=== PATIENT | female | born 1945 | race Caucasian/White ===

== ENCOUNTER 2017-10-28 16:38 | Inpatient (IN) | payer MEDICARE, OTHER, SELFPAY ==
[2017-10-28 15:44] VITALS: BP 127/63; PULSE 79; RESP 18; TEMP 36.9; O2SAT 93; BMI 50.3
[2017-10-28 15:49] VITALS: BMI 50.3
--- NOTE | 2017-10-28 16:20 | NURSING ---
Patient admitted to room 2 from [facility]. Oriented to room and call light system explained.
--- NOTE | 2017-10-28 20:27 | PCM.HP.STD ---
Problem List (1) Osteoarthritis of right knee Status: Chronic (2) Diabetes mellitus Status: Chronic (3) Hypertension Status: Chronic (4) Asthma Status: Chronic (5) Vitamin D deficiency Status: Chronic (6) Osteoarthritis Status: Chronic (7) Allergic rhinitis Status: Chronic (8) Morbid obesity Status: Chronic (9) COPD (chronic obstructive pulmonary disease) Status: Chronic (10) Obstructive sleep apnea Status: Chronic History of Present Illness Date of Admission: 10/28/17 Chief Complaint: Here for rehabilitation, strengthening, prior to discharge home alone. The patient is a 72 year old Female with below past medical history hospitalized for right knee replacement 10/25/[address] Heriberto Serra at [facility], admitted to TCU for rehabilitation, strengthening, prior to discharge home alone. Past Medical History Past Medical History (Chronic Problems): Chronic Problems Osteoarthritis of right knee (Chronic) Diabetes mellitus (Chronic) Hypertension (Chronic) Asthma (Chronic) Vitamin D deficiency (Chronic) Osteoarthritis (Chronic) Allergic rhinitis (Chronic) Morbid obesity (Chronic) COPD (chronic obstructive pulmonary disease) (Chronic) Obstructive sleep apnea (Chronic) Allergies codeine Allergy (Verified 10/28/17 17:18) Unknown erythromycin base Allergy (Verified 10/28/17 17:18) Unknown Penicillins Allergy (Verified 10/28/17 17:18) Unknown Home Medications: Ambulatory Orders Medication Instructions Recorded Albuterol Aerosols [Ventolin 2.5 mg INHALATION Q6H PRN PRN 10/28/17 Aerosols] Albuterol Sulfate [Proair 108 mcg IH Q4H PRN 10/28/17 Respiclick] Bisacodyl [Bisac-Evac] 10 mg RC BID PRN 10/28/17 Bisoprolol Fumarate/Hctz 2.5 - 6.25 mg PO DAILY 10/28/17 [Bisoprolol-Hctz 2.5-6.25 mg Tb] Cholecalciferol (Vitamin D3) 5,000 unit PO DAILY 10/28/17 [Vitamin D3] Fluticasone/Vilanterol [Breo 1 each IH DAILY 10/28/17 Ellipta Inhaler] Hydroxychloroquine [Plaquenil] 200 mg PO BIDCM 10/28/17 Loratadine [Claritin] 10 mg PO DAILY 10/28/17 Metformin HCl 500 mg PO DAILY 10/28/17 Montelukast Sodium 10 mg PO DAILY 10/28/17 MorphINE [MS Contin] 15 mg PO Q12H 10/28/17 Oxycodone HCl/Acetaminophen 1 - 2 tablet PO Q4H PRN PRN 10/28/17 [Percocet 5/325] Quinapril HCl 40 mg PO DAILY 10/28/17 Rivaroxaban [Xarelto] 10 mg PO DAILY 10/28/17 Surgical History: total knee arthroplasty - Right. 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 Lives: Alone Smoking Status: Former smoker Tobacco Use: Non-smoker Alcohol: None Drugs: None - *Family History Maternal History Items: No pertinent history Paternal History Items: No pertinent history Review of Systems Constitutional: Denies: Chills, Fever, Weight Change HEENT: Denies: Head Aches, Sinus Congestion, Sinus Drainage Cardiovascular: Denies: Chest Pain, Palpitations Respiratory: Denies: Cough, Shortness of breath at rest, Sputum production Gastrointestinal: Denies: Abdominal Pain, Nausea, Vomiting Genitourinary: Denies: Dysuria Musculoskeletal: Denies: Joint Pain, Joint Tenderness Skin: Denies: Rash, Wounds Neurological: Denies: Numbness, Tingling, Focal weakness Psychiatric: Denies: Anxiety, Depression, Homicidal Ideations, Suicidal Ideations Hematologic/ Lymphatic: Denies: Easy Bruising, Easy Bleeding VTE Information - Inpt Only VTE Present on Admission: No VTE Mechan Device Prophylaxis: Knee High ANIBAL Hose VTE Pharm Prophylaxis ordered?: Yes - Physical Exam General: Alert, Oriented x3, Cooperative HEENT: Atraumatic, PERRLA, EOMI, Normocephalic Neck: Supple, No JVD, Negative Carotid Bruits Lungs: Clear to auscultation, Normal air movement Cardiovascular: Regular rate, No murmurs Abdomen: Bowel Sounds Present, Soft, Non Tender Extremities: No edema, Capillary Refill Less than 3 Seconds Skin: No rashes, No breakdown, Incision - Right knee clean, dry, intact. Musculoskeletal: No Tenderness to Palpation of Joints or Extremities Neurological: Cranial nerves II-XII grossly intact Psych/Mental Status: Normal Affect, Appropriate Vital Signs Temp Pulse Resp BP Pulse Ox 98.4 F 79 18 127/63 H 93 10/28/17 15:44 10/28/17 15:44 10/28/17 15:44 10/28/17 15:44 10/28/17 15:44 Oxygen Delivery Method Room Air Weight: 120.854 kg Body Mass Index (BMI) 50.3 Intake and Output for Last 24 Hours 10/26/17 10/27/17 10/28/17 23:59 23:59 23:59 Intake Total 120 / 120 Balance 120 / 120 Assessment/Plan 72 year old female with below past medical history status post right knee arthroplasty with Dr. Heriberto Serra 10/25/2017, admitted to TCU for rehabilitation, strengthening, prior to discharge home alone. Debility - PT/OT. Pain - MS Contin 15MG Q12H, Oxycodone 10MG Q4H PRN severe pain, Tylenol 1000MG Q8H. Bowel - Miralax 17GM daily, Senna/colace 2 tablets BID, Dulcolax 10MG PO daily PRN, Magnesium citrate 300ML PO x 1 dose for clean out. Pneumonia vaccination - Administer Prevnar 13 and/or Pneumovax 23 as necessary. DVT prophylaxis - Xarelto 10MG thru 11/06/2017. COPD - Breo 1 inhalation, Albuterol 2.5MG Q6H PRN, Proair Respiclick 108MG Q4H PRN. Vitamin D deficiency - D3 5000IU daily. Hypertension - Bisoprolol HCT 2.5/6.25MG daily, Lisinopril 40MG daily. Osteoarthritis - Plaquenil 200MG BID. Allergic Rhinitis - Loratadine 10MG daily. Diabetes Mellitus II - Metformin 500MG daily. Asthma - Singulair 10MG daily.
[2017-10-28] MEDS: Magnesium Citrate 300 ML PO (20:33)
[2017-10-28] MEDS: Hydroxychloroquine 200 MG Tablet PO (20:37)
--- NOTE | 2017-10-28 20:40 | HP.PCM_ITS ---
Problem List (1) Osteoarthritis of right knee Status: Chronic (2) Diabetes mellitus Status: Chronic (3) Hypertension Status: Chronic (4) Asthma Status: Chronic (5) Vitamin D deficiency Status: Chronic (6) Osteoarthritis Status: Chronic (7) Allergic rhinitis Status: Chronic (8) Morbid obesity Status: Chronic (9) COPD (chronic obstructive pulmonary disease) Status: Chronic (10) Obstructive sleep apnea Status: Chronic History of Present Illness Date of Admission: 10/28/17 Chief Complaint: Here for rehabilitation, strengthening, prior to discharge home alone. The patient is a 72 year old Female with below past medical history hospitalized for right knee replacement 10/25/[address] Heriberto Serra at [facility], admitted to TCU for rehabilitation, strengthening, prior to discharge home alone. Past Medical History Past Medical History (Chronic Problems): Chronic Problems Osteoarthritis of right knee (Chronic) Diabetes mellitus (Chronic) Hypertension (Chronic) Asthma (Chronic) Vitamin D deficiency (Chronic) Osteoarthritis (Chronic) Allergic rhinitis (Chronic) Morbid obesity (Chronic) COPD (chronic obstructive pulmonary disease) (Chronic) Obstructive sleep apnea (Chronic) Allergies codeine Allergy (Verified 10/28/17 17:18) Unknown erythromycin base Allergy (Verified 10/28/17 17:18) Unknown Penicillins Allergy (Verified 10/28/17 17:18) Unknown Home Medications: Ambulatory Orders Medication Instructions Recorded Albuterol Aerosols [Ventolin 2.5 mg INHALATION Q6H PRN PRN 10/28/17 Aerosols] Albuterol Sulfate [Proair 108 mcg IH Q4H PRN 10/28/17 Respiclick] Bisacodyl [Bisac-Evac] 10 mg RC BID PRN 10/28/17 Bisoprolol Fumarate/Hctz 2.5 - 6.25 mg PO DAILY 10/28/17 [Bisoprolol-Hctz 2.5-6.25 mg Tb] Cholecalciferol (Vitamin D3) 5,000 unit PO DAILY 10/28/17 [Vitamin D3] Fluticasone/Vilanterol [Breo 1 each IH DAILY 10/28/17 Ellipta Inhaler] Hydroxychloroquine [Plaquenil] 200 mg PO BIDCM 10/28/17 Loratadine [Claritin] 10 mg PO DAILY 10/28/17 Metformin HCl 500 mg PO DAILY 10/28/17 Montelukast Sodium 10 mg PO DAILY 10/28/17 MorphINE [MS Contin] 15 mg PO Q12H 10/28/17 Oxycodone HCl/Acetaminophen 1 - 2 tablet PO Q4H PRN PRN 10/28/17 [Percocet 5/325] Quinapril HCl 40 mg PO DAILY 10/28/17 Rivaroxaban [Xarelto] 10 mg PO DAILY 10/28/17 Surgical History: total knee arthroplasty - Right. 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 Lives: Alone Smoking Status: Former smoker Tobacco Use: Non-smoker Alcohol: None Drugs: None - *Family History Maternal History Items: No pertinent history Paternal History Items: No pertinent history Review of Systems Constitutional: Denies: Chills, Fever, Weight Change HEENT: Denies: Head Aches, Sinus Congestion, Sinus Drainage Cardiovascular: Denies: Chest Pain, Palpitations Respiratory: Denies: Cough, Shortness of breath at rest, Sputum production Gastrointestinal: Denies: Abdominal Pain, Nausea, Vomiting Genitourinary: Denies: Dysuria Musculoskeletal: Denies: Joint Pain, Joint Tenderness Skin: Denies: Rash, Wounds Neurological: Denies: Numbness, Tingling, Focal weakness Psychiatric: Denies: Anxiety, Depression, Homicidal Ideations, Suicidal Ideations Hematologic/ Lymphatic: Denies: Easy Bruising, Easy Bleeding VTE Information - Inpt Only VTE Present on Admission: No VTE Mechan Device Prophylaxis: Knee High ANIBAL Hose VTE Pharm Prophylaxis ordered?: Yes - Physical Exam General: Alert, Oriented x3, Cooperative HEENT: Atraumatic, PERRLA, EOMI, Normocephalic Neck: Supple, No JVD, Negative Carotid Bruits Lungs: Clear to auscultation, Normal air movement Cardiovascular: Regular rate, No murmurs Abdomen: Bowel Sounds Present, Soft, Non Tender Extremities: No edema, Capillary Refill Less than 3 Seconds Skin: No rashes, No breakdown, Incision - Right knee clean, dry, intact. Musculoskeletal: No Tenderness to Palpation of Joints or Extremities Neurological: Cranial nerves II-XII grossly intact Psych/Mental Status: Normal Affect, Appropriate Vital Signs Temp Pulse Resp BP Pulse Ox 98.4 F 79 18 127/63 H 93 10/28/17 15:44 10/28/17 15:44 10/28/17 15:44 10/28/17 15:44 10/28/17 15:44 Oxygen Delivery Method Room Air Weight: 120.854 kg Body Mass Index (BMI) 50.3 Intake and Output for Last 24 Hours 10/26/17 10/27/17 10/28/17 23:59 23:59 23:59 Intake Total 120 / 120 Balance 120 / 120 Assessment/Plan 72 year old female with below past medical history status post right knee arthroplasty with Dr. Heriberto Serra 10/25/2017, admitted to TCU for rehabilitation , strengthening, prior to discharge home alone. * Debility - PT/OT. * Pain - MS Contin 15MG Q12H, Oxycodone 10MG Q4H PRN severe pain, Tylenol 1000MG Q8H. * Bowel - Miralax 17GM daily, Senna/colace 2 tablets BID, Dulcolax 10MG PO daily PRN, Magnesium citrate 300ML PO x 1 dose for clean out. * Pneumonia vaccination - Administer Prevnar 13 and/or Pneumovax 23 as necessary. * DVT prophylaxis - Xarelto 10MG thru 11/06/2017. * COPD - Breo 1 inhalation, Albuterol 2.5MG Q6H PRN, Proair Respiclick 108MG Q4H PRN. * Vitamin D deficiency - D3 5000IU daily. * Hypertension - Bisoprolol HCT 2.5/6.25MG daily, Lisinopril 40MG daily. * Osteoarthritis - Plaquenil 200MG BID. * Allergic Rhinitis - Loratadine 10MG daily. * Diabetes Mellitus II - Metformin 500MG daily. * Asthma - Singulair 10MG daily.
[2017-10-28] MEDS: Acetaminophen 500 MG Tablet 1000 MG PO (21:17)
[2017-10-28] MEDS: oxyCODONE 5 MG Tablet 10 MG PO (21:18)
[2017-10-29 05:45] LABS: Absolute Neutrophil Count 5.7 X10^3/uL (2.0-7.7); Basophil# 0.03 X10^3/uL; Basophil% 0.4 % (0-1); Eosinophil# 0.42 X10^3/uL; Hematocrit 33.4 % (37-47); Hemoglobin 10.3 g/dl (12.0-15.0); Lymphocyte % 16.6 % (19-41); Mean Corp Hgb Conc 30.8 g/gl (32-36); Mean Corpuscular Hgb 26.1 pg (27.0-32.0); Mean Corpuscular Volume 84.6 fL (81-99); Mean Platelet Vol. 11.1 fl (6.2-12.0); Monocyte# 0.89 X10^3/uL; Monocyte% 10.6 % (0-10); Neutrophil # 5.66 X10^3/uL (2.7-7.7); Platelet Count 187 K/mm3 (150-450); RBC Distribution Width CV 15.5 % (11.6-14.6); RBC Distribution Width SD 46.8 fl (35.1-43.9); Red Blood Count 3.95 M/mm3 (4.2-5.4); White Blood Count 8.4 K/mm3 (4.4-11.0)
[2017-10-29 05:51] LABS: POSITIVE COUNT NO; POSITIVE DIFFERENTIAL NO; POSITIVE MORPHOLOGY NO
[2017-10-29 05:59] LABS: Anion Gap 8 (5-15); BUN 17 mg/dL (7-18); Calcium,Total 8.4 mg/dL (8.5-10.1); Chloride 100 mmol/L (98-107); Creatinine, Serum 0.81 mg/dL (0.55-1.02); EST Glomerular Filtration Rate 74 mL/min (>60); Est Glom Filt Rate - Afr Amer 89 mL/min (>60); Estimated Creatinine Clearance 47.37 ml/min; Glucose 85 mg/dL (74-106); Sodium Level 139 mmol/L (136-145)
[2017-10-29] MEDS: Polyethylene Glycol 3350 17 GM PACKET PO (06:15)
[2017-10-29] MEDS: Acetaminophen 500 MG Tablet 1000 MG PO ×3 (06:15→20:11)
[2017-10-29] MEDS: Senna/Docusate Sodium 1 Tablet 2 TABLET PO ×2 (06:15→17:49)
[2017-10-29] MEDS: Loratadine 10 MG Tablet PO (06:16)
[2017-10-29] MEDS: Montelukast 10 MG Tablet PO (06:16)
[2017-10-29] MEDS: Lisinopril 40 MG Tablet PO (06:16)
[2017-10-29] MEDS: Rivaroxaban 10 MG Tablet PO (06:29)
[2017-10-29 06:51] LABS: Bedside Glucose 105 mg/dL (70-110)
[2017-10-29] MEDS: Hydroxychloroquine 200 MG Tablet PO ×2 (08:14→17:50)
[2017-10-29 10:00] VITALS: PULSE 88; RESP 18; O2SAT 93
[2017-10-29] MEDS: oxyCODONE 5 MG Tablet 10 MG PO ×2 (10:50→22:28)
[2017-10-29] MEDS: Tuberculin,Purif.prot.deriv. 50 TU/ML Vial 5 ML ID (11:14)
[2017-10-29 13:14] VITALS: BP 118/59; PULSE 88; RESP 18; O2SAT 93
[2017-10-29] MEDS: Bisoprolol Fumarate 5 MG Tablet 2.5 MG PO (14:09)
[2017-10-29] MEDS: HYDROCHLOROTHIAZIDE 12.5 MG TABLET 6.25 MG PO (14:10)
--- NOTE | 2017-10-29 14:28 | CHAPLAIN ---
Type of Pastoral Visit _x__ Initial Visit ___ Follow-up Visit ___ On-call Visit ___ General Patient Visit ___ Spiritual Assessment ___ Family Conference ___ Bereavement ___ Rapid Response ___ Code Blue ___ Other (describe below) Pastoral Care Referral From _x__ Patient ___ Family ___ Nurse ___ Physician ___ Automotive Electrician ___ Information Developer ___ Other (describe below) Sacrament/Intervention _x__ Active listening ___ Anointing ___ Nondenominational ___ Bereavement ___ Communion ___ Anny exploration ___ ___ Life review _x__ Prayer ___ Reconciliation ___ Sacrament of Sick ___ Supportive presence ___ Wedding ___ Other (describe below) Pastoral Comments
[2017-10-29 16:00] VITALS: BP 115/65; PULSE 76; RESP 18; TEMP 36.8; O2SAT 90
[2017-10-30] MEDS: Loratadine 10 MG Tablet PO (05:03)
[2017-10-30] MEDS: Rivaroxaban 10 MG Tablet PO (05:03)
[2017-10-30] MEDS: Montelukast 10 MG Tablet PO (05:03)
[2017-10-30] MEDS: Senna/Docusate Sodium 1 Tablet 2 TABLET PO ×2 (05:03→17:05)
[2017-10-30] MEDS: Lisinopril 40 MG Tablet PO (05:04)
[2017-10-30] MEDS: HYDROCHLOROTHIAZIDE 12.5 MG TABLET 6.25 MG PO (05:05)
[2017-10-30] MEDS: Bisoprolol Fumarate 5 MG Tablet 2.5 MG PO (05:06)
[2017-10-30] MEDS: Acetaminophen 500 MG Tablet 1000 MG PO ×3 (05:06→21:23)
[2017-10-30 06:41] LABS: Bedside Glucose 132 mg/dL (70-110)
[2017-10-30] MEDS: Hydroxychloroquine 200 MG Tablet PO ×2 (07:49→17:05)
[2017-10-30] MEDS: Iron Polysaccharide Complex 150 MG CAPSULE PO (07:49)
[2017-10-30] MEDS: oxyCODONE 5 MG Tablet 10 MG PO ×2 (10:48→21:23)
--- NOTE | 2017-10-30 12:59 | PCM.PN.RX ---
<Waqar Montoya - Last Filed: 10/30/17 12:59> Progress Note - Pharmacy Subjective: [] TCU Admission Objective: Allergies codeine Allergy (Verified 10/28/17 17:18) Unknown erythromycin base Allergy (Verified 10/28/17 17:18) Unknown Penicillins Allergy (Verified 10/28/17 17:18) Unknown Home Medications Medication Instructions Recorded Albuterol Aerosols [Ventolin 2.5 mg INHALATION Q6H PRN PRN 10/28/17 Aerosols] Albuterol Sulfate [Proair 108 mcg IH Q4H PRN 10/28/17 Respiclick] Bisacodyl [Bisac-Evac] 10 mg RC BID PRN 10/28/17 Bisoprolol Fumarate/Hctz 2.5 - 6.25 mg PO DAILY 10/28/17 [Bisoprolol-Hctz 2.5-6.25 mg Tb] Cholecalciferol (Vitamin D3) 5,000 unit PO DAILY 10/28/17 [Vitamin D3] Fluticasone/Vilanterol [Breo 1 each IH DAILY 10/28/17 Ellipta Inhaler] Hydroxychloroquine [Plaquenil] 200 mg PO BIDCM 10/28/17 Loratadine [Claritin] 10 mg PO DAILY 10/28/17 Metformin HCl 500 mg PO DAILY 10/28/17 Montelukast Sodium 10 mg PO DAILY 10/28/17 MorphINE [MS Contin] 15 mg PO Q12H 10/28/17 Oxycodone HCl/Acetaminophen 1 - 2 tablet PO Q4H PRN PRN 10/28/17 [Percocet 5/325] Quinapril HCl 40 mg PO DAILY 10/28/17 Rivaroxaban [Xarelto] 10 mg PO DAILY 10/28/17 Current Medications Generic Name Dose Route Start Last Admin Trade Name Freq PRN Reason Stop Dose Admin Acetaminophen 1,000 mg 10/28/17 22:00 10/30/17 05:06 Tylenol PO 1,000 mg Q8 VAUGHN Administration Albuterol Sulfate 2.5 mg 10/28/17 16:36 Ventolin Aerosols INHALATION Q6H PRN PRN SOB &/OR WHEEZING Albuterol Sulfate 1 puff 10/29/17 10:04 Proair Hfa (Sp) Surgery/Vent Pts INHALATION Q4H PRN PRN SHORTNESS OF BREATH/WHEEZE Bisacodyl 10 mg 10/28/17 20:42 Dulcolax PO DAILY PRN Constipation Bisoprolol Fumarate 2.5 mg 10/29/17 12:00 10/30/17 05:06 Zebeta PO 2.5 mg DAILY [facility] Administration Cholecalciferol 5,000 unit 10/29/17 06:00 10/30/17 05:03 Vitamin D PO 5,000 unit DAILY [facility] Administration Hydrochlorothiazide 6.25 mg 10/29/17 12:00 10/30/17 05:05 Hydrochlorothiazide PO 6.25 mg DAILY [facility] Administration Hydroxychloroquine Sulfate 200 mg 10/28/17 17:00 10/30/17 07:49 [facility] Lisinopril 40 mg 10/29/17 06:00 10/30/17 05:04 Zestril PO 40 mg DAILY [facility] Administration Loratadine 10 mg 10/29/17 06:00 10/30/17 05:03 Claritin PO 10 mg DAILY [facility] Administration Metformin HCl 500 mg 10/29/17 08:00 10/30/17 07:49 [facility] Montelukast Sodium 10 mg 10/29/17 06:00 10/30/17 05:03 Singulair PO 10 mg DAILY [facility] Administration Morphine Sulfate 15 mg 10/28/17 16:45 10/30/17 05:01 Ms Contin PO 15 mg Q12H [facility] Administration Oxycodone HCl 10 mg 10/28/17 20:42 10/30/17 10:48 Oxyir PO 10 mg Q4H PRN PRN Administration SEVERE PAIN (6-10/10) Polyethylene Glycol 17 gm 10/29/17 06:00 10/30/17 05:04 Miralax PO Not Given DAILY [facility] Polysaccharide Iron Complex 150 mg 10/30/17 08:00 10/30/17 07:49 Ferrex 150 [facility] Administration Rivaroxaban 10 mg 10/29/17 06:00 10/30/17 05:03 Xarelto PO 11/06/17 23:59 10 mg DAILY [facility] Administration Fluticasone/Salmeterol 1 puff 10/29/17 18:00 10/30/17 05:02 Advair 250/50 Mcg Diskus INHALATION 1 puff BID [facility] Administration Senna/Docusate Sodium 2 tablet 10/29/17 06:00 10/30/17 05:03 Senokot-S, Janette-Colace PO 2 tablet BID [facility] Administration Tuberculin PPD 5 tu 11/05/17 10:00 Tubersol, Aplisol, Ppd ID 11/05/17 10:01 X1 ONE Problem List Osteoarthritis of right knee (Chronic) Diabetes mellitus (Chronic) Hypertension (Chronic) Asthma (Chronic) Vitamin D deficiency (Chronic) Osteoarthritis (Chronic) Allergic rhinitis (Chronic) Morbid obesity (Chronic) COPD (chronic obstructive pulmonary disease) (Chronic) Obstructive sleep apnea (Chronic) Vital Signs Temp Pulse Resp BP Pulse Ox 98.3 F 76 18 115/65 90 10/29/17 16:00 10/29/17 16:00 10/29/17 16:00 10/29/17 16:00 10/29/17 16:00 Oxygen Delivery Method Room Air Weight: 120.854 kg Body Mass Index (BMI) 50.3 Sodium 139 mmol/L (136-145) 10/29/17 05:00 Potassium 4.0 mmol/L (3.5-5.1) 10/29/17 05:00 Chloride 100 mmol/L (98-107) 10/29/17 05:00 Carbon Dioxide 31.0 mmol/L (21.0-32.0) 10/29/17 05:00 Anion Gap 8 (5-15) 10/29/17 05:00 BUN 17 mg/dL (7-18) 10/29/17 05:00 Creatinine 0.81 mg/dL (0.55-1.02) 10/29/17 05:00 Est GFR (MDRD) Af Amer 89 mL/min (>60) 10/29/17 05:00 Est GFR (MDRD) Non-Af 74 mL/min (>60) 10/29/17 05:00 BUN/Creatinine Ratio 21.0 RATIO (10-20) H 10/29/17 05:00 Glucose 85 mg/dL (74-106) 10/29/17 05:00 Assessment/Plan: 1) Pain: Acetaminophen 1000mg po q8, Morphine Sulfate 15mg po q12, Oxycodone 10mg po q4h prn for severe pain. Please continue to monitor prn usage and for signs/symptoms of increased/decreased pain. 2) DVT Prophylaxis: Xarelto 10mg po daily thru 11/06/17. Please continue to monitor for signs/symptoms of bleeding and/or clot. 3) Allergic Rhinitis: Loratadine 10mg po qd. Please continue to monitor for signs/symptoms of allergies 4) Diabetes Mellitus II: Metformin 500mg po daily. Pt's SrCr is 0.81, CrCl is 47.37, and GFR is 74. Please continue to monitor renal function. Pt's blood sugars have been 105, and 132. Please continue to monitor. *5) Vitamin D Deficiency: Vitamin D3 5,000 units po daily. The last vitamin D level in the pt's chart was from 2014. Please consider a yearly Vitamin D level. Thanks 6) Hypertension: Bisoprolol 2.5mg po daily, HCTZ 6.25mg po daily, Lisinopril 40mg po daily. Pt's Na is 139, K+ is 4.0, Bun is 17, Sr Cr is 0.81, and CrCl is 47.37. Please continue to monitor. Pt's blood pressure and pulse are within normal limits. Please continue to monitor. 7) Asthma: Montelukast 10mg po daily. Please continue to monitor pt's asthma. 8) COPD: Albuterol 2.5mg nebulizer q6h prn for sob/wheezing, Albuterol MDI 1 puff po q4h prn for shortness of breath/wheezing, Fluticasone/Salmeterol 250/50 1 puff po bid. Please continue to monitor pt's breathing. Pt should rinse, gargle, and spit after each dose of Advair to help prevent thrush. 9) Osteoarthritis: Plaquenil 200mg po bid with food. Pt should have a yearly vision check while on Plaquenil. Psychotropic Medications: none Unnecessary Medications: none Bowel Regimen: Miralax 17gm po daily, Bisacodyl 10mg po daily prn constipation, Senna/Docusate 2 tablets po bid. Please continue to monitor prn usage and for signs/symptoms of diarrhea/constipation. T Date of Note:: 10/30/17 - Provider Comments Provider responsibility: Provider responsible to enter orders to implement recommendations <Oscar Rosado Chi - Last Filed: 10/30/17 13:49> Progress Note - Pharmacy Subjective: [] Objective: Allergies codeine Allergy (Verified 10/28/17 17:18) Unknown erythromycin base Allergy (Verified 10/28/17 17:18) Unknown Penicillins Allergy (Verified 10/28/17 17:18) Unknown Home Medications Medication Instructions Recorded Albuterol Aerosols [Ventolin 2.5 mg INHALATION Q6H PRN PRN 10/28/17 Aerosols] Albuterol Sulfate [Proair 108 mcg IH Q4H PRN 10/28/17 Respiclick] Bisacodyl [Bisac-Evac] 10 mg RC BID PRN 10/28/17 Bisoprolol Fumarate/Hctz 2.5 - 6.25 mg PO DAILY 10/28/17 [Bisoprolol-Hctz 2.5-6.25 mg Tb] Cholecalciferol (Vitamin D3) 5,000 unit PO DAILY 10/28/17 [Vitamin D3] Fluticasone/Vilanterol [Breo 1 each IH DAILY 10/28/17 Ellipta Inhaler] Hydroxychloroquine [Plaquenil] 200 mg PO BIDCM 10/28/17 Loratadine [Claritin] 10 mg PO DAILY 10/28/17 Metformin HCl 500 mg PO DAILY 10/28/17 Montelukast Sodium 10 mg PO DAILY 10/28/17 MorphINE [MS Contin] 15 mg PO Q12H 10/28/17 Oxycodone HCl/Acetaminophen 1 - 2 tablet PO Q4H PRN PRN 10/28/17 [Percocet 5/325] Quinapril HCl 40 mg PO DAILY 10/28/17 Rivaroxaban [Xarelto] 10 mg PO DAILY 10/28/17 Current Medications Generic Name Dose Route Start Last Admin Trade Name Freq PRN Reason Stop Dose Admin Acetaminophen 1,000 mg 10/28/17 22:00 10/30/17 13:06 Tylenol PO 1,000 mg Q8 VAUGHN Administration Albuterol Sulfate 2.5 mg 10/28/17 16:36 Ventolin Aerosols INHALATION Q6H PRN PRN SOB &/OR WHEEZING Albuterol Sulfate 1 puff 10/29/17 10:04 Proair Hfa (Sp) Surgery/Vent Pts INHALATION Q4H PRN PRN SHORTNESS OF BREATH/WHEEZE Bisacodyl 10 mg 10/28/17 20:42 Dulcolax PO DAILY PRN Constipation Bisoprolol Fumarate 2.5 mg 10/29/17 12:00 10/30/17 05:06 Zebeta PO 2.5 mg DAILY [facility] Administration Cholecalciferol 5,000 unit 10/29/17 06:00 10/30/17 05:03 Vitamin D PO 5,000 unit DAILY [facility] Administration Hydrochlorothiazide 6.25 mg 10/29/17 12:00 10/30/17 05:05 Hydrochlorothiazide PO 6.25 mg DAILY [facility] Administration Hydroxychloroquine Sulfate 200 mg 10/28/17 17:00 10/30/17 07:49 Plaquenil PO 200 mg BIDCM [facility] Administration Lisinopril 40 mg 10/29/17 06:00 10/30/17 05:04 Zestril PO 40 mg DAILY [facility] Administration Loratadine 10 mg 10/29/17 06:00 10/30/17 05:03 Claritin PO 10 mg DAILY [facility] Administration Metformin HCl 500 mg 10/29/17 08:00 10/30/17 07:49 [facility] Montelukast Sodium 10 mg 10/29/17 06:00 10/30/17 05:03 Singulair PO 10 mg DAILY [facility] Administration Morphine Sulfate 15 mg 10/28/17 16:45 10/30/17 05:01 Ms Contin PO 15 mg Q12H [facility] Administration Oxycodone HCl 10 mg 10/28/17 20:42 10/30/17 10:48 Oxyir PO 10 mg Q4H PRN PRN Administration SEVERE PAIN (6-10/10) Polyethylene Glycol 17 gm 10/29/17 06:00 10/30/17 05:04 Miralax PO Not Given DAILY [facility] Polysaccharide Iron Complex 150 mg 10/30/17 08:00 10/30/17 07:49 Ferrex 150 [facility] Administration Rivaroxaban 10 mg 10/29/17 06:00 10/30/17 05:03 Xarelto PO 11/06/17 23:59 10 mg DAILY [facility] Administration Fluticasone/Salmeterol 1 puff 10/29/17 18:00 10/30/17 05:02 Advair 250/50 Mcg Diskus INHALATION 1 puff BID [facility] Administration Senna/Docusate Sodium 2 tablet 10/29/17 06:00 10/30/17 05:03 Senokot-S, Janette-Colace PO 2 tablet BID [facility] Administration Tuberculin PPD 5 tu 11/05/17 10:00 Tubersol, Aplisol, Ppd ID 11/05/17 10:01 X1 ONE Problem List Osteoarthritis of right knee (Chronic) Diabetes mellitus (Chronic) Hypertension (Chronic) Asthma (Chronic) Vitamin D deficiency (Chronic) Osteoarthritis (Chronic) Allergic rhinitis (Chronic) Morbid obesity (Chronic) COPD (chronic obstructive pulmonary disease) (Chronic) Obstructive sleep apnea (Chronic) Vital Signs Temp Pulse Resp BP Pulse Ox 98.3 F 76 18 115/65 90 10/29/17 16:00 10/29/17 16:00 10/29/17 16:00 10/29/17 16:00 10/29/17 16:00 Oxygen Delivery Method Room Air Weight: 120.854 kg Body Mass Index (BMI) 50.3 Sodium 139 mmol/L (136-145) 10/29/17 05:00 Potassium 4.0 mmol/L (3.5-5.1) 10/29/17 05:00 Chloride 100 mmol/L (98-107) 10/29/17 05:00 Carbon Dioxide 31.0 mmol/L (21.0-32.0) 10/29/17 05:00 Anion Gap 8 (5-15) 10/29/17 05:00 BUN 17 mg/dL (7-18) 10/29/17 05:00 Creatinine 0.81 mg/dL (0.55-1.02) 10/29/17 05:00 Est GFR (MDRD) Af Amer 89 mL/min (>60) 10/29/17 05:00 Est GFR (MDRD) Non-Af 74 mL/min (>60) 10/29/17 05:00 BUN/Creatinine Ratio 21.0 RATIO (10-20) H 10/29/17 05:00 Glucose 85 mg/dL (74-106) 10/29/17 05:00 Assessment/Plan: Psychotropic Medications: Unnecessary Medications: Bowel Regimen: - Provider Comments Provider responsibility: Provider responsible to enter orders to implement recommendations Provider Comments to Recommendations by Pharmacy: Agree
--- NOTE | 2017-10-30 13:35 | PHA.CONS_ITS ---
<Waqar Montoya - Last Filed: 10/30/17 12:59> Progress Note - Pharmacy Subjective: [] TCU Admission Objective: Allergies codeine Allergy (Verified 10/28/17 17:18) Unknown erythromycin base Allergy (Verified 10/28/17 17:18) Unknown Penicillins Allergy (Verified 10/28/17 17:18) Unknown Home Medications Medication Instructions Recorded Albuterol Aerosols [Ventolin 2.5 mg INHALATION Q6H PRN PRN 10/28/17 Aerosols] Albuterol Sulfate [Proair 108 mcg IH Q4H PRN 10/28/17 Respiclick] Bisacodyl [Bisac-Evac] 10 mg RC BID PRN 10/28/17 Bisoprolol Fumarate/Hctz 2.5 - 6.25 mg PO DAILY 10/28/17 [Bisoprolol-Hctz 2.5-6.25 mg Tb] Cholecalciferol (Vitamin D3) 5,000 unit PO DAILY 10/28/17 [Vitamin D3] Fluticasone/Vilanterol [Breo 1 each IH DAILY 10/28/17 Ellipta Inhaler] Hydroxychloroquine [Plaquenil] 200 mg PO BIDCM 10/28/17 Loratadine [Claritin] 10 mg PO DAILY 10/28/17 Metformin HCl 500 mg PO DAILY 10/28/17 Montelukast Sodium 10 mg PO DAILY 10/28/17 MorphINE [MS Contin] 15 mg PO Q12H 10/28/17 Oxycodone HCl/Acetaminophen 1 - 2 tablet PO Q4H PRN PRN 10/28/17 [Percocet 5/325] Quinapril HCl 40 mg PO DAILY 10/28/17 Rivaroxaban [Xarelto] 10 mg PO DAILY 10/28/17 Current Medications Generic Name Dose Route Start Last Admin Trade Name Freq PRN Reason Stop Dose Admin Acetaminophen 1,000 mg 10/28/17 22:00 10/30/17 05:06 Tylenol PO 1,000 mg Q8 VAUGHN Administration Albuterol Sulfate 2.5 mg 10/28/17 16:36 Ventolin Aerosols INHALATION Q6H PRN PRN SOB &/OR WHEEZING Albuterol Sulfate 1 puff 10/29/17 10:04 Proair Hfa (Sp) Surgery/Vent Pts INHALATION Q4H PRN PRN SHORTNESS OF BREATH/WHEEZE Bisacodyl 10 mg 10/28/17 20:42 Dulcolax PO DAILY PRN Constipation Bisoprolol Fumarate 2.5 mg 10/29/17 12:00 10/30/17 05:06 Zebeta PO 2.5 mg DAILY [facility] Administration Cholecalciferol 5,000 unit 10/29/17 06:00 10/30/17 05:03 Vitamin D PO 5,000 unit DAILY [facility] Administration Hydrochlorothiazide 6.25 mg 10/29/17 12:00 10/30/17 05:05 Hydrochlorothiazide PO 6.25 mg DAILY [facility] Administration Hydroxychloroquine Sulfate 200 mg 10/28/17 17:00 10/30/17 07:49 [facility] Lisinopril 40 mg 10/29/17 06:00 10/30/17 05:04 Zestril PO 40 mg DAILY [facility] Administration Loratadine 10 mg 10/29/17 06:00 10/30/17 05:03 Claritin PO 10 mg DAILY [facility] Administration Metformin HCl 500 mg 10/29/17 08:00 10/30/17 07:49 [facility] Montelukast Sodium 10 mg 10/29/17 06:00 10/30/17 05:03 Singulair PO 10 mg DAILY [facility] Administration Morphine Sulfate 15 mg 10/28/17 16:45 10/30/17 05:01 Ms Contin PO 15 mg Q12H [facility] Administration Oxycodone HCl 10 mg 10/28/17 20:42 10/30/17 10:48 Oxyir PO 10 mg Q4H PRN PRN Administration SEVERE PAIN (6-10/10) Polyethylene Glycol 17 gm 10/29/17 06:00 10/30/17 05:04 Miralax PO Not Given DAILY [facility] Polysaccharide Iron Complex 150 mg 10/30/17 08:00 10/30/17 07:49 Ferrex 150 [facility] Rivaroxaban 10 mg 10/29/17 06:00 10/30/17 05:03 Xarelto PO 11/06/17 23:59 10 mg DAILY [facility] Administration Fluticasone/Salmeterol 1 puff 10/29/17 18:00 10/30/17 05:02 Advair 250/50 Mcg Diskus INHALATION 1 puff BID [facility] Administration Senna/Docusate Sodium 2 tablet 10/29/17 06:00 10/30/17 05:03 Senokot-S, Janette-Colace PO 2 tablet BID [facility] Administration Tuberculin PPD 5 tu 11/05/17 10:00 Tubersol, Aplisol, Ppd ID 11/05/17 10:01 X1 ONE Problem List Osteoarthritis of right knee (Chronic) Diabetes mellitus (Chronic) Hypertension (Chronic) Asthma (Chronic) Vitamin D deficiency (Chronic) Osteoarthritis (Chronic) Allergic rhinitis (Chronic) Morbid obesity (Chronic) COPD (chronic obstructive pulmonary disease) (Chronic) Obstructive sleep apnea (Chronic) Vital Signs Temp Pulse Resp BP Pulse Ox 98.3 F 76 18 115/65 90 10/29/17 16:00 10/29/17 16:00 10/29/17 16:00 10/29/17 16:00 10/29/17 16:00 Oxygen Delivery Method Room Air Weight: 120.854 kg Body Mass Index (BMI) 50.3 Sodium 139 mmol/L (136-145) 10/29/17 05:00 Potassium 4.0 mmol/L (3.5-5.1) 10/29/17 05:00 Chloride 100 mmol/L (98-107) 10/29/17 05:00 Carbon Dioxide 31.0 mmol/L (21.0-32.0) 10/29/17 05:00 Anion Gap 8 (5-15) 10/29/17 05:00 BUN 17 mg/dL (7-18) 10/29/17 05:00 Creatinine 0.81 mg/dL (0.55-1.02) 10/29/17 05:00 Est GFR (MDRD) Af Amer 89 mL/min (>60) 10/29/17 05:00 Est GFR (MDRD) Non-Af 74 mL/min (>60) 10/29/17 05:00 BUN/Creatinine Ratio 21.0 RATIO (10-20) H 10/29/17 05:00 Glucose 85 mg/dL (74-106) 10/29/17 05:00 Assessment/Plan: 1) Pain: Acetaminophen 1000mg po q8, Morphine Sulfate 15mg po q12, Oxycodone 10mg po q4h prn for severe pain. Please continue to monitor prn usage and for signs/symptoms of increased/decreased pain. 2) DVT Prophylaxis: Xarelto 10mg po daily thru 11/06/17. Please continue to monitor for signs/symptoms of bleeding and/or clot. 3) Allergic Rhinitis: Loratadine 10mg po qd. Please continue to monitor for signs/symptoms of allergies 4) Diabetes Mellitus II: Metformin 500mg po daily. Pt's SrCr is 0.81, CrCl is 47.37, and GFR is 74. Please continue to monitor renal function. Pt's blood sugars have been 105, and 132. Please continue to monitor. *5) Vitamin D Deficiency: Vitamin D3 5,000 units po daily. The last vitamin D level in the pt's chart was from 2014. Please consider a yearly Vitamin D level. Thanks 6) Hypertension: Bisoprolol 2.5mg po daily, HCTZ 6.25mg po daily, Lisinopril 40mg po daily. Pt's Na is 139, K+ is 4.0, Bun is 17, Sr Cr is 0.81, and CrCl is 47.37. Please continue to monitor. Pt's blood pressure and pulse are within normal limits. Please continue to monitor. 7) Asthma: Montelukast 10mg po daily. Please continue to monitor pt's asthma. 8) COPD: Albuterol 2.5mg nebulizer q6h prn for sob/wheezing, Albuterol MDI 1 puff po q4h prn for shortness of breath/wheezing, Fluticasone/Salmeterol 250/50 1 puff po bid. Please continue to monitor pt's breathing. Pt should rinse, gargle, and spit after each dose of Advair to help prevent thrush. 9) Osteoarthritis: Plaquenil 200mg po bid with food. Pt should have a yearly vision check while on Plaquenil. Psychotropic Medications: none Unnecessary Medications: none Bowel Regimen: Miralax 17gm po daily, Bisacodyl 10mg po daily prn constipation , Senna/Docusate 2 tablets po bid. Please continue to monitor prn usage and for signs/symptoms of diarrhea/constipation. T Date of Note:: 10/30/17 - Provider Comments Provider responsibility: Provider responsible to enter orders to implement recommendations <Oscar Rosado Chi - Last Filed: 10/30/17 13:49> Progress Note - Pharmacy Subjective: [] Objective: Allergies codeine Allergy (Verified 10/28/17 17:18) Unknown erythromycin base Allergy (Verified 10/28/17 17:18) Unknown Penicillins Allergy (Verified 10/28/17 17:18) Unknown Home Medications Medication Instructions Recorded Albuterol Aerosols [Ventolin 2.5 mg INHALATION Q6H PRN PRN 10/28/17 Aerosols] Albuterol Sulfate [Proair 108 mcg IH Q4H PRN 10/28/17 Respiclick] Bisacodyl [Bisac-Evac] 10 mg RC BID PRN 10/28/17 Bisoprolol Fumarate/Hctz 2.5 - 6.25 mg PO DAILY 10/28/17 [Bisoprolol-Hctz 2.5-6.25 mg Tb] Cholecalciferol (Vitamin D3) 5,000 unit PO DAILY 10/28/17 [Vitamin D3] Fluticasone/Vilanterol [Breo 1 each IH DAILY 10/28/17 Ellipta Inhaler] Hydroxychloroquine [Plaquenil] 200 mg PO BIDCM 10/28/17 Loratadine [Claritin] 10 mg PO DAILY 10/28/17 Metformin HCl 500 mg PO DAILY 10/28/17 Montelukast Sodium 10 mg PO DAILY 10/28/17 MorphINE [MS Contin] 15 mg PO Q12H 10/28/17 Oxycodone HCl/Acetaminophen 1 - 2 tablet PO Q4H PRN PRN 10/28/17 [Percocet 5/325] Quinapril HCl 40 mg PO DAILY 10/28/17 Rivaroxaban [Xarelto] 10 mg PO DAILY 10/28/17 Current Medications Generic Name Dose Route Start Last Admin Trade Name Freq PRN Reason Stop Dose Admin Acetaminophen 1,000 mg 10/28/17 22:00 10/30/17 13:06 Tylenol PO 1,000 mg Q8 VAUGHN Administration Albuterol Sulfate 2.5 mg 10/28/17 16:36 Ventolin Aerosols INHALATION Q6H PRN PRN SOB &/OR WHEEZING Albuterol Sulfate 1 puff 10/29/17 10:04 Proair Hfa (Sp) Surgery/Vent Pts INHALATION Q4H PRN PRN SHORTNESS OF BREATH/WHEEZE Bisacodyl 10 mg 10/28/17 20:42 Dulcolax PO DAILY PRN Constipation Bisoprolol Fumarate 2.5 mg 10/29/17 12:00 10/30/17 05:06 Zebeta PO 2.5 mg DAILY [facility] Administration Cholecalciferol 5,000 unit 10/29/17 06:00 10/30/17 05:03 Vitamin D PO 5,000 unit DAILY [facility] Administration Hydrochlorothiazide 6.25 mg 10/29/17 12:00 10/30/17 05:05 Hydrochlorothiazide PO 6.25 mg DAILY [facility] Administration Hydroxychloroquine Sulfate 200 mg 10/28/17 17:00 10/30/17 07:49 Plaquenil PO 200 mg BIDCM [facility] Administration Lisinopril 40 mg 10/29/17 06:00 10/30/17 05:04 Zestril PO 40 mg DAILY [facility] Administration Loratadine 10 mg 10/29/17 06:00 10/30/17 05:03 Claritin PO 10 mg DAILY [facility] Administration Metformin HCl 500 mg 10/29/17 08:00 10/30/17 07:49 [facility] Montelukast Sodium 10 mg 10/29/17 06:00 10/30/17 05:03 Singulair PO 10 mg DAILY [facility] Administration Morphine Sulfate 15 mg 10/28/17 16:45 10/30/17 05:01 Ms Contin PO 15 mg Q12H [facility] Administration Oxycodone HCl 10 mg 10/28/17 20:42 10/30/17 10:48 Oxyir PO 10 mg Q4H PRN PRN Administration SEVERE PAIN (6-10/10) Polyethylene Glycol 17 gm 10/29/17 06:00 10/30/17 05:04 Miralax PO Not Given DAILY [facility] Polysaccharide Iron Complex 150 mg 10/30/17 08:00 10/30/17 07:49 Ferrex 150 [facility] Administration Rivaroxaban 10 mg 10/29/17 06:00 10/30/17 05:03 Xarelto PO 11/06/17 23:59 10 mg DAILY [facility] Administration Fluticasone/Salmeterol 1 puff 10/29/17 18:00 10/30/17 05:02 Advair 250/50 Mcg Diskus INHALATION 1 puff BID [facility] Administration Senna/Docusate Sodium 2 tablet 10/29/17 06:00 10/30/17 05:03 Senokot-S, Janette-Colace PO 2 tablet BID [facility] Administration Tuberculin PPD 5 tu 11/05/17 10:00 Tubersol, Aplisol, Ppd ID 11/05/17 10:01 X1 ONE Problem List Osteoarthritis of right knee (Chronic) Diabetes mellitus (Chronic) Hypertension (Chronic) Asthma (Chronic) Vitamin D deficiency (Chronic) Osteoarthritis (Chronic) Allergic rhinitis (Chronic) Morbid obesity (Chronic) COPD (chronic obstructive pulmonary disease) (Chronic) Obstructive sleep apnea (Chronic) Vital Signs Temp Pulse Resp BP Pulse Ox 98.3 F 76 18 115/65 90 10/29/17 16:00 10/29/17 16:00 10/29/17 16:00 10/29/17 16:00 10/29/17 16:00 Oxygen Delivery Method Room Air Weight: 120.854 kg Body Mass Index (BMI) 50.3 Sodium 139 mmol/L (136-145) 10/29/17 05:00 Potassium 4.0 mmol/L (3.5-5.1) 10/29/17 05:00 Chloride 100 mmol/L (98-107) 10/29/17 05:00 Carbon Dioxide 31.0 mmol/L (21.0-32.0) 10/29/17 05:00 Anion Gap 8 (5-15) 10/29/17 05:00 BUN 17 mg/dL (7-18) 10/29/17 05:00 Creatinine 0.81 mg/dL (0.55-1.02) 10/29/17 05:00 Est GFR (MDRD) Af Amer 89 mL/min (>60) 10/29/17 05:00 Est GFR (MDRD) Non-Af 74 mL/min (>60) 10/29/17 05:00 BUN/Creatinine Ratio 21.0 RATIO (10-20) H 10/29/17 05:00 Glucose 85 mg/dL (74-106) 10/29/17 05:00 Assessment/Plan: Psychotropic Medications: Unnecessary Medications: Bowel Regimen: - Provider Comments Provider responsibility: Provider responsible to enter orders to implement recommendations Provider Comments to Recommendations by Pharmacy: Agree
[2017-10-30 15:34] VITALS: BP 114/64; PULSE 72; RESP 22; TEMP 37.1; O2SAT 94
[2017-10-31] MEDS: oxyCODONE 5 MG Tablet 10 MG PO ×3 (04:25→23:50)
[2017-10-31] MEDS: Loratadine 10 MG Tablet PO (04:49)
[2017-10-31] MEDS: Senna/Docusate Sodium 1 Tablet 2 TABLET PO (04:51)
[2017-10-31] MEDS: Montelukast 10 MG Tablet PO (04:51)
[2017-10-31] MEDS: HYDROCHLOROTHIAZIDE 12.5 MG TABLET 6.25 MG PO (04:51)
[2017-10-31] MEDS: Acetaminophen 500 MG Tablet 1000 MG PO ×3 (04:52→22:07)
[2017-10-31] MEDS: Rivaroxaban 10 MG Tablet PO (04:53)
[2017-10-31] MEDS: Bisoprolol Fumarate 5 MG Tablet 2.5 MG PO (04:54)
[2017-10-31] MEDS: Lisinopril 40 MG Tablet PO (04:55)
[2017-10-31 06:36] LABS: Bedside Glucose 153 mg/dL (70-110)
[2017-10-31] MEDS: Hydroxychloroquine 200 MG Tablet PO ×2 (08:04→18:30)
[2017-10-31] MEDS: Iron Polysaccharide Complex 150 MG CAPSULE PO (08:04)
[2017-10-31 15:26] VITALS: BP 119/67; PULSE 74; RESP 20; TEMP 36.8; O2SAT 93
[2017-10-31 20:36] VITALS: PULSE 88; RESP 18; O2SAT 93
[2017-11-01] MEDS: Loratadine 10 MG Tablet PO (04:59)
[2017-11-01] MEDS: Lisinopril 40 MG Tablet PO (05:00)
[2017-11-01] MEDS: Bisoprolol Fumarate 5 MG Tablet 2.5 MG PO (05:00)
[2017-11-01] MEDS: Rivaroxaban 10 MG Tablet PO (05:01)
[2017-11-01] MEDS: Montelukast 10 MG Tablet PO (05:01)
[2017-11-01] MEDS: Acetaminophen 500 MG Tablet 1000 MG PO ×3 (05:01→21:48)
[2017-11-01] MEDS: Senna/Docusate Sodium 1 Tablet 2 TABLET PO ×2 (05:03→17:53)
[2017-11-01] MEDS: HYDROCHLOROTHIAZIDE 12.5 MG TABLET 6.25 MG PO (05:03)
[2017-11-01] MEDS: oxyCODONE 5 MG Tablet 10 MG PO ×3 (05:04→19:45)
[2017-11-01 06:36] LABS: Bedside Glucose 132 mg/dL (70-110)
[2017-11-01] MEDS: Hydroxychloroquine 200 MG Tablet PO ×2 (08:35→17:53)
[2017-11-01] MEDS: Iron Polysaccharide Complex 150 MG CAPSULE PO (08:35)
[2017-11-01 10:00] VITALS: PULSE 76; RESP 24; O2SAT 98
[2017-11-01 15:43] VITALS: BP 112/69; PULSE 74; RESP 16; TEMP 36.4; O2SAT 95
--- NOTE | 2017-11-01 17:15 | NURSING ---
Addendum entered by Shira Freedman 11/01/17 17:48: Dr. Rosado here, N.O. for CXR Original Note: This nurse spoke with Pramod in pharmacy about pt's Breo inhaler. States he will see if our retail pharmacy has one we can use. Pt feels Advair inhaler isn't working, daughter also called in about inhalers being different then home.
--- NOTE | 2017-11-01 18:00 | RAD_ITS ---
STUDY: X-RAY CHEST REASON FOR EXAM: Female, 72 years old. Shortness of breath TECHNIQUE: Frontal and lateral views COMPARISON: None. FINDINGS: The lungs are expanded. There is mild interstitial prominence. Normal size heart. Normal mediastinum and oksana. Normal visualized pulmonary arteries. Calcified aortic arch and descending thoracic aorta. Mild degenerative changes at the thoracic spine. Normal visualized ribs, clavicles, and shoulders. There is no demonstrated abnormality of the visualized soft tissue structures of the upper abdomen. RAD/Chest PA and Lateral IMPRESSION: Mild pulmonary interstitial prominence. Electronically Signed: Rudy Jones DO at 18:25 EST Tel [phone], Service support ,
[2017-11-02] MEDS: oxyCODONE 5 MG Tablet 10 MG PO ×4 (00:37→13:47)
[2017-11-02] MEDS: FLUTICASONE/VILANTEROL 1 EACH BLST.W.DEV IH (04:42)
[2017-11-02] MEDS: Loratadine 10 MG Tablet PO (04:45)
[2017-11-02] MEDS: HYDROCHLOROTHIAZIDE 12.5 MG TABLET 6.25 MG PO (04:46)
[2017-11-02] MEDS: Senna/Docusate Sodium 1 Tablet 2 TABLET PO ×2 (04:47→16:59)
[2017-11-02] MEDS: Montelukast 10 MG Tablet PO (04:47)
[2017-11-02] MEDS: Acetaminophen 500 MG Tablet 1000 MG PO ×3 (04:48→21:50)
[2017-11-02] MEDS: Lisinopril 40 MG Tablet PO (04:49)
[2017-11-02] MEDS: Rivaroxaban 10 MG Tablet PO (04:49)
[2017-11-02] MEDS: Bisoprolol Fumarate 5 MG Tablet 2.5 MG PO (04:49)
[2017-11-02 06:46] LABS: Bedside Glucose 130 mg/dL (70-110)
[2017-11-02] MEDS: Hydroxychloroquine 200 MG Tablet PO ×2 (07:45→16:58)
[2017-11-02] MEDS: Iron Polysaccharide Complex 150 MG CAPSULE PO (07:45)
--- NOTE | 2017-11-02 09:40 | NURSING ---
Dr Rosado notified of CXR results, no new orders.
[2017-11-02 15:05] VITALS: PULSE 80; RESP 18; O2SAT 96
[2017-11-02 16:00] VITALS: BP 99/53; PULSE 72; RESP 18; TEMP 36.2; O2SAT 92
[2017-11-03] MEDS: FLUTICASONE/VILANTEROL 1 EACH BLST.W.DEV IH (04:24)
[2017-11-03] MEDS: Bisoprolol Fumarate 5 MG Tablet 2.5 MG PO (04:25)
[2017-11-03] MEDS: Rivaroxaban 10 MG Tablet PO (04:25)
[2017-11-03] MEDS: Lisinopril 40 MG Tablet PO (04:25)
[2017-11-03] MEDS: Senna/Docusate Sodium 1 Tablet 2 TABLET PO ×2 (04:26→16:59)
[2017-11-03] MEDS: Montelukast 10 MG Tablet PO (04:26)
[2017-11-03] MEDS: Loratadine 10 MG Tablet PO (04:26)
[2017-11-03] MEDS: HYDROCHLOROTHIAZIDE 12.5 MG TABLET 6.25 MG PO (04:30)
[2017-11-03] MEDS: Acetaminophen 500 MG Tablet 1000 MG PO ×3 (04:33→20:09)
[2017-11-03 06:00] VITALS: PULSE 70; RESP 16; O2SAT 94
[2017-11-03 06:56] LABS: Bedside Glucose 115 mg/dL (70-110)
[2017-11-03] MEDS: Hydroxychloroquine 200 MG Tablet PO ×2 (07:37→16:59)
[2017-11-03] MEDS: Iron Polysaccharide Complex 150 MG CAPSULE PO (07:38)
--- NOTE | 2017-11-03 09:33 | CASEMGMT ---
Plan of care meeting held. Resident present as well as resident daughter, Laura. Resident plans to discharge home alone at time of discharge. Resident has no discharge date set at this time. Resident to continue with further care and treatment on the Transitional Care Unit. Support given. Will continue to follow. Viviane UL, MACHINE ASSEMBLER FOR PULLER OVER
--- NOTE | 2017-11-03 09:34 | NURSING ---
golf club repairer recommending 1800 zuleima cardiac diet d/t BMI, order changed
[2017-11-03] MEDS: oxyCODONE 5 MG Tablet 10 MG PO (13:40)
[2017-11-03 15:50] VITALS: BP 124/51; PULSE 70; RESP 20; TEMP 36.9; O2SAT 95
[2017-11-04] MEDS: FLUTICASONE/VILANTEROL 1 EACH BLST.W.DEV IH (05:11)
[2017-11-04] MEDS: Bisoprolol Fumarate 5 MG Tablet 2.5 MG PO (05:12)
[2017-11-04] MEDS: Senna/Docusate Sodium 1 Tablet 2 TABLET PO ×2 (05:12→16:58)
[2017-11-04] MEDS: Lisinopril 40 MG Tablet PO (05:12)
[2017-11-04] MEDS: Montelukast 10 MG Tablet PO (05:13)
[2017-11-04] MEDS: HYDROCHLOROTHIAZIDE 12.5 MG TABLET 6.25 MG PO (05:13)
[2017-11-04] MEDS: Loratadine 10 MG Tablet PO (05:14)
[2017-11-04] MEDS: Acetaminophen 500 MG Tablet 1000 MG PO ×3 (05:14→21:28)
[2017-11-04] MEDS: Rivaroxaban 10 MG Tablet PO (05:14)
[2017-11-04 07:01] LABS: Bedside Glucose 123 mg/dL (70-110)
[2017-11-04] MEDS: Hydroxychloroquine 200 MG Tablet PO ×2 (07:37→16:58)
[2017-11-04] MEDS: Iron Polysaccharide Complex 150 MG CAPSULE PO (07:38)
[2017-11-04 10:00] VITALS: PULSE 70; RESP 18; O2SAT 96
[2017-11-04] MEDS: oxyCODONE 5 MG Tablet 10 MG PO (11:19)
--- NOTE | 2017-11-04 13:22 | CASEMGMT ---
Brief interview for mental status (BIMS) and resident mood interview (PHQ-9) completed on this day. BIMS score 15. PHQ-9 score 11/16
[2017-11-04 15:24] VITALS: BP 127/58; PULSE 79; RESP 20; TEMP 36.2; O2SAT 93
[2017-11-05] MEDS: Bisoprolol Fumarate 5 MG Tablet 2.5 MG PO (04:40)
[2017-11-05] MEDS: Senna/Docusate Sodium 1 Tablet 2 TABLET PO ×2 (04:41→17:08)
[2017-11-05] MEDS: Lisinopril 40 MG Tablet PO (04:41)
[2017-11-05] MEDS: Montelukast 10 MG Tablet PO (04:42)
[2017-11-05] MEDS: Loratadine 10 MG Tablet PO (04:42)
[2017-11-05] MEDS: Rivaroxaban 10 MG Tablet PO (04:43)
[2017-11-05] MEDS: Acetaminophen 500 MG Tablet 1000 MG PO ×3 (04:44→21:14)
[2017-11-05] MEDS: FLUTICASONE/VILANTEROL 1 EACH BLST.W.DEV IH (04:48)
[2017-11-05] MEDS: hydroCHLOROthiazide 25 MG Tablet 6.25 MG PO (05:24)
[2017-11-05 06:01] LABS: Red Blood Count 4.14 M/mm3 (4.2-5.4); White Blood Count 7.7 K/mm3 (4.4-11.0)
[2017-11-05 06:02] LABS: Absolute Lymphocyte Count 1.19 X10^3/ul (0.83-4.51); Absolute Neutrophil Count 5.6 X10^3/uL (2.0-7.7); Basophil# 0.02 X10^3/uL; Basophil% 0.3 % (0-1); Eosinophil# 0.24 X10^3/uL; Eosinophils% 3.1 % (0-5); Hematocrit 35.1 % (37-47); Hemoglobin 10.6 g/dl (12.0-15.0); Lymphocyte # 1.19 X10^3/ul (4.0); Lymphocyte % 15.4 % (19-41); Mean Corp Hgb Conc 30.2 g/gl (32-36); Mean Corpuscular Hgb 25.6 pg (27.0-32.0); Mean Corpuscular Volume 84.8 fL (81-99); Mean Platelet Vol. 10.6 fl (6.2-12.0); Monocyte# 0.65 X10^3/uL; Monocyte% 8.4 % (0-10); Neutrophil # 5.58 X10^3/uL (2.7-7.7); Neutrophil % 72.4 % (47-70); Platelet Count 284 K/mm3 (150-450); RBC Distribution Width CV 15.9 % (11.6-14.6); RBC Distribution Width SD 47.8 fl (35.1-43.9)
[2017-11-05 06:08] LABS: POSITIVE COUNT NO; POSITIVE DIFFERENTIAL NO; POSITIVE MORPHOLOGY NO
[2017-11-05 06:40] LABS: Anion Gap 8 (5-15); BUN 19 mg/dL (7-18); Calcium,Total 8.9 mg/dL (8.5-10.1); Chloride 101 mmol/L (98-107); Creatinine, Serum 0.76 mg/dL (0.55-1.02); EST Glomerular Filtration Rate 80 mL/min (>60); Est Glom Filt Rate - Afr Amer 96 mL/min (>60); Estimated Creatinine Clearance 38.37 ml/min; Glucose 98 mg/dL (74-106); Potassium 4.3 mmol/L (3.5-5.1); Sodium Level 138 mmol/L (136-145)
[2017-11-05 06:56] LABS: Bedside Glucose 130 mg/dL (70-110)
[2017-11-05] MEDS: Hydroxychloroquine 200 MG Tablet PO ×2 (07:53→17:08)
[2017-11-05] MEDS: Iron Polysaccharide Complex 150 MG CAPSULE PO (07:53)
[2017-11-05] MEDS: Tuberculin,Purif.prot.deriv. 50 TU/ML Vial 5 ML ID (10:27)
[2017-11-05 16:00] VITALS: BP 109/59; PULSE 76; RESP 20; TEMP 36.7; O2SAT 95
[2017-11-05] MEDS: oxyCODONE 5 MG Tablet 10 MG PO (21:21)
[2017-11-05 22:00] VITALS: PULSE 68; RESP 18; O2SAT 95
[2017-11-06] MEDS: hydroCHLOROthiazide 25 MG Tablet 6.25 MG PO (05:58)
[2017-11-06] MEDS: Bisoprolol Fumarate 5 MG Tablet 2.5 MG PO (05:59)
[2017-11-06] MEDS: Lisinopril 40 MG Tablet PO (05:59)
[2017-11-06] MEDS: Rivaroxaban 10 MG Tablet PO (05:59)
[2017-11-06] MEDS: Senna/Docusate Sodium 1 Tablet 2 TABLET PO ×2 (06:00→17:08)
[2017-11-06] MEDS: Loratadine 10 MG Tablet PO (06:00)
[2017-11-06] MEDS: Montelukast 10 MG Tablet PO (06:01)
[2017-11-06] MEDS: FLUTICASONE/VILANTEROL 1 EACH BLST.W.DEV IH (06:01)
[2017-11-06] MEDS: Acetaminophen 500 MG Tablet 1000 MG PO ×3 (06:01→21:15)
[2017-11-06 06:56] LABS: Bedside Glucose 107 mg/dL (70-110)
--- NOTE | 2017-11-06 07:45 | NURSING ---
SMALL CIRCULAR BRUISE APPROX QUARTER SIZE TO RIGHT INNER FOOT/ANKLE AREA. PT UNAWARE OF ANY INJURY, NOT SURE HOW IT HAPPENED.
[2017-11-06] MEDS: Hydroxychloroquine 200 MG Tablet PO ×2 (08:03→17:08)
[2017-11-06] MEDS: Iron Polysaccharide Complex 150 MG CAPSULE PO (08:03)
[2017-11-06] MEDS: oxyCODONE 5 MG Tablet 10 MG PO (12:36)
[2017-11-06 16:00] VITALS: BP 112/68; PULSE 77; RESP 20; TEMP 36.7; O2SAT 90
[2017-11-06 21:15] VITALS: BP 121/54; PULSE 71; RESP 18; TEMP 36.8; O2SAT 94
[2017-11-07] MEDS: Acetaminophen 500 MG Tablet 1000 MG PO ×3 (05:37→20:02)
[2017-11-07] MEDS: FLUTICASONE/VILANTEROL 1 EACH BLST.W.DEV IH (05:37)
[2017-11-07] MEDS: Senna/Docusate Sodium 1 Tablet 2 TABLET PO ×2 (05:38→17:06)
[2017-11-07] MEDS: hydroCHLOROthiazide 25 MG Tablet 6.25 MG PO (05:39)
[2017-11-07] MEDS: Lisinopril 40 MG Tablet PO (05:39)
[2017-11-07] MEDS: Loratadine 10 MG Tablet PO (05:39)
[2017-11-07] MEDS: Bisoprolol Fumarate 5 MG Tablet 2.5 MG PO (05:39)
[2017-11-07] MEDS: Montelukast 10 MG Tablet PO (05:41)
[2017-11-07 07:01] LABS: Bedside Glucose 122 mg/dL (70-110)
[2017-11-07] MEDS: Hydroxychloroquine 200 MG Tablet PO ×2 (08:08→17:06)
[2017-11-07] MEDS: Iron Polysaccharide Complex 150 MG CAPSULE PO (08:08)
[2017-11-07 15:28] VITALS: BP 117/43; PULSE 67; RESP 16; TEMP 37.1; O2SAT 99
[2017-11-07 20:00] VITALS: PULSE 70; RESP 18; O2SAT 93
[2017-11-07] MEDS: oxyCODONE 5 MG Tablet 10 MG PO (22:13)
[2017-11-08] MEDS: FLUTICASONE/VILANTEROL 1 EACH BLST.W.DEV IH (05:36)
[2017-11-08] MEDS: Montelukast 10 MG Tablet PO (05:37)
[2017-11-08] MEDS: hydroCHLOROthiazide 25 MG Tablet 6.25 MG PO (05:37)
[2017-11-08] MEDS: Bisoprolol Fumarate 5 MG Tablet 2.5 MG PO (05:37)
[2017-11-08] MEDS: Lisinopril 40 MG Tablet PO (05:37)
[2017-11-08] MEDS: Senna/Docusate Sodium 1 Tablet 2 TABLET PO ×2 (05:37→16:48)
[2017-11-08] MEDS: Loratadine 10 MG Tablet PO (05:37)
[2017-11-08] MEDS: Acetaminophen 500 MG Tablet 1000 MG PO ×3 (05:38→20:45)
[2017-11-08 06:51] LABS: Bedside Glucose 111 mg/dL (70-110)
[2017-11-08] MEDS: Iron Polysaccharide Complex 150 MG CAPSULE PO (07:51)
[2017-11-08] MEDS: Hydroxychloroquine 200 MG Tablet PO ×2 (07:51→16:48)
[2017-11-08 10:00] VITALS: PULSE 68; RESP 18; O2SAT 97
[2017-11-08] MEDS: oxyCODONE 5 MG Tablet 10 MG PO (12:14)
[2017-11-08 15:03] VITALS: BP 105/52; PULSE 65; RESP 20; TEMP 36.5; O2SAT 94
[2017-11-09] MEDS: Lisinopril 40 MG Tablet PO (05:52)
[2017-11-09] MEDS: Senna/Docusate Sodium 1 Tablet 2 TABLET PO ×2 (05:52→16:23)
[2017-11-09] MEDS: Montelukast 10 MG Tablet PO (05:52)
[2017-11-09] MEDS: hydroCHLOROthiazide 25 MG Tablet 6.25 MG PO (05:52)
[2017-11-09] MEDS: Loratadine 10 MG Tablet PO (05:53)
[2017-11-09] MEDS: Bisoprolol Fumarate 5 MG Tablet 2.5 MG PO (05:53)
[2017-11-09] MEDS: Acetaminophen 500 MG Tablet 1000 MG PO ×3 (05:53→21:27)
[2017-11-09] MEDS: FLUTICASONE/VILANTEROL 1 EACH BLST.W.DEV IH (05:58)
[2017-11-09 06:31] LABS: Bedside Glucose 78 mg/dL (70-110)
[2017-11-09] MEDS: Hydroxychloroquine 200 MG Tablet PO ×2 (07:36→16:24)
[2017-11-09] MEDS: Iron Polysaccharide Complex 150 MG CAPSULE PO (07:37)
--- NOTE | 2017-11-09 10:22 | CASEMGMT ---
Social Work Spoke with resident in room. Resident requesting for discharge date to be set for 11/12/17. Spoke with staff/therapy, 11/12/17 is an agreeable discharge date at this time. Resident plans to discharge home alone with daughter to assist as possible and outpatient Physical therapy through [facility]. Support given. Proposed discharge date: 11/12/17 PLAN: Discharge home alone with outpatient physical therapy. Viviane LU, RN OCCUPATIONAL HEALTH
--- NOTE | 2017-11-09 10:40 | CASEMGMT ---
Brief interview for mental status (BIMS) and resident mood interview (PHQ-9) completed on this day. BIMS score 15. PHQ-9 score 10/16
[2017-11-09 15:17] VITALS: BP 111/61; PULSE 78; RESP 18; TEMP 37.1; O2SAT 96
--- NOTE | 2017-11-09 15:48 | CASEMGMT ---
Social Work Telephone call to [facility] - [phone]. Outpatient physical therapy appointment set up for 11/15/17 n@ [phone]. Order to be faxed when obtained. Spoke with resident in room. Resident agreeable to appointment time and date. A reminder given to resident. Resident planning to notify resident daughter of appointment time and date. Support given. Proposed discharge date: 11/12/17. PLAN: Discharge home alone with outpatient physical therapy. Viviane LU, APARTMENT RENTAL CLERK
[2017-11-09] MEDS: oxyCODONE 5 MG Tablet 10 MG PO (19:35)
--- NOTE | 2017-11-09 20:24 | PCM.DC ---
- Discharge Diagnoses Current Active Problems: Current Active and Chronic Problems Osteoarthritis of right knee (Chronic) Diabetes mellitus (Chronic) Hypertension (Chronic) Asthma (Chronic) Vitamin D deficiency (Chronic) Osteoarthritis (Chronic) Allergic rhinitis (Chronic) Morbid obesity (Chronic) COPD (chronic obstructive pulmonary disease) (Chronic) Obstructive sleep apnea (Chronic) You will use the following diet at home:: No restrictions, Regular Your food should be the consistency of: Regular Your liquids should be the consistency of: Regular/Thin Discharge Activity: Return to Normal Activity, May Shower, Use Walker Weight Bearing Status: Weight bearing as tolerated Call your doctor if you observe: Fever of 101 or Higher, Inability to urinate, Inability to have a bowel movement, Shortness of breath, Chest pain, Uncontrolled pain Allergies/Adverse Reactions: Allergies codeine Allergy (Verified 10/28/17 17:18) Unknown erythromycin base Allergy (Verified 10/28/17 17:18) Unknown Penicillins Allergy (Verified 10/28/17 17:18) Unknown Medications to take at Discharge Albuterol Sulfate [Proair Respiclick] 108 mcg IH Q4H PRN 10/28/17 Bisoprolol Fumarate/Hctz [Bisoprolol-Hctz 2.5-6.25 mg Tb] 2.5 - 6.25 mg PO DAILY 10/28/17 Cholecalciferol (Vitamin D3) [Vitamin D3] 5,000 unit PO DAILY 10/28/17 Fluticasone/Vilanterol [Breo Ellipta 100-25 Mcg INH] 1 each IH DAILY 10/28/17 Hydroxychloroquine [Plaquenil] 200 mg PO BIDCM 10/28/17 Loratadine [Claritin] 10 mg PO DAILY 10/28/17 Metformin HCl 500 mg PO DAILY 10/28/17 Montelukast Sodium 10 mg PO DAILY 10/28/17 Quinapril HCl 40 mg PO DAILY 10/28/17 Acetaminophen [Tylenol] 1,000 mg PO Q8 tablet 11/09/17 Fluticasone/Vilanterol [Breo Ellipta 100-25 Mcg INH] 1 each IH DAILY blst.w.dev 11/09/17 Iron Polysaccharide Complex [Ferrex 150] 150 mg PO DAILYCM #30 cap 11/09/17 MorphINE [Ms Contin] 15 mg PO Q12H #14 tablet 11/09/17 Oxycodone HCl/Acetaminophen [Percocet 5-325] 1 - 2 tablet PO Q4H PRN PRN #30 tablet 11/09/17 Polyethylene Glycol 3350 [Miralax] 17 gm PO DAILY #30 packet 11/09/17 Senna/Docusate Sodium [Senokot-S] 2 tab PO BID #120 tab 11/09/17 The following prescriptions were given: Oxycodone HCl/Acetaminophen [Percocet 5-325] 1 - 2 tablet PO Q4H PRN PRN #30 tablet PRN Reason: Pain Iron Polysaccharide Complex [Ferrex 150] 150 mg PO DAILYCM #30 cap MorphINE [Ms Contin] 15 mg PO Q12H #14 tablet Polyethylene Glycol 3350 [Miralax] 17 gm PO DAILY #30 packet Senna/Docusate Sodium [Senokot-S] 2 tab PO BID #120 tab Primary Care Physician: Clarence Reyes MD [Primary Care Provider] - Please follow up with your Primary Care Physician in: 1 week. Please Follow Up With: Dr Heriberto Serra When: 2 weeks. Please Follow Up With: Outpatient Physical thearpy - [facility] Proposed Discharge Date: 11/12/17
--- NOTE | 2017-11-09 20:27 | PCM.DC.SUM ---
Discharge Date and Diagnosis Date of Admission: 10/28/17 Date of Discharge: 11/12/17 - Secondary Discharge Diagnosis Chronic Problems Osteoarthritis of right knee (Chronic) Diabetes mellitus (Chronic) Hypertension (Chronic) Asthma (Chronic) Vitamin D deficiency (Chronic) Osteoarthritis (Chronic) Allergic rhinitis (Chronic) Morbid obesity (Chronic) COPD (chronic obstructive pulmonary disease) (Chronic) Obstructive sleep apnea (Chronic) Hospital Course and Treatment Imaging Results: 11/03/17 09:34 Diet: Cardiac: Calorie-Controlled Food consistency:: Regular Liquid Consistency:: Regular/Thin Is pt able to select menu?: Yes How many daily calories?: 1800 calorie Clinical Impression(s) from Imaging Studies Chest X-Ray 11/01/17 18:00 IMPRESSION: Mild pulmonary interstitial prominence. Electronically Signed: Rudy Jones DO at 18:25 EST Tel [phone], Service support , Labs (Last 48 Hours) 11/08/17 11/09/17 06:44 06:25 POC Glucose 111 H 78 Operations: None Procedures: None Summary of Care Provided: The patient is a 72 year old Female with below past medical history status post right knee arthroplasty with Dr. Heriberto Serra 10/25/2017, admitted to TCU for rehabilitation, strengthening, prior to discharge home alone. [] Will discharge home alone with outpatient physical therapy. Discharge Diet: No Restrictions Discharge Activity: Return to Normal Activity, May Shower, Use Walker Weight Bearing Status: Weight bearing as tolerated Call your doctor if you observe: Fever of 101 or Higher, Inability to urinate, Inability to have a bowel movement, Shortness of breath, Chest pain, Uncontrolled pain Home Medications: Medications to take at Discharge Albuterol Sulfate [Proair Respiclick] 108 mcg IH Q4H PRN 10/28/17 Bisoprolol Fumarate/Hctz [Bisoprolol-Hctz 2.5-6.25 mg Tb] 2.5 - 6.25 mg PO DAILY 10/28/17 Cholecalciferol (Vitamin D3) [Vitamin D3] 5,000 unit PO DAILY 10/28/17 Fluticasone/Vilanterol [Breo Ellipta 100-25 Mcg INH] 1 each IH DAILY 10/28/17 Hydroxychloroquine [Plaquenil] 200 mg PO BIDCM 10/28/17 Loratadine [Claritin] 10 mg PO DAILY 10/28/17 Metformin HCl 500 mg PO DAILY 10/28/17 Montelukast Sodium 10 mg PO DAILY 10/28/17 Quinapril HCl 40 mg PO DAILY 10/28/17 Acetaminophen [Tylenol] 1,000 mg PO Q8 tablet 11/09/17 Fluticasone/Vilanterol [Breo Ellipta 100-25 Mcg INH] 1 each IH DAILY blst.w.dev 11/09/17 Iron Polysaccharide Complex [Ferrex 150] 150 mg PO DAILYCM #30 cap 11/09/17 MorphINE [Ms Contin] 15 mg PO Q12H #14 tablet 11/09/17 Oxycodone HCl/Acetaminophen [Percocet 5-325] 1 - 2 tablet PO Q4H PRN PRN #30 tablet 11/09/17 Polyethylene Glycol 3350 [Miralax] 17 gm PO DAILY #30 packet 11/09/17 Senna/Docusate Sodium [Senokot-S] 2 tab PO BID #120 tab 11/09/17 Following Prescrptions Were Given to Patient: Oxycodone HCl/Acetaminophen [Percocet 5-325] 1 - 2 tablet PO Q4H PRN PRN #30 tablet PRN Reason: Pain Iron Polysaccharide Complex [Ferrex 150] 150 mg PO DAILYCM #30 cap MorphINE [Ms Contin] 15 mg PO Q12H #14 tablet Polyethylene Glycol 3350 [Miralax] 17 gm PO DAILY #30 packet Senna/Docusate Sodium [Senokot-S] 2 tab PO BID #120 tab Primary Care Physician: Clarence Reyes MD [Primary Care Provider] - Please follow up with your Primary Care Physician in: 1 week. Please Follow Up With: Dr Heriberto Serra When: 2 weeks. Please Follow Up With: Outpatient Physical thearpy - [facility] Disposition: Home Minutes spent on discharge:: 30 Patient Condition:: Good Meaningful Use Info Meaningful Use Diagnoses (Choose all that apply): None applicable
[2017-11-09 21:46] VITALS: PULSE 87; RESP 18; O2SAT 93
[2017-11-10] MEDS: oxyCODONE 5 MG Tablet 10 MG PO ×2 (01:00→12:58)
[2017-11-10] MEDS: FLUTICASONE/VILANTEROL 1 EACH BLST.W.DEV IH (04:49)
[2017-11-10] MEDS: Loratadine 10 MG Tablet PO (04:49)
[2017-11-10] MEDS: hydroCHLOROthiazide 25 MG Tablet 6.25 MG PO (04:49)
[2017-11-10] MEDS: Senna/Docusate Sodium 1 Tablet 2 TABLET PO ×2 (04:51→16:56)
[2017-11-10] MEDS: Montelukast 10 MG Tablet PO (04:51)
[2017-11-10] MEDS: Bisoprolol Fumarate 5 MG Tablet 2.5 MG PO (04:52)
[2017-11-10] MEDS: Lisinopril 40 MG Tablet PO (04:53)
[2017-11-10] MEDS: Acetaminophen 500 MG Tablet 1000 MG PO ×3 (04:53→21:14)
[2017-11-10 06:46] LABS: Bedside Glucose 130 mg/dL (70-110)
[2017-11-10] MEDS: Iron Polysaccharide Complex 150 MG CAPSULE PO (07:40)
[2017-11-10] MEDS: Hydroxychloroquine 200 MG Tablet PO ×2 (07:40→16:56)
--- NOTE | 2017-11-10 08:18 | CASEMGMT ---
Social Work Outpatient physical therapy order faxed to [facility]. Proposed discharge date: 11/12/17 PLAN: Discharge home alone with outpatient therapy services. Viviane LU, BARREL TESTER
[2017-11-10 10:00] VITALS: PULSE 86; RESP 17; O2SAT 99
--- NOTE | 2017-11-10 14:30 | MDS.RN ---
Information for the mds was obtained from review of the clinical record, interview of resident, staff, and direct observation of resident's care.
[2017-11-10 15:24] VITALS: BP 94/49; PULSE 73; RESP 18; TEMP 36.8; O2SAT 94
[2017-11-10 16:50] VITALS: BP 109/52
[2017-11-11] MEDS: Bisoprolol Fumarate 5 MG Tablet 2.5 MG PO (05:50)
[2017-11-11] MEDS: Lisinopril 40 MG Tablet PO (05:50)
[2017-11-11] MEDS: Montelukast 10 MG Tablet PO (05:52)
[2017-11-11] MEDS: Acetaminophen 500 MG Tablet 1000 MG PO ×3 (05:52→19:55)
[2017-11-11] MEDS: Senna/Docusate Sodium 1 Tablet 2 TABLET PO ×2 (05:53→16:47)
[2017-11-11] MEDS: hydroCHLOROthiazide 25 MG Tablet 6.25 MG PO (05:53)
[2017-11-11] MEDS: FLUTICASONE/VILANTEROL 1 EACH BLST.W.DEV IH (05:54)
[2017-11-11] MEDS: Loratadine 10 MG Tablet PO (05:54)
[2017-11-11 06:41] LABS: Bedside Glucose 105 mg/dL (70-110)
[2017-11-11] MEDS: Iron Polysaccharide Complex 150 MG CAPSULE PO (07:31)
[2017-11-11] MEDS: Hydroxychloroquine 200 MG Tablet PO ×2 (07:31→16:48)
[2017-11-11 09:01] VITALS: PULSE 72; RESP 18; O2SAT 93
[2017-11-11 15:35] VITALS: BP 104/54; PULSE 68; RESP 17; TEMP 37.4; O2SAT 96
[2017-11-12] MEDS: FLUTICASONE/VILANTEROL 1 EACH BLST.W.DEV IH (04:03)
[2017-11-12] MEDS: Loratadine 10 MG Tablet PO (04:04)
[2017-11-12] MEDS: hydroCHLOROthiazide 25 MG Tablet 6.25 MG PO (04:05)
[2017-11-12] MEDS: Montelukast 10 MG Tablet PO (04:05)
[2017-11-12] MEDS: Bisoprolol Fumarate 5 MG Tablet 2.5 MG PO (04:05)
[2017-11-12] MEDS: Senna/Docusate Sodium 1 Tablet 2 TABLET PO (04:06)
[2017-11-12] MEDS: Lisinopril 40 MG Tablet PO (04:06)
[2017-11-12] MEDS: Acetaminophen 500 MG Tablet 1000 MG PO (05:50)
[2017-11-12 05:58] LABS: Absolute Lymphocyte Count 0.91 X10^3/ul (0.83-4.51); Absolute Neutrophil Count 3.9 X10^3/uL (2.0-7.7); Basophil# 0.02 X10^3/uL; Basophil% 0.4 % (0-1); Eosinophil# 0.29 X10^3/uL; Eosinophils% 5.1 % (0-5); Hematocrit 32.6 % (37-47); Hemoglobin 10.1 g/dl (12.0-15.0); Lymphocyte # 0.91 X10^3/ul (4.0); Mean Corpuscular Hgb 26.1 pg (27.0-32.0); Mean Corpuscular Volume 84.2 fL (81-99); Mean Platelet Vol. 10.7 fl (6.2-12.0); Monocyte# 0.53 X10^3/uL; Monocyte% 9.3 % (0-10); Neutrophil # 3.91 X10^3/uL (2.7-7.7); Platelet Count 266 K/mm3 (150-450); RBC Distribution Width CV 15.5 % (11.6-14.6); RBC Distribution Width SD 47.1 fl (35.1-43.9); Red Blood Count 3.87 M/mm3 (4.2-5.4); White Blood Count 5.7 K/mm3 (4.4-11.0)
[2017-11-12 06:04] LABS: POSITIVE COUNT NO; POSITIVE DIFFERENTIAL NO; POSITIVE MORPHOLOGY NO
[2017-11-12 06:07] LABS: Anion Gap 7 (5-15); BUN 24 mg/dL (7-18); BUN/Creat Ratio 28.4 RATIO (10-20); Chloride 101 mmol/L (98-107); Creatinine, Serum 0.85 mg/dL (0.55-1.02); EST Glomerular Filtration Rate 70 mL/min (>60); Est Glom Filt Rate - Afr Amer 85 mL/min (>60); Estimated Creatinine Clearance 45.14 ml/min; Glucose 96 mg/dL (74-106); Potassium 4.5 mmol/L (3.5-5.1); Sodium Level 138 mmol/L (136-145)
[2017-11-12 07:06] LABS: Bedside Glucose 94 mg/dL (70-110)
[2017-11-12 07:12] VITALS: PULSE 66; RESP 16; O2SAT 96
[2017-11-12 07:18] VITALS: BP 128/64; PULSE 66; RESP 16; TEMP 37; O2SAT 96
[2017-11-12] MEDS: Iron Polysaccharide Complex 150 MG CAPSULE PO (07:35)
[2017-11-12] MEDS: Hydroxychloroquine 200 MG Tablet PO (07:35)
[2017-11-12 09:33] VITALS: BP 107/70; PULSE 65; RESP 18; TEMP 36.9; O2SAT 91
--- NOTE | 2017-11-25 15:26 | MDS.RN ---
Information for the mds was obtained from review of the clinical record, interview of resident, staff, and direct observation of resident's care.
== END 2017-11-12 10:20 | disposition home or self-care (01) | DRG 560 ==
PROVIDERS: Admitting Provider Family Medicine Geriatric Medicine; Family Provider Family Medicine; PCP Family Medicine; Visit Provider Family Medicine Geriatric Medicine
DX: Z47.1 Aftercare following joint replacement surgery (principal); Z68.43 Body mass index [BMI] 50.0-59.9, adult; J44.9 Chronic obstructive pulmonary disease, unspecified; E11.9 Type 2 diabetes mellitus without complications; E66.01 Morbid (severe) obesity due to excess calories; Z96.651 Presence of right artificial knee joint; G47.33 Obstructive sleep apnea (adult) (pediatric); M17.11 Unilateral primary osteoarthritis, right knee; I10 Essential (primary) hypertension; E55.9 Vitamin D deficiency, unspecified; Z79.899 Other long term (current) drug therapy; Z71.3 Dietary counseling and surveillance; Z87.891 Personal history of nicotine dependence
CPT/HCPCS: 36415; 71046; 80048; 82962; 85025; 97110; 97116; 97162; 97165; 97530; 97535; 97802

== ENCOUNTER → 2018-01-28 09:09 | Outpatient (CLI) | payer MEDICARE, OTHER, SELFPAY ==
[2018-01-28 10:24] LABS: Absolute Lymphocyte Count 1.15 X10^3/ul (0.83-4.51); Absolute Neutrophil Count 4.5 X10^3/uL (2.0-7.7); Basophil# 0.02 X10^3/uL; Basophil% 0.3 % (0-1); Eosinophil# 0.28 X10^3/uL; Eosinophils% 4.2 % (0-5); Hematocrit 39.6 % (37-47); Hemoglobin 12.4 g/dl (12.0-15.0); Lymphocyte # 1.15 X10^3/ul (4.0); Lymphocyte % 17.3 % (19-41); Mean Corp Hgb Conc 31.3 g/gl (32-36); Mean Corpuscular Hgb 26.1 pg (27.0-32.0); Mean Corpuscular Volume 83.4 fL (81-99); Mean Platelet Vol. 10.8 fl (6.2-12.0); Monocyte# 0.65 X10^3/uL; Monocyte% 9.8 % (0-10); Neutrophil # 4.54 X10^3/uL (2.7-7.7); Neutrophil % 68.1 % (47-70); POSITIVE COUNT NO; POSITIVE DIFFERENTIAL NO; POSITIVE MORPHOLOGY NO; Platelet Count 218 K/mm3 (150-450); RBC Distribution Width CV 15.8 % (11.6-14.6); RBC Distribution Width SD 47.5 fl (35.1-43.9); Red Blood Count 4.75 M/mm3 (4.2-5.4); White Blood Count 6.7 K/mm3 (4.4-11.0)
[2018-01-28 10:47] LABS: Ferritin 104 ng/mL (8-252); Iron 41 ug/dL (50-170)
== END ==
PROVIDERS: Family Provider Family Medicine; PCP Family Medicine; Visit Provider Family Medicine
DX: D64.9 Anemia, unspecified (principal)
CPT/HCPCS: 36415; 82728; 83540; 85025

== ENCOUNTER → 2018-05-25 15:36 | Outpatient (CLI) | payer MEDICARE, OTHER, SELFPAY ==
[2018-05-25 17:10] LABS: Absolute Lymphocyte Count 1.45 X10^3/ul (0.83-4.51); Absolute Neutrophil Count 6.6 X10^3/uL (2.0-7.7); Basophil# 0.02 X10^3/uL; Basophil% 0.2 % (0-1); Eosinophil# 0.27 X10^3/uL; Hemoglobin 12.7 g/dl (12.0-15.0); Lymphocyte # 1.45 X10^3/ul (4.0); Mean Corpuscular Hgb 26.3 pg (27.0-32.0); Mean Corpuscular Volume 85.1 fL (81-99); Mean Platelet Vol. 10.8 fl (6.2-12.0); Monocyte# 0.72 X10^3/uL; Monocyte% 7.9 % (0-10); Neutrophil # 6.59 X10^3/uL (2.7-7.7); Neutrophil % 72.7 % (47-70); Platelet Count 235 K/mm3 (150-450); RBC Distribution Width CV 15.5 % (11.6-14.6); RBC Distribution Width SD 47.7 fl (35.1-43.9); Red Blood Count 4.82 M/mm3 (4.2-5.4); White Blood Count 9.1 K/mm3 (4.4-11.0)
[2018-05-25 17:18] LABS: Protein, Urine (Random) 18.6 mg/dL (<11.9); Protein:Creat Ratio 111 mg/g CRE (0-200)
[2018-05-25 17:23] LABS: Color, Urine Yellow (Yellow); Glucose, Dipstick Normal (Normal); Ketone-Dipstick Negative (Negative); Leukocyte Esterase-Dipstick 25 /ul (Negative); Nitrite-Dipstick Negative (Negative); Occult Blood-Urine 25 /ul (Negative); Protein-Dipstick Negative (Negative); Urine Bilirubin Dipstick Negative (Negative); Urine Clarity Clear (Clear); Urine Urobilinogen Normal (Normal)
[2018-05-25 17:45] LABS: AST(SGOT) 13 U/L (15-37); Alanine Aminotransfer ALT/SGPT 22 U/L (13-56); Albumin, Serum 3.5 g/dL (3.2-5.0); Alkaline Phosphatase 74 U/L (45-117); Anion Gap 8 (5-15); BUN 14 mg/dL (7-18); BUN/Creat Ratio 16.2 RATIO (10-20); Calcium,Total 9.2 mg/dL (8.5-10.1); Chloride 103 mmol/L (98-107); Creatinine, Serum 0.87 mg/dL (0.55-1.02); EST Glomerular Filtration Rate 68 mL/min (>60); Est Glom Filt Rate - Afr Amer 83 mL/min (>60); Globulin 3.6 g/dL (2.2-4.2); Glucose 107 mg/dL (74-106); Potassium 4.4 mmol/L (3.5-5.1); Protein, Total 7.1 g/dL (6.4-8.2); Sodium Level 142 mmol/L (136-145)
[2018-05-25 17:47] LABS: POSITIVE COUNT NO; POSITIVE DIFFERENTIAL NO; POSITIVE MORPHOLOGY NO
== END ==
PROVIDERS: Family Provider Family Medicine; PCP Family Medicine; Visit Provider Family Medicine
DX: M06.4 Inflammatory polyarthropathy (principal); M35.8 Other specified systemic involvement of connective tissue; I10 Essential (primary) hypertension; M17.0 Bilateral primary osteoarthritis of knee; E11.9 Type 2 diabetes mellitus without complications; E78.5 Hyperlipidemia, unspecified; J45.909 Unspecified asthma, uncomplicated; Z12.31 Encounter for screening mammogram for malignant neoplasm of breast
CPT/HCPCS: 36415; 77063; 77067; 80053; 81002; 82570; 84156; 85025

== ENCOUNTER → 2018-08-10 08:48 | Outpatient (CLI) | payer MEDICARE, OTHER, SELFPAY ==
--- NOTE | 2018-08-10 08:55 | BD_ITS ---
STUDY: DUAL ENERGY X-RAY ABSORPTIOMETRY / DXA REASON FOR EXAM: Female, 72 years old. The patient is postmenopausal. Loss of height. TECHNIQUE: Bone Mineral Density (BMD) measurements of lumbar spine and bilateral hips were obtained. COMPARISON: Comparison is made with prior study dated June 07, 2007. FINDINGS: Lumbar Spine (L1-L4): g/cm2 (1.197) / T-score (0.1) / Z-score (1.9) Findings are suggestive of normal bone density with a low fracture risk. Left Femur Total: g/cm2 (0.912) / T-score (-0.8) / Z-score (0.9) Left Femoral Neck: g/cm2 (0.850) / T-score (-1.4) / Z-score (0.5) Right Femur Total: g/cm2 (0.74) / T-score (-1.8) / Z-score (-0.2) Right Femoral Neck: g/cm2 (0.789) / T-score (-1.8) / Z-score (0.0) The T-Scores on the most recent prior examination were: Lumbar Spine (L1-L4): There has been improvement of bone density since the previous examination. Left Femur Total: which represents a worsening of 21.4%. BD/Dexa Bone Density Study IMPRESSION: The patient is considered osteopenic as outlined below according to World [place] Organization (WHO) criteria with a moderate fracture risk. There has been worsening of bone density since the previous examination. Reference Information: The T-score is the number of standard deviations above or below the standard which is normal for young adults at their peak bone mineral density. The World Health Organization (WHO) interprets the T-scores as follows: Above -1 Normal bone density Between -1 and -2.5 Osteopenia Equal to / or below -2.5 Osteoporosis As a practical clinical guideline, osteopenia may be graded as follows: Mild -1 through -1.5 Moderate -1.6 through -2.0 Severe -2.1 through -2.4 The Z-score is the number of standard deviations above or below age-matched controls. A Z-score of less than -1.5 would be considered abnormal. References: 1. NIH Osteoporosis and Related Bone Diseases http://www.osteo.org 2. International Society for Clinical Densitometry http://www.iscd.org 3. National Osteoporosis Foundation http://www.nof.org Electronically Signed: Vinnie Benitez MD at 8:40 EST Tel [phone], Service support ,
== END ==
PROVIDERS: Family Provider Family Medicine; PCP Family Medicine; Referring Provider Family Medicine; Visit Provider Family Medicine
DX: Z00.00 Encounter for general adult medical examination without abnormal findings (principal); Z78.0 Asymptomatic menopausal state
CPT/HCPCS: 77080

== ENCOUNTER → 2018-11-16 13:43 | Outpatient (CLI) | payer MEDICARE, OTHER, SELFPAY ==
[2018-11-16 16:04] LABS: Absolute Lymphocyte Count 1.32 X10^3/ul (0.83-4.51); Absolute Neutrophil Count 6.5 X10^3/uL (2.0-7.7); Basophil# 0.03 X10^3/uL; Basophil% 0.3 % (0-1); Eosinophil# 0.24 X10^3/uL; Eosinophils% 2.7 % (0-5); Hematocrit 44.2 % (37-47); Hemoglobin 13.8 g/dl (12.0-15.0); Lymphocyte # 1.32 X10^3/ul (4.0); Lymphocyte % 15.1 % (19-41); Mean Corp Hgb Conc 31.2 g/gl (32-36); Mean Corpuscular Hgb 26.6 pg (27.0-32.0); Mean Corpuscular Volume 85.2 fL (81-99); Mean Platelet Vol. 11.4 fl (6.2-12.0); Monocyte# 0.69 X10^3/uL; Monocyte% 7.9 % (0-10); Neutrophil # 6.45 X10^3/uL (2.7-7.7); Neutrophil % 73.8 % (47-70); Platelet Count 218 K/mm3 (150-450); RBC Distribution Width CV 15.8 % (11.6-14.6); RBC Distribution Width SD 49.4 fl (35.1-43.9); Red Blood Count 5.19 M/mm3 (4.2-5.4); White Blood Count 8.8 K/mm3 (4.4-11.0)
[2018-11-16 16:05] LABS: POSITIVE COUNT NO; POSITIVE DIFFERENTIAL NO; POSITIVE MORPHOLOGY NO
[2018-11-16 16:12] LABS: ALB/GLOB Ratio 0.9 RATIO (0.9-2.4); AST(SGOT) 14 U/L (15-37); Alanine Aminotransfer ALT/SGPT 20 U/L (13-56); Albumin, Serum 3.5 g/dL (3.2-5.0); Alkaline Phosphatase 78 U/L (45-117); Anion Gap 10 (5-15); BUN 15 mg/dL (7-18); Calcium,Total 8.7 mg/dL (8.5-10.1); Chloride 104 mmol/L (98-107); Creatinine, Serum 0.83 mg/dL (0.55-1.02); EST Glomerular Filtration Rate 71 mL/min (>60); Est Glom Filt Rate - Afr Amer 86 mL/min (>60); Globulin 3.8 g/dL (2.2-4.2); Glucose 123 mg/dL (74-106); Potassium 4.1 mmol/L (3.5-5.1); Protein, Total 7.3 g/dL (6.4-8.2); Sodium Level 141 mmol/L (136-145)
== END ==
PROVIDERS: Family Provider Family Medicine; PCP Family Medicine; Referring Provider Family Medicine; Visit Provider Internal Medicine Rheumatology
DX: M06.4 Inflammatory polyarthropathy (principal); I10 Essential (primary) hypertension; M17.0 Bilateral primary osteoarthritis of knee; E11.9 Type 2 diabetes mellitus without complications; E78.5 Hyperlipidemia, unspecified; J45.909 Unspecified asthma, uncomplicated
CPT/HCPCS: 36415; 80053; 85025

== ENCOUNTER → 2019-01-24 | Outpatient (CLI) | payer MEDICARE, OTHER, SELFPAY ==
[2019-01-24 10:46] LABS: Hemoglobin A1c 6.3 % (4.2-6.3)
[2019-01-24 11:17] LABS: ALB/GLOB Ratio 1.1 RATIO (0.9-2.4); AST(SGOT) 13 U/L (15-37); Alanine Aminotransfer ALT/SGPT 18 U/L (13-56); Albumin, Serum 3.5 g/dL (3.2-5.0); Alkaline Phosphatase 82 U/L (45-117); Anion Gap 12 (5-15); BUN 14 mg/dL (7-18); BUN/Creat Ratio 16.7 RATIO (10-20); Calcium,Total 8.7 mg/dL (8.5-10.1); Chloride 103 mmol/L (98-107); Cholesterol 171 mg/dL (200); Creatinine, Serum 0.84 mg/dL (0.55-1.02); EST Glomerular Filtration Rate 71 mL/min (>60); Est Glom Filt Rate - Afr Amer 86 mL/min (>60); Globulin 3.3 g/dL (2.2-4.2); Glucose 92 mg/dL (74-106); High Density Lipoprotein 50 mg/dL; Potassium 4.1 mmol/L (3.5-5.1); Protein, Total 6.8 g/dL (6.4-8.2); Sodium Level 141 mmol/L (136-145); Thyroid Stim Hormone (TSH) 1.67 uIU/mL (0.358-3.74); Triglycerides 139 mg/dL; Very Low Density Lipoprotein 28 mg/dL (5-40)
== END | disposition home or self-care (01) ==
LOC: MFPLAB 08:09
PROVIDERS: Family Provider Family Medicine; PCP Family Medicine; Referring Provider Family Medicine; Visit Provider Family Medicine
DX: Z00.00 Encounter for general adult medical examination without abnormal findings (principal); J44.9 Chronic obstructive pulmonary disease, unspecified
CPT/HCPCS: 36415; 80053; 80061; 83036; 84443

== ENCOUNTER → 2019-04-26 | Outpatient (CLI) | payer MEDICARE, OTHER, SELFPAY ==
[2019-04-26 17:31] LABS: Absolute Neutrophil Count 8.1 X10^3/uL (2.0-7.7); Basophil# 0.04 X10^3/uL; Basophil% 0.4 % (0-1); Eosinophils% 2.8 % (0-5); Hemoglobin 13.5 g/dL (12.0-15.0); Lymphocyte % 11.4 % (19-41); Mean Corp Hgb Conc 30.7 g/dL (32-36); Mean Corpuscular Hgb 26.4 pg (27.0-32.0); Mean Corpuscular Volume 85.9 fL (81-99); Mean Platelet Vol. 11.5 fl (6.2-12.0); Monocyte# 0.87 X10^3/uL; Monocyte% 8.3 % (0-10); NRBC Flagged by Analyzer 0 % (0-5); Neutrophil # 8.09 X10^3/uL (2.7-7.7); Neutrophil % 76.7 % (47-70); Platelet Count 217 K/mm3 (150-450); RBC Distribution Width CV 15.5 % (11.6-14.6); RBC Distribution Width SD 48.4 fl (35.1-43.9); Red Blood Count 5.12 M/mm3 (4.2-5.4); White Blood Count 10.5 K/mm3 (4.4-11.0)
[2019-04-26 17:45] LABS: Uric Acid 5.8 mg/dL (2.6-6.0)
== END | disposition home or self-care (01) ==
PROVIDERS: Family Provider Family Medicine; PCP Family Medicine; Referring Provider Family Medicine; Visit Provider Nurse Practitioner Family
DX: M10.9 Gout, unspecified (principal)
CPT/HCPCS: 36415; 84550; 85025

== ENCOUNTER → 2019-05-11 | Outpatient (CLI) | payer MEDICARE, OTHER, SELFPAY ==
[2019-05-11 12:22] LABS: Absolute Lymphocyte Count 1.31 X10^3/uL (0.83-4.51); Absolute Neutrophil Count 6.5 X10^3/uL (2.0-7.7); Basophil# 0.03 X10^3/uL; Basophil% 0.3 % (0-1); Eosinophil# 0.26 X10^3/uL; Hematocrit 44.8 % (37-47); Hemoglobin 13.9 g/dL (12.0-15.0); Lymphocyte # 1.31 X10^3/ul (4.0); Lymphocyte % 14.9 % (19-41); Mean Corpuscular Hgb 26.5 pg (27.0-32.0); Mean Corpuscular Volume 85.5 fL (81-99); Mean Platelet Vol. 10.8 fl (6.2-12.0); Monocyte# 0.66 X10^3/uL; Monocyte% 7.5 % (0-10); NRBC Flagged by Analyzer 0 % (0-5); Neutrophil # 6.48 X10^3/uL (2.7-7.7); Neutrophil % 73.8 % (47-70); Platelet Count 222 K/mm3 (150-450); RBC Distribution Width CV 15.6 % (11.6-14.6); RBC Distribution Width SD 48.7 fl (35.1-43.9); Red Blood Count 5.24 M/mm3 (4.2-5.4); White Blood Count 8.8 K/mm3 (4.4-11.0)
[2019-05-11 12:38] LABS: ALB/GLOB Ratio 0.9 RATIO (0.9-2.4); AST(SGOT) 14 U/L (15-37); Alanine Aminotransfer ALT/SGPT 24 U/L (13-56); Albumin, Serum 3.5 g/dL (3.2-5.0); Alkaline Phosphatase 79 U/L (45-117); Anion Gap 3 (5-15); BUN 13 mg/dL (7-18); BUN/Creat Ratio 15.2 RATIO (10-20); Chloride 105 mmol/L (98-107); Creatinine, Serum 0.86 mg/dL (0.55-1.02); EST Glomerular Filtration Rate 69 mL/min (>60); Est Glom Filt Rate - Afr Amer 84 mL/min (>60); Globulin 3.8 g/dL (2.2-4.2); Glucose 100 mg/dL (74-106); Potassium 4.3 mmol/L (3.5-5.1); Protein, Total 7.3 g/dL (6.4-8.2); Sodium Level 138 mmol/L (136-145)
== END | disposition home or self-care (01) ==
PROVIDERS: Family Provider Family Medicine; PCP Family Medicine; Referring Provider Family Medicine; Visit Provider Internal Medicine Rheumatology
DX: M06.4 Inflammatory polyarthropathy (principal); M35.8 Other specified systemic involvement of connective tissue; I10 Essential (primary) hypertension; M17.0 Bilateral primary osteoarthritis of knee; E11.9 Type 2 diabetes mellitus without complications; E78.5 Hyperlipidemia, unspecified; J45.909 Unspecified asthma, uncomplicated
CPT/HCPCS: 36415; 80053; 85025

== ENCOUNTER → 2019-10-25 11:16 | Outpatient (CLI) | payer MEDICARE, OTHER, SELFPAY ==
[2019-10-25 14:30] LABS: Absolute Neutrophil Count 6.3 X10^3/uL (2.0-7.7); Basophil# 0.03 X10^3/uL; Basophil% 0.4 % (0-1); Eosinophil# 0.19 X10^3/uL; Eosinophils% 2.2 % (0-5); Hematocrit 46.6 % (37-47); Hemoglobin 14.2 g/dL (12.0-15.0); Lymphocyte % 12.9 % (19-41); Mean Corp Hgb Conc 30.5 g/dL (32-36); Mean Corpuscular Hgb 25.8 pg (27.0-32.0); Mean Corpuscular Volume 84.6 fL (81-99); Mean Platelet Vol. 10.9 fl (6.2-12.0); Monocyte# 0.88 X10^3/uL; Monocyte% 10.4 % (0-10); NRBC Flagged by Analyzer 0 % (0-5); Neutrophil # 6.27 X10^3/uL (2.7-7.7); Neutrophil % 73.7 % (47-70); Platelet Count 220 K/mm3 (150-450); RBC Distribution Width CV 15.8 % (11.6-14.6); RBC Distribution Width SD 48.5 fl (35.1-43.9); Red Blood Count 5.51 M/mm3 (4.2-5.4); White Blood Count 8.5 K/mm3 (4.4-11.0)
[2019-10-25 14:52] LABS: ALB/GLOB Ratio 1.1 RATIO (0.9-2.4); AST(SGOT) 15 U/L (15-37); Alanine Aminotransfer ALT/SGPT 24 U/L (12-78); Albumin, Serum 3.7 g/dL (3.4-5.0); Alkaline Phosphatase 93 U/L (50-136); Anion Gap 5 (5-15); BUN 13 mg/dL (7-18); BUN/Creat Ratio 16.8 RATIO (10-20); Chloride 104 mmol/L (98-107); Creatinine, Serum 0.78 mg/dL (0.55-1.20); EST Glomerular Filtration Rate 77 mL/min (>60); Est Glom Filt Rate - Afr Amer 93 mL/min (>60); Globulin 3.3 g/dL (2.3-3.5); Glucose 93 mg/dL (70-110); Potassium 4.4 mmol/L (3.5-5.1); Sodium Level 138 mmol/L (136-145)
== END ==
PROVIDERS: PCP Family Medicine; Referring Provider Family Medicine; Visit Provider Family Medicine
DX: E11.69 Type 2 diabetes mellitus with other specified complication (principal); I10 Essential (primary) hypertension; J44.9 Chronic obstructive pulmonary disease, unspecified
CPT/HCPCS: 36415; 80053; 84443; 85025

== ENCOUNTER → 2019-11-10 13:02 | Outpatient (CLI) | payer MEDICARE, OTHER, SELFPAY ==
[2019-11-10 14:15] LABS: Absolute Lymphocyte Count 1.53 X10^3/uL (0.83-4.51); Absolute Neutrophil Count 6.4 X10^3/uL (2.0-7.7); Basophil# 0.03 X10^3/uL; Basophil% 0.3 % (0-1); Eosinophil# 0.27 X10^3/uL; Hematocrit 45.2 % (37-47); Hemoglobin 13.9 g/dL (12.0-15.0); Lymphocyte # 1.53 X10^3/ul (4.0); Lymphocyte % 17.1 % (19-41); Mean Corp Hgb Conc 30.8 g/dL (32-36); Mean Corpuscular Hgb 26.6 pg (27.0-32.0); Mean Corpuscular Volume 86.4 fL (81-99); Mean Platelet Vol. 10.8 fl (6.2-12.0); Monocyte# 0.68 X10^3/uL; Monocyte% 7.6 % (0-10); NRBC Flagged by Analyzer 0 % (0-5); Neutrophil # 6.42 X10^3/uL (2.7-7.7); Neutrophil % 71.7 % (47-70); Platelet Count 225 K/mm3 (150-450); RBC Distribution Width CV 15.6 % (11.6-14.6); RBC Distribution Width SD 49.2 fl (35.1-43.9); Red Blood Count 5.23 M/mm3 (4.2-5.4)
[2019-11-10 14:30] LABS: ALB/GLOB Ratio 1.1 RATIO (0.9-2.4); AST(SGOT) 9 U/L (15-37); Alanine Aminotransfer ALT/SGPT 24 U/L (13-56); Albumin, Serum 3.5 g/dL (3.2-5.0); Alkaline Phosphatase 95 U/L (45-117); Anion Gap 4 (5-15); BUN 11 mg/dL (7-18); BUN/Creat Ratio 13.5 RATIO (10-20); Calcium,Total 8.6 mg/dL (8.5-10.1); Chloride 102 mmol/L (98-107); Creatinine, Serum 0.82 mg/dL (0.55-1.02); EST Glomerular Filtration Rate 73 mL/min (>60); Est Glom Filt Rate - Afr Amer 88 mL/min (>60); Globulin 3.3 g/dL (2.2-4.2); Glucose 129 mg/dL (74-106); Potassium 4.2 mmol/L (3.5-5.1); Protein, Total 6.8 g/dL (6.4-8.2); Sodium Level 139 mmol/L (136-145); Uric Acid 5.6 mg/dL (2.6-6.0)
== END ==
PROVIDERS: PCP Family Medicine; Referring Provider Internal Medicine Rheumatology; Visit Provider Internal Medicine Rheumatology
DX: M06.4 Inflammatory polyarthropathy (principal); M35.8 Other specified systemic involvement of connective tissue; I10 Essential (primary) hypertension; M17.0 Bilateral primary osteoarthritis of knee; E11.9 Type 2 diabetes mellitus without complications; E78.5 Hyperlipidemia, unspecified; J45.909 Unspecified asthma, uncomplicated
CPT/HCPCS: 36415; 80053; 84550; 85025

== ENCOUNTER → 2020-02-09 08:26 | Outpatient (CLI) | payer MEDICARE, OTHER, SELFPAY ==
--- NOTE | 2020-02-09 08:28 | BI_ITS ---
MAMMOGRAPHY - BILATERAL SCREENING REASON FOR EXAM: Female, 74 years old. Routine annual screening examination. PERTINENT HISTORY: Non-contributory. TECHNIQUE: Digital bilateral breast alee (3D mammographic acquisition) in the CC and MLO projections. 2-D mediolateral oblique (MLO) and craniocaudad (CC) views of both breasts were obtained. CAD: Full Field Digital Mammography with Computer Added Detection was performed. COMPARISON: Comparison is made with prior examination dated May 25, 2018 and March 10, 2017. FINDINGS: Breast Composition: There are scattered areas of fibroglandular density. There are no dominant masses or suspicious calcifications. Stable 1 some well-defined nodule in the upper lateral portion of the left breast. No other significant abnormalities are identified. There has been no significant change since the prior study. BI/SCREEN MAMM (CAD) W/ALEE BILAT IMPRESSION: Stable bilateral screening mammogram. Yearly follow-up mammogram recommended. (A) ASSESSMENT CATEGORY: BIRADS Category 2: Benign. A letter regarding these results will be sent to the patient by the facility within 30 days. Approximately 10% of breast cancers are not detected by mammography. A normal mammogram should not delay biopsy of a clinically suspicious abnormality. [id number] Electronically Signed: Vinnie Benitez, at 11:16 EDT , Service support ,
== END ==
PROVIDERS: PCP Family Medicine; Referring Provider Nurse Practitioner Adult Health; Visit Provider Nurse Practitioner Adult Health
DX: Z12.31 Encounter for screening mammogram for malignant neoplasm of breast (principal)
CPT/HCPCS: 77063; 77067

== ENCOUNTER → 2020-04-24 10:39 | Outpatient (CLI) | payer MEDICARE, OTHER, SELFPAY ==
[2020-04-24 11:58] LABS: Absolute Lymphocyte Count 1.23 X10^3/uL (0.83-4.51); Absolute Neutrophil Count 6.4 X10^3/uL (2.0-7.7); Basophil# 0.03 X10^3/uL; Basophil% 0.3 % (0-1); Eosinophils% 3.4 % (0-5); Hematocrit 44.7 % (37-47); Hemoglobin 13.7 g/dL (12.0-15.0); Lymphocyte # 1.23 X10^3/ul (4.0); Mean Corp Hgb Conc 30.6 g/dL (32-36); Mean Corpuscular Hgb 27.1 pg (27.0-32.0); Mean Corpuscular Volume 88.5 fL (81-99); Mean Platelet Vol. 10.9 fl (6.2-12.0); Monocyte# 0.76 X10^3/uL; Monocyte% 8.7 % (0-10); NRBC Flagged by Analyzer 0 % (0-5); Neutrophil # 6.41 X10^3/uL (2.7-7.7); Neutrophil % 73.1 % (47-70); Platelet Count 207 K/mm3 (150-450); RBC Distribution Width CV 15.9 % (11.6-14.6); Red Blood Count 5.05 M/mm3 (4.2-5.4); White Blood Count 8.8 K/mm3 (4.4-11.0)
[2020-04-24 12:18] LABS: Hemoglobin A1c 6.2 % (3.8-5.6)
[2020-04-24 12:37] LABS: ALB/GLOB Ratio 0.9 RATIO (0.9-2.4); AST(SGOT) 12 U/L (15-37); Alanine Aminotransfer ALT/SGPT 20 U/L (13-56); Albumin, Serum 3.3 g/dL (3.2-5.0); Alkaline Phosphatase 93 U/L (45-117); Anion Gap 4 (5-15); BUN 11 mg/dL (7-18); BUN/Creat Ratio 15.4 RATIO (10-20); Calcium,Total 8.7 mg/dL (8.5-10.1); Chloride 103 mmol/L (98-107); Creatinine, Serum 0.72 mg/dL (0.55-1.02); EST Glomerular Filtration Rate 85 mL/min (>60); Est Glom Filt Rate - Afr Amer 103 mL/min (>60); Globulin 3.8 g/dL (2.2-4.2); Glucose 98 mg/dL (74-106); Potassium 4.2 mmol/L (3.5-5.1); Protein, Total 7.1 g/dL (6.4-8.2); Sodium Level 138 mmol/L (136-145); Thyroid Stim Hormone (TSH) 1.64 uIU/mL (0.358-3.74)
== END ==
PROVIDERS: PCP Family Medicine; Referring Provider Family Medicine; Visit Provider Family Medicine
DX: M06.4 Inflammatory polyarthropathy (principal); M35.8 Other specified systemic involvement of connective tissue; I10 Essential (primary) hypertension; M17.0 Bilateral primary osteoarthritis of knee; E78.5 Hyperlipidemia, unspecified; E11.69 Type 2 diabetes mellitus with other specified complication; J44.9 Chronic obstructive pulmonary disease, unspecified
CPT/HCPCS: 36415; 80053; 83036; 84443; 84550; 85025

== ENCOUNTER → 2020-10-23 09:46 | Outpatient (CLI) | payer MEDICARE, OTHER, SELFPAY ==
[2020-10-23 12:37] LABS: Absolute Lymphocyte Count 1.55 X10^3/uL (0.83-4.51); Basophil# 0.04 X10^3/uL; Basophil% 0.4 % (0-1); Eosinophil# 0.31 X10^3/uL; Eosinophils% 3.2 % (0-5); Hematocrit 46.4 % (37-47); Lymphocyte # 1.55 X10^3/ul (4.0); Mean Corp Hgb Conc 30.2 g/dL (32-36); Mean Corpuscular Hgb 26.4 pg (27.0-32.0); Mean Corpuscular Volume 87.5 fL (81-99); Mean Platelet Vol. 11.4 fl (6.2-12.0); Monocyte# 0.71 X10^3/uL; Monocyte% 7.3 % (0-10); NRBC Flagged by Analyzer 0 % (0-5); Neutrophil # 7.01 X10^3/uL (2.7-7.7); Neutrophil % 72.4 % (47-70); Platelet Count 220 K/mm3 (150-450); RBC Distribution Width CV 15.7 % (11.6-14.6); RBC Distribution Width SD 50.4 fl (35.1-43.9); White Blood Count 9.7 K/mm3 (4.4-11.0)
[2020-10-23 12:55] LABS: ALB/GLOB Ratio 0.9 RATIO (0.9-2.4); AST(SGOT) 12 U/L (15-37); Alanine Aminotransfer ALT/SGPT 23 U/L (13-56); Albumin, Serum 3.4 g/dL (3.2-5.0); Alkaline Phosphatase 99 U/L (45-117); Anion Gap 6 (5-15); BUN 11 mg/dL (7-18); BUN/Creat Ratio 13.3 RATIO (10-20); Calcium,Total 8.8 mg/dL (8.5-10.1); Chloride 107 mmol/L (98-107); Creatinine, Serum 0.83 mg/dL (0.55-1.02); EST Glomerular Filtration Rate 72 mL/min (>60); Est Glom Filt Rate - Afr Amer 87 mL/min (>60); Globulin 3.8 g/dL (2.2-4.2); Glucose 183 mg/dL (74-106); Potassium 4.1 mmol/L (3.5-5.1); Protein, Total 7.2 g/dL (6.4-8.2); Sodium Level 139 mmol/L (136-145)
== END ==
PROVIDERS: PCP Family Medicine; Referring Provider Family Medicine; Visit Provider Internal Medicine Rheumatology
DX: M06.4 Inflammatory polyarthropathy (principal); I10 Essential (primary) hypertension; M35.89 Other specified systemic involvement of connective tissue; M17.0 Bilateral primary osteoarthritis of knee; E11.9 Type 2 diabetes mellitus without complications; E78.5 Hyperlipidemia, unspecified; J45.909 Unspecified asthma, uncomplicated
CPT/HCPCS: 36415; 80053; 85025

== ENCOUNTER → 2020-11-25 08:57 | Outpatient (CLI) | payer MEDICARE, OTHER, SELFPAY ==
[2020-11-25 11:59] LABS: Absolute Lymphocyte Count 1.12 X10^3/uL (0.83-4.51); Absolute Neutrophil Count 4.9 X10^3/uL (2.0-7.7); Basophil# 0.02 X10^3/uL; Basophil% 0.3 % (0-1); Eosinophils% 2.9 % (0-5); Hematocrit 43.7 % (37-47); Hemoglobin 13.3 g/dL (12.0-15.0); Lymphocyte # 1.12 X10^3/ul (4.0); Lymphocyte % 16.4 % (19-41); Mean Corp Hgb Conc 30.4 g/dL (32-36); Mean Corpuscular Hgb 26.7 pg (27.0-32.0); Mean Corpuscular Volume 87.8 fL (81-99); Mean Platelet Vol. 11.2 fl (6.2-12.0); Monocyte# 0.54 X10^3/uL; Monocyte% 7.9 % (0-10); NRBC Flagged by Analyzer 0 % (0-5); Neutrophil # 4.92 X10^3/uL (2.7-7.7); Neutrophil % 72.1 % (47-70); Platelet Count 198 K/mm3 (150-450); RBC Distribution Width CV 15.7 % (11.6-14.6); RBC Distribution Width SD 50.2 fl (35.1-43.9); Red Blood Count 4.98 M/mm3 (4.2-5.4); White Blood Count 6.8 K/mm3 (4.4-11.0)
[2020-11-25 12:15] LABS: Cholesterol 180 mg/dL (200); High Density Lipoprotein 48 mg/dL; Triglycerides 118 mg/dL; Very Low Density Lipoprotein 24 mg/dL (5-40)
[2020-11-25 12:43] LABS: Hemoglobin A1c 6.3 % (3.8-5.6)
== END ==
PROVIDERS: PCP Family Medicine; Referring Provider Family Medicine; Visit Provider Family Medicine
DX: E11.69 Type 2 diabetes mellitus with other specified complication (principal)
CPT/HCPCS: 36415; 80061; 83036; 85025

== ENCOUNTER → 2021-04-10 10:34 | Outpatient (CLI) | payer MEDICARE, OTHER, SELFPAY ==
[2021-04-10 12:35] LABS: Absolute Lymphocyte Count 1.37 X10^3/uL (0.83-4.51); Absolute Neutrophil Count 6.8 X10^3/uL (2.0-7.7); Basophil# 0.02 X10^3/uL; Basophil% 0.2 % (0-1); Eosinophil# 0.19 X10^3/uL; Eosinophils% 2.1 % (0-5); Hematocrit 43.2 % (37-47); Hemoglobin 13.2 g/dL (12.0-15.0); Lymphocyte # 1.37 X10^3/ul (0.83-4.51); Lymphocyte % 14.9 % (19-41); Mean Corp Hgb Conc 30.6 g/dL (32-36); Mean Corpuscular Hgb 26.9 pg (27.0-32.0); Mean Corpuscular Volume 88.2 fL (81-99); Mean Platelet Vol. 11.4 fl (6.2-12.0); Monocyte# 0.72 X10^3/uL; Monocyte% 7.8 % (0-10); NRBC Flagged by Analyzer 0 % (0-5); Neutrophil # 6.83 X10^3/uL (2.7-7.7); Neutrophil % 74.5 % (47-70); Platelet Count 204 K/mm3 (150-450); RBC Distribution Width CV 14.9 % (11.6-14.6); RBC Distribution Width SD 48.6 fl (35.1-43.9); White Blood Count 9.2 K/mm3 (4.4-11.0)
[2021-04-10 12:43] LABS: AST(SGOT) 11 U/L (15-37); Alanine Aminotransfer ALT/SGPT 21 U/L (13-56); Albumin, Serum 3.3 g/dL (3.2-5.0); Alkaline Phosphatase 82 U/L (45-117); Anion Gap 7 (5-15); BUN 13 mg/dL (7-18); BUN/Creat Ratio 14.7 RATIO (10-20); Calcium,Total 8.5 mg/dL (8.5-10.1); Chloride 104 mmol/L (98-107); Creatinine, Serum 0.88 mg/dL (0.55-1.02); EST Glomerular Filtration Rate 66 mL/min (>60); Est Glom Filt Rate - Afr Amer 80 mL/min (>60); Globulin 3.4 g/dL (2.2-4.2); Glucose 194 mg/dL (74-106); Potassium 3.7 mmol/L (3.5-5.1); Protein, Total 6.7 g/dL (6.4-8.2); Sodium Level 140 mmol/L (136-145)
== END ==
PROVIDERS: PCP Family Medicine; Referring Provider Family Medicine; Visit Provider Internal Medicine Rheumatology
DX: M06.4 Inflammatory polyarthropathy (principal); M35.89 Other specified systemic involvement of connective tissue; M18.12 Unilateral primary osteoarthritis of first carpometacarpal joint, left hand; M17.0 Bilateral primary osteoarthritis of knee; E11.9 Type 2 diabetes mellitus without complications; E78.5 Hyperlipidemia, unspecified; J45.909 Unspecified asthma, uncomplicated; I10 Essential (primary) hypertension
CPT/HCPCS: 36415; 80053; 85025

== ENCOUNTER → 2021-07-11 08:56 | Outpatient (CLI) | payer MEDICARE, OTHER, SELFPAY ==
[2021-07-11 10:21] LABS: Hemoglobin A1c 6.3 % (3.8-5.6)
[2021-07-11 10:32] LABS: ALB/GLOB Ratio 0.9 RATIO (0.9-2.4); AST(SGOT) 11 U/L (15-37); Alanine Aminotransfer ALT/SGPT 19 U/L (13-56); Albumin, Serum 3.5 g/dL (3.2-5.0); Alkaline Phosphatase 83 U/L (45-117); Anion Gap 7 (5-15); BUN 10 mg/dL (7-18); BUN/Creat Ratio 12.7 RATIO (10-20); Calcium,Total 8.9 mg/dL (8.5-10.1); Chloride 103 mmol/L (98-107); Cholesterol 182 mg/dL (200); Creatinine, Serum 0.79 mg/dL (0.55-1.02); EST Glomerular Filtration Rate 76 mL/min (>60); Est Glom Filt Rate - Afr Amer 91 mL/min (>60); Globulin 3.8 g/dL (2.2-4.2); Glucose 119 mg/dL (74-106); High Density Lipoprotein 48 mg/dL; Potassium 3.9 mmol/L (3.5-5.1); Protein, Total 7.3 g/dL (6.4-8.2); Sodium Level 140 mmol/L (136-145)
[2021-07-11 12:59] LABS: Microalbumin,Random Urine < 5.0 mg/L (NO RANGE EST.)
== END ==
PROVIDERS: PCP Family Medicine; Referring Provider Family Medicine; Visit Provider Family Medicine
DX: E11.69 Type 2 diabetes mellitus with other specified complication (principal)
CPT/HCPCS: 36415; 80053; 82043; 82465; 82570; 83036; 83718

== ENCOUNTER → 2021-07-23 13:37 | Outpatient (CLI) | payer MEDICARE, OTHER, SELFPAY ==
--- NOTE | 2021-07-23 13:42 | BI_ITS ---
MAMMOGRAPHY - BILATERAL SCREENING REASON FOR EXAM: Female, 75 years old. Routine annual screening examination. PERTINENT HISTORY: Non-contributory. TECHNIQUE: Digital bilateral breast savanah (3D mammographic acquisition) in the CC and MLO projections. 2-D mediolateral oblique (MLO) and craniocaudad (CC) views of both breasts were obtained. CAD: Full Field Digital Mammography with Computer Added Detection was performed. COMPARISON: Comparison is made with prior study dated 02/09/2020 and 05/25/2018. FINDINGS: Breast Composition: There are scattered areas of fibroglandular density. There are no dominant masses or suspicious calcifications. No other significant abnormalities are identified. There has been no significant change since the prior study. BI/SCREENING MAMM (CAD), BILAT IMPRESSION: Stable bilateral screening mammogram. Yearly follow-up mammogram recommended. (A) ASSESSMENT CATEGORY: BIRADS Category 1: Negative. A letter regarding these results will be sent to the patient by the facility within 30 days. Approximately 10% of breast cancers are not detected by mammography. A normal mammogram should not delay biopsy of a clinically suspicious abnormality. [id number] Electronically Signed: Vinnie Benitez MD at 14:28 EDT , Service support ,
== END ==
PROVIDERS: PCP Family Medicine; Visit Provider Family Medicine
DX: Z12.31 Encounter for screening mammogram for malignant neoplasm of breast (principal)
CPT/HCPCS: 77067

== ENCOUNTER 2021-10-14 13:41 | Outpatient (CLI) | payer MEDICARE, OTHER, SELFPAY ==
[2021-10-14 15:27] LABS: Absolute Neutrophil Count 8.1 X10^3/uL (2.0-7.7); Basophil# 0.04 X10^3/uL; Basophil% 0.4 % (0-1); Eosinophil# 0.27 X10^3/uL; Eosinophils% 2.4 % (0-5); Hematocrit 47.1 % (37-47); Hemoglobin 14.4 g/dL (12.0-15.0); Lymphocyte % 15.9 % (19-41); Mean Corp Hgb Conc 30.6 g/dL (32-36); Mean Corpuscular Hgb 26.3 pg (27.0-32.0); Mean Corpuscular Volume 86.1 fL (81-99); Mean Platelet Vol. 11.6 fl (6.2-12.0); Monocyte# 1.04 X10^3/uL; Monocyte% 9.2 % (0-10); NRBC Flagged by Analyzer 0 % (0-5); Neutrophil # 8.11 X10^3/uL (2.7-7.7); Neutrophil % 71.7 % (47-70); Platelet Count 261 K/mm3 (150-450); RBC Distribution Width CV 15.3 % (11.6-14.6); RBC Distribution Width SD 48.2 fl (35.1-43.9); Red Blood Count 5.47 M/mm3 (4.2-5.4); White Blood Count 11.3 K/mm3 (4.4-11.0)
[2021-10-14 15:54] LABS: ALB/GLOB Ratio 1.1 RATIO (0.9-2.4); AST(SGOT) 13 U/L (15-37); Alanine Aminotransfer ALT/SGPT 22 U/L (13-56); Albumin, Serum 3.6 g/dL (3.2-5.0); Alkaline Phosphatase 84 U/L (45-117); Anion Gap 8 (5-15); BUN 12 mg/dL (7-18); BUN/Creat Ratio 14.7 RATIO (10-20); Calcium,Total 9.4 mg/dL (8.5-10.1); Chloride 103 mmol/L (98-107); Creatinine, Serum 0.81 mg/dL (0.55-1.02); EST Glomerular Filtration Rate 73 mL/min (>60); Est Glom Filt Rate - Afr Amer 88 mL/min (>60); Globulin 3.3 g/dL (2.2-4.2); Glucose 93 mg/dL (74-106); Potassium 4.5 mmol/L (3.5-5.1); Protein, Total 6.9 g/dL (6.4-8.2); Sodium Level 139 mmol/L (136-145)
== END 2021-10-14 23:59 | disposition short-term general hospital (02) ==
LOC: MFPLAB 13:47
PROVIDERS: PCP Family Medicine; Referring Provider Family Medicine; Visit Provider Internal Medicine Rheumatology
DX: M06.4 Inflammatory polyarthropathy (principal); M35.89 Other specified systemic involvement of connective tissue; E11.9 Type 2 diabetes mellitus without complications; M18.12 Unilateral primary osteoarthritis of first carpometacarpal joint, left hand; M17.0 Bilateral primary osteoarthritis of knee; E78.5 Hyperlipidemia, unspecified; J45.909 Unspecified asthma, uncomplicated; I10 Essential (primary) hypertension
CPT/HCPCS: 36415; 80053; 85025

== ENCOUNTER 2021-12-11 10:35 | Outpatient (CLI) | payer MEDICARE, OTHER, SELFPAY ==
[2021-12-11 12:08] LABS: Absolute Lymphocyte Count 1.17 X10^3/uL (0.83-4.51); Absolute Neutrophil Count 7.2 X10^3/uL (2.0-7.7); Basophil# 0.04 X10^3/uL; Basophil% 0.4 % (0-1); Eosinophil# 0.27 X10^3/uL; Eosinophils% 2.8 % (0-5); Hematocrit 45.5 % (37-47); Hemoglobin 14.3 g/dL (12.0-15.0); Lymphocyte # 1.17 X10^3/ul (0.83-4.51); Lymphocyte % 12.2 % (19-41); Mean Corp Hgb Conc 31.4 g/dL (32-36); Mean Corpuscular Hgb 27.2 pg (27.0-32.0); Mean Corpuscular Volume 86.7 fL (81-99); Mean Platelet Vol. 10.9 fl (6.2-12.0); Monocyte# 0.89 X10^3/uL; Monocyte% 9.3 % (0-10); NRBC Flagged by Analyzer 0 % (0-5); Neutrophil # 7.16 X10^3/uL (2.7-7.7); Neutrophil % 74.7 % (47-70); Platelet Count 249 K/mm3 (150-450); RBC Distribution Width CV 15.1 % (11.6-14.6); RBC Distribution Width SD 48.3 fl (35.1-43.9); Red Blood Count 5.25 M/mm3 (4.2-5.4); White Blood Count 9.6 K/mm3 (4.4-11.0)
[2021-12-11 13:10] LABS: ALB/GLOB Ratio 0.9 RATIO (0.9-2.4); AST(SGOT) 10 U/L (15-37); Alanine Aminotransfer ALT/SGPT 20 U/L (13-56); Albumin, Serum 3.4 g/dL (3.2-5.0); Alkaline Phosphatase 87 U/L (45-117); Anion Gap 6 (5-15); BUN 13 mg/dL (7-18); BUN/Creat Ratio 16.2 RATIO (10-20); Chloride 103 mmol/L (98-107); EST Glomerular Filtration Rate 74 mL/min (>60); Est Glom Filt Rate - Afr Amer 90 mL/min (>60); Globulin 3.7 g/dL (2.2-4.2); Glucose 97 mg/dL (74-106); Magnesium 2.5 mg/dL (1.6-2.6); Potassium 4.3 mmol/L (3.5-5.1); Protein, Total 7.1 g/dL (6.4-8.2); Sodium Level 137 mmol/L (136-145); Thyroid Stim Hormone (TSH) 1.98 uIU/mL (0.358-3.74)
== END 2021-12-11 23:59 | disposition home or self-care (01) ==
LOC: MFPLAB 10:36
PROVIDERS: PCP Family Medicine; Referring Provider Family Medicine; Visit Provider Family Medicine
DX: I48.91 Unspecified atrial fibrillation (principal)
CPT/HCPCS: 36415; 80053; 83735; 84443; 85025

== ENCOUNTER → 2022-01-16 | Outpatient (CLI) | payer MEDICARE, OTHER, SELFPAY ==
[2022-01-16 10:19] LABS: Absolute Lymphocyte Count 1.28 X10^3/uL (0.83-4.51); Absolute Neutrophil Count 6.8 X10^3/uL (2.0-7.7); Basophil# 0.03 X10^3/uL; Basophil% 0.3 % (0-1); Eosinophil# 0.21 X10^3/uL; Eosinophils% 2.3 % (0-5); Hematocrit 40.6 % (37-47); Hemoglobin 12.8 g/dL (12.0-15.0); Lymphocyte # 1.28 X10^3/ul (0.83-4.51); Mean Corp Hgb Conc 31.5 g/dL (32-36); Mean Corpuscular Hgb 26.7 pg (27.0-32.0); Mean Corpuscular Volume 84.8 fL (81-99); Mean Platelet Vol. 10.6 fl (6.2-12.0); Monocyte# 0.81 X10^3/uL; Monocyte% 8.9 % (0-10); NRBC Flagged by Analyzer 0 % (0-5); Neutrophil # 6.76 X10^3/uL (2.7-7.7); Neutrophil % 74.1 % (47-70); Platelet Count 218 K/mm3 (150-450); RBC Distribution Width CV 15.9 % (11.6-14.6); RBC Distribution Width SD 48.7 fl (35.1-43.9); Red Blood Count 4.79 M/mm3 (4.2-5.4); White Blood Count 9.1 K/mm3 (4.4-11.0)
[2022-01-16 10:37] LABS: Hemoglobin A1c 6.4 % (3.8-5.6)
[2022-01-16 10:52] LABS: AST(SGOT) 9 U/L (15-37); Alanine Aminotransfer ALT/SGPT 19 U/L (13-56); Albumin, Serum 3.5 g/dL (3.2-5.0); Alkaline Phosphatase 78 U/L (45-117); Anion Gap 6 (5-15); BUN 14 mg/dL (7-18); BUN/Creat Ratio 16.3 RATIO (10-20); Chloride 106 mmol/L (98-107); Creatinine, Serum 0.86 mg/dL (0.55-1.02); EST Glomerular Filtration Rate 68 mL/min (>60); Est Glom Filt Rate - Afr Amer 83 mL/min (>60); Globulin 3.6 g/dL (2.2-4.2); Glucose 122 mg/dL (74-106); Potassium 4.2 mmol/L (3.5-5.1); Protein, Total 7.1 g/dL (6.4-8.2); Sodium Level 139 mmol/L (136-145)
[2022-01-16 12:29] LABS: Microalbumin,Random Urine < 5.0 mg/L (NO RANGE EST.)
== END | disposition home or self-care (01) ==
LOC: MFPLAB 09:51
PROVIDERS: PCP Family Medicine; Referring Provider Family Medicine; Visit Provider Family Medicine
DX: E11.69 Type 2 diabetes mellitus with other specified complication (principal); J44.9 Chronic obstructive pulmonary disease, unspecified; E66.9 Obesity, unspecified
CPT/HCPCS: 36415; 80053; 82043; 82570; 83036; 85025

== ENCOUNTER → 2022-02-27 | Outpatient (CLI) | payer MEDICARE, OTHER, SELFPAY ==
--- NOTE | 2022-02-27 06:36 | ECHOCS_ITS ---
Reason For Study: ATRIAL FIB-FLUTTER Procedure This was a 2D Doppler, Color Flow transthoracic echocardiogram. The study was technically difficult. Exam performed in department. Left Ventricle Normal LV size. Left ventricular systolic function is normal. The estimated ejection fraction is 55 %. No regional wall motion abnormalities noted. Right Ventricle Normal RV size. Normal systolic function. Atria Normal left atrium. Normal right atrium. Patent foramen ovale. Mitral Valve Normal mitral valve. Tricuspid Valve Normal tricuspid valve. Mild (1+) tricuspid valve insufficiency. Pulmonary artery systolic pressure is 42 mmHg. Aortic Valve Normal aortic valve. Pulmonic Valve Normal pulmonic valve. Great Vessels Normal aortic root. The pulmonary artery is normal size. Normal inferior vena cava. Pericardium/Pleural No pericardial effusion. Medication Diluted definity 4ml given slow IV push to enhance endocardial definition. Performed a rapid injection of agitated mix of 9 cc saline and 1cc air to assess for atrial septal defect. MMode/2D Measurements & Calculations LVIDd: 4.6 cm IVSd: 1.1 cm Ao root diam: 3.0 cm LVIDs: 3.4 cm LVPWd: 1.1 cm RVDd: 3.5 cm FS: 26.6 % LAV(MOD-bp): 50.1 ml LVAd ap4: 23.7 cm2 SV(MOD-sp4): 36.7 ml LAV(MOD-bp) Indexed: 23.2 ml/m2 LVLd ap4: 7.3 cm LAV(MOD-sp2): 47.8 ml EDV(MOD-sp4): 64.4 ml LAV(MOD-sp4): 48.9 ml EDV(sp4-el): 65.6 ml LVAs ap4: 14.1 cm2 LVLs ap4: 6.3 cm ESV(MOD-sp4): 27.7 ml ESV(sp4-el): 27.1 ml EF(MOD-sp4): 57.0 % EF(sp4-el): 58.7 % SV(sp4-el): 38.5 ml LA A4 area: 18.2 cm2 LA dimension(2D): 4.3 cm RA A4 area: 19.1 cm2 Doppler Measurements & Calculations MV E max rhoda: 120.0 cm/sec Ao V2 max: 124.0 cm/sec LV V1 max: 74.7 cm/sec Ao max P.2 mmHg LV V1 max P.2 mmHg PA V2 max: 69.7 cm/sec TR max rhoda: 307.4 cm/sec TR max P.8 mmHg ECHO/Echo Complete W/ Contrast Interpretation Summary Normal LV size. Left ventricular systolic function is normal. The estimated ejection fraction is 55 %. Pulmonary artery systolic pressure is 42 mmHg. Contrast injection was performed. Ordering Physician: Rob Mitchell Referring Physician: CECILIA BONILLA Performed By: Berkley Martin RDCS
--- NOTE | 2022-02-27 09:48 | STRESSREP ---
Stress Test Report Pharmacologic myocardial perfusion stress test. 76-year-old lady with a history of chest pain. Stress protocol: Resting KG demonstrates atrial fibrillation with a rate of 116 bpm normal intervals are noted resting blood pressure is 122/88 mmHg. 0.4 mg of regadenoson was infused per usual protocol followed by Intravenous saline flush injection continuous EKG monitoring was performed. The maximum heart rate attained was 127 bpm which was 88% of maximum predicted heart rate the maximum workload was 1 metabolic equivalent. At rest there were no ST or T wave changes noted to suggest ischemia and at peak infusion nonspecific ST changes were noted with did not meet the criteria for ischemia. No clinical angina was noted. The final blood pressure was 114/86 mmHg. Myocardial perfusion protocol. 14.8 mCi of technetium 99m sestamibi was injected at rest. 0.4 mg of regadenoson was infused per usual protocol. Peak infusion 44.9 mCi of technetium 99m sestamibi was injected stress images were obtained stress and rest images were reconstructed and compared in the short axis vertical long and horizontal long axis. Gated images were also obtained. Perfusion SPECT analysis: Review of the stress images demonstrate normal uptake of tracer noted in all areas of the myocardium. The rest images similarly demonstrate normal uptake of tracer noted in all areas of myocardium. No areas of reversibility are noted suggest ischemia no previous infarct is noted. Gated SPECT analysis: The gated ejection fraction is 53%. Conclusion: Normal pharmacologic myocardial perfusion stress test. Preserved ejection fraction. Atrial fibrillation noted.
== END | disposition home or self-care (01) ==
LOC: CVS 06:33
PROVIDERS: PCP Family Medicine; Referring Provider Internal Medicine Cardiovascular Disease; Visit Provider Internal Medicine Cardiovascular Disease
DX: R07.9 Chest pain, unspecified (principal); I48.19 Other persistent atrial fibrillation; G47.33 Obstructive sleep apnea (adult) (pediatric)
CPT/HCPCS: 78452; 93017; 93306; A9500; Q9957; A4216; C8929; J2785

== ENCOUNTER → 2022-04-01 | Outpatient (CLI) | payer MEDICARE, OTHER, SELFPAY ==
[2022-04-01 16:23] LABS: Anion Gap 5 (5-15); BUN 14 mg/dL (7-18); BUN/Creat Ratio 16.9 RATIO (10-20); Calcium,Total 8.9 mg/dL (8.5-10.1); Chloride 104 mmol/L (98-107); Creatinine, Serum 0.83 mg/dL (0.55-1.02); EST Glomerular Filtration Rate 71 mL/min (>60); Est Glom Filt Rate - Afr Amer 86 mL/min (>60); Glucose 126 mg/dL (74-106); Potassium 4.3 mmol/L (3.5-5.1); Sodium Level 140 mmol/L (136-145)
== END | disposition home or self-care (01) ==
LOC: MFPLAB 14:22
PROVIDERS: PCP Family Medicine; Referring Provider Family Medicine; Visit Provider Physician Assistant Medical
DX: I48.19 Other persistent atrial fibrillation (principal); I10 Essential (primary) hypertension
CPT/HCPCS: 36415; 80048

== ENCOUNTER 2022-04-07 10:50 | Day surgery (SDC) | payer MEDICARE, OTHER, SELFPAY ==
[2022-04-06 10:03] VITALS: BMI 49.5
--- NOTE | 2022-04-07 12:22 | PCM.OP.BLANK ---
Problems Associated Problem List Diagnoses (1) Persistent atrial fibrillation: Operative Report Date of Procedure: 04/07/22 The patient was brought to the lab in the postabsorptive nonsedated state. Patient was seen by Dr. Ram of the critical care division. Informed consent was obtained. Anterior-posterior pads were applied. The patient was then administered 40 mg of intravenous propofol. 300 J of synchronized DC cardioversion energy were applied with prompt reversal to sinus rhythm. Patient tolerated the procedure well. Conclusion: Successful DC cardioversion from atrial fibrillation to sinus rhythm. Follow-up as per office protocol.
--- NOTE | 2022-04-07 13:30 | PRO.PCM_ITS ---
Procedure Report Date of Procedure: 04/07/22 CONSCIOUS SEDATION REPORT BRIEF HISTORY OF PRESENT ILLNESS: The patient is a 76-year-old female who presented to [facility] for an elective outpatient cardioversion due to underlying atrial fibrillation. The patient reports no PO intake since midnight, but is currently therapeutic on anticoagulation. The patient does have a history of obstructive sleep apnea and is compliant with therapy. The patient reports a history of smoking and COPD, but took Trelegy on the day of the procedure. The patient denies any recent constitutional symptoms such as fevers, chills, nausea or vomiting. The patient denies previous applicable anesthetic complications. Patient's last known ejection fraction was 55%. Patient did take Eliquis on the day of the procedure. PHYSICAL EXAMINATION: VITAL SIGNS: Reviewed and were acceptable. GENERAL: The patient is a female, in no apparent distress, speaking in full sentences. HEENT: Normocephalic, atraumatic. Mucous membranes are moist and pink. Good mouth opening noted. Trachea is midline. Good neck mobility. MP IV CHEST: S1, S2 irregularly irregular. No murmurs, rubs or gallops were noted. LUNGS: Clear to auscultation bilaterally without appreciable wheezes, rales or rhonchi. ABDOMEN: Soft, nontender, nondistended. Positive bowel sounds. EXTREMITIES: There is no clubbing, cyanosis or edema. ASA Class: II DESCRIPTION OF PROCEDURE: After confirmation of informed consent, the patient's anesthesia plan was rev iewed in detail. Propofol was chosen. Risks and benefits were reviewed and the patient agreed to proceed. At 12:11 PM, the patient was given 40 mg of propofol. The patient achieved an appropriate level of sedation and received 1 attempt synchronized cardioversion, at [address] Mitchell at the bedside. This was successful in achieving normal sinus rhythm. The patient was monitored until 12:25 PM, at which time the patient reached their baseline mental status and function. The patient tolerated the procedure well. COMPLICATIONS: None ESTIMATED BLOOD LOSS: None RECOMMENDATIONS: Okay to recover in usual fashion. Procedures Pulmonary 9xxxx: [id number] Con Sedation
== END 2022-04-07 13:30 | disposition home or self-care (01) ==
PROVIDERS: PCP Family Medicine; Referring Provider Internal Medicine Cardiovascular Disease; Visit Provider Internal Medicine Cardiovascular Disease
DX: I48.19 Other persistent atrial fibrillation (principal); J44.9 Chronic obstructive pulmonary disease, unspecified; E66.01 Morbid (severe) obesity due to excess calories; Z68.42 Body mass index [BMI] 45.0-49.9, adult; E11.9 Type 2 diabetes mellitus without complications; I10 Essential (primary) hypertension; G47.33 Obstructive sleep apnea (adult) (pediatric); E55.9 Vitamin D deficiency, unspecified; Z79.01 Long term (current) use of anticoagulants; Z79.899 Other long term (current) drug therapy; Z79.84 Long term (current) use of oral hypoglycemic drugs; Z87.891 Personal history of nicotine dependence
CPT/HCPCS: 92960; 93005; J7030

== ENCOUNTER 2022-04-21 14:03 | Inpatient (IN) | payer MEDICARE, OTHER, SELFPAY ==
[2022-04-21] VITALS (24 sets, daily range): BP systolic 74–171; BP diastolic 58–125; PULSE 73–144; RESP 17–27; TEMP 35.7–36.6; O2SAT 93–100; BMI 49.1; BMI 45.9
[2022-04-21] MEDS: Ondansetron 4 MG/2 ML Vial IV (14:44)
[2022-04-21] MEDS: Morphine 4 MG/ML Syringe IV (14:44)
[2022-04-21] MEDS: Ipratropium/Albuterol Sulfate 3 ML AMPUL.NEB INHALATION (14:45)
[2022-04-21 14:57] LABS: Absolute Lymphocyte Count 1.09 X10^3/uL (0.83-4.51); Absolute Neutrophil Count 10.8 X10^3/uL (2.0-7.7); Basophil# 0.02 X10^3/uL; Basophil% 0.2 % (0-1); Eosinophil# 0.01 X10^3/uL; Eosinophils% 0.1 % (0-5); Hematocrit 44.8 % (37-47); Lymphocyte # 1.09 X10^3/ul (0.83-4.51); Lymphocyte % 8.4 % (19-41); Mean Corp Hgb Conc 31.3 g/dL (32-36); Mean Corpuscular Hgb 25.5 pg (27.0-32.0); Mean Corpuscular Volume 81.8 fL (81-99); Mean Platelet Vol. 9.9 fl (6.2-12.0); Monocyte# 1.06 X10^3/uL; Monocyte% 8.2 % (0-10); NRBC Flagged by Analyzer 0 % (0-5); Neutrophil # 10.77 X10^3/uL (2.7-7.7); Neutrophil % 82.7 % (47-70); Platelet Count 282 K/mm3 (150-450); RBC Distribution Width CV 15.9 % (11.6-14.6); RBC Distribution Width SD 47.6 fl (35.1-43.9); Red Blood Count 5.48 M/mm3 (4.2-5.4)
[2022-04-21 15:08] LABS: Anion Gap 4 (5-15); BUN 13 mg/dL (7-18); BUN/Creat Ratio 16.8 RATIO (10-20); Calcium,Total 9.2 mg/dL (8.5-10.1); Chloride 108 mmol/L (98-107); Creatinine, Serum 0.77 mg/dL (0.55-1.02); EST Glomerular Filtration Rate 77 mL/min (>60); Est Glom Filt Rate - Afr Amer 93 mL/min (>60); Estimated Creatinine Clearance 36.12 ml/min; Glucose 125 mg/dL (74-106); Potassium 4.1 mmol/L (3.5-5.1); Sodium Level 140 mmol/L (136-145)
--- NOTE | 2022-04-21 15:18 | EKG12_ITS ---
Test Reason : preop Blood Pressure : / mmHG Vent. Rate : 134 BPM Atrial Rate : 000 BPM P-R Int : 000 ms QRS Dur : 074 ms QT Int : 316 ms P-R-T Axes : 000 016 -07 degrees QTc Int : 471 ms Atrial fibrillation with rapid ventricular response Low voltage QRS Nonspecific T wave abnormality Abnormal ECG Confirmed by SHASTA REDDY, ERIC ([id number]), photo editor CASSI PINO ([id number]) on 04/23/2022 1:57:32 PM Referred By: Bernie Confirmed By:ERIC VEGAS MD
--- NOTE | 2022-04-21 16:23 | EDS_ITS ---
HPI History of Present Illness Chief Complaint: Abscess Detail of Chief Complaint: sore throat Informant: patient and PCP Onset/Context/Timing Onset: Days (3) Context: Gradual Onset Timing: Continuous Quality: odynophagia Location: R throat Current Severity: Moderate Maximum Severity: Moderate Worsened by: swallowing, bipap Relieved by: resting Associated Symptoms Associated Symptoms: R throat swelling, URI sx Associated Symptoms ED: cough Narrative Narrative: Patient has had several days of a sore throat with odynophagia more on the right side, she was seen in the office today exam and, PCP saw asymmetry and had an outpatient CT done which shows a 3 cm peritonsillar abscess involving her airway. Clinically, she has been short of breath but more because of her wheezing/COPD and states in addition that she has been coughing more than usual, feeling malaised for the past week or so, some myalgias and headaches although that is not as bad now. When asked if she did a COVID test, she laughs and states that she does not believe in it. She recently had a cardioversion for A. fib, and is on apixaban. She has had no palpitations recently and is due for repeat EKG to see if she is still in sinus rhythm. [facility] Medical History Allergic rhinitis Asthma COPD (chronic obstructive pulmonary disease) Diabetes mellitus Essential hypertension Morbid obesity Obstructive sleep apnea Osteoarthritis Osteoarthritis of right knee Persistent atrial fibrillation Vitamin D deficiency Home Medications Cholecalciferol (Vitamin D3) [Vitamin D3] 5,000 unit PO DAILY supplement 10/28/17 [History Last Taken Unknown] albuterol sulfate 90 mcg/actuation breath activated powder inhaler (ProAir RespiClick) 108 mcg IH Q4H PRN Sob &/Or Wheezing 10/28/17 [History Last Taken 04/07/22] hydroxychloroquine 200 mg tablet 200 mg PO BIDCM arthritis 10/28/17 [History Last Taken Unknown] metformin 500 mg tablet 500 mg PO DAILY diabetes 10/28/17 [History Last Taken Unknown] montelukast 10 mg tablet 10 mg PO DAILY asthma 10/28/17 [History Last Taken 04/07/22] quinapril 40 mg tablet 40 mg PO DAILY blood pressure 10/28/17 [History Last Taken 04/07/22] apixaban 5 mg tablet (Eliquis) 5 mg PO BID 01/30/22 [History Last Taken 04/07/22] fluticasone fur. 100 mcg-umeclid 62.5 mcg-vilant 25 mcg inhalat.powder (Trelegy Ellipta) 1 inh inhalation DAILY 01/30/22 [History Last Taken 04/07/22] metoprolol tartrate 50 mg tablet 50 mg PO BID 03/18/22 [History Last Taken 04/07/22] furosemide 40 mg tablet See Rx Instructions .Route .COMPLEX #30 tabs 04/09/22 [R x Last Taken Unknown] Allergy/AdvReac Type Severity Reaction Status Date / Time codeine Allergy Unknown Verified 04/21/22 14:08 erythromycin base Allergy Unknown Verified 04/21/22 14:08 Penicillins Allergy Unknown Verified 04/21/22 14:08 Family History Other Adopted Surgical History Cataract (lens) fragments in eye following cataract surgery, bilateral History of carpal tunnel release of both wrists History of hysterectomy History of knee replacement Social History Smoking Status: Former smoker ROS ROS ED Constitutional Constitutional ED: Reports body ache(s), fatigue, headache(s) and malaise; Denies chills or fever(s) Eyes Eyes: Denies change in vision or diplopia ENT ENT ED: Reports sore throat; Denies rhinorrhea Cardiovascular Cardiovascular: Denies chest pain or palpitations Respiratory/Chest Respiratory/Chest: Reports cough, dyspnea, dyspnea on exertion and wheezing Gastrointestinal Gastrointestinal: Reports diarrhea; Denies abdominal pain, nausea or vomiting Genitourinary Genitourinary ED: Denies dysuria or hematuria Musculoskeletal Musculoskeletal: Denies back pain or neck pain Integumentary Denies abscess or rash Neurologic Neurologic: Reports headache(s); Denies paresthesias or weakness Psychiatric Psychiatric: Denies anxiety or suicidal thoughts EXAM Physical Exam Const Vital Signs: 04/21/22 14:05 04/21/22 14:29 04/21/22 14:53 Temperature 96.2 F L Temperature Source Temporal Pulse Rate 126 H 135 H 123 H Respiratory Rate 17 20 H 19 H Respiratory Pattern Blood Pressure 171/100 H 139/93 H Blood Pressure Mean 123 108 Pulse Ox 97 96 Oxygen Delivery Method Room Air Room Air 04/21/22 14:37 04/21/22 15:05 04/21/22 15:30 Temperature Temperature Source Pulse Rate 117 H 108 H Respiratory Rate 20 H 20 H Respiratory Pattern Normal Blood Pressure 145/100 H 137/85 H Blood Pressure Mean 115 102 Pulse Ox 96 96 Oxygen Delivery Method Room Air Room Air Positive well nourished, well developed and obese Constitutional Narrative: Well-appearing, no distress General Appearance ED: well developed and NAD Nutritional Appearance: obese HEENT Reports moist mucous membranes HEENT Narrative: Right tonsillar fullness/abscess/asymmetry, unremarkable on the left. No exudates. Diffusely erythematous. No trismus. normocephalic and atraumatic Eyes PERRL and EOMs intact bilaterally Neck full ROM and supple Neck Narrative: Right submandibular tender lymphadenopathy. Resp Resp Narrative: Tachypneic, no respiratory distress unable to speak in full sentences. Wheezing throughout all barr expiratory. No other adventitious breath sounds. Cardio regular rate, regular rhythm and no murmurs Rate: Negative for tachycardic GI non-tender and non-distended Auscultation: normoactive bowel sounds Palpation: soft Back/Spine no CVA tenderness General Back: other FROM Extremity normal to inspection and no calf tenderness General Extremety ED: Yes edema; Negative for pulses abnormal or tenderness General Extremity: edema bilateral lower extremity Details: mild; Negative for pulses abnormal Neuro oriented x3, CN's II-XII intact bilaterally and no sensory deficits noted Sensorium / Orientation: awake and alert Motor Exam: strength 5/5 throughout Skin no rashes or lesions noted and no wounds MDM MDM MDM Narrative Medical decision making narrative: Patient is clinically and hemodynamically stable, she is not an immediate airway danger but does clearly have a peritonsillar abscess that is noted on CT which I reviewed as well. She was given a duo nebulizer treatment for COPD, and helped her wheezing some and lessened her work of breathing. I took her off of nasal cannula oxygen after that which she is not on at home, and just by getting to the side of the bed, her heart rate went from 140 to 165, with her oxygen saturations down to 88% on room air she was placed back on 2 L nasal cannula, th is was after a duo nebulizer and an albuterol aerosol in addition. I did discuss with one of the food and beverage server in the office who recommended against necessarily taking this patient to the OR but rather they would recommend needle aspiration as opposed to making an incision, if the patient is on a apixaban. I discussed risk and benefits with the patient see the procedure note, I performed the procedure without complication and she did very well. She was started on clindamycin. Given that she is hypoxic and barely able to get out of bed without being severely dyspneic, will start her on steroids and admit her to the hospital and we will be able to follow and treat her hyperglycemia that she is at risk for developing due to steroids. Lab Data Attestation: I reviewed the patient's lab results. Labs: Laboratory Results - last 24 hr 04/21/22 04/21/22 14:25 14:25 WBC 13.0 H RBC 5.48 H Hgb 14.0 Hct 44.8 MCV 81.8 MCH 25.5 L MCHC 31.3 L RDW Std Deviation 47.6 H RDW Coeff of Uri 15.9 H Plt Count 282 MPV 9.9 Immature Gran % (Auto) 0.400 Neut % (Auto) 82.7 H Lymph % (Auto) 8.4 L Brantley % (Auto) 8.2 Eos % (Auto) 0.1 Baso % (Auto) 0.2 Absolute Neuts (auto) 10.8 H Absolute Lymphs (auto) 1.09 Nucleated RBC % 0 Sodium 140 Potassium 4.1 Chloride 108 H Carbon Dioxide 28.0 Anion Gap 4 L BUN 13 Creatinine 0.77 Estim Creat Clear Calc 36.12 Est GFR (MDRD) Af Amer 93 Est GFR (MDRD) Non-Af 77 BUN/Creatinine Ratio 16.8 Glucose 125 H Calcium 9.2 Radiography Chest X-Ray - ED: 1 View, Read by ED Physician and Right Infiltrate Diagnostic Testing: Clinical Impression(s) from Imaging Studies Chest X-Ray 04/21/22 16:25 IMPRESSION: Right sided pneumonia. Electronically Signed: Andrea Whalen MD at 16:43 EDT , Rhythm Strip Rhythm Strip: A-fib Rate: 120 Ectopy: None EKG Initial EKG: Attestation: I personally reviewed and interpreted this EKG as follows: Interpretation: No Acute Injury Pattern and Atrial Fibrillation (130s) Prior EKG tracings: available for review Prior: Unchanged Procedures Other Procedures Procedure(s): Right tonsillar abscess aspiration: After topical prep with Cetacaine spray, and informed signed consent after discussing risks including and not exclusive of bleeding and internal carotid artery puncture, the patient was prepped with assistance helping to hold her still, she has a Mallampati of 4 and with tongue blade and nursing assistance, I aspirated the right tonsil using a guard on the 18-gauge needle to prevent adverse advancement of the needle beyond 2 cm, 5 cc of dark bloody pus was aspirated. There was minimal bleeding afterwards, the patient tolerated extremely well and was able to drink ice water afterwards, airway intact, no complications. The pus was sent for a culture. Discharge Plan Triage Chief Complaint: Abscess Other Complaint: Sore Throat ED Provider: Shree Gibbs Dx/Rx/DC Orders Clinical Impression: Atrial fibrillation with RVR, Anticoagulated, COPD with acute exacerbation, Acute respiratory failure with hypoxemia, Pneumonia due to COVID-19 virus, Abscess, peritonsillar Prescriptions: No Action Trelegy Ellipta 100-62.5-25 mcg blister with device 1 inh inhalation DAILY Eliquis 5 mg tablet 5 mg PO BID metoprolol tartrate 50 mg tablet 50 mg PO BID Rx Instructions: take 2 tabs in pm 1 tab qam metformin 500 MG tablet 500 mg PO DAILY quinapril 40 MG tablet 40 mg PO DAILY montelukast 10 MG tablet 10 mg PO DAILY hydroxychloroquine 200 MG tablet 200 mg PO BIDCM ProAir RespiClick 90 MCG aerosol powdr breath activated 108 mcg IH Q4H PRN (Reason: Sob &/Or Wheezing) Cholecalciferol (Vitamin D3) [Vitamin D3] 5,000 UNIT capsule 5,000 unit PO DAILY furosemide 40 mg tablet See Rx Instructions .ROUTE .COMPLEX Qty: 30 11RF Dose Instruction: TAKE 1 TABLET BY MOUTH EVERY DAY Rx Instructions: TAKE 1 TABLET BY MOUTH EVERY DAY Primary Care Provider: Clarence Reyes Referrals: Clarence Reyes MD [Primary Care Provider] - Disposition Disposition: Acute Care [facility]
--- NOTE | 2022-04-21 16:25 | RAD_ITS ---
STUDY: XR Chest 1 View 04/21/2022 4:25 PM REASON FOR EXAM: Female, 76 years old. CHEST PAIN covid, copd, sob COMPARISON: 11/01/2017 TECHNIQUE: XR Chest 1 View FINDINGS: There is no demonstrated pleural abnormality. Right lower lobe infiltrate. Normal heart size. Normal mediastinum. Normal oksana. Prominent appearing increased interstitial lung markings. Normal visualized pulmonary arteries. There is atherosclerotic calcification of the aortic arch with tortuosity. There are diffuse degenerative changes of the visualized thoracic spine. There is degenerative osteoarthritis of the bilateral shoulders. There is no demonstrated abnormality of the visualized soft tissue structures of the upper abdomen. RAD/Chest 1 View (Portable) IMPRESSION: Right sided pneumonia. Electronically Signed: Andrea Whalen MD at 16:43 EDT ,
[2022-04-21] MEDS: Albuterol 2.5 MG/3 ML VIAL.NEB. INHALATION (17:09)
[2022-04-21] MEDS: Morphine 2 MG/ML Syringe IV ×2 (17:28→18:29)
[2022-04-21] MEDS: Tetracaine/Benzocaine/Butamben 1 APPLIC TOPICAL (17:29)
[2022-04-21] MEDS: dexAMETHasone 10 MG/ML Vial 6 MG IV (18:29)
--- NOTE | 2022-04-21 18:38 | PCM.HP.STD ---
HPI - General General Date of Admission: 04/21/22 Date of Service: 04/21/22 Chief Complaint: shortness HPI Narrative GURWINDER BROWN, is a 76 F who presents presents with a myriad of complaints. Patient had a cold beginning on April 09 and then got better only started getting worse again. Patient started having odynophagia and had an outpatient CT that showed a 3 cm peritonsillar abscess. Patient presented to the emergency room and was positive for COVID-19. Patient had aspirated 5 cc from the peritonsillar abscess for discussing with ENT. Patient had recently undergone a cardioversion that was successful on the . Patient denies any chest pain or any palpitations but her heart rates been anywhere to the 130s to 140s. The hospital service was contacted for admission. Patient did receive clindamycin as well as dexamethasone in the emergency room. Patient received no treatment for her atrial fibrillation. Patient does note increased lower extremity edema and does note that she stopped taking Lasix a few days ago. [facility] Medical History Allergic rhinitis Asthma COPD (chronic obstructive pulmonary disease) Diabetes mellitus Essential hypertension Morbid obesity Obstructive sleep apnea Osteoarthritis Osteoarthritis of right knee Persistent atrial fibrillation Vitamin D deficiency Home Medications Cholecalciferol (Vitamin D3) [Vitamin D3] 5,000 unit PO DAILY supplement 10/28/17 [History Last Taken Unknown] albuterol sulfate 90 mcg/actuation breath activated powder inhaler (ProAir RespiClick) 108 mcg IH Q4H PRN Sob &/Or Wheezing 10/28/17 [History Last Taken 04/07/22] hydroxychloroquine 200 mg tablet 200 mg PO BIDCM arthritis 10/28/17 [History Last Taken Unknown] metformin 500 mg tablet 500 mg PO DAILY diabetes 10/28/17 [History Last Taken Unknown] montelukast 10 mg tablet 10 mg PO DAILY asthma 10/28/17 [History Last Taken 04/07/22] quinapril 40 mg tablet 40 mg PO DAILY blood pressure 10/28/17 [History Last Taken 04/07/22] apixaban 5 mg tablet (Eliquis) 5 mg PO BID 01/30/22 [History Last Taken 04/07/22] fluticasone fur. 100 mcg-umeclid 62.5 mcg-vilant 25 mcg inhalat.powder (Trelegy Ellipta) 1 inh inhalation DAILY 01/30/22 [History Last Taken 04/07/22] metoprolol tartrate 50 mg tablet 50 mg PO BID 03/18/22 [History Last Taken 04/07/22] furosemide 40 mg tablet See Rx Instructions .Route .COMPLEX #30 tabs 04/09/22 [Rx Last Taken Unknown] Allergy/AdvReac Type Severity Reaction Status Date / Time codeine Allergy Unknown Verified 04/21/22 14:08 erythromycin base Allergy Unknown Verified 04/21/22 14:08 Penicillins Allergy Unknown Verified 04/21/22 14:08 Family History Other Adopted Surgical History Cataract (lens) fragments in eye following cataract surgery, bilateral History of carpal tunnel release of both wrists History of hysterectomy History of knee replacement Social History Smoking Status: Former smoker ROS ROS Narrative Coughing that is productive. Sore throat. All review of systems were negative except as mentioned above in the history of present illness and the other review of systems. Vital Signs Vital Signs Vital Signs: 04/21/22 14:05 04/21/22 14:29 04/21/22 14:53 Temperature 35.7 C L Temperature Source Temporal Pulse Rate 126 H 135 H 123 H Respiratory Rate 17 20 H 19 H Respiratory Pattern Blood Pressure 171/100 H 139/93 H Blood Pressure Mean 123 108 Pulse Ox 97 96 Oxygen Delivery Method Room Air Room Air Oxygen Flow Rate (L/min) 04/21/22 14:37 04/21/22 15:05 04/21/22 15:30 Temperature Temperature Source Pulse Rate 117 H 108 H Respiratory Rate 20 H 20 H Respiratory Pattern Normal Blood Pressure 145/100 H 137/85 H Blood Pressure Mean 115 102 Pulse Ox 96 96 Oxygen Delivery Method Room Air Room Air Oxygen Flow Rate (L/min) 04/21/22 17:10 04/21/22 17:14 04/21/22 18:37 Temperature 36.6 C Temperature Source Temporal Pulse Rate 117 H 115 H 135 H Respiratory Rate 20 H 20 H 20 H Respiratory Pattern Blood Pressure 154/116 H 147/88 H Blood Pressure Mean 128 107 Pulse Ox 95 94 Oxygen Delivery Method Room Air Nasal Cannula Oxygen Flow Rate (L/min) 3 Weight Weight: 117.934 kg Body Mass Index (BMI) 49.1 Physical Exam Const alert and no apparent distress HEENT normocephalic, head/scalp atraumatic, hearing grossly normal bilaterally and moist oral mucous membranes HEENT Narrative: Mallampati 4. Resp Resp Narrative: Coarse breath sounds bilaterally Cardio Cardio Narrative: Irregularly irregular GI normal to inspection, nondistended, normoactive bowel sounds, non-tender and non-distended GI Narrative: Obese Extremity Extremity Narrative: Bilateral lower extremity edema Neuro oriented x3 Sensorium / Orientation: awake and alert Psych affect normal Results Lab / Micro Data Attestation: I reviewed the patient's lab results. Result Diagrams: 04/21/22 14:25 04/21/22 14:25 Labs: Laboratory Results - last 24 hr 04/21/22 14:25: WBC 13.0 H, RBC 5.48 H, Hgb 14.0, Hct 44.8, MCV 81.8, MCH 25.5 L, MCHC 31.3 L, RDW Std Deviation 47.6 H, RDW Coeff of Uri 15.9 H, Plt Count 282, MPV 9.9, Immature Gran % (Auto) 0.400, Neut % (Auto) 82.7 H, Lymph % (Auto) 8.4 L, [place] % (Auto) 8.2, Eos % (Auto) 0.1, Baso % (Auto) 0.2, Absolute Neuts (auto) 10.8 H, Absolute Lymphs (auto) 1.09, Nucleated RBC % 0 04/21/22 14:25: Sodium 140, Potassium 4.1, Chloride 108 H, Carbon Dioxide 28.0, Anion Gap 4 L, BUN 13, Creatinine 0.77, Estim Creat Clear Calc 36.12, Est GFR (MDRD) Af Amer 93, Est GFR (MDRD) Non-Af 77, BUN/Creatinine Ratio 16.8, Glucose 125 H, Calcium 9.2 Micro: Microbiology 04/21/22 14:45 Nasal Secretion SARS-CoV-2 Antigen (Rapid) - Final SARS-CoV-2 (COVID 19) Rhythm Strip Rhythm Strip: A-fib Rate: 120 Ectopy: None Radiology Impression Chest X-Ray 04/21/22 16:25 IMPRESSION: Right sided pneumonia. Electronically Signed: Andrea Whalen MD at 16:43 EDT , Assessment & Plan Assessment/Plan (1) Pneumonia due to COVID-19 virus: PLAN: Patient is unvaccinated. Patient has no desire to become vaccinated. Not sure that the COVID-19 is main issue in regards to her hypoxia but more concerned that this could be more from a heart failure standpoint or combination of that and her COPD. I will start her on remdesivir. Patient states that she developed cold around which are not sure if that was the onset of COVID because she is seen to be bimodal that she started getting worse later. Continue with the dexamethasone Patient's daughter made a point to tell me that she is taking hydroxychloroquine for rheumatoid arthritis. I told her that has no effect on COVID-19. (2) Atrial fibrillation with RVR: PLAN: Patient states that she has been compliant with her medications. We will continue with metoprolol tartrate. Diltiazem drip. If that does not seem to have any effect then we will need to consult cardiology to see if the patient would need to have another cardioversion. Continue with apixaban (3) Acute respiratory failure with hypoxemia: PLAN: Secondary to CHF plus COVID plus COPD Wean oxygen as tolerated (4) Abscess, peritonsillar: PLAN: Aspirated in the emergency room Patient is not having any trismus Patient will be on steroids anyways due to the COVID-19. Continue with clindamycin given her allergy to penicillins (5) (HFpEF) heart failure with preserved ejection fraction: PLAN: Patient notes that she did stop taking the Lasix for few days. Patient does have lower extremity edema. EF is 55% from 2D echocardiogram from February 27 of this year. IV furosemide PLAN: Plan VTE prophylaxis: Not indicated as patient is already anticoagulated on apixaban CODE STATUS: Addressed with the patient. Patient wishes to be full code. Charges/Coding Visit Charges Inpatient E&M: 37332 Init Hosp L3
[2022-04-21] MEDS: Furosemide 40 MG/4 ML Vial IV (20:43)
[2022-04-21] MEDS: Clindamycin HCl 150 MG Capsule 300 MG PO (20:43)
[2022-04-21] MEDS: APIXABAN 5 MG TABLET PO (20:44)
[2022-04-21] MEDS: 0.9% Saline Lock 10 ML Syringe IV ×2 (20:44→21:39)
[2022-04-21] MEDS: Metoprolol Tartrate 50 MG Tablet 100 MG PO (20:44)
[2022-04-21 21:08] LABS: Alkaline Phosphatase 64 U/L (45-117); Troponin-I HS 6 pg/mL (3.0-54.0)
[2022-04-21] MEDS: dilTIAZem 25 MG/5 ML Vial 20 MG IV BOLUS (21:34)
[2022-04-21 22:15] LABS: Bedside Glucose 181 mg/dL (74-106)
[2022-04-21 23:42] LABS: Troponin-I HS 6 pg/mL (3.0-54.0)
[2022-04-22] VITALS (19 sets, daily range): BP systolic 103–142; BP diastolic 65–89; PULSE 63–100; RESP 15–25; TEMP 36.3–36.6; O2SAT 93–100
[2022-04-22 02:38] LABS: Absolute Lymphocyte Count 0.53 X10^3/uL (0.83-4.51); Absolute Neutrophil Count 8.9 X10^3/uL (2.0-7.7); Basophil# 0.01 X10^3/uL; Basophil% 0.1 % (0-1); Hematocrit 42.8 % (37-47); Hemoglobin 13.1 g/dL (12.0-15.0); Lymphocyte # 0.53 X10^3/ul (0.83-4.51); Lymphocyte % 5.4 % (19-41); Mean Corp Hgb Conc 30.6 g/dL (32-36); Mean Corpuscular Hgb 25.3 pg (27.0-32.0); Mean Corpuscular Volume 82.6 fL (81-99); Monocyte# 0.34 X10^3/uL; Monocyte% 3.5 % (0-10); NRBC Flagged by Analyzer 0 % (0-5); Neutrophil # 8.92 X10^3/uL (2.7-7.7); Neutrophil % 90.6 % (47-70); POSITIVE DIFFERENTIAL YES; Platelet Count 255 K/mm3 (150-450); RBC Distribution Width CV 15.8 % (11.6-14.6); RBC Distribution Width SD 47.3 fl (35.1-43.9); Red Blood Count 5.18 M/mm3 (4.2-5.4); White Blood Count 9.8 K/mm3 (4.4-11.0)
[2022-04-22 02:39] LABS: Differential Indicated SCAN CRITERIA MET
[2022-04-22 02:55] LABS: Troponin-I HS 6 pg/mL (3.0-54.0)
[2022-04-22 03:07] LABS: ALB/GLOB Ratio 0.8 RATIO (0.9-2.4); AST(SGOT) 11 U/L (15-37); Alanine Aminotransfer ALT/SGPT 14 U/L (13-56); Albumin, Serum 3.2 g/dL (3.2-5.0); Alkaline Phosphatase 62 U/L (45-117); Anion Gap 4 (5-15); BUN 13 mg/dL (7-18); BUN/Creat Ratio 16.8 RATIO (10-20); Chloride 106 mmol/L (98-107); Creatinine, Serum 0.77 mg/dL (0.55-1.02); EST Glomerular Filtration Rate 77 mL/min (>60); Est Glom Filt Rate - Afr Amer 93 mL/min (>60); Estimated Creatinine Clearance 37.85 ml/min; Globulin 3.8 g/dL (2.2-4.2); Glucose 209 mg/dL (74-106); Potassium 4.5 mmol/L (3.5-5.1); Sodium Level 139 mmol/L (136-145); Thyroid Stim Hormone (TSH) 0.49 uIU/mL (0.358-3.74)
[2022-04-22 03:12] LABS: Differential Comment SCANNED
[2022-04-22] MEDS: Insulin Lispro 100 UNIT/ML INSULN.PEN SC ×2 (06:45→11:40)
[2022-04-22 07:20] LABS: Bedside Glucose 186 mg/dL (74-106)
[2022-04-22] MEDS: Ipratropium/Albuterol Sulfate 3 ML AMPUL.NEB INHALATION ×2 (07:30→13:32)
--- NOTE | 2022-04-22 07:55 | PCM.PN.HOSP ---
Subjective Subjective Breathing better. taken off oxygen. Objective Data Objective Data Vital Signs: Vital Signs Temp Pulse Resp BP Pulse Ox O2 Del Method O2 Flow Rate 36.3 C L 84 18 142/75 H 96 Nasal Cannula 1 04/22/22 00:00 04/22/22 07:04 04/22/22 07:00 04/22/22 07:00 04/22/22 07:03 04/22/22 07:03 04/22/22 07:03 Oxygen Flow Rate (L/min) 1 Oxygen Delivery Method Nasal Cannula Weight: 114 kg Body Mass Index (BMI) 45.9 Intake & Output: Intake and Output for Last 24 Hours 04/20/22 04/21/22 04/22/22 23:59 23:59 23:59 Intake Total 64.67 / 66.17 336.5 / 336.5 Output Total 400 / 400 Balance 64.67 / 66.17 -63.5 / -63.5 Lab / Micro Data Result Diagrams: 04/22/22 02:30 04/22/22 02:30 Labs: Laboratory Results - last 24 hr 04/21/22 14:25: WBC 13.0 H, RBC 5.48 H, Hgb 14.0, Hct 44.8, MCV 81.8, MCH 25.5 L, MCHC 31.3 L, RDW Std Deviation 47.6 H, RDW Coeff of Uri 15.9 H, Plt Count 282, MPV 9.9, Immature Gran % (Auto) 0.400, Neut % (Auto) 82.7 H, Lymph % (Auto) 8.4 L, [place] % (Auto) 8.2, Eos % (Auto) 0.1, Baso % (Auto) 0.2, Absolute Neuts (auto) 10.8 H, Absolute Lymphs (auto) 1.09, Nucleated RBC % 0 04/21/22 14:25: Sodium 140, Potassium 4.1, Chloride 108 H, Carbon Dioxide 28.0, Anion Gap 4 L, BUN 13, Creatinine 0.77, Estim Creat Clear Calc 36.12, Est GFR (MDRD) Af Amer 93, Est GFR (MDRD) Non-Af 77, BUN/Creatinine Ratio 16.8, Glucose 125 H, Calcium 9.2 04/21/22 20:27: Alkaline Phosphatase 64, Troponin I High Sens 6 04/21/22 21:43: POC Glucose 181 H 04/21/22 22:56: Troponin I High Sens 6 04/22/22 02:30: WBC 9.8, RBC 5.18, Hgb 13.1, Hct 42.8, MCV 82.6, MCH 25.3 L, MCHC 30.6 L, RDW Std Deviation 47.3 H, RDW Coeff of Uri 15.8 H, Plt Count 255, MPV 10.0, Immature Gran % (Auto) 0.400, Neut % (Auto) 90.6 H, Lymph % (Auto) 5.4 L, [place] % (Auto) 3.5, Eos % (Auto) 0.0, Baso % (Auto) 0.1, Absolute Neuts (auto) 8.9 H, Absolute Lymphs (auto) 0.53 L, Nucleated RBC % 0, Differential Comment SCANNED 04/22/22 02:30: Sodium 139, Potassium 4.5, Chloride 106, Carbon Dioxide 29.0, Anion Gap 4 L, BUN 13, Creatinine 0.77, Estim Creat Clear Calc 37.85, Est GFR (MDRD) Af Amer 93, Est GFR (MDRD) Non-Af 77, BUN/Creatinine Ratio 16.8, Glucose 209 H, Calcium 9.0, Total Bilirubin 0.60, AST 11 L, ALT 14, Alkaline Phosphatase 62, Total Protein 7.0, Albumin 3.2, Globulin 3.8, Albumin/Globulin Ratio 0.8 L, TSH 0.49 04/22/22 02:30: Troponin I High Sens 6 04/22/22 06:41: POC Glucose 186 H Micro: Microbiology 04/21/22 14:45 Nasal Secretion SARS-CoV-2 Antigen (Rapid) - Final SARS-CoV-2 (COVID 19) Radiography Diagnostic Testing: Radiology Impression Chest X-Ray 04/21/22 16:25 IMPRESSION: Right sided pneumonia. Electronically Signed: Andrea Whalen MD at 16:43 EDT , Rhythm Strip Rhythm Strip: A-fib Rate: 120 Ectopy: None Physical Exam Const alert and no apparent distress Resp normal respiratory effort and no retractions Auscultation: wheezes Cardio regular rate, regular rhythm, S1 normal heart sound and S2 normal heart sound GI normal to inspection, nondistended, normoactive bowel sounds, soft to palpation, non-tender and non-distended Assessment & Plan Assessment/Plan (1) Acute respiratory failure with hypoxemia: PLAN: Secondary to CHF, COPD, less likely COVID 19 No further oxygen needed. Prednisone taper. (2) Atrial fibrillation with RVR: PLAN: Resolved. Likely exacerbated by resp failure Patient states that she has been compliant with her medications. We will continue with metoprolol tartrate. Diltiazem drip. If that does not seem to have any effect then we will need to consult cardiology to see if the patient would need to have another cardioversion. Continue with apixaban (3) Abscess, peritonsillar: PLAN: Aspirated in the emergency room Patient is not having any trismus Patient will be on steroids anyways due to the COVID-19. Continue with clindamycin given her allergy to penicillins (4) Pneumonia due to COVID-19 virus: PLAN: Patient is unvaccinated. Patient has no desire to become vaccinated. Not sure that the COVID-19 is main issue in regards to her hypoxia but more concerned that this could be more from a heart failure standpoint or combination of that and her COPD. Did not start remdesivir given potential interaction w hydrochloroquine. (5) (HFpEF) heart failure with preserved ejection fraction: PLAN: Patient notes that she did stop taking the Lasix for few days. Patient does have lower extremity edema. EF is 55% from 2D echocardiogram from February 27 of this year. IV furosemide Continue PO furosemide PLAN: Plan VTE prophylaxis: Not indicated as patient is already anticoagulated on apixaban CODE STATUS: Addressed with the patient. Patient wishes to be full code.
[2022-04-22] MEDS: Clindamycin HCl 150 MG Capsule 300 MG PO ×2 (08:15→14:28)
[2022-04-22] MEDS: dexAMETHasone 4 MG Tablet 6 MG PO (08:16)
[2022-04-22] MEDS: Metoprolol Tartrate 50 MG Tablet PO (08:17)
[2022-04-22] MEDS: Montelukast 10 MG Tablet PO (08:17)
[2022-04-22] MEDS: Hydroxychloroquine 200 MG Tablet PO (08:17)
[2022-04-22] MEDS: APIXABAN 5 MG TABLET PO (08:18)
[2022-04-22] MEDS: metFORMIN HCl 500 MG Tablet PO (08:18)
[2022-04-22] MEDS: Cholecalciferol (Vit D3) 125 MCG CAPSULE (5,000 UNITS) PO (08:18)
[2022-04-22] MEDS: 0.9% Saline Lock 10 ML Syringe IV ×2 (08:20→09:49)
[2022-04-22] MEDS: Acetaminophen 325 MG Tablet 650 MG PO (08:21)
[2022-04-22] MEDS: Furosemide 40 MG/4 ML Vial IV (08:21)
[2022-04-22] MEDS: Lisinopril 40 MG Tablet PO (08:28)
--- NOTE | 2022-04-22 11:35 | CASEMGMT ---
RN CM called patient for initial transition planning/care coordination assessment. RN KAVON introduced self and role at [facility]. Patient is alert and oriented. Patient willing to participate in assessment and is able to answer all questions appropriately. Care providers, pharmacy, and demographics verified. Patient wishes to discharge home, denies need for home health at this time. Patient states she has no further needs or concerns at this time. CM to follow for discharge planning needs that may arise. PCP: Clarence Reyes Specialists: Magda biodiesel production technician; RA Valdemar; Stephen elementary vocal music teacher Preferred Pharmacy: [facility] Insurance: [employer] Prescription Benefit: yes Living Will/HPOA: yes, daughter Laura Izaguirre, HPOA LNOK: daughter Living Arrangements: Patient lives in a single story home with 4 steps and railing to enter. Patient's grandson and his fiance live in the basement. Patient states she is independent at home. Grandson and daughter are available to deliver groceries and supplies. Transportation: self, daughter, grandson DME/HHC: Patient states she has cane, walker, raised toilet, grab bars, cpap, nebulizer, and pulse ox at home. Patient states her cpap is through [facility] and that is her preferred provider. Patient denies pervious HHC. Patient states she has been to TCU in the past. Disposition Plan: Patient to discharge home with family support and follow-up plans in place. Will monitor for home oxygen at discharge. Nereyda MAGANA, RN, CM
[2022-04-22 12:11] LABS: Bedside Glucose 163 mg/dL (74-106)
--- NOTE | 2022-04-22 13:11 | DCINST_ITS ---
Discharge Instructions Diet Discharge Diet: 2000 Calorie Control Diet and 8 Cup Fluid Restriction Dressing / Incision Call your doctor if your incision/area has: Continuous Slow Oozing Call your doctor if you observe: - (difficulty swallowing) Follow Up Care Test Results: Test results from this visit will be discussed in further detail at your follow- up appointment, if applicable. Discharge Plan Admission Admit Date/Time: 04/21/22 18:29 Primary Reason for Your Visit: CHF. COPD exacerbation. Attending Provider: Clarence Floyd Primary Care Provider: Clarenec Reyes Instructions Additional Instructions / Restrictions: Self isolate for at for 4 more days AND at least one day (24 hours) have passed since resolution of fever without the use of fever-reducing agents AND improvement of symptoms (e.g., cough, shortness of breath) When around people in the same room, wear a face mask. Individuals also in the room should wear a mask. If possible, use a different bathroom and bedroom. Perform adequate hand hygiene. Avoid sharing dishes, glasses, etc. Discharge Orders/Prescriptions Prescriptions: New clindamycin HCl 150 mg Capsule 300 mg PO 4X/DAY Qty: 24 0RF prednisone 10 mg tablet 10 mg PO DAILY Qty: 30 0RF Rx Instructions: 4 tabs daily for 3 days, then 3 tabs daily for 3 days, then 2 tabs daily for 3 days, then 1 tab daily for 3 days Continued Trelegy Ellipta 100-62.5-25 mcg blister with device 1 inh inhalation DAILY Eliquis 5 mg tablet 5 mg PO BID metoprolol tartrate 50 mg tablet 50 mg PO BID Rx Instructions: take 2 tabs in pm 1 tab qam metformin 500 MG tablet 500 mg PO DAILY quinapril 40 MG tablet 40 mg PO DAILY montelukast 10 MG tablet 10 mg PO DAILY hydroxychloroquine 200 MG tablet 200 mg PO BIDCM ProAir RespiClick 90 MCG aerosol powdr breath activated 108 mcg IH Q4H PRN (Reason: Sob &/Or Wheezing) Cholecalciferol (Vitamin D3) [Vitamin D3] 5,000 UNIT capsule 5,000 unit PO DAILY furosemide 40 mg tablet See Rx Instructions .ROUTE .COMPLEX Rx Instructions: TAKE 1 TABLET BY MOUTH EVERY DAY Referrals / Follow Up: Clarence Reyes MD [Primary Care Provider] - Within 1 Week Disposition Disposition (needs filled in before D/C Order can be placed): Home, Self Care
--- NOTE | 2022-04-22 13:14 | DS.PCM_ITS ---
Providers Date of Admission: 04/21/22 Primary Care Physician: Dr. Clarence Reyes MD Reason For Visit: AFIB, COVID-19 Diagnosis Discharge Diagnosis (1) Acute respiratory failure with hypoxemia: Status: Acute Code(s): J96.01 - Acute respiratory failure with hypoxia Plan: Secondary to CHF, COPD, less likely COVID 19 No further oxygen needed. Prednisone taper. (2) Atrial fibrillation with RVR: Status: Acute Code(s): I48.91 - Unspecified atrial fibrillation Plan: Resolved. Likely exacerbated by resp failure Patient states that she has been compliant with her medications. We will continue with metoprolol tartrate. Diltiazem drip. If that does not seem to have any effect then we will need to consult cardiology to see if the patient would need to have another cardioversion. Continue with apixaban (3) Abscess, peritonsillar: Status: Acute Code(s): J36 - Peritonsillar abscess Plan: Aspirated in the emergency room Patient is not having any trismus Continue with clindamycin given her allergy to penicillins (4) Pneumonia due to COVID-19 virus: Status: Acute Code(s): U07.1 - COVID-19; J12.82 - Pneumonia due to coronavirus disease 2018 Plan: Patient is unvaccinated. Patient has no desire to become vaccinated. Not sure that the COVID-19 is main issue in regards to her hypoxia but more concerned that this could be more from a heart failure standpoint or combination of that and her COPD. Did not start remdesivir given potential interaction w hydrochloroquine. (5) (HFpEF) heart failure with preserved ejection fraction: Status: Acute Code(s): I50.30 - Unspecified diastolic (congestive) heart failure Plan: Patient notes that she did stop taking the Lasix for few days. Patient does have lower extremity edema. EF is 55% from 2D echocardiogram from February 27 of this year. IV furosemide Continue PO furosemide Plan VTE prophylaxis: Not indicated as patient is already anticoagulated on apixaban CODE STATUS: Addressed with the patient. Patient wishes to be full code. Medications at Discharge Home Medications Cholecalciferol (Vitamin D3) [Vitamin D3] 5,000 unit PO DAILY supplement 10/28/17 albuterol sulfate 90 mcg/actuation breath activated powder inhaler (ProAir RespiClick) 108 mcg IH Q4H PRN Sob &/Or Wheezing 10/28/17 hydroxychloroquine 200 mg tablet 200 mg PO BIDCM arthritis 10/28/17 metformin 500 mg tablet 500 mg PO DAILY diabetes 10/28/17 montelukast 10 mg tablet 10 mg PO DAILY asthma 10/28/17 quinapril 40 mg tablet 40 mg PO DAILY blood pressure 10/28/17 apixaban 5 mg tablet (Eliquis) 5 mg PO BID blood thinner 01/30/22 fluticasone fur. 100 mcg-umeclid 62.5 mcg-vilant 25 mcg inhalat.powder (Trelegy Ellipta) 1 inh inhalation DAILY SOB 01/30/22 metoprolol tartrate 50 mg tablet 50 mg PO BID bp 03/18/22 furosemide 40 mg tablet See Rx Instructions .Route .COMPLEX water 04/21/22 clindamycin HCl 150 mg capsule 300 mg PO 4X/DAY #24 caps 04/22/22 prednisone 10 mg tablet 10 mg PO DAILY #30 tabs 04/22/22 Hospital Course Operations None Procedures None Summary of Care Provided Minutes Spent on Discharge: 32 Weight / BMI Weight Weight: 114 kg Body Mass Index (BMI) 45.9 ABG / Lab / Microbiology Data Result Diagrams: 04/22/22 02:30 04/22/22 02:30 Laboratory: Laboratory Results - last 24 hr 04/21/22 14:25: WBC 13.0 H, RBC 5.48 H, Hgb 14.0, Hct 44.8, MCV 81.8, MCH 25.5 L , MCHC 31.3 L, RDW Std Deviation 47.6 H, RDW Coeff of Uri 15.9 H, Plt Count 282, MPV 9.9, Immature Gran % (Auto) 0.400, Neut % (Auto) 82.7 H, Lymph % (Auto) 8.4 L, [place] % (Auto) 8.2, Eos % (Auto) 0.1, Baso % (Auto) 0.2, Absolute Neuts (auto) 10.8 H, Absolute Lymphs (auto) 1.09, Nucleated RBC % 0 04/21/22 14:25: Sodium 140, Potassium 4.1, Chloride 108 H, Carbon Dioxide 28.0, Anion Gap 4 L, BUN 13, Creatinine 0.77, Estim Creat Clear Calc 36.12, Est GFR (MDRD) Af Amer 93, Est GFR (MDRD) Non-Af 77, BUN/Creatinine Ratio 16.8, Glucose 125 H, Calcium 9.2 04/21/22 20:27: Alkaline Phosphatase 64, Troponin I High Sens 6 04/21/22 21:43: POC Glucose 181 H 04/21/22 22:56: Troponin I High Sens 6 04/22/22 02:30: WBC 9.8, RBC 5.18, Hgb 13.1, Hct 42.8, MCV 82.6, MCH 25.3 L, MCHC 30.6 L, RDW Std Deviation 47.3 H, RDW Coeff of Uri 15.8 H, Plt Count 255, MPV 10.0, Immature Gran % (Auto) 0.400, Neut % (Auto) 90.6 H, Lymph % (Auto) 5.4 L, [place] % (Auto) 3.5, Eos % (Auto) 0.0, Baso % (Auto) 0.1, Absolute Neuts (auto) 8.9 H, Absolute Lymphs (auto) 0.53 L, Nucleated RBC % 0, Differential Comment SCANNED 04/22/22 02:30: Sodium 139, Potassium 4.5, Chloride 106, Carbon Dioxide 29.0, Anion Gap 4 L, BUN 13, Creatinine 0.77, Estim Creat Clear Calc 37.85, Est GFR (MDRD) Af Amer 93, Est GFR (MDRD) Non-Af 77, BUN/Creatinine Ratio 16.8, Glucose 209 H, Calcium 9.0, Total Bilirubin 0.60, AST 11 L, ALT 14, Alkaline Phosphatase 62, Total Protein 7.0, Albumin 3.2, Globulin 3.8, Albumin/Globulin Ratio 0.8 L, TSH 0.49 04/22/22 02:30: Troponin I High Sens 6 04/22/22 06:41: POC Glucose 186 H 04/22/22 11:37: POC Glucose 163 H Microbiology: Microbiology 04/21/22 18:00 Aspirate - Throat Gram Stain - Final 04/21/22 18:00 Aspirate - Throat Wound Culture - Preliminary Mixed Gram Positive Organisms 04/21/22 14:45 Nasal Secretion SARS-CoV-2 Antigen (Rapid) - Final SARS-CoV-2 (COVID 19) Radiography Diagnostic Testing: Radiology Impression Chest X-Ray 04/21/22 16:25 IMPRESSION: Right sided pneumonia. Electronically Signed: Andrea Whalen MD at 16:43 EDT Reading Location ID and State: [facility] / [place] , Service support , D/C Instructions Discharge Diet: 2000 Calorie Control Diet and 8 Cup Fluid Restriction Call your doctor if your incision/area has: Continuous Slow Oozing Call your doctor if you observe: - (difficulty swallowing) Meaningful Use Info Meaningful Use Diagnoses (Choose all that apply): None applicable and CHF CHF DANIEL/ARB ordered at discharge?: Yes Documented LVEF (%): 55 Discharge Plan Admission Admit Date/Time: 04/21/22 18:29 Primary Reason for Your Visit: CHF. COPD exacerbation. Attending Provider: Clarence Floyd Primary Care Provider: Clarence Reyes Instructions Additional Instructions / Restrictions: Self isolate for at for 4 more days AND at least one day (24 hours) have passed since resolution of fever without the use of fever-reducing agents AND improvement of symptoms (e.g., cough, shortness of breath) When around people in the same room, wear a face mask. Individuals also in the room should wear a mask. If possible, use a different bathroom and bedroom. Perform adequate hand hygiene. Avoid sharing dishes, glasses, etc. Discharge Orders/Prescriptions Prescriptions: New clindamycin HCl 150 mg Capsule 300 mg PO 4X/DAY Qty: 24 0RF prednisone 10 mg tablet 10 mg PO DAILY Qty: 30 0RF Rx Instructions: 4 tabs daily for 3 days, then 3 tabs daily for 3 days, then 2 tabs daily for 3 days, then 1 tab daily for 3 days Continued Trelegy Ellipta 100-62.5-25 mcg blister with device 1 inh inhalation DAILY Eliquis 5 mg tablet 5 mg PO BID metoprolol tartrate 50 mg tablet 50 mg PO BID Rx Instructions: take 2 tabs in pm 1 tab qam metformin 500 MG tablet 500 mg PO DAILY quinapril 40 MG tablet 40 mg PO DAILY montelukast 10 MG tablet 10 mg PO DAILY hydroxychloroquine 200 MG tablet 200 mg PO BIDCM ProAir RespiClick 90 MCG aerosol powdr breath activated 108 mcg IH Q4H PRN (Reason: Sob &/Or Wheezing) Cholecalciferol (Vitamin D3) [Vitamin D3] 5,000 UNIT capsule 5,000 unit PO DAILY furosemide 40 mg tablet See Rx Instructions .ROUTE .COMPLEX Rx Instructions: TAKE 1 TABLET BY MOUTH EVERY DAY Referrals / Follow Up: Clarence Reyes MD [Primary Care Provider] - Within 1 Week Disposition Disposition (needs filled in before D/C Order can be placed): Home, Self Care Charges/Coding Visit Charges Inpatient E&M: 18821 Disch Hosp
--- NOTE | 2022-04-22 13:18 | CASEMGMT ---
Pt on room air and to be sent home with [facility] pulse ox w/ instruction. Pt states no further concerns/needs with going home at discharge. SStsandy GONZALEZ CM
--- NOTE | 2022-04-22 14:54 | PHA.DC.MC ---
Pharmacy Service has performed discharge medication reconciliation and counseling for this patient. Counseled via telephone due to COVID precautions. 1. Clindamycin 300mg PO 4x/day 2. Prednisone 40mg PO daily x 3 days, then 30mg x 3 days, then 20mg x 3 days, then 10mg x 3 days The patient's discharge medication list was reviewed for discrepancies and discrepancies were resolved. Home Medications Cholecalciferol (Vitamin D3) [Vitamin D3] 5,000 unit PO DAILY supplement 10/28/17 albuterol sulfate 90 mcg/actuation breath activated powder inhaler (ProAir RespiClick) 108 mcg IH Q4H PRN Sob &/Or Wheezing 10/28/17 hydroxychloroquine 200 mg tablet 200 mg PO BIDCM arthritis 10/28/17 metformin 500 mg tablet 500 mg PO DAILY diabetes 10/28/17 montelukast 10 mg tablet 10 mg PO DAILY asthma 10/28/17 quinapril 40 mg tablet 40 mg PO DAILY blood pressure 10/28/17 apixaban 5 mg tablet (Eliquis) 5 mg PO BID blood thinner 01/30/22 fluticasone fur. 100 mcg-umeclid 62.5 mcg-vilant 25 mcg inhalat.powder (Trelegy Ellipta) 1 inh inhalation DAILY SOB 01/30/22 metoprolol tartrate 50 mg tablet 50 mg PO BID bp 03/18/22 furosemide 40 mg tablet See Rx Instructions .Route .COMPLEX water 04/21/22 clindamycin HCl 150 mg capsule 300 mg PO 4X/DAY #24 caps 04/22/22 prednisone 10 mg tablet 10 mg PO DAILY #30 tabs 04/22/22 The patient was counseled on the following discharge medications and changes in medications for homegoing were reviewed. The Reason for Use, instructions for use, and potential side effects were reviewed for all new medications. The patient's questions regarding all of their medications were answered. The patient was able to verbally demonstrate an understanding of their discharge medications.
== END 2022-04-22 15:33 | disposition home or self-care (01) | DRG 291 ==
LOC: ED 18:13 → PCU 18:51
PROVIDERS: Emergency Provider Emergency Medicine; PCP Family Medicine
DX: I11.0 Hypertensive heart disease with heart failure (principal); J12.82 Pneumonia due to coronavirus disease 2019; U07.1 COVID-19; I50.31 Acute diastolic (congestive) heart failure; J44.0 Chronic obstructive pulmonary disease with (acute) lower respiratory infection; I48.19 Other persistent atrial fibrillation; J44.1 Chronic obstructive pulmonary disease with (acute) exacerbation; J36 Peritonsillar abscess; Z68.42 Body mass index [BMI] 45.0-49.9, adult; E11.65 Type 2 diabetes mellitus with hyperglycemia; Z79.01 Long term (current) use of anticoagulants; E66.01 Morbid (severe) obesity due to excess calories; M06.9 Rheumatoid arthritis, unspecified; E55.9 Vitamin D deficiency, unspecified; G47.33 Obstructive sleep apnea (adult) (pediatric); Z79.899 Other long term (current) drug therapy; Z79.84 Long term (current) use of oral hypoglycemic drugs; Z87.891 Personal history of nicotine dependence; Z28.310 Unvaccinated for COVID-19
CPT/HCPCS: 36415; 70491; 71045; 80048; 80053; 82962; 84075; 84443; 84484; 85025; 87070; 87186; 87205; 87811; 93005; 94640; 94667; 99251; 99284; Q9967; A4216; G0463; J1940; J2405

== ENCOUNTER → 2022-04-21 | Outpatient (CLI) | payer MEDICARE, OTHER, SELFPAY ==
--- NOTE | 2022-04-21 12:58 | CT_ITS ---
INDICATION: evaluate right tonsil area EXAMINATION: CT NECK WITH CONTRAST - CT Soft Tissue Neck W/ Contrast Injection TECHNIQUE: Helically acquired images were obtained of the neck following IV contrast. A radiation dose optimization technique was used for this scan. IV Contrast dosage and agent: 75 mL of [id number]. COMPARISON: None. FINDINGS: Collection visualized superimposed over the right palatine tonsils measuring 2.6 x 2.9 x 2.9 cm, mass effect on the adjacent hypopharynx and nasopharynx is visualized, deviation of the airway to the left is visualized. Mild stranding of the adjacent fat planes is visualized. The extensive adjacent cervical lymphadenopathy is seen in the right neck and to a lesser extent lymphadenopathy is visualized in the left neck. NASOPHARYNX: Unremarkable. SUPRAHYOID NECK: Unremarkable oral cavity, parapharyngeal space, and retropharyngeal space. INFRAHYOID NECK: Unremarkable larynx, hypopharynx, and supraglottis. THYROID: 1.6 cm low-attenuation nodule visualized in the left lobe of the thyroid gland. SALIVARY GLANDS: Unremarkable. LYMPH NODES: Cervical lymphadenopathy visualized most prominent in the right neck. VASCULAR STRUCTURES: Unremarkable. VISUALIZED PORTIONS OF THE ORBITS, PARANASAL SINUSES, MASTOID AIR CELLS AND SKULL BASE: Unremarkable. BONES: Unremarkable. THORACIC INLET: A 0.6 cm pleural/subpleural nodule is visualized in the anterior aspect of the right upper lung field, otherwise the visualized upper lung barr are unremarkable. Extensive mediastinal lymphadenopathy is visualized. CT/Soft Tissue Neck WITH Contrast IMPRESSION: Circumscribed 2.9 cm Abscess visualized superimposed over the right palatine tonsils with extensive cervical lymphadenopathy. Extensive mediastinal lymphadenopathy is visualized. Cervical lymphadenopathy is visualized. A 0.6 cm pleural/subpleural nodule is visualized in the anterior aspect of the right upper lung field, otherwise the visualized upper lung barr are unremarkable. Electronically Signed: Humberto Christie MD at 13:40 EDT Reading Location ID and State: [facility] / [place] Tel , Service support ,
== END | disposition home or self-care (01) ==
LOC: CT 12:49
PROVIDERS: PCP Family Medicine; Referring Provider Family Medicine; Visit Provider Family Medicine
DX: J36 Peritonsillar abscess (principal)
CPT/HCPCS: 70491; Q9967; A4216

== ENCOUNTER → 2022-06-10 | Outpatient (CLI) | payer MEDICARE, OTHER, SELFPAY ==
[2022-06-10 12:59] LABS: Anion Gap 7 (5-15); BUN 16 mg/dL (7-18); BUN/Creat Ratio 18.3 RATIO (10-20); Calcium,Total 9.1 mg/dL (8.5-10.1); Chloride 102 mmol/L (98-107); Creatinine, Serum 0.87 mg/dL (0.55-1.02); EST Glomerular Filtration Rate 67 mL/min (>60); Est Glom Filt Rate - Afr Amer 81 mL/min (>60); Glucose 146 mg/dL (74-106); Potassium 4.4 mmol/L (3.5-5.1); Sodium Level 139 mmol/L (136-145)
== END | disposition home or self-care (01) ==
LOC: LAB 12:07
PROVIDERS: PCP Family Medicine; Referring Provider Nurse Practitioner Gerontology; Visit Provider Nurse Practitioner Gerontology
DX: I48.19 Other persistent atrial fibrillation (principal)
CPT/HCPCS: 36415; 80048

== ENCOUNTER → 2022-07-07 | Outpatient (CLI) | payer MEDICARE, OTHER, SELFPAY ==
[2022-07-07 15:15] LABS: Absolute Lymphocyte Count 1.21 X10^3/uL (0.83-4.51); Absolute Neutrophil Count 6.4 X10^3/uL (2.0-7.7); Basophil# 0.03 X10^3/uL; Basophil% 0.3 % (0-1); Eosinophil# 0.19 X10^3/uL; Eosinophils% 2.2 % (0-5); Hemoglobin 12.7 g/dL (12.0-15.0); Lymphocyte # 1.21 X10^3/ul (0.83-4.51); Lymphocyte % 13.9 % (19-41); Mean Corpuscular Hgb 27.4 pg (27.0-32.0); Mean Corpuscular Volume 88.4 fL (81-99); Mean Platelet Vol. 10.8 fl (6.2-12.0); Monocyte# 0.81 X10^3/uL; Monocyte% 9.3 % (0-10); NRBC Flagged by Analyzer 0 % (0-5); Neutrophil % 73.8 % (47-70); Platelet Count 195 K/mm3 (150-450); RBC Distribution Width CV 17.6 % (11.6-14.6); RBC Distribution Width SD 56.5 fl (35.1-43.9); Red Blood Count 4.64 M/mm3 (4.2-5.4); White Blood Count 8.7 K/mm3 (4.4-11.0)
[2022-07-07 16:14] LABS: ALB/GLOB Ratio 0.9 RATIO (0.9-2.4); AST(SGOT) 11 U/L (15-37); Alanine Aminotransfer ALT/SGPT 21 U/L (13-56); Albumin, Serum 3.4 g/dL (3.2-5.0); Alkaline Phosphatase 70 U/L (45-117); Anion Gap 4 (5-15); BUN 14 mg/dL (7-18); BUN/Creat Ratio 17.4 RATIO (10-20); Calcium,Total 8.9 mg/dL (8.5-10.1); Chloride 109 mmol/L (98-107); EST Glomerular Filtration Rate 73 mL/min (>60); Est Glom Filt Rate - Afr Amer 89 mL/min (>60); Globulin 3.7 g/dL (2.2-4.2); Glucose 91 mg/dL (74-106); Potassium 4.5 mmol/L (3.5-5.1); Protein, Total 7.1 g/dL (6.4-8.2); Sodium Level 140 mmol/L (136-145)
== END | disposition home or self-care (01) ==
LOC: MFPLAB 13:42
PROVIDERS: PCP Family Medicine; Referring Provider Family Medicine; Visit Provider Internal Medicine Rheumatology
DX: M06.4 Inflammatory polyarthropathy (principal); M35.89 Other specified systemic involvement of connective tissue; I48.91 Unspecified atrial fibrillation; E11.9 Type 2 diabetes mellitus without complications; M18.12 Unilateral primary osteoarthritis of first carpometacarpal joint, left hand; M17.0 Bilateral primary osteoarthritis of knee; E78.5 Hyperlipidemia, unspecified; J45.909 Unspecified asthma, uncomplicated; I10 Essential (primary) hypertension; Z79.899 Other long term (current) drug therapy
CPT/HCPCS: 36415; 80053; 85025

== ENCOUNTER 2022-07-22 21:44 | Inpatient (IN) | payer MEDICARE, OTHER, SELFPAY ==
[2022-07-22 21:45] VITALS: BP 123/65; PULSE 131; RESP 20; TEMP 37.2; O2SAT 93; BMI 47.5
[2022-07-22 22:02] VITALS: O2SAT 84
--- NOTE | 2022-07-22 22:37 | ED.VIS.DYS ---
HPI History of Present Illness Chief Complaint: Shortness of Breath Informant: patient and family Onset/Context/Timing Onset: Days (5) Context: gradual and onset Timing: Continuous Quality: Positive for Dyspnea on exertion and Wheezing Current Severity: Moderate Maximum Severity: Moderate Worsened by: Exertion and Coughing; Not Worsened By Lying flat Relieved by: Rest, Oxygen and Albuterol Associated Symptoms cough and yellow sputum Chest Pain: Positive for Tightness Narrative Narrative: Patient has history of COPD and feels like it has been flaring up with this illness, total duration about 5 days, fevers today low-grade 99's. Unvaccinated against COVID, she last had COVID couple months ago. Has not tested herself for COVID in this illness. Lives by herself. No home oxygen. [facility] Medical History Allergic rhinitis Anticoagulated Asthma COPD (chronic obstructive pulmonary disease) COVID COVID-19 vaccine dose declined Diabetes mellitus Essential hypertension Morbid obesity Obstructive sleep apnea Osteoarthritis Osteoarthritis of right knee Persistent atrial fibrillation Rheumatoid arthritis Vitamin D deficiency Home Medications Cholecalciferol (Vitamin D3) [Vitamin D3] 5,000 unit PO DAILY supplement 10/28/17 [History Last Taken 04/20/22] albuterol sulfate 90 mcg/actuation breath activated powder inhaler (ProAir RespiClick) 108 mcg IH Q4H PRN Sob &/Or Wheezing 10/28/17 [History Last Taken 04/20/22] hydroxychloroquine 200 mg tablet 200 mg PO BIDCM arthritis 10/28/17 [History Last Taken 04/20/22] metformin 500 mg tablet 500 mg PO DAILY diabetes 10/28/17 [History Last Taken 04/20/22] montelukast 10 mg tablet 10 mg PO DAILY asthma 10/28/17 [History Last Taken 04/21/22] quinapril 40 mg tablet 40 mg PO DAILY blood pressure 10/28/17 [History Last Taken 04/21/22] fluticasone fur. 100 mcg-umeclid 62.5 mcg-vilant 25 mcg inhalat.powder (Trelegy Ellipta) 1 inh inhalation DAILY SOB 01/30/22 [History Last Taken 04/21/22] furosemide 40 mg tablet 40 mg PO DAILY water 06/10/22 [History Last Taken Unknown] metoprolol tartrate 100 mg tablet 100 mg PO BID bp #60 tabs 06/10/22 [Rx Last Taken Unknown] apixaban 5 mg tablet (Eliquis) 5 mg PO BID blood thinner #180 tabs 06/11/22 [Rx Last Taken Unknown] fluticasone fur. 200 mcg-umeclid 62.5 mcg-vilant 25 mcg inhalat.powder (Trelegy Ellipta) 1 ea inhalation DAILY 07/22/22 [History Last Taken Unknown] Allergy/AdvReac Type Severity Reaction Status Date / Time codeine Allergy Unknown Verified 07/22/22 21:48 erythromycin base Allergy Unknown Verified 07/22/22 21:48 Penicillins Allergy Unknown Verified 07/22/22 21:48 Family History Other Adopted Surgical History Cataract (lens) fragments in eye following cataract surgery, bilateral History of carpal tunnel release of both wrists History of hysterectomy History of knee replacement Social History (Updated 07/23/22 @ 03:[address] Lizabeth Winkler DO) Smoking Status: Former smoker alcohol intake: never substance use type: does not use ROS ROS ED Constitutional Constitutional ED: Reports chills, fever(s) and malaise Eyes Eyes: Denies change in vision or diplopia ENT ENT ED: Denies rhinorrhea or sore throat Cardiovascular Cardiovascular: Reports leg edema and racing heartbeat; Denies chest pain or diaphoresis Respiratory/Chest Respiratory/Chest: Reports chest tightness, cough, dyspnea and wheezing Gastrointestinal Gastrointestinal: Denies abdominal pain, diarrhea, nausea or vomiting Genitourinary Genitourinary ED: Denies dysuria or hematuria Musculoskeletal Musculoskeletal: Denies back pain or neck pain Integumentary Denies abscess or rash Neurologic Neurologic: Denies headache(s), paresthesias or weakness Psychiatric Psychiatric: Denies anxiety or suicidal thoughts EXAM Physical Exam Const Vital Signs: 07/22/22 21:45 07/22/22 21:57 07/22/22 22:02 Temperature 98.9 F Temperature Source Temporal Pulse Rate 131 H Respiratory Rate 20 H Respiratory Effort Short of Breath Labored Respiratory Depth Respiratory Pattern Blood Pressure 123/65 H Blood Pressure Mean 84 Pulse Ox 93 84 Oxygen Delivery Method Room Air Room Air Oxygen Flow Rate (L/min) 07/22/22 22:44 07/22/22 22:44 07/23/22 00:24 Temperature Temperature Source Pulse Rate 121 H 125 H Respiratory Rate 24 H 26 H 20 H Respiratory Effort Short of Breath Labored Respiratory Depth Shallow Respiratory Pattern Tachypnea Tachypnea Blood Pressure 141/98 H Blood Pressure Mean 112 Pulse Ox 95 96 Oxygen Delivery Method Nasal Cannula Nasal Cannula Oxygen Flow Rate (L/min) 2 2 Positive well nourished and well developed General Appearance ED: well developed and NAD HEENT Reports moist mucous membranes normocephalic and atraumatic Eyes PERRL and EOMs intact bilaterally Neck full ROM, no lymphadenopathy, supple, no meningeal signs and no JVD Resp Resp Narrative: Tachypnea but in no respiratory distress. Diffuse expiratory wheezes. No rales or rhonchi heard. Cardio Rate: tachycardic Rhythm: abnormal rhythm irregularly irregular GI non-tender and non-distended Auscultation: normoactive bowel sounds Palpation: soft Back/Spine no CVA tenderness General Back: other FROM Extremity normal to inspection General Extremety ED: Yes edema; Negative for pulses abnormal or tenderness General Extremity: edema bilateral lower extremity Details: moderate (Symmetric no calf tenderness, signs of mild chronic stasis dermatitis no signs of acute cellulitis or tenderness); Negative for pulses abnormal Neuro oriented x3, CN's II-XII intact bilaterally and no sensory deficits noted Sensorium / Orientation: awake and alert Motor Exam: strength 5/5 throughout Psych mental status grossly normal Skin no rashes or lesions noted and no wounds MDM MDM MDM Narrative Medical decision making narrative: Patient 84% on room air, wheezy, tachypneic without distress, in A. fib with RVR, albuterol was helping some at home. Placed on oxygen, given nebulizer treatments, Solu-Medrol. She was improved but still wheezy and dyspneic. She failed ambulation, the satting down to 84% on room air. She does not wear oxygen at home. Chest x-ray 2 views on my interpretation negative for any acute infiltrates radiology in agreement. Her A. fib rate improved with treatment but with ambulation she becomes very tachycardic. She is asymptomatic with this, I think it is a side effect of her hypoxemia, dyspnea, and nebulizer treatments. Plan is for admission and further treatment. Lab Data Attestation: I reviewed the patient's lab results. Labs: Laboratory Results - last 24 hr 07/22/22 07/22/22 07/22/22 21:58 21:58 21:58 WBC 10.6 RBC 5.02 Hgb 14.3 Hct 43.4 MCV 86.5 MCH 28.5 MCHC 32.9 RDW Std Deviation 52.1 H RDW Coeff of Uri 16.5 H Plt Count 245 MPV 11.1 Immature Gran % (Auto) 0.500 Neut % (Auto) 80.3 H Lymph % (Auto) 6.6 L [place] % (Auto) 10.5 H Eos % (Auto) 1.8 Baso % (Auto) 0.3 Absolute Neuts (auto) 8.5 H Absolute Lymphs (auto) 0.70 L Nucleated RBC % 0 Sodium 140 Potassium 4.4 Chloride 106 Carbon Dioxide 27.0 Anion Gap 7 BUN 12 Creatinine 0.93 Estim Creat Clear Calc 40.70 Est GFR (MDRD) Af Amer 75 Est GFR (MDRD) Non-Af 62 BUN/Creatinine Ratio 12.9 Glucose 195 H Calcium 9.4 Troponin I High Sens 6 B-Natriuretic Peptide 155.8 H Radiography Diagnostic Testing: Clinical Impression(s) from Imaging Studies Chest X-Ray 07/22/22 23:09 IMPRESSION: No acute findings in the chest. Electronically Signed: Andrea Kimball MD at 23:37 EDT Reading Location ID and State: [facility] / [place] Tel , Service support , Rhythm Strip Rhythm Strip: A-fib Rate: 120 Ectopy: None EKG Initial EKG: Attestation: I personally reviewed and interpreted this EKG as follows: Interpretation: No Acute Injury Pattern and Atrial Fibrillation Discharge Plan Dx/Rx/DC Orders Clinical Impression: Acute exacerbation of chronic obstructive pulmonary disease, Hypoxemia, Atrial fibrillation with RVR Disposition Disposition: Acute Care [facility]
[2022-07-22 22:44] VITALS: PULSE 121; RESP 24; RESP 26; O2SAT 95
[2022-07-22] MEDS: Ipratropium/Albuterol Sulfate 3 ML AMPUL.NEB INHALATION (22:44)
[2022-07-22 22:53] LABS: Absolute Neutrophil Count 8.5 X10^3/uL (2.0-7.7); Basophil# 0.03 X10^3/uL; Basophil% 0.3 % (0-1); Eosinophil# 0.19 X10^3/uL; Eosinophils% 1.8 % (0-5); Hematocrit 43.4 % (37-47); Hemoglobin 14.3 g/dL (12.0-15.0); Lymphocyte % 6.6 % (19-41); Mean Corp Hgb Conc 32.9 g/dL (32-36); Mean Corpuscular Hgb 28.5 pg (27.0-32.0); Mean Corpuscular Volume 86.5 fL (81-99); Mean Platelet Vol. 11.1 fl (6.2-12.0); Monocyte# 1.11 X10^3/uL; Monocyte% 10.5 % (0-10); NRBC Flagged by Analyzer 0 % (0-5); Neutrophil # 8.53 X10^3/uL (2.7-7.7); Neutrophil % 80.3 % (47-70); Platelet Count 245 K/mm3 (150-450); RBC Distribution Width CV 16.5 % (11.6-14.6); RBC Distribution Width SD 52.1 fl (35.1-43.9); Red Blood Count 5.02 M/mm3 (4.2-5.4); White Blood Count 10.6 K/mm3 (4.4-11.0)
[2022-07-22] MEDS: MethylPREDNISolone 125 MG/2 ML Vial IV (23:05)
--- NOTE | 2022-07-22 23:09 | RAD_ITS ---
EXAM: XR CHEST, 2 VIEWS CLINICAL INDICATION: cough sob TECHNIQUE: Frontal and lateral views of the chest. This report was created using [employer] report generation technology. COMPARISON: 04/21/2022 FINDINGS: LUNGS AND PLEURAL SPACES: Unremarkable. No consolidation or edema. No pneumothorax. No effusion. HEART: Mild enlargement of the cardiac silhouette. MEDIASTINUM: Central airways and mediastinal contour are unremarkable. BONES/JOINTS: Unremarkable. SOFT TISSUES: Unremarkable. RAD/Chest PA and Lateral IMPRESSION: No acute findings in the chest. Electronically Signed: Andrea Kimball MD at 23:37 EDT ,
[2022-07-22 23:11] LABS: Anion Gap 7 (5-15); BUN 12 mg/dL (7-18); BUN/Creat Ratio 12.9 RATIO (10-20); Calcium,Total 9.4 mg/dL (8.5-10.1); Chloride 106 mmol/L (98-107); Creatinine, Serum 0.93 mg/dL (0.55-1.02); EST Glomerular Filtration Rate 62 mL/min (>60); Est Glom Filt Rate - Afr Amer 75 mL/min (>60); Glucose 195 mg/dL (74-106); Potassium 4.4 mmol/L (3.5-5.1); Sodium Level 140 mmol/L (136-145); Troponin-I HS 6 pg/mL (3.0-54.0)
[2022-07-22 23:13] LABS: BNP,B-Type NATRIURETIC PEPTIDE 155.8 pg/mL (0-100)
[2022-07-23] VITALS (28 sets, daily range): BP systolic 105–141; BP diastolic 62–98; PULSE 98–145; RESP 18–27; TEMP 35.9–37.1; O2SAT 95–100; BMI 47.7
--- NOTE | 2022-07-23 01:07 | HP.PCM.HOS_ITS ---
HPI - General General Date of Admission: 07/23/22 Date of Service: 07/23/22 Chief Complaint: Shortness of breath HPI Narrative GURWINDER BROWN, is a 76 F who presented to the emergency department [facility] [place] on 07/23/2022 with a chief complaint of shortness of breath. Patient indicates she has COPD at baseline but is not oxygen dependent. She reported that approximately 1 week ago she started having increased shortness of breath. She reports she had COVID a couple months ago. She indicates she has chronic cough but does indicate she is coughing a bit more than baseline and has some sputum production which is not much worse than her baseline. She reports some fatigue and malaise but denies any nausea, vomiting, diarrhea. Denies any tingling numbness or focal weakness. She does report that she has been having some wheezing and that she follows with Dr. Man at [facility] pulmonary medicine. Upon presentation to the emergency department her temperature was 98.9, heart rate was 131, blood pressure is 123/65, respiratory rate was 20 and oxygen saturation was 84% on room air. She was placed on supplemental oxygen at 2 L with improvement in oxygen saturations to 95 to 96%. Her CBC is overall unremarkable with a normal white count. Her BMP is overall unremarkable other than an elevated glucose at 195. Her troponin was 6 and she had a mildly elevated brain natruretic peptide at 155.8. Her EKG shows atrial fibrillation with RVR and no concerning ST-T wave changes. Her chest x-ray shows no acute findings. In the emergency department she was treated with steroids and duo nebs. No intervention was made for her RVR in the emergency department. Patient did indicate to me upon admission that she was supposed to have an outpatient cardioversion done on this upcoming Wednesday. [facility] Medical History Allergic rhinitis Anticoagulated Asthma COPD (chronic obstructive pulmonary disease) COVID COVID-19 vaccine dose declined Diabetes mellitus Essential hypertension Morbid obesity Obstructive sleep apnea Osteoarthritis Osteoarthritis of right knee Persistent atrial fibrillation Rheumatoid arthritis Vitamin D deficiency Home Medications Cholecalciferol (Vitamin D3) [Vitamin D3] 5,000 unit PO DAILY supplement 10/28/17 [History Last Taken 04/20/22] albuterol sulfate 90 mcg/actuation breath activated powder inhaler (ProAir RespiClick) 108 mcg IH Q4H PRN Sob &/Or Wheezing 10/28/17 [History Last Taken 04/20/22] hydroxychloroquine 200 mg tablet 200 mg PO BIDCM arthritis 10/28/17 [History Last Taken 04/20/22] metformin 500 mg tablet 500 mg PO DAILY diabetes 10/28/17 [History Last Taken 04/20/22] montelukast 10 mg tablet 10 mg PO DAILY asthma 10/28/17 [History Last Taken 04/21/22] quinapril 40 mg tablet 40 mg PO DAILY blood pressure 10/28/17 [History Last Taken 04/21/22] fluticasone fur. 100 mcg-umeclid 62.5 mcg-vilant 25 mcg inhalat.powder (Trelegy Ellipta) 1 inh inhalation DAILY SOB 01/30/22 [History Last Taken 04/21/22] furosemide 40 mg tablet 40 mg PO DAILY water 06/10/22 [History Last Taken Unknown] metoprolol tartrate 100 mg tablet 100 mg PO BID bp #60 tabs 06/10/22 [Rx Last Taken Unknown] apixaban 5 mg tablet (Eliquis) 5 mg PO BID blood thinner #180 tabs 06/11/22 [Rx Last Taken Unknown] fluticasone fur. 200 mcg-umeclid 62.5 mcg-vilant 25 mcg inhalat.powder (Trelegy Ellipta) 1 ea inhalation DAILY 07/22/22 [History Last Taken Unknown] Allergy/AdvReac Type Severity Reaction Status Date / Time codeine Allergy Unknown Verified 07/22/22 21:48 erythromycin base Allergy Unknown Verified 07/22/22 21:48 Penicillins Allergy Unknown Verified 07/22/22 21:48 Family History Other Adopted Surgical History Cataract (lens) fragments in eye following cataract surgery, bilateral History of carpal tunnel release of both wrists History of hysterectomy History of knee replacement Social History (Updated 07/23/22 @ 03:[address] Lizabeth Winkler DO) Smoking Status: Former smoker alcohol intake: never substance use type: does not use ROS Constitutional Constitutional: Reports fatigue and malaise; Denies anorexia, change in weight, chills, fever(s), night sweats, weakness or other Eyes Eyes: Denies blurry vision, change in eye color, change in vision, discharge from eye(s), double vision, erythema, eye pain, loss of vision or other ENT HEENT: Reports nasal congestion and nasal discharge; Denies abnormal hearing, dysphagia, ear pain, epistaxis, headache(s), hearing loss, post nasal drip, sinus pressure, sore throat or other Cardiovascular Cardiovascular: Reports dyspnea on exertion; Denies chest pain, claudication, edema, lightheadedness, orthopnea, palpitations, paroxysmal nocturnal dyspnea, rapid heart rate, syncope or other Respiratory/Chest Respiratory/Chest: Reports cough, dyspnea, productive cough, shortness of breath at rest, shortness of breath with exertion and wheezing Gastrointestinal Gastrointestinal: Denies abdominal pain, coffee ground emesis, constipation, diarrhea, dyspepsia, hematemesis, hematochezia, loose stools, melena, nausea, vomiting or other Genitourinary Genitourinary: Denies burning urination, difficulty urinating, dysuria, katty turia, nocturia, urinary frequency, urinary hesitancy, urinary incontinence, urinary urgency or other Musculoskeletal Musculoskeletal: Reports joint pain and joint stiffness; Denies arthralgias, back pain, joint swelling, myalgias, neck pain or other Neurologic Neurologic: Denies abnormal gait, abnormal speech, confusion, disequilibrium, dizziness, focal weakness, headache(s), numbness, paresthesias, seizure-like activity, seizures, syncope, tingling, tremor(s) or other Psychiatric Psychiatric: Denies anxiety, depression, homicidal ideation, suicidal ideation or other Endocrine Endocrinology: Denies change in body appearance, cold intolerance, excessive sweating, heat intolerance, polydipsia, polyuria or other Hematologic/Lymphatic Hematologic/Lymphatic: Denies anemia, easy bleeding, easy bruising, lymphadenopathy or other Allergic/Immunologic Allergic/Immunologic: Denies rhinitis, hives, eczemia, asthma or other Vital Signs Vital Signs Vital Signs: 07/22/22 21:45 07/22/22 21:57 07/22/22 22:02 Temperature 98.9 F Temperature Source Temporal Pulse Rate 131 H Respiratory Rate 20 H Respiratory Effort Short of Breath Labored Respiratory Depth Respiratory Pattern Blood Pressure 123/65 H Blood Pressure Mean 84 Pulse Ox 93 84 Oxygen Delivery Method Room Air Room Air Oxygen Flow Rate (L/min) 07/22/22 22:44 07/22/22 22:44 07/23/22 00:24 Temperature Temperature Source Pulse Rate 121 H 125 H Respiratory Rate 24 H 26 H 20 H Respiratory Effort Short of Breath Labored Respiratory Depth Shallow Respiratory Pattern Tachypnea Tachypnea Blood Pressure 141/98 H Blood Pressure Mean 112 Pulse Ox 95 96 Oxygen Delivery Method Nasal Cannula Nasal Cannula Oxygen Flow Rate (L/min) 2 2 Weight Weight: 117.934 kg Body Mass Index (BMI) 47.5 Physical Exam Const alert, oriented x3 and well nourished Constitutional Narrative: Morbidly obese white female sitting up in bed, currently on supplemental oxygen, no signs of respiratory extremis at this time and appears comfortable, nontoxic General Appearance: cooperative HEENT normocephalic, head/scalp atraumatic and moist oral mucous membranes HEENT Narrative: Mild hearing loss, Mallampati 3-4, no thrush, dentition is fair for age Eyes PERRL, EOMs intact bilaterally and conjunctivae normal Eyes Narrative: No scleral icterus Neck no lymphadenopathy, supple and no carotid bruits Neck Narrative: Neck is short and thick, trachea midline, no thyroid enlargement Resp normal respiratory effort, no retractions, no use of accessory muscles and No clear to auscultation bilaterally Resp Narrative: Diffuse end expiratory wheeze, no tachypnea Auscultation: wheezes; Negative for crackles or rhonchi Cardio S1 normal heart sound, S2 normal heart sound, no murmurs, no rub, no gallops and no clicks; Negative for regular rate or regular rhythm Cardio Narrative: Tachycardia with irregular irregular rhythm GI normal to inspection, nondistended, normoactive bowel sounds, soft to palpation and non-tender Extremity Extremity Narrative: Trace bilateral lower extremity edema, 2+ pedal pulses, no cyanosis or clubbing Skin no rashes or lesions noted, no wounds, skin turgor normal, no jaundice, no petechiae and no mottling Neuro oriented x3, CN's II-XII intact bilaterally, moves all extremities and no focal motor deficits Neuro Narrative: Mild generalized weakness, 2+ reflexes at patella and brachioradialis Speech: speech normal Psych affect normal Psych Narrative: Very pleasant and appropriately interactive Results Lab / Micro Data Attestation: I reviewed the patient's lab results. Result Diagrams: 11/02/22 21:58 07/22/22 21:58 Labs: Laboratory Results - last 24 hr 07/22/22 21:58: WBC 10.6, RBC 5.02, Hgb 14.3, Hct 43.4, MCV 86.5, MCH 28.5, MCHC 32.9, RDW Std Deviation 52.1 H, RDW Coeff of Uri 16.5 H, Plt Count 245, MPV 11.1, Immature Gran % (Auto) 0.500, Neut % (Auto) 80.3 H, Lymph % (Auto) 6.6 L, [place] % (Auto) 10.5 H, Eos % (Auto) 1.8, Baso % (Auto) 0.3, Absolute Neuts (auto) 8.5 H, Absolute Lymphs (auto) 0.70 L, Nucleated RBC % 0 07/22/22 21:58: Sodium 140, Potassium 4.4, Chloride 106, Carbon Dioxide 27.0, Anion Gap 7, BUN 12, Creatinine 0.93, Estim Creat Clear Calc 40.70, Est GFR (MDRD) Af Amer 75, Est GFR (MDRD) Non-Af 62, BUN/Creatinine Ratio 12.9, Glucose 195 H, Calcium 9.4, Troponin I High Sens 6 07/22/22 21:58: B-Natriuretic Peptide 155.8 H Micro: Microbiology 07/22/22 23:00 Nasal Secretion SARS-CoV-2 & FLU Antigen (Rapid) - Final Radiology Impression Chest X-Ray 07/22/22 23:09 IMPRESSION: No acute findings in the chest. Electronically Signed: Andrea Kimball MD at 23:37 EDT , Assessment & Plan Assessment/Plan (1) Hypoxia: (2) Acute exacerbation of COPD with asthma: (3) Chronic atrial fibrillation with RVR: PLAN: Plan Acute hypoxia secondary to acute exacerbation of COPD -Became hypoxia with oxygen saturations to 84% with exertion in the emergency department -Chest x-ray is unremarkable for any infiltrate -Check strep pneumo and Legionella antigens -Check viral respiratory panel -COVID and flu panel is negative -Solu-Medrol 40 mg every 8 hours -Aggressive pulmonary toilet with scheduled and as needed nebulizers -Incentive spirometry -Acapella -Mucinex 1200 mg p.o. twice daily -Patient is on room air at baseline but currently requiring 2 L nasal cannula to maintain saturations -CPAP at at bedtime A. fib with RVR -Patient has required cardioversions previously -Give diltiazem 10 mg IV push x1 dose -Continue metoprolol 100 mg p.o. twice daily -Continue apixaban 5 mg p.o. twice daily -We will try to rate control if not may need cardiology consult -Patient does report that she has outpatient cardioversion scheduled for this coming 07/27/2022 -Check TSH -Most recent echocardiogram done on 02/28/2020 show showed an EF of 55% with no significant valvular pathology and pulmonary systolic pressure of 42 mmHg DM-2 -Hold home metformin -Accu-Cheks before meals and at bedtime -3 times daily sliding scale COPD -Hold home inhalers for now and restart at discharge -See above -Patient follows with Dr. Man at baseline Rheumatoid arthritis -Continue home hydroxychloroquine Hypertension -Continue home metoprolol 100 mg p.o. twice daily -Continue home quinapril 40 mg p.o. daily -Continue home Lasix 40 mg daily Vitamin D deficiency -Restart vitamin D supplementation at discharge COMFORT -Continue home CPAP as ordered Morbid obesity -BMI 47.6 -Complicates treatment, prognosis, outcomes -Recommend weight loss DVT prophylaxis -Lovenox 40 mg SQ twice daily -SCDs CODE STATUS -Full code as per discussion the emergency department prior to admission Charges/Coding Visit Charges Inpatient E&M: 63202 Init Hosp L3
[2022-07-23] MEDS: dilTIAZem 25 MG/5 ML Vial 10 MG IV BOLUS (02:47)
--- NOTE | 2022-07-23 03:49 | ED.RN ---
SEE DOWN TIME CHARTING FROM [id number]
[2022-07-23] MEDS: Metoprolol Tartrate 100 MG Tablet PO ×4 (05:40→21:26)
[2022-07-23 06:45] LABS: Absolute Lymphocyte Count 0.32 X10^3/uL (0.83-4.51); Absolute Neutrophil Count 8.1 X10^3/uL (2.0-7.7); Basophil# 0.01 X10^3/uL; Basophil% 0.1 % (0-1); Hematocrit 43.3 % (37-47); Hemoglobin 13.8 g/dL (12.0-15.0); Lymphocyte # 0.32 X10^3/ul (0.83-4.51); Lymphocyte % 3.7 % (19-41); Mean Corp Hgb Conc 31.9 g/dL (32-36); Mean Corpuscular Hgb 27.7 pg (27.0-32.0); Mean Corpuscular Volume 86.9 fL (81-99); Mean Platelet Vol. 10.6 fl (6.2-12.0); Monocyte# 0.09 X10^3/uL; Monocyte% 1.1 % (0-10); NRBC Flagged by Analyzer 0 % (0-5); Neutrophil # 8.09 X10^3/uL (2.7-7.7); Neutrophil % 94.6 % (47-70); POSITIVE DIFFERENTIAL YES; Platelet Count 179 K/mm3 (150-450); RBC Distribution Width CV 16.3 % (11.6-14.6); RBC Distribution Width SD 51.8 fl (35.1-43.9); Red Blood Count 4.98 M/mm3 (4.2-5.4); White Blood Count 8.6 K/mm3 (4.4-11.0)
[2022-07-23 06:47] LABS: Differential Indicated SCAN CRITERIA MET
[2022-07-23] MEDS: Insulin Lispro 100 UNIT/ML INSULN.PEN SC ×3 (06:48→16:38)
[2022-07-23] MEDS: Ipratropium/Albuterol Sulfate 3 ML AMPUL.NEB INHALATION ×5 (06:52→23:09)
[2022-07-23 06:55] LABS: Bedside Glucose 192 mg/dL (74-106)
[2022-07-23 07:11] LABS: Anisocytosis 1+
[2022-07-23 07:32] LABS: ALB/GLOB Ratio 0.9 RATIO (0.9-2.4); AST(SGOT) 12 U/L (15-37); Alanine Aminotransfer ALT/SGPT 19 U/L (13-56); Albumin, Serum 3.3 g/dL (3.2-5.0); Alkaline Phosphatase 74 U/L (45-117); Anion Gap 6 (5-15); BUN 11 mg/dL (7-18); BUN/Creat Ratio 12.9 RATIO (10-20); Chloride 106 mmol/L (98-107); Creatinine, Serum 0.85 mg/dL (0.55-1.02); EST Glomerular Filtration Rate 69 mL/min (>60); Est Glom Filt Rate - Afr Amer 83 mL/min (>60); Estimated Creatinine Clearance 44.53 ml/min; Globulin 3.8 g/dL (2.2-4.2); Glucose 192 mg/dL (74-106); Magnesium 2.1 mg/dL (1.6-2.6); Phosphorus 3.7 mg/dL (2.5-4.9); Potassium 4.6 mmol/L (3.5-5.1); Protein, Total 7.1 g/dL (6.4-8.2); Sodium Level 139 mmol/L (136-145); Thyroid Stim Hormone (TSH) 0.56 uIU/mL (0.358-3.74)
[2022-07-23] MEDS: Lisinopril 40 MG Tablet PO (10:03)
[2022-07-23] MEDS: Montelukast 10 MG Tablet PO (10:03)
[2022-07-23] MEDS: guaiFENesin 1,200 MG Tablet 1200 MG PO ×2 (10:03→21:26)
[2022-07-23] MEDS: Furosemide 40 MG Tablet PO (10:04)
[2022-07-23] MEDS: APIXABAN 5 MG TABLET PO ×2 (10:04→21:26)
[2022-07-23] MEDS: Hydroxychloroquine 200 MG Tablet PO ×2 (10:04→16:41)
[2022-07-23 11:46] LABS: Bedside Glucose 208 mg/dL (74-106)
--- NOTE | 2022-07-23 12:15 | CASEMGMT ---
RN CM BASIN OPERATOR CM to room to meet with patient for initial transition planning/care coordination assessment. CARLOS JACOBSON introduced self and role at [facility]. Pt voices understanding and consents to assessment at this time. Pt sitting up in recliner chair in no distress at this time. Pt is A/O at this time and answers all questions appropriately. Care providers, pharmacy, and demographics verified/updated at this time. PCP: Clarence Reyes Specialists: Magda, personnel monitor; RA Valdemar; Stephen, donor support technician Preferred Pharmacy: [facility] [employer] Insurance: [employer], [employer] Prescription Benefit: yes Living Will/HPOA: Has both LW and HCPOA, who is her daughter Laura Izaguirre LNOK: daughter/POALaura. Son, Josesito Living Arrangements: Patient lives in a single story home with 4 steps and railing to enter. Patient's grandson and his fiance live in the basement. Patient states she is independent w/ADL's and most IADL's, although states cleaning is becoming more difficult d/t getting short-winded. Pt offered and accepted list of local private-duty home health care agencies, which was provided at this time. Pt drives [employer]. Transportation: self, daughter, grandson DME: Patient states she has cane, walker, raised toilet, grab bars, cpap thru [employer], nebulizer, 2 pulse ox's, and functioning glucometer w/supplies at home. Pt provided w/list of local DME companies if she would need oxygen @ discharge. Pt made aware [facility] is affiliated w/[facility]. Pt's first choice is [facility]. SNF/HHC: Patient denies previous HHC. Patient states she has been to TCU in the past. Pt wishes to return home and states has no concerns with going home at time of discharge. CM to follow for home oxygen needs and any further discharge planning/needs. Pt voices no further concerns/needs at this time. Advised pt to ask for CM if any further questions/concerns/needs arise. Voices understanding. PLAN: Patient to discharge home with family support and follow-up plans in place. Will monitor for home oxygen at discharge. Kassandra MAGANA RN, CM
[2022-07-23] MEDS: FLUTICASONE/UMECLIDIN/VILANTER 1 EACH BLST.W.DEV INHALATION (13:13)
--- NOTE | 2022-07-23 16:13 | PCM.HOSP.N ---
Hospitalist Note Patient was briefly seen and examined. She has history of COPD and history of smoking with relapse. She quit for 5 years and then resumed and then again quit on [address] Man She is still short of breath. mild wheezing. On 2 L of oxygen. COPD exacerbation due to RSV-A viral bronchitis Microbiology Past 72 Hours 07/23/22 02:30 Mucosa - Nasopharyngeal Respiratory Panel (PCR) - Final RSV A 07/22/22 23:00 Nasal Secretion SARS-CoV-2 & FLU Antigen (Rapid) - Final Laboratory Results 07/22/22 21:58: WBC 10.6, RBC 5.02, Hgb 14.3, Hct 43.4, MCV 86.5, MCH 28.5, MCHC 32.9, RDW Std Deviation 52.1 H, RDW Coeff of Uri 16.5 H, Plt Count 245, MPV 11.1, Immature Gran % (Auto) 0.500, Neut % (Auto) 80.3 H, Lymph % (Auto) 6.6 L, Republic % (Auto) 10.5 H, Eos % (Auto) 1.8, Baso % (Auto) 0.3, Absolute Neuts (auto) 8.5 H, Absolute Lymphs (auto) 0.70 L, Nucleated RBC % 0 07/22/22 21:58: Sodium 140, Potassium 4.4, Chloride 106, Carbon Dioxide 27.0, Anion Gap 7, BUN 12, Creatinine 0.93, Estim Creat Clear Calc 40.70, Est GFR (MDRD) Af Amer 75, Est GFR (MDRD) Non-Af 62, BUN/Creatinine Ratio 12.9, Glucose 195 H, Calcium 9.4, Troponin I High Sens 6 07/22/22 21:58: B-Natriuretic Peptide 155.8 H 07/23/22 06:33: WBC 8.6, RBC 4.98, Hgb 13.8, Hct 43.3, MCV 86.9, MCH 27.7, MCHC 31.9 L, RDW Std Deviation 51.8 H, RDW Coeff of Uri 16.3 H, Plt Count 179, MPV 10.6, Immature Gran % (Auto) 0.500, Neut % (Auto) 94.6 H, Lymph % (Auto) 3.7 L, Republic % (Auto) 1.1, Eos % (Auto) 0.0, Baso % (Auto) 0.1, Absolute Neuts (auto) 8.1 H, Absolute Lymphs (auto) 0.32 L, Nucleated RBC % 0, Anisocytosis 1+ 07/23/22 06:33: Sodium 139, Potassium 4.6, Chloride 106, Carbon Dioxide 27.0, Anion Gap 6, BUN 11, Creatinine 0.85, Estim Creat Clear Calc 44.53, Est GFR (MDRD) Af Amer 83, Est GFR (MDRD) Non-Af 69, BUN/Creatinine Ratio 12.9, Glucose 192 H, Calcium 9.0, Phosphorus 3.7, Magnesium 2.1, Total Bilirubin 0.60, AST 12 L, ALT 19, Alkaline Phosphatase 74, Total Protein 7.1, Albumin 3.3, Globulin 3.8, Albumin/Globulin Ratio 0.9, TSH 0.56 07/23/22 06:33: POC Glucose 192 H 07/23/22 11:12: POC Glucose 208 H Clinical Impression(s) from Imaging Studies Chest X-Ray 07/22/22 23:09 IMPRESSION: No acute findings in the chest. Electronically Signed: Andrea Kimball MD at 23:37 EDT ,
[2022-07-23 17:00] LABS: Bedside Glucose 189 mg/dL (74-106)
[2022-07-23] MEDS: 0.9% Saline Lock 10 ML Syringe IV (21:25)
[2022-07-23 22:00] LABS: Bedside Glucose 218 mg/dL (74-106)
--- NOTE | 2022-07-23 23:10 | CPS ---
Pt has own cpap unit from home. It is set up and ready for pt use.
[2022-07-24] VITALS (19 sets, daily range): BP systolic 102–150; BP diastolic 70–91; PULSE 94–139; RESP 16–26; TEMP 36–37.3; O2SAT 95–100
[2022-07-24] MEDS: Ipratropium/Albuterol Sulfate 3 ML AMPUL.NEB INHALATION ×5 (03:33→23:15)
[2022-07-24] MEDS: Insulin Lispro 100 UNIT/ML INSULN.PEN SC ×3 (06:33→16:47)
[2022-07-24] MEDS: 0.9% Saline Lock 10 ML Syringe IV ×3 (06:35→13:02)
[2022-07-24 07:00] LABS: Bedside Glucose 215 mg/dL (74-106)
[2022-07-24 07:25] LABS: Absolute Neutrophil Count 11.1 X10^3/uL (2.0-7.7); Basophil# 0.01 X10^3/uL; Basophil% 0.1 % (0-1); Hematocrit 44.6 % (37-47); Hemoglobin 14.3 g/dL (12.0-15.0); Mean Corp Hgb Conc 32.1 g/dL (32-36); Mean Corpuscular Hgb 27.7 pg (27.0-32.0); Mean Corpuscular Volume 86.4 fL (81-99); Mean Platelet Vol. 11.3 fl (6.2-12.0); Monocyte# 0.71 X10^3/uL; Monocyte% 5.7 % (0-10); NRBC Flagged by Analyzer 0 % (0-5); Neutrophil % 89.8 % (47-70); POSITIVE DIFFERENTIAL YES; Platelet Count 208 K/mm3 (150-450); RBC Distribution Width CV 16.2 % (11.6-14.6); Red Blood Count 5.16 M/mm3 (4.2-5.4); White Blood Count 12.4 K/mm3 (4.4-11.0)
[2022-07-24 07:31] LABS: Differential Indicated SCAN CRITERIA MET
[2022-07-24 08:02] LABS: Anion Gap 7 (5-15); BUN 20 mg/dL (7-18); BUN/Creat Ratio 21.1 RATIO (10-20); Calcium,Total 9.4 mg/dL (8.5-10.1); Chloride 100 mmol/L (98-107); Creatinine, Serum 0.95 mg/dL (0.55-1.02); EST Glomerular Filtration Rate 61 mL/min (>60); Est Glom Filt Rate - Afr Amer 74 mL/min (>60); Estimated Creatinine Clearance 39.85 ml/min; Glucose 196 mg/dL (74-106); Potassium 4.4 mmol/L (3.5-5.1); Sodium Level 136 mmol/L (136-145)
[2022-07-24 08:38] LABS: Platelet Estimate ADEQUATE (ADEQ); Red Cell Morphology NORM C+C NORMAL (NORM C&C)
[2022-07-24] MEDS: guaiFENesin 1,200 MG Tablet 1200 MG PO ×2 (08:42→21:22)
[2022-07-24] MEDS: Metoprolol Tartrate 100 MG Tablet PO ×2 (08:43→21:22)
[2022-07-24] MEDS: Furosemide 40 MG Tablet PO (08:43)
[2022-07-24] MEDS: APIXABAN 5 MG TABLET PO ×2 (08:43→21:22)
[2022-07-24] MEDS: Hydroxychloroquine 200 MG Tablet PO ×2 (08:43→18:04)
[2022-07-24] MEDS: Lisinopril 40 MG Tablet PO (08:43)
[2022-07-24] MEDS: Montelukast 10 MG Tablet PO (08:43)
--- NOTE | 2022-07-24 10:49 | CASEMGMT ---
Green sheet left on chart for home oxygen, if qualifies. Pt states no concerns with weakness/strength with getting around, but states she just gets SOB with exertion. Pt does not feel need for therapy at discharge at this time but CM to follow PT/OT notes and pt aware to notify CM for any change in needs. Pt also aware if she does go home and then decides she wants therapy, to notify PCP, voices understanding. SStsandy GONZALEZ CM
[2022-07-24] MEDS: FLUTICASONE/UMECLIDIN/VILANTER 1 EACH BLST.W.DEV INHALATION (11:11)
[2022-07-24 13:01] LABS: Bedside Glucose 216 mg/dL (74-106)
--- NOTE | 2022-07-24 14:54 | PCM.PN.HOSP ---
Subjective Subjective Follow-up for COPD exacerbation due to RSV acute bronchitis. Patient still very short of breath states she is 30% better. Dyspnea at rest, bilateral wheezing. Objective Data Objective Data Vital Signs: Vital Signs Temp Pulse Resp BP Pulse Ox O2 Del Method O2 Flow Rate 96.8 F L 120 H 16 102/82 H 99 Nasal Cannula 2 07/24/22 13:41 07/24/22 13:41 07/24/22 13:41 07/24/22 13:41 07/24/22 13:41 07/24/22 13:41 07/24/22 13:41 FiO2 30 07/24/22 13:41 Oxygen Flow Rate (L/min) 2 Oxygen Delivery Method Nasal Cannula Weight: 254 lb 6.615 oz Body Mass Index (BMI) 47.7 Intake & Output: Intake and Output for Last 24 Hours 07/22/22 07/23/22 07/24/22 23:59 23:59 23:59 Intake Total 900 / 900 480 / 480 Output Total 3200 / 3600 1070 / 1070 Balance -2300 / -2700 -590 / -590 Lab / Micro Data Result Diagrams: 07/24/22 06:46 07/24/22 06:46 Labs: Laboratory Results - last 24 hr 07/23/22 16:37: POC Glucose 189 H 07/23/22 21:25: POC Glucose 218 H 07/24/22 06:26: POC Glucose 215 H 07/24/22 06:46: WBC 12.4 H, RBC 5.16, Hgb 14.3, Hct 44.6, MCV 86.4, MCH 27.7, MCHC 32.1, RDW Std Deviation 52.0 H, RDW Coeff of Uri 16.2 H, Plt Count 208, MPV 11.3, Immature Gran % (Auto) 0.400, Neut % (Auto) 89.8 H, Lymph % (Auto) 4.0 L, Garza % (Auto) 5.7, Eos % (Auto) 0.0, Baso % (Auto) 0.1, Absolute Neuts (auto) 11.1 H, Absolute Lymphs (auto) 0.50 L, Nucleated RBC % 0, Platelet Estimate ADEQUATE, RBC Morphology NORM C+C 07/24/22 06:46: Sodium 136, Potassium 4.4, Chloride 100, Carbon Dioxide 29.0, Anion Gap 7, BUN 20 H, Creatinine 0.95, Estim Creat Clear Calc 39.85, Est GFR (MDRD) Af Amer 74, Est GFR (MDRD) Non-Af 61, BUN/Creatinine Ratio 21.1 H, Glucose 196 H, Calcium 9.4 07/24/22 11:08: POC Glucose 216 H Micro: Microbiology 07/23/22 02:30 Mucosa - Nasopharyngeal Respiratory Panel (PCR) - Final RSV A 07/22/22 23:00 Nasal Secretion SARS-CoV-2 & FLU Antigen (Rapid) - Final Rhythm Strip Rhythm Strip: A-fib Rate: 120 Ectopy: None Physical Exam Narrative Physical exam General: Alert, Oriented x3, Cooperative, morbid obesity BMI 46.5 kg/m? HEENT: Atraumatic, PERRLA, EOMI, Normocephalic Oral: Deep oropharyngeal structures could not be visualized. No Gingival or Mucosal Lesions/ Ulcerations Neck: Supple, No JVD, Negative Carotid Bruits Lungs: Air entry severely diminished both sides. Bilateral coarse crepitations and rhonchi. Cardiovascular: Sinus tachycardia, Normal S1, Normal S2, No murmurs Abdomen: Bowel Sounds Present, Soft, Non Tender, Non-Distended : No renal angle tenderness. No suprapubic tenderness. Extremities: Mild chronic nonpitting swelling possible fatty , Capillary Refill Less than 3 Seconds Skin: No rashes, No breakdown Musculoskeletal: No Tenderness to Palpation of Joints or Extremities Neurological: Cranial nerves II-XII grossly intact, DTR 2+/4 and Symmetrical, Neuro grossly intact Psych/Mental Status: Normal Affect, Appropriate. Assessment & Plan Assessment/Plan (1) Hypoxia: (2) Acute exacerbation of COPD with asthma: (3) Chronic atrial fibrillation with RVR: PLAN: Plan 1. Acute hypoxia secondary to acute exacerbation of COPD: Patient is admitted in PCU. Not on home oxygen. Chest x-ray individually reviewed does not show acute infiltrate reported no acute abnormality. Urinary antigens are negative. Respiratory panel positive for RSV?A. COVID and flu panel negative. On his scheduled DuoNeb, Solu-Medrol, Mucinex, incentive spirometry and PEP. Patient also requested to use Trelegy, home inhaler and she is using it. Patient also on Singulair. Patient follows Dr. Man as an outpatient. 2. Chronic A. fib with new RVR probably due to COPD exacerbation: Patient has diltiazem 10 mg IV in ED. Patient has appointment with Dr. Mitchell for cardioversion on coming Wednesday. Needs to be postponed as she is still short of breath. Started on Cardizem 60 mg every 8 hourly. Will evaluate tomorrow and if needed may need to to change to Cardizem CD. Continue metoprolol 100 mg p.o. twice daily, Eliquis. TSH normal. -Patient has required cardioversions previously -Most recent echocardiogram done on 02/28/2020 show showed an EF of 55% with no significant valvular pathology and pulmonary systolic pressure of 42 mmHg DM-2 -Hold home metformin -Accu-Cheks before meals and at bedtime -3 times daily sliding scale Glucose 200. Started on Lantus 10 units daily Rheumatoid arthritis -Continue home hydroxychloroquine Hypertension -Continue home metoprolol 100 mg p.o. twice daily -Continue home quinapril 40 mg p.o. daily -Continue home Lasix 40 mg daily Vitamin D deficiency -Restart vitamin D supplementation at discharge COMFORT -Continue home CPAP as ordered Morbid obesity -BMI 47.6 -Complicates treatment, prognosis, outcomes -Recommend weight loss DVT prophylaxis On Eliquis 5 mg twice daily -SCDs CODE STATUS -Full code as per discussion the emergency department prior to admission Total time of the visit including total time spent in counseling or coordination of care, (more than 50% of the total time, spent in obtaining medical information from nurses and other ancillary care providers,explaining to the patient about labs, imaging, diagnosis and management of active complex medical conditions), complex management, review of labs and imaging is 40 minutes. Charges/Coding Visit Charges Inpatient E&M: 44237 Subs Hosp L3
[2022-07-24 16:15] LABS: Bedside Glucose 205 mg/dL (74-106)
[2022-07-24] MEDS: dilTIAZem 60 MG Tablet PO ×2 (16:46→21:22)
[2022-07-24] MEDS: Insulin Glargine-YFGN 100 UNIT/ML Pen 10 UNIT SC (17:59)
[2022-07-24 22:20] LABS: Bedside Glucose 225 mg/dL (74-106)
[2022-07-25] VITALS (18 sets, daily range): BP systolic 108–134; BP diastolic 70–96; PULSE 72–107; RESP 14–21; TEMP 36.1–37.3; O2SAT 3–99
[2022-07-25] MEDS: Ipratropium/Albuterol Sulfate 3 ML AMPUL.NEB INHALATION ×6 (03:36→23:34)
[2022-07-25] MEDS: dilTIAZem 60 MG Tablet PO (06:42)
[2022-07-25] MEDS: Insulin Lispro 100 UNIT/ML INSULN.PEN SC ×3 (06:43→16:38)
[2022-07-25] MEDS: 0.9% Saline Lock 10 ML Syringe IV ×2 (06:44→20:49)
[2022-07-25 07:40] LABS: Bedside Glucose 204 mg/dL (74-106)
[2022-07-25] MEDS: Insulin Glargine-YFGN 100 UNIT/ML Pen 10 UNIT SC ×2 (08:55→20:47)
[2022-07-25] MEDS: Hydroxychloroquine 200 MG Tablet PO ×2 (08:55→16:38)
[2022-07-25] MEDS: FLUTICASONE/UMECLIDIN/VILANTER 1 EACH BLST.W.DEV INHALATION (08:56)
[2022-07-25] MEDS: guaiFENesin 1,200 MG Tablet 1200 MG PO ×2 (09:03→20:47)
[2022-07-25] MEDS: APIXABAN 5 MG TABLET PO ×2 (09:03→20:45)
[2022-07-25] MEDS: Furosemide 40 MG Tablet PO (09:03)
[2022-07-25] MEDS: Lisinopril 40 MG Tablet PO (09:03)
[2022-07-25] MEDS: Montelukast 10 MG Tablet PO (09:03)
[2022-07-25] MEDS: Metoprolol Tartrate 100 MG Tablet PO ×2 (09:03→20:45)
--- NOTE | 2022-07-25 10:56 | DCINST_ITS ---
Discharge Instructions Follow Up Care Test Results: Test results from this visit will be discussed in further detail at your follow- up appointment, if applicable. Discharge Plan Admission Admit Date/Time: 07/23/22 01:02 Attending Provider: Sahil Barroso Primary Care Provider: Clarence Reyes Consulting Providers: Lizabeth Winkler Discharge Orders/Prescriptions Prescriptions: No Action Trelegy Ellipta 100-62.5-25 mcg blister with device 1 inh inhalation DAILY metoprolol tartrate 100 mg tablet 100 mg PO BID Qty: 60 11RF metformin 500 MG tablet 500 mg PO DAILY quinapril 40 MG tablet 40 mg PO DAILY montelukast 10 MG tablet 10 mg PO DAILY hydroxychloroquine 200 MG tablet 200 mg PO BIDCM ProAir RespiClick 90 MCG aerosol powdr breath activated 108 mcg IH Q4H PRN (Reason: Sob &/Or Wheezing) Cholecalciferol (Vitamin D3) [Vitamin D3] 5,000 UNIT capsule 5,000 unit PO DAILY furosemide 40 mg tablet 40 mg PO DAILY Trelegy Ellipta 200-62.5-25 mcg blister with device 1 ea INHALATION DAILY Label Comments: INHALE 1 PUFF DAILY FOLLOWED BY [facility] Eliquis 5 mg tablet 5 mg PO BID Qty: 180 4RF Referrals / Follow Up: Clarence Reyes MD [Primary Care Provider] -
--- NOTE | 2022-07-25 11:57 | PN.HOSP_ITS ---
Subjective Subjective Follow-up for COPD exacerbation. Patient is on 94% on room air but requires oxygenation at night. Drops 86% ambulating on room air, 95% on 4 L of oxygen on ambulation Objective Data Objective Data Vital Signs: Vital Signs Temp Pulse Resp BP Pulse Ox O2 Del Method O2 Flow Rate 98.0 F 89 16 118/72 97 Room Air 87 07/25/22 09:05 07/25/22 11:08 07/25/22 11:08 07/25/22 09:05 07/25/22 11:50 07/25/22 10:07 07/25/22 11:50 FiO2 30 07/24/22 13:41 Oxygen Flow Rate (L/min) [ 95 AMBULATING with Oxygen #2] Oxygen Flow Rate (L/min) [ 87 AMBULATING with Oxygen #1] Oxygen Flow Rate (L/min) 2 Oxygen Delivery Method Room Air Weight: 253 lb 8.505 oz Body Mass Index (BMI) 47.7 Intake & Output: Intake and Output for Last 24 Hours 07/23/22 07/24/22 07/25/22 23:59 23:59 23:59 Intake Total 900 / 900 955 / 955 Output Total 3200 / 3600 1470 / 1720 450 / 450 Balance -2300 / -2700 -515 / -765 -450 / -450 Lab / Micro Data Result Diagrams: 07/24/22 06:46 07/24/22 06:46 Labs: Laboratory Results - last 24 hr 07/24/22 11:08: POC Glucose 216 H 07/24/22 15:49: POC Glucose 205 H 07/24/22 21:11: POC Glucose 225 H 07/25/22 06:39: POC Glucose 204 H Micro: Microbiology 07/23/22 02:30 Mucosa - Nasopharyngeal Respiratory Panel (PCR) - Final RSV A 07/22/22 23:00 Nasal Secretion SARS-CoV-2 & FLU Antigen (Rapid) - Final Rhythm Strip Rhythm Strip: A-fib Rate: 120 Ectopy: None Physical Exam Narrative Physical exam General: Alert, Oriented x3, Cooperative, morbid obesity BMI 46.5 kg/m? HEENT: Atraumatic, PERRLA, EOMI, Normocephalic Oral: Deep oropharyngeal structures could not be visualized. No Gingival or Mucosal Lesions/ Ulcerations Neck: Supple, No JVD, Negative Carotid Bruits Lungs: Air entry severely diminished both sides. Bilateral coarse crepitations and rhonchi. Cardiovascular: Sinus tachycardia, Normal S1, Normal S2, No murmurs Abdomen: Bowel Sounds Present, Soft, Non Tender, Non-Distended : No renal angle tenderness. No suprapubic tenderness. Extremities: Mild chronic nonpitting swelling possible fatty , Capillary Refill Less than 3 Seconds Skin: No rashes, No breakdown Musculoskeletal: No Tenderness to Palpation of Joints or Extremities Neurological: Cranial nerves II-XII grossly intact, DTR 2+/4 and Symmetrical, Neuro grossly intact Psych/Mental Status: Normal Affect, Appropriate. Assessment & Plan Assessment/Plan (1) Hypoxia: (2) Acute exacerbation of COPD with asthma: (3) Chronic atrial fibrillation with RVR: PLAN: Plan 1. Acute hypoxia secondary to acute exacerbation of COPD: Patient is admitted in PCU. Not on home oxygen. Chest x-ray individually reviewed does not show acute infiltrate reported no acute abnormality. Urinary antigens are negative. Respiratory panel positive for RSV?A. COVID and flu panel negative. On his scheduled DuoNeb, Solu-Medrol, Mucinex, incentive spirometry and PEP. Patient also requested to use Trelegy, home inhaler and she is using it. Patient also on Singulair. Patient follows Dr. Man as an outpatient. 07/24:Patient is on 94% on room air but requires oxygenation at night. Drops 86% ambulating on room air, 95% on 4 L of oxygen on ambulation. Patient does not want to go home on oxygen at night or on ambulation. Continue present treatment. Advised aggressive incentive spirometry and Pep to wean off oxygen. 2. Chronic A. fib with new RVR probably due to COPD exacerbation: Patient has d iltiazem 10 mg IV in ED. Patient has appointment with Dr. Mitchell for cardioversion on coming Wednesday. Needs to be postponed as she is still short of breath. Started on Cardizem 60 mg every 8 hourly. Will evaluate tomorrow and if needed may need to to change to Cardizem CD. Continue metoprolol 100 mg p.o. twice daily, Eliquis. TSH normal. -Patient has required cardioversions previously -Most recent echocardiogram done on 02/28/2020 show showed an EF of 55% with no significant valvular pathology and pulmonary systolic pressure of 42 mmHg DM-2 -Hold home metformin -Accu-Cheks before meals and at bedtime -3 times daily sliding scale Glucose 200. Started on Lantus 10 units daily 07/25: Glucose is high: Lantus increased to 10 units subcutaneous twice daily Rheumatoid arthritis -Continue home hydroxychloroquine Hypertension -Continue home metoprolol 100 mg p.o. twice daily -Continue home quinapril 40 mg p.o. daily -Continue home Lasix 40 mg daily Vitamin D deficiency -Restart vitamin D supplementation at discharge COMFORT -Continue home CPAP as ordered Morbid obesity -BMI 47.6 -Complicates treatment, prognosis, outcomes -Recommend weight loss DVT prophylaxis On Eliquis 5 mg twice daily -SCDs CODE STATUS -Full code as per discussion the emergency department prior to admission Charges/Coding Visit Charges Inpatient E&M: 43798 Subs Hosp L2
[2022-07-25 12:05] LABS: Bedside Glucose 246 mg/dL (74-106)
[2022-07-25] MEDS: dilTIAZem CD 120 MG Capsule PO (13:33)
[2022-07-25 17:30] LABS: Bedside Glucose 252 mg/dL (74-106)
[2022-07-25 23:55] LABS: Bedside Glucose 219 mg/dL (74-106)
[2022-07-26] VITALS (12 sets, daily range): BP systolic 125–138; BP diastolic 78–98; PULSE 77–104; RESP 16–80; TEMP 36.1–37.3; O2SAT 2–97
[2022-07-26] MEDS: 0.9% Saline Lock 10 ML Syringe IV ×3 (06:50→14:07)
[2022-07-26] MEDS: Insulin Lispro 100 UNIT/ML INSULN.PEN SC ×2 (06:52→12:03)
[2022-07-26 06:59] LABS: Absolute Lymphocyte Count 0.75 X10^3/uL (0.83-4.51); Absolute Neutrophil Count 11.3 X10^3/uL (2.0-7.7); Basophil# 0.01 X10^3/uL; Basophil% 0.1 % (0-1); Hematocrit 43.8 % (37-47); Hemoglobin 13.4 g/dL (12.0-15.0); Lymphocyte # 0.75 X10^3/ul (0.83-4.51); Mean Corp Hgb Conc 30.6 g/dL (32-36); Mean Corpuscular Hgb 26.5 pg (27.0-32.0); Mean Corpuscular Volume 86.7 fL (81-99); Mean Platelet Vol. 10.8 fl (6.2-12.0); Monocyte# 0.47 X10^3/uL; Monocyte% 3.7 % (0-10); NRBC Flagged by Analyzer 0 % (0-5); Neutrophil % 89.6 % (47-70); Platelet Count 217 K/mm3 (150-450); RBC Distribution Width CV 15.9 % (11.6-14.6); RBC Distribution Width SD 50.9 fl (35.1-43.9); Red Blood Count 5.05 M/mm3 (4.2-5.4); White Blood Count 12.6 K/mm3 (4.4-11.0)
[2022-07-26 07:23] LABS: Anion Gap 6 (5-15); BUN 32 mg/dL (7-18); BUN/Creat Ratio 37.3 RATIO (10-20); Calcium,Total 9.3 mg/dL (8.5-10.1); Chloride 99 mmol/L (98-107); Creatinine, Serum 0.86 mg/dL (0.55-1.02); EST Glomerular Filtration Rate 68 mL/min (>60); Est Glom Filt Rate - Afr Amer 83 mL/min (>60); Estimated Creatinine Clearance 44.02 ml/min; Glucose 209 mg/dL (74-106); Potassium 4.8 mmol/L (3.5-5.1); Sodium Level 138 mmol/L (136-145)
[2022-07-26] MEDS: Ipratropium/Albuterol Sulfate 3 ML AMPUL.NEB INHALATION ×3 (07:48→15:23)
[2022-07-26] MEDS: guaiFENesin 1,200 MG Tablet 1200 MG PO (09:48)
[2022-07-26] MEDS: Furosemide 40 MG Tablet PO (09:48)
[2022-07-26] MEDS: dilTIAZem CD 120 MG Capsule PO (09:48)
[2022-07-26] MEDS: Furosemide 20 MG/2 ML VIAL IV (09:48)
[2022-07-26] MEDS: Montelukast 10 MG Tablet PO (09:49)
[2022-07-26] MEDS: Hydroxychloroquine 200 MG Tablet PO (09:49)
[2022-07-26] MEDS: APIXABAN 5 MG TABLET PO (09:49)
[2022-07-26] MEDS: Metoprolol Tartrate 100 MG Tablet PO (09:49)
[2022-07-26] MEDS: Lisinopril 40 MG Tablet PO (09:49)
[2022-07-26] MEDS: FLUTICASONE/UMECLIDIN/VILANTER 1 EACH BLST.W.DEV INHALATION (09:50)
--- NOTE | 2022-07-26 10:24 | DCINST_ITS ---
Discharge Instructions Diet Discharge Diet: Low fat / Low cholesterol and 2000 mg Sodium Diet Follow Up Care Test Results: Test results from this visit will be discussed in further detail at your follow- up appointment, if applicable. Discharge Plan Admission Admit Date/Time: 07/23/22 01:02 Primary Reason for Your Visit: COPD exacerbation from RSV bronchitis Attending Provider: Sahil Barroso Primary Care Provider: Clarence Reyes Consulting Providers: Lizabeth Winkler Discharge Orders/Prescriptions Prescriptions: New sennosides-docusate sodium [Stool Softener-Stimulant Laxat] 8.6-50 mg Tablet 2 tab PO BID PRN PRN (Reason: Constipation) Qty: 0 0RF diltiazem HCl 120 mg Capsule,Extended Release 24hr 120 mg PO DAILY Qty: 30 0RF Rx Instructions: For A. fib Mucus Relief ER 1,200 mg Tablet Extended Release 12hr 1,200 mg PO BID Qty: 14 0RF prednisone 10 mg tablets,dose pack See Taper PO DAILY Qty: 30 0RF Taper: Prednisone Taper 40 mg WITH BREAKFAST for 3 Days and 0 Hour 30 mg WITH BREAKFAST for 3 Days and 0 Hour 20 mg WITH BREAKFAST for 3 Days and 0 Hour 10 mg WITH BREAKFAST for 3 Days and 0 Hour Continued Trelegy Ellipta 100-62.5-25 mcg blister with device 1 inh inhalation DAILY metoprolol tartrate 100 mg tablet 100 mg PO BID Qty: 60 11RF metformin 500 MG tablet 500 mg PO DAILY quinapril 40 MG tablet 40 mg PO DAILY montelukast 10 MG tablet 10 mg PO DAILY hydroxychloroquine 200 MG tablet 200 mg PO BIDCM ProAir RespiClick 90 MCG aerosol powdr breath activated 108 mcg IH Q4H PRN (Reason: Sob &/Or Wheezing) Cholecalciferol (Vitamin D3) [Vitamin D3] 5,000 UNIT capsule 5,000 unit PO DAILY furosemide 40 mg tablet 40 mg PO DAILY Trelegy Ellipta 200-62.5-25 mcg blister with device 1 ea INHALATION DAILY Label Comments: INHALE 1 PUFF DAILY FOLLOWED BY [facility] Eliquis 5 mg tablet 5 mg PO BID Qty: 180 4RF Referrals / Follow Up: Clarence Reyes MD [Primary Care Provider] - Disposition Disposition (needs filled in before D/C Order can be placed): Home, Self Care
[2022-07-26 10:30] LABS: Bedside Glucose 286 mg/dL (74-106)
--- NOTE | 2022-07-26 11:21 | DS.PCM_ITS ---
Providers Date of Admission: 07/23/22 Date of Discharge: 07/26/22 Primary Care Physician: Dr. Clarence Reyes MD Reason For Visit: ACUTE EXACERBATION OF COPD Diagnosis Discharge Diagnosis (1) Hypoxia: Status: Acute Code(s): R09.02 - Hypoxemia (2) Acute exacerbation of COPD with asthma: Status: Chronic Code(s): J44.1 - Chronic obstructive pulmonary disease with (acute) exacerbation; J45.901 - Unspecified asthma with (acute) exacerbation (3) Chronic atrial fibrillation with RVR: Status: Chronic Code(s): I48.20 - Chronic atrial fibrillation, unspecified Medications at Discharge Home Medications Cholecalciferol (Vitamin D3) [Vitamin D3] 5,000 unit PO DAILY supplement 10/28/17 albuterol sulfate 90 mcg/actuation breath activated powder inhaler (ProAir RespiClick) 108 mcg IH Q4H PRN Sob &/Or Wheezing 10/28/17 hydroxychloroquine 200 mg tablet 200 mg PO BIDCM arthritis 10/28/17 metformin 500 mg tablet 500 mg PO DAILY diabetes 10/28/17 montelukast 10 mg tablet 10 mg PO DAILY asthma 10/28/17 quinapril 40 mg tablet 40 mg PO DAILY blood pressure 10/28/17 fluticasone fur. 100 mcg-umeclid 62.5 mcg-vilant 25 mcg inhalat.powder (Trelegy Ellipta) 1 inh inhalation DAILY SOB 01/30/22 furosemide 40 mg tablet 40 mg PO DAILY water 06/10/22 metoprolol tartrate 100 mg tablet 100 mg PO BID bp #60 tabs 06/10/22 apixaban 5 mg tablet (Eliquis) 5 mg PO BID blood thinner #180 tabs 06/11/22 fluticasone fur. 200 mcg-umeclid 62.5 mcg-vilant 25 mcg inhalat.powder (Trelegy Ellipta) 1 ea inhalation DAILY 07/22/22 diltiazem HCl 120 mg capsule,extended release 24 hr 120 mg PO DAILY #30 caps 07/26/22 guaifenesin 1,200 mg tablet, extended release 12 hr (Mucus Relief ER) 1,200 mg PO BID #14 tabs 07/26/22 prednisone 10 mg tablets in a dose pack See Taper PO DAILY #30 tabs 07/26/22 sennosides 8.6 mg-docusate sodium 50 mg tablet (Stool Softener-Stimulant Laxative) 2 tab PO BID PRN PRN Constipation #0 tabs 07/26/22 Hospital Course Summary of Care Provided Hospital Course: This 76-year-old female with history of COPD, COMFORT on CPAP at baseline came to ED with worsening shortness of breath for 1 week. She had COVID couple months ago. She has chronic cough but this has worsened with a sputum production for last 1 week. 1. Acute hypoxia secondary to acute exacerbation of COPD: Patient is admitted in PCU. Not on home oxygen. Chest x-ray individually reviewed does not show acute infiltrate reported no acute abnormality. Urinary antigens are negative. Respiratory panel positive for RSV?A. COVID and flu panel negative. On his scheduled DuoNeb, Solu-Medrol, Mucinex, incentive spirometry and PEP. Patient also requested to use Trelegy, home inhaler and she is using it. Patient also on Singulair. Patient follows Dr. Man as an outpatient. 07/25:Patient is on 94% on room air but requires oxygenation at night. Drops 86% ambulating on room air, 95% on 4 L of oxygen on ambulation. Patient does not want to go home on oxygen at night or on ambulation. Continue present treatment. Advised aggressive incentive spirometry and Pep to wean off oxygen. 07/26:.. Hypoxia has resolved.Patient pulse ox was 96% at rest on room air, 88% on ambulating on room air 92% on 2 L of oxygen. Patient agreed for going home on O2 during ambulation. Patient is ambulatory in home and in the community and requires home oxygen with portability. 2. Chronic A. fib with new RVR probably due to COPD exacerbation: Patient has diltiazem 10 mg IV in ED. Patient has appointment with Dr. Mitchell for cardioversion on coming Wednesday. Needs to be postponed as she is still short of breath. Started on Cardizem 60 mg every 8 hourly. Will evaluate tomorrow and if needed may need to to change to Cardizem CD. Continue metoprolol 100 mg p.o. twice daily, Eliquis. TSH normal. -Patient has required cardioversions previously -Most recent echocardiogram done on 02/28/2020 show showed an EF of 55% with no significant valvular pathology and pulmonary systolic pressure of 42 mmHg 07/26 as patient had mild RVR with heart rate in 110s probably may be due to COPD exacerbation but Cardizem CD 120 mg daily added. Prescription given for 30 days. Follow with PCP DM-2 -Hold home metformin -Accu-Cheks before meals and at bedtime -3 times daily sliding scale Glucose 200. Started on Lantus 10 units daily 07/25: Glucose is high: Lantus increased to 10 units subcutaneous twice daily 05/26: Follow with PCP for optimal control of glucose. Metformin resume Rheumatoid arthritis -Continue home hydroxychloroquine Hypertension -Continue home metoprolol 100 mg p.o. twice daily -Continue home quinapril 40 mg p.o. daily -Continue home Lasix 40 mg daily Vitamin D deficiency -Restart vitamin D supplementation at discharge COMFORT -Continue home CPAP as ordered Morbid obesity -BMI 47.6, weight loss counseling done -Complicates treatment, prognosis, outcomes DVT prophylaxis On Eliquis 5 mg twice daily -SCDs CODE STATUS -Full code as per discussion the emergency department prior to admission Discharge medication reconciliation done. Discharge follow-up instructions completed. Discharge process discussed with the patient and all questions were answered to patient's satisfaction. Following Dr. Man. Total time spent, exact 35 minutes on discharge meds reconciliation, examination, coordination of care with nurses and ancillary staff, review of imaging and blood test and discussion with the patient on follow-up instructions. Physical Exam Narrative Physical exam General: Alert, Oriented x3, Cooperative, morbid obesity BMI 46.5 kg/m? HEENT: Atraumatic, PERRLA, EOMI, Normocephalic Oral: Deep oropharyngeal structures could not be visualized. No Gingival or Mucosal Lesions/ Ulcerations Neck: Supple, No JVD, Negative Carotid Bruits Lungs: Air entry severely diminished both sides. Bilateral coarse crepitations and rhonchi. Cardiovascular: Sinus tachycardia, Normal S1, Normal S2, No murmurs Abdomen: Bowel Sounds Present, Soft, Non Tender, Non-Distended : No renal angle tenderness. No suprapubic tenderness. Extremities: Mild chronic nonpitting swelling possible fatty , Capillary Refill Less than 3 Seconds Skin: No rashes, No breakdown Musculoskeletal: No Tenderness to Palpation of Joints or Extremities Neurological: Cranial nerves II-XII grossly intact, DTR 2+/4 and Symmetrical, Neuro grossly intact Psych/Mental Status: Normal Affect, Appropriate. Weight / BMI Weight Weight: 255 lb 8.252 oz Body Mass Index (BMI) 47.7 ABG / Lab / Microbiology Data Result Diagrams: 07/26/22 06:45 07/26/22 06:45 Laboratory: Laboratory Results - last 24 hr 07/25/22 16:37: POC Glucose 252 H 07/25/22 20:42: POC Glucose 219 H 07/26/22 06:45: WBC 12.6 H, RBC 5.05, Hgb 13.4, Hct 43.8, MCV 86.7, MCH 26.5 L, MCHC 30.6 L, RDW Std Deviation 50.9 H, RDW Coeff of Uri 15.9 H, Plt Count 217, MPV 10.8, Immature Gran % (Auto) 0.600, Neut % (Auto) 89.6 H, Lymph % (Auto) 6.0 L, [place] % (Auto) 3.7, Eos % (Auto) 0.0, Baso % (Auto) 0.1, Absolute Neuts (auto) 11.3 H, Absolute Lymphs (auto) 0.75 L, Nucleated RBC % 0 07/26/22 06:45: Sodium 138, Potassium 4.8, Chloride 99, Carbon Dioxide 33.0 H, Anion Gap 6, BUN 32 H, Creatinine 0.86, Estim Creat Clear Calc 44.02, Est GFR (MDRD) Af Amer 83, Est GFR (MDRD) Non-Af 68, BUN/Creatinine Ratio 37.3 H, Gluc ose 209 H, Calcium 9.3 07/26/22 10:00: POC Glucose 286 H Microbiology: Microbiology 07/23/22 02:30 Mucosa - Nasopharyngeal Respiratory Panel (PCR) - Final RSV A 07/22/22 23:00 Nasal Secretion SARS-CoV-2 & FLU Antigen (Rapid) - Final D/C Instructions Discharge Diet: Low fat / Low cholesterol and 2000 mg Sodium Diet Meaningful Use Info Meaningful Use Diagnoses (Choose all that apply): None applicable Discharge Plan Admission Admit Date/Time: 07/23/22 01:02 Primary Reason for Your Visit: COPD exacerbation from RSV bronchitis Attending Provider: Sahil Barroso Primary Care Provider: Clarence Reyes Consulting Providers: Lizabeth Winkler Discharge Orders/Prescriptions Prescriptions: New sennosides-docusate sodium [Stool Softener-Stimulant Laxat] 8.6-50 mg Tablet 2 tab PO BID PRN PRN (Reason: Constipation) Qty: 0 0RF diltiazem HCl 120 mg Capsule,Extended Release 24hr 120 mg PO DAILY Qty: 30 0RF Rx Instructions: For A. fib Mucus Relief ER 1,200 mg Tablet Extended Release 12hr 1,200 mg PO BID Qty: 14 0RF prednisone 10 mg tablets,dose pack See Taper PO DAILY Qty: 30 0RF Taper: Prednisone Taper 40 mg WITH BREAKFAST for 3 Days and 0 Hour 30 mg WITH BREAKFAST for 3 Days and 0 Hour 20 mg WITH BREAKFAST for 3 Days and 0 Hour 10 mg WITH BREAKFAST for 3 Days and 0 Hour Continued Trelegy Ellipta 100-62.5-25 mcg blister with device 1 inh inhalation DAILY metoprolol tartrate 100 mg tablet 100 mg PO BID Qty: 60 11RF metformin 500 MG tablet 500 mg PO DAILY quinapril 40 MG tablet 40 mg PO DAILY montelukast 10 MG tablet 10 mg PO DAILY hydroxychloroquine 200 MG tablet 200 mg PO BIDCM ProAir RespiClick 90 MCG aerosol powdr breath activated 108 mcg IH Q4H PRN (Reason: Sob &/Or Wheezing) Cholecalciferol (Vitamin D3) [Vitamin D3] 5,000 UNIT capsule 5,000 unit PO DAILY furosemide 40 mg tablet 40 mg PO DAILY Trelegy Ellipta 200-62.5-25 mcg blister with device 1 ea INHALATION DAILY Label Comments: INHALE 1 PUFF DAILY FOLLOWED BY [facility] Eliquis 5 mg tablet 5 mg PO BID Qty: 180 4RF Referrals / Follow Up: Clarence Reyes MD [Primary Care Provider] - Within 1 Week Robby Man MD [Med Staff - Active Staff] - Within 2 Weeks (For COPD exacerbation) Disposition Disposition (needs filled in before D/C Order can be placed): Home, Self Care Charges/Coding Visit Charges Inpatient E&M: 06887 Disch Hosp
[2022-07-26 11:40] LABS: Bedside Glucose 201 mg/dL (74-106)
[2022-07-26] MEDS: Insulin Glargine-YFGN 100 UNIT/ML Pen 10 UNIT SC (12:05)
[2022-07-26 12:31] LABS: Bedside Glucose 257 mg/dL (74-106)
== END 2022-07-26 15:52 | disposition home or self-care (01) | DRG 191 ==
LOC: ED 22:25 → PCU 07-23 06:14
PROVIDERS: Admitting Provider Internal Medicine; Emergency Provider Emergency Medicine; PCP Family Medicine; Visit Provider Internal Medicine
DX: J44.1 Chronic obstructive pulmonary disease with (acute) exacerbation (principal); I48.20 Chronic atrial fibrillation, unspecified; Z68.42 Body mass index [BMI] 45.0-49.9, adult; J44.0 Chronic obstructive pulmonary disease with (acute) lower respiratory infection; E11.65 Type 2 diabetes mellitus with hyperglycemia; E66.01 Morbid (severe) obesity due to excess calories; M06.9 Rheumatoid arthritis, unspecified; J20.5 Acute bronchitis due to respiratory syncytial virus; G47.33 Obstructive sleep apnea (adult) (pediatric); I10 Essential (primary) hypertension; E55.9 Vitamin D deficiency, unspecified; R09.02 Hypoxemia; Z20.822 Contact with and (suspected) exposure to COVID-19; Z28.310 Unvaccinated for COVID-19; Z79.01 Long term (current) use of anticoagulants; Z79.84 Long term (current) use of oral hypoglycemic drugs; Z79.899 Other long term (current) drug therapy; Z86.16 Personal history of COVID-19; Z87.891 Personal history of nicotine dependence
CPT/HCPCS: 36415; 71046; 80048; 80053; 82962; 83735; 83880; 84100; 84443; 84484; 85025; 87428; 87633; 93005; 94640; 94660; 94667; 94668; 97162; 97530; 99251; 99285; 99406; A4216; G0463; J1940

== ENCOUNTER 2022-08-11 10:34 | Day surgery (SDC) | payer MEDICARE, OTHER, SELFPAY ==
[2022-06-30 08:07] VITALS: BMI 47.3
--- NOTE | 2022-08-05 11:25 | HP.PCM_ITS ---
History and Physical Date of Admission: 08/11/22 Patricia Wilcox is a 76-year-old female with a history of atrial fibrillation and hypertension. She did undergo a cardioversion in March of this year, unfortunately this did not hold. Her Metorpolol was increased with plans of a second cardioversion. This has been postponed twice, once for a URI and then earlier this month for a URI that required a hospitalization. During her hospitalization she was noted to have Afib with RVR. Her medications were adjusted during that hospital stay. DCCV was not done in hospital as pt was too SOB. It is now scheduled as an OP. ON LICENSE OF [facility] Medical History?(Updated 06/10/22 @ 10:59 by Orquidea Sanders [employer] ARCHITECT, [employer] PORT[employer] ARCHIT[employer]-C) Allergic rhinitis Anticoagulated Asthma COPD (chronic obstructive pulmonary disease) COVID COVID-19 vaccine dose declined Diabetes mellitus Essential hypertension Morbid obesity Obstructive sleep apnea Osteoarthritis Osteoarthritis of right knee Persistent atrial fibrillation Rheumatoid arthritis Vitamin D deficiency Surgical History? Cataract (lens) fragments in eye following cataract surgery, bilateral History of carpal tunnel release of both wrists History of hysterectomy History of knee replacement Family History? Other Adopted Social History? Smoking Status:? Former smoker ROS Const Const: Positive for fatigue (slight decrease); Negative for weakness, fever(s), headache(s), chills, frequent falls, weight gain or weight loss Eyes Eyes: Negative for blind spots, loss of peripheral vision, transient loss of vision, blurry vision, change in vision, double vision, floaters or tunnel vision ENT ENT: Negative for headache(s), dizziness, Nosebleed/epistaxis, balance problems or neck pain Cardio Chest Pain: No Palpitations: Yes (occasional) Edema: None Muscle aches with walking: None Resp Respiratory: Positive for SOB with activity Negative for SOB at rest or SOB orthopnea\SOB lying down GI GI: Negative nausea, vomiting, heartburn, bloating, vomiting blood/hematemesis, bright, red blood in stools or black,tarry stools Musc Musc: Negative for muscle aches/ myalgia, muscle weakness, joint pain or balance problems Neuro Neuro: Negative for dizziness, lightheadedness, near syncope, syncope, orthostatic symptoms, frequent falls, headache(s), weakness, blurry vision or double vision [place]a Hematologic/Lymphatic: Negative for easy bleeding or easy bruising Endo Endo: Positive for fatigue (slight decrease) Cardiology Exam Const Appearance: cooperative, healthy appearing, comfortable, no acute distress and well developed Nutritional Appearance: obese Orientation: alert, awake and oriented x3 Head Head: normal to inspection Ears: hearing grossly normal bilaterally Nose: external nose normal Face and Sinus: face symmetric Mouth: oral mucosae normal, lip normal and moist mucous membranes Eyes General: appearance normal, both eyes and all related structures Eyelids: eyelids normal Conjunctivae: conjunctivae normal Pupils: PERRL EOM: EOM intact bilaterally Neck Neck: normal visual inspection and trachea midline; Negative no JVD Carotids: Negative bruit Chest Chest inspection: normal inspection of the chest Auscultation: Bilateral: Clear to Auscultation Cardio Palpation: normal PMI Rate: tachycardic Rhythm: irregularly irregular Heart sounds: S1 normal and S2 normal; Negative rub, gallop or murmur GI GI: soft, no hepatosplenomegaly, bowel sounds present and obese Neuro General: patient alert, patient awake, patient oriented x3 and CN's II-XI intact bilaterally Extremities Pulses: Normal: Right Posterior Tibial Pulse, Left Posterior Tibial Pulse, Right Radial Pulse and Left Radial Pulse Lower Extremity Edema: Trace: Bilateral Psych Psychological: normal affect Supplemental Info Supplemental Information Echocardiogram 02/27/2022: Normal LV size. Left ventricular systolic function is normal. The estimated ejection fraction is 55 %. Pulmonary artery systolic pressure is 42 mmHg. Contrast injection was performed. Pharmacologic myocardial perfusion stress test 2021: 76-year-old lady with a history of chest pain. Stress protocol: Resting KG demonstrates atrial fibrillation with a rate of 116 bpm normal intervals are noted resting blood pressure is 122/88 mmHg.? 0.4 mg of regadenoson was infused per usual protocol followed by Intravenous saline flush injection continuous EKG monitoring was performed.? The maximum heart rate attained was 127 bpm which was 88% of maximum predicted heart rate the maximum workload was 1 metabolic equivalent.? At rest there were no ST or T wave changes noted to suggest ischemia and at peak infusion nonspecific ST changes were noted with did not meet the criteria for ischemia.? No clinical angina was noted.? The final blood pressure was 114/86 mmHg. Myocardial perfusion protocol. 14.8 mCi of technetium 99m sestamibi was injected at rest.? 0.4 mg of regadenoson was infused per usual protocol.? Peak infusion 44.9 mCi of technetium 99m sestamibi was injected stress images were obtained stress and rest images were reconstructed and compared in the short axis vertical long and horizontal long axis.? Gated images were also obtained. Perfusion SPECT analysis: Review of the stress images demonstrate normal uptake of tracer noted in all areas of the myocardium.? The rest images similarly demonstrate normal uptake of tracer noted in all areas of myocardium.? No areas of reversibility are noted suggest ischemia no previous infarct is noted. Gated SPECT analysis: The gated ejection fraction is 53%. Conclusion: Normal pharmacologic myocardial perfusion stress test. Preserved ejection fraction. Atrial fibrillation noted. Assessment & Plan Assessment/Plan (1) Persistent atrial fibrillation: (2) Essential hypertension: PLAN: Plan Pt will undergo DCCV. She will follow up in the office accordingly after.
--- NOTE | 2022-08-11 13:30 | PCM.OP.BLANK ---
Problems Associated Problem List Diagnoses (1) Persistent atrial fibrillation: Operative Report Date of Procedure: 08/11/22 DC cardioversion. Indication: Persistent atrial fibrillation. 76-year-old lady with a history of persistent atrial fibrillation. Patient was seen by Dr. Ram of the critical care division. Informed consent was obtained. Anterior-posterior pads were applied. The patient was administered 60 mg of intravenous propofol. 300 J of DC biphasic cardioversion energy were applied with prompt reversal to sinus rhythm. Patient tolerated the procedure well. Conclusion: Continue current medications. Follow-up as per office protocol.
--- NOTE | 2022-08-11 15:31 | PCM.OP.PRO ---
Procedure Report Date of Procedure: 08/11/22 CONSCIOUS SEDATION REPORT BRIEF HISTORY OF PRESENT ILLNESS: The patient is a 76-year-old female who presented to [facility] for an elective outpatient cardioversion due to underlying atrial fibrillation. The patient reports no PO intake since midnight, but is currently therapeutic on anticoagulation. The patient does have a history of COMFORT and COPD, but no signs of recent exacerbation. The patient denies any recent constitutional symptoms such as fevers, chills, nausea or vomiting. The patient denies previous applicable anesthetic complications. Patient's last known ejection fraction was 55%. PHYSICAL EXAMINATION: VITAL SIGNS: Reviewed and were acceptable. GENERAL: The patient is a female, in no apparent distress, speaking in full sentences. HEENT: Normocephalic, atraumatic. Mucous membranes are moist and pink. Good mouth opening noted. Trachea is midline. Good neck mobility. MP IV CHEST: S1, S2 irregularly irregular. No murmurs, rubs or gallops were noted. LUNGS: Clear to auscultation bilaterally without appreciable wheezes, rales or rhonchi. ABDOMEN: Soft, nontender, nondistended. Positive bowel sounds. EXTREMITIES: There is no clubbing, cyanosis or edema. ASA Class: II DESCRIPTION OF PROCEDURE: After confirmation of informed consent, the patient's anesthesia plan was reviewed in detail. Propofol was chosen. Risks and benefits were reviewed and the patient agreed to proceed. At 1:10 PM, the patient was given 40 mg of propofol. The patient required a total of 60 mg of propofol throughout the procedure to achieve appropriate sedation. The patient achieved an appropriate level of sedation and received 1 attempt synchronized cardioversion, at [address] Mitchell at the bedside. This was successful in achieving normal sinus rhythm. The patient was monitored until 1:25 PM, at which time the patient reached their baseline mental status and function. The patient tolerated the procedure well. COMPLICATIONS: None ESTIMATED BLOOD LOSS: None RECOMMENDATIONS: Okay to recover in usual fashion. Procedures Pulmonary 9xxxx: [id number] Con Sedation
== END 2022-08-11 14:15 | disposition home or self-care (01) ==
LOC: CLSP 10:35
PROVIDERS: PCP Family Medicine; Referring Provider Internal Medicine Cardiovascular Disease; Visit Provider Internal Medicine Cardiovascular Disease
DX: I48.19 Other persistent atrial fibrillation (principal); J44.9 Chronic obstructive pulmonary disease, unspecified; E11.9 Type 2 diabetes mellitus without complications; I10 Essential (primary) hypertension; G47.33 Obstructive sleep apnea (adult) (pediatric); E66.9 Obesity, unspecified; Z79.84 Long term (current) use of oral hypoglycemic drugs; Z79.899 Other long term (current) drug therapy; Z79.01 Long term (current) use of anticoagulants; Z86.16 Personal history of COVID-19; Z87.891 Personal history of nicotine dependence
CPT/HCPCS: 92960; 93005; J7040

== ENCOUNTER → 2022-12-30 | Outpatient (CLI) | payer MEDICARE, OTHER, SELFPAY ==
[2022-12-30 15:24] LABS: Absolute Lymphocyte Count 1.17 X10^3/uL (0.83-4.51); Basophil# 0.04 X10^3/uL; Basophil% 0.4 % (0-1); Eosinophil# 0.23 X10^3/uL; Eosinophils% 2.2 % (0-5); Hematocrit 44.5 % (37-47); Lymphocyte # 1.17 X10^3/ul (0.83-4.51); Lymphocyte % 11.2 % (19-41); Mean Corp Hgb Conc 29.2 g/dL (32-36); Mean Corpuscular Hgb 26.1 pg (27.0-32.0); Mean Corpuscular Volume 89.4 fL (81-99); Monocyte# 0.93 X10^3/uL; Monocyte% 8.9 % (0-10); NRBC Flagged by Analyzer 0 % (0-5); Neutrophil # 7.99 X10^3/uL (2.7-7.7); Neutrophil % 76.7 % (47-70); Platelet Count 231 K/mm3 (150-450); RBC Distribution Width CV 14.9 % (11.6-14.6); RBC Distribution Width SD 48.9 fl (35.1-43.9); Red Blood Count 4.98 M/mm3 (4.2-5.4); White Blood Count 10.4 K/mm3 (4.4-11.0)
[2022-12-30 16:10] LABS: ALB/GLOB Ratio 1.1 RATIO (0.9-2.4); AST(SGOT) 15 U/L (15-37); Alanine Aminotransfer ALT/SGPT 22 U/L (13-56); Albumin, Serum 3.5 g/dL (3.2-5.0); Alkaline Phosphatase 77 U/L (45-117); Anion Gap 5 (5-15); BUN 13 mg/dL (7-18); BUN/Creat Ratio 16.5 RATIO (10-20); Calcium,Total 8.9 mg/dL (8.5-10.1); Chloride 107 mmol/L (98-107); Creatinine, Serum 0.79 mg/dL (0.55-1.02); EST Glomerular Filtration Rate 75 mL/min (>60); Est Glom Filt Rate - Afr Amer 91 mL/min (>60); Globulin 3.2 g/dL (2.2-4.2); Glucose 101 mg/dL (74-106); Potassium 4.5 mmol/L (3.5-5.1); Protein, Total 6.7 g/dL (6.4-8.2); Sodium Level 138 mmol/L (136-145); Thyroid Stim Hormone (TSH) 1.35 uIU/mL (0.358-3.74)
[2022-12-30 16:50] LABS: Microalbumin:Creatinine Ratio 799.7 mg/g CRE (<30 mg/g CRE)
== END | disposition home or self-care (01) ==
LOC: MFPLAB 12:02
PROVIDERS: PCP Family Medicine; Referring Provider Family Medicine; Visit Provider Family Medicine
DX: M06.4 Inflammatory polyarthropathy (principal); E11.69 Type 2 diabetes mellitus with other specified complication; E66.01 Morbid (severe) obesity due to excess calories; Z79.899 Other long term (current) drug therapy
CPT/HCPCS: 36415; 80053; 82043; 82570; 84443; 85025

== ENCOUNTER → 2023-05-18 | Outpatient (CLI) | payer MEDICARE, OTHER, SELFPAY ==
[2023-05-18 15:47] LABS: AST(SGOT) 18 U/L (15-37); Alanine Aminotransfer ALT/SGPT 22 U/L (13-56); Albumin, Serum 3.5 g/dL (3.2-5.0); Alkaline Phosphatase 76 U/L (45-117); Anion Gap 4 (5-15); BUN 14 mg/dL (7-18); BUN/Creat Ratio 17.6 RATIO (10-20); Chloride 104 mmol/L (98-107); EST Glomerular Filtration Rate 74 mL/min (>60); Est Glom Filt Rate - Afr Amer 90 mL/min (>60); Globulin 3.4 g/dL (2.2-4.2); Glucose 100 mg/dL (74-106); Magnesium 2.2 mg/dL (1.6-2.6); Potassium 4.3 mmol/L (3.5-5.1); Protein, Total 6.9 g/dL (6.4-8.2); Sodium Level 138 mmol/L (136-145)
== END | disposition home or self-care (01) ==
LOC: MFPLAB 13:56
PROVIDERS: PCP Family Medicine; Visit Provider Family Medicine
DX: I10 Essential (primary) hypertension (principal)
CPT/HCPCS: 36415; 80053; 83735

== ENCOUNTER → 2023-06-28 | Outpatient (CLI) | payer MEDICARE, OTHER, SELFPAY ==
[2023-06-28 12:07] LABS: Absolute Lymphocyte Count 0.96 X10^3/uL (0.83-4.51); Absolute Neutrophil Count 6.7 X10^3/uL (2.0-7.7); Basophil# 0.04 X10^3/uL; Basophil% 0.5 % (0-1); Eosinophil# 0.18 X10^3/uL; Hematocrit 44.9 % (37-47); Hemoglobin 13.6 g/dL (12.0-15.0); Lymphocyte # 0.96 X10^3/ul (0.83-4.51); Lymphocyte % 10.9 % (19-41); Mean Corp Hgb Conc 30.3 g/dL (32-36); Mean Corpuscular Hgb 26.7 pg (27.0-32.0); Mean Platelet Vol. 11.1 fl (6.2-12.0); Monocyte# 0.86 X10^3/uL; Monocyte% 9.7 % (0-10); NRBC Flagged by Analyzer 0 % (0-5); Neutrophil # 6.74 X10^3/uL (2.7-7.7); Neutrophil % 76.2 % (47-70); Platelet Count 237 K/mm3 (150-450); RBC Distribution Width CV 15.5 % (11.6-14.6); RBC Distribution Width SD 50.2 fl (35.1-43.9); White Blood Count 8.8 K/mm3 (4.4-11.0)
[2023-06-28 13:45] LABS: AST(SGOT) 10 U/L (15-37); Alanine Aminotransfer ALT/SGPT 23 U/L (13-56); Albumin, Serum 3.4 g/dL (3.2-5.0); Alkaline Phosphatase 79 U/L (45-117); Anion Gap 6 (5-15); BUN 17 mg/dL (7-18); BUN/Creat Ratio 20.9 RATIO (10-20); Calcium,Total 9.1 mg/dL (8.5-10.1); Chloride 103 mmol/L (98-107); Creatinine, Serum 0.81 mg/dL (0.55-1.02); EST Glomerular Filtration Rate 72 mL/min (>60); Est Glom Filt Rate - Afr Amer 88 mL/min (>60); Globulin 3.5 g/dL (2.2-4.2); Glucose 114 mg/dL (74-106); Potassium 4.5 mmol/L (3.5-5.1); Protein, Total 6.9 g/dL (6.4-8.2); Sodium Level 135 mmol/L (136-145)
== END | disposition home or self-care (01) ==
LOC: MFPLAB 10:56
PROVIDERS: PCP Family Medicine; Visit Provider Internal Medicine Rheumatology
DX: M06.4 Inflammatory polyarthropathy (principal); Z79.899 Other long term (current) drug therapy
CPT/HCPCS: 36415; 80053; 85025

== ENCOUNTER → 2023-12-21 | Outpatient (CLI) | payer MEDICARE, OTHER, SELFPAY ==
[2023-12-21 15:12] LABS: Absolute Lymphocyte Count 1.23 X10^3/uL (0.83-4.51); Absolute Neutrophil Count 8.5 X10^3/uL (2.0-7.7); Basophil# 0.04 X10^3/uL; Basophil% 0.4 % (0-1); Eosinophil# 0.19 X10^3/uL; Eosinophils% 1.7 % (0-5); Hematocrit 43.9 % (37-47); Hemoglobin 13.5 g/dL (12.0-15.0); Lymphocyte # 1.23 X10^3/ul (0.83-4.51); Lymphocyte % 11.3 % (19-41); Mean Corp Hgb Conc 30.8 g/dL (32-36); Mean Corpuscular Hgb 27.4 pg (27.0-32.0); Mean Platelet Vol. 11.6 fl (6.2-12.0); Monocyte# 0.87 X10^3/uL; NRBC Flagged by Analyzer 0 % (0-5); Neutrophil # 8.52 X10^3/uL (2.7-7.7); Platelet Count 235 K/mm3 (150-450); RBC Distribution Width CV 15.2 % (11.6-14.6); RBC Distribution Width SD 49.7 fl (35.1-43.9); Red Blood Count 4.93 M/mm3 (4.2-5.4); White Blood Count 10.9 K/mm3 (4.4-11.0)
[2023-12-21 15:34] LABS: ALB/GLOB Ratio 0.9 RATIO (0.9-2.4); AST(SGOT) 13 U/L (15-37); Alanine Aminotransfer ALT/SGPT 20 U/L (13-56); Albumin, Serum 3.3 g/dL (3.2-5.0); Alkaline Phosphatase 70 U/L (45-117); Anion Gap 5 (5-15); BUN 19 mg/dL (7-18); BUN/Creat Ratio 21.4 RATIO (10-20); Calcium,Total 9.7 mg/dL (8.5-10.1); Chloride 102 mmol/L (98-107); Cholesterol 172 mg/dL (200); Creatinine, Serum 0.89 mg/dL (0.55-1.02); EST Glomerular Filtration Rate 65 mL/min (>60); Est Glom Filt Rate - Afr Amer 79 mL/min (>60); Globulin 3.7 g/dL (2.2-4.2); Glucose 105 mg/dL (74-106); High Density Lipoprotein 49 mg/dL; Potassium 4.3 mmol/L (3.5-5.1); Sodium Level 138 mmol/L (136-145); Triglycerides 165 mg/dL; Very Low Density Lipoprotein 33 mg/dL (5-40)
[2023-12-21 16:13] LABS: Microalbumin,Random Urine 23.4 mg/L (NO RANGE EST.); Microalbumin:Creatinine Ratio 53.4 mg/g CRE (<30 mg/g CRE)
== END | disposition home or self-care (01) ==
LOC: MTLAB 12:52
PROVIDERS: PCP Family Medicine; Referring Provider Internal Medicine Rheumatology; Visit Provider Internal Medicine Rheumatology
DX: M06.4 Inflammatory polyarthropathy (principal); I48.91 Unspecified atrial fibrillation; I10 Essential (primary) hypertension; Z79.899 Other long term (current) drug therapy; M35.89 Other specified systemic involvement of connective tissue
CPT/HCPCS: 36415; 80053; 80061; 82043; 82570; 83735; 85025

== ENCOUNTER → 2024-02-28 | Outpatient (CLI) | payer MEDICARE, OTHER, SELFPAY ==
--- NOTE | 2024-02-28 18:40 | CT_ITS ---
STUDY: LOW DOSE CT LUNG CANCER SCREENING REASON FOR EXAM: Female, 78 years old. History of nicotine dependence. The patient smoked 1 pack per day for 36 years. History of asthma and COPD. RADIATION DOSAGE (If Supplied By Facility): CTDIvol = ( 4.02 ) mGy, DLP = ( 123.86 ) mGycm TECHNIQUE: No contrast was administered. Low dose technique was utilized (average mAS-38 and kVp 120). 1.25 mm axial source images with a slice interval of 1.25-mm were reconstructed in lung windows. 2.5 mm axial source images with a slice interval of 2.5-mm were reconstructed in lung windows. 5.0 mm axial source images with a slice interval of 5.0-mm were reconstructed in soft tissue windows. COMPARISON: Comparison is made with prior chest radiograph dated July 22, 2022. NODULES: There is a 4.5 mm partially calcified granuloma in the anterior aspect of the right lung apex. 2.5 mm calcified granuloma in the superior segment of the left upper lobe as well as a 5 mm calcified granuloma in the posterior aspect of the left upper lobe. Emphysema: Mild degree of emphysematous changes. Endobronchial lesion: None Aorta: Atherosclerotic plaque formation of the aortic arch. CORONARY ARTERIES: Coronary artery calcification is seen. Heart: Unremarkable Pulmonary artery: Unremarkable Mediastinal nodes: Calcified right hilar lymph nodes. Other chest and abdominal findings: CT/Low Dose CT Lung Screening IMPRESSION: Lung-RADS category 2 - Continue annual screening with LDCT in 12 months. IMPORTANT NOTES FOR USE: ACR Lung-RADS Version 1.1 Assessment Categories Release Date: 2018 Category: Coded 0-4 bases on nodule(s) with highest degree of suspicion. Negative screen is defined as categories 1 and 2; a positive screen is defined as categories 3 and 4. Category 3 and 4A nodules that are unchanged on interval CT should be coded as category 2, and individuals returned to screening in 12 months. Category 4X: Category 3 or 4 nodules with additional imaging findings that increase the suspicion of lung cancer, such as spiculation, GGN that doubles in size in 1 year, enlarged lymph notes, etc. Category Modifiers: S (significant finding unrelated to lung cancer) Electronically Signed: Vinnie Benitez MD at 13:37 EDT ,
== END | disposition home or self-care (01) ==
PROVIDERS: PCP Family Medicine; Referring Provider Internal Medicine Pulmonary Disease; Visit Provider Internal Medicine Pulmonary Disease
DX: Z87.891 Personal history of nicotine dependence (principal)
CPT/HCPCS: 71271

== ENCOUNTER → 2024-06-05 | Outpatient (CLI) | payer MEDICARE, OTHER, SELFPAY ==
[2024-06-05 15:35] LABS: Microalbumin,Random Urine 7.9 mg/L (NO RANGE EST.); Microalbumin:Creatinine Ratio 19.1 mg/g CRE (<30 mg/g CRE)
[2024-06-05 15:47] LABS: ALB/GLOB Ratio 0.9 RATIO (0.9-2.4); AST(SGOT) 10 U/L (15-37); Alanine Aminotransfer ALT/SGPT 13 U/L (13-56); Albumin, Serum 3.2 g/dL (3.2-5.0); Alkaline Phosphatase 79 U/L (45-117); Anion Gap 7 (5-15); BUN 18 mg/dL (7-18); BUN/Creat Ratio 17.5 RATIO (10-20); Calcium,Total 9.4 mg/dL (8.5-10.1); Chloride 102 mmol/L (98-107); Creatinine, Serum 1.03 mg/dL (0.55-1.02); EST Glomerular Filtration Rate 55 mL/min (>60); Est Glom Filt Rate - Afr Amer 67 mL/min (>60); Globulin 3.7 g/dL (2.2-4.2); Glucose 106 mg/dL (74-106); Potassium 4.6 mmol/L (3.5-5.1); Protein, Total 6.9 g/dL (6.4-8.2); Sodium Level 135 mmol/L (136-145)
== END | disposition home or self-care (01) ==
LOC: MFPLAB 11:26
PROVIDERS: PCP Family Medicine; Visit Provider Family Medicine
DX: I10 Essential (primary) hypertension (principal)
CPT/HCPCS: 36415; 80053; 82043; 82570

== ENCOUNTER → 2024-06-20 | Outpatient (CLI) | payer MEDICARE, OTHER, SELFPAY ==
[2024-06-20 17:52] LABS: Absolute Lymphocyte Count 1.32 X10^3/uL (0.83-4.51); Absolute Neutrophil Count 8.9 X10^3/uL (2.0-7.7); Basophil# 0.06 X10^3/uL; Basophil% 0.5 % (0-1); Eosinophil# 0.28 X10^3/uL; Eosinophils% 2.4 % (0-5); Hematocrit 43.5 % (37-47); Hemoglobin 13.7 g/dL (12.0-15.0); Lymphocyte # 1.32 X10^3/ul (0.83-4.51); Lymphocyte % 11.3 % (19-41); Mean Corp Hgb Conc 31.5 g/dL (32-36); Mean Corpuscular Hgb 28.1 pg (27.0-32.0); Mean Corpuscular Volume 89.3 fL (81-99); Mean Platelet Vol. 11.9 fl (6.2-12.0); Monocyte# 1.03 X10^3/uL; Monocyte% 8.8 % (0-10); NRBC Flagged by Analyzer 0 % (0-5); Neutrophil % 76.6 % (47-70); Platelet Count 235 K/mm3 (150-450); RBC Distribution Width CV 14.8 % (11.6-14.6); Red Blood Count 4.87 M/mm3 (4.2-5.4); White Blood Count 11.6 K/mm3 (4.4-11.0)
[2024-06-20 18:35] LABS: ALB/GLOB Ratio 0.9 RATIO (0.9-2.4); AST(SGOT) 14 U/L (15-37); Alanine Aminotransfer ALT/SGPT 14 U/L (13-56); Albumin, Serum 3.4 g/dL (3.2-5.0); Alkaline Phosphatase 80 U/L (45-117); Anion Gap 7 (5-15); BUN 15 mg/dL (7-18); BUN/Creat Ratio 14.4 RATIO (10-20); Calcium,Total 9.6 mg/dL (8.5-10.1); Chloride 102 mmol/L (98-107); Creatinine, Serum 1.04 mg/dL (0.55-1.02); EST Glomerular Filtration Rate 54 mL/min (>60); Est Glom Filt Rate - Afr Amer 66 mL/min (>60); Globulin 3.6 g/dL (2.2-4.2); Glucose 95 mg/dL (74-106); Potassium 4.3 mmol/L (3.5-5.1); Sodium Level 134 mmol/L (136-145)
== END | disposition home or self-care (01) ==
LOC: MFPLAB 14:26
PROVIDERS: PCP Family Medicine; Visit Provider Internal Medicine Rheumatology
DX: M06.4 Inflammatory polyarthropathy (principal); I48.91 Unspecified atrial fibrillation; E11.9 Type 2 diabetes mellitus without complications; M35.89 Other specified systemic involvement of connective tissue; M18.12 Unilateral primary osteoarthritis of first carpometacarpal joint, left hand; M17.0 Bilateral primary osteoarthritis of knee; E78.5 Hyperlipidemia, unspecified; J45.909 Unspecified asthma, uncomplicated; I10 Essential (primary) hypertension; Z79.899 Other long term (current) drug therapy
CPT/HCPCS: 36415; 80053; 85025

== ENCOUNTER → 2024-09-04 | Outpatient (CLI) | payer MEDICARE, OTHER, SELFPAY ==
[2024-09-04 12:18] LABS: Absolute Lymphocyte Count 0.98 X10^3/uL (0.83-4.51); Basophil# 0.07 X10^3/uL; Basophil% 0.6 % (0-1); Eosinophil# 0.38 X10^3/uL; Eosinophils% 3.1 % (0-5); Hematocrit 41.9 % (37-47); Hemoglobin 13.5 g/dL (12.0-15.0); Lymphocyte # 0.98 X10^3/ul (0.83-4.51); Lymphocyte % 7.9 % (19-41); Mean Corp Hgb Conc 32.2 g/dL (32-36); Mean Corpuscular Hgb 28.7 pg (27.0-32.0); Mean Platelet Vol. 11.3 fl (6.2-12.0); Monocyte# 0.92 X10^3/uL; Monocyte% 7.4 % (0-10); NRBC Flagged by Analyzer 0 % (0-5); Neutrophil # 9.95 X10^3/uL (2.7-7.7); Neutrophil % 80.1 % (47-70); Platelet Count 257 K/mm3 (150-450); RBC Distribution Width CV 14.7 % (11.6-14.6); RBC Distribution Width SD 47.4 fl (35.1-43.9); Red Blood Count 4.71 M/mm3 (4.2-5.4); White Blood Count 12.4 K/mm3 (4.4-11.0)
[2024-09-04 15:36] LABS: ALB/GLOB Ratio 0.9 RATIO (0.9-2.4); AST(SGOT) 11 U/L (15-37); Alanine Aminotransfer ALT/SGPT 16 U/L (13-56); Albumin, Serum 3.2 g/dL (3.2-5.0); Alkaline Phosphatase 77 U/L (45-117); Anion Gap 5 (5-15); BUN 22 mg/dL (7-18); BUN/Creat Ratio 15.5 RATIO (10-20); Calcium,Total 9.4 mg/dL (8.5-10.1); Chloride 102 mmol/L (98-107); Creatinine, Serum 1.42 mg/dL (0.55-1.02); EST Glomerular Filtration Rate 38 mL/min (>60); Est Glom Filt Rate - Afr Amer 46 mL/min (>60); Globulin 3.7 g/dL (2.2-4.2); Glucose 134 mg/dL (74-106); Lipase 45 U/L (13-75); Potassium 4.3 mmol/L (3.5-5.1); Protein, Total 6.9 g/dL (6.4-8.2); Sodium Level 133 mmol/L (136-145)
[2024-09-04 16:05] LABS: Microalbumin,Random Urine 13.7 mg/L (NO RANGE EST.)
== END | disposition home or self-care (01) ==
LOC: MFPLAB 11:13
PROVIDERS: PCP Family Medicine; Referring Provider Family Medicine; Visit Provider Family Medicine
DX: E11.69 Type 2 diabetes mellitus with other specified complication (principal); E66.9 Obesity, unspecified; R11.0 Nausea
CPT/HCPCS: 36415; 80053; 82043; 82570; 83690; 85025

== ENCOUNTER 2024-10-05 12:13 | Inpatient (IN) | payer MEDICARE, OTHER, SELFPAY ==
[2024-10-05] VITALS (19 sets, daily range): BP systolic 85–128; BP diastolic 62–84; PULSE 76–107; RESP 16–24; TEMP 36.2–36.9; O2SAT 93–98; BMI 45.9; BMI 45.6
--- NOTE | 2024-10-05 12:42 | ED.VIS.DYS ---
HPI <AMARILYS Amos - Last Filed: 10/05/24 16:15> History of Present Illness Chief Complaint: Shortness of Breath Narrative Narrative: 79-year-old female with past medical history of HTN, COPD, DM2, A-fib on Eliquis presents with 3 days of increased cough, shortness of breath, wheezing, and nausea and vomiting. Patient does not wear oxygen but noted her pulse ox was 88% at rest yesterday so started wearing 3 L. Daughter states she has not been getting up to eat or drink anything because she is too winded and is concerned she is dehydrated. She denies fever, chills, chest pain, hematemesis, abdominal pain or diarrhea. She smokes about 4 cigarettes a day. She has been using nebulizer treatments 4 times a day. She reports compliance with Eliquis for A-fib. PFSH <AMARILYS Amos - Last Filed: 10/05/24 16:15> [facility] Medical History COVID COVID-19 vaccine dose declined Rheumatoid arthritis Anticoagulated Essential hypertension Persistent atrial fibrillation Obstructive sleep apnea COPD (chronic obstructive pulmonary disease) Morbid obesity Allergic rhinitis Osteoarthritis Vitamin D deficiency Asthma Diabetes mellitus Osteoarthritis of right knee Home Medications ?Medication ?Instructions ?Recorded ?Last Taken ?Type Cholecalciferol (Vitamin D3) 5,000 unit PO DAILY supplement 10/28/17 04/20/22 History [Vitamin D3] albuterol sulfate 90 mcg/actuation 108 mcg IH Q4H PRN Sob &/Or 10/28/17 04/20/22 History breath activated powder inhaler Wheezing (ProAir RespiClick) hydroxychloroquine 200 mg tablet 200 mg PO BIDCM arthritis 10/28/17 10/05/24 History montelukast 10 mg tablet 10 mg PO DAILY asthma 10/28/17 10/05/24 History apixaban 5 mg tablet (Eliquis) 5 mg PO BID blood thinner #180 tabs 06/11/22 10/05/24 Rx fluticasone fur. 200 mcg-umeclid 1 ea inhalation DAILY 07/22/22 10/05/24 History 62.5 mcg-vilant 25 mcg inhalat.powder (Trelegy Ellipta) spironolactone 25 1 tab PO DAILY 06/22/23 10/05/24 History mg-hydrochlorothiazide 25 mg tablet vitamins A,C,X-ztgf-odtqzs 4,296 1 cap PO BID 06/22/23 10/05/24 History mcg-226 mg-90 mg capsule (PreserVision AREDS) ramipril 10 mg capsule 10 mg PO DAILY 04/05/24 10/05/24 History metoprolol tartrate 100 mg tablet 100 mg PO BID #180 TABLETS 04/17/24 10/05/24 Rx diltiazem HCl 120 mg See Rx Instructions .Route 06/26/24 10/05/24 Rx capsule,extended release 24 hr .COMPLEX #90 caps albuterol sulfate 2.5 mg/3 mL 2.5 mg inhalation 4X/DAY PRN 10/05/24 10/05/24 History (0.083 %) solution for nebulization dyspnea semaglutide 0.25 mg or 0.5 mg (2 0.5 mg subcut QWEEK 10/05/24 09/27/24 History mg/3 mL) subcutaneous pen injector (Ozempic) Allergy/AdvReac Type Severity Reaction Status Date / Time codeine Allergy Unknown Verified 10/05/24 12:18 erythromycin base Allergy Unknown Verified 10/05/24 12:18 Penicillins Allergy Unknown Verified 10/05/24 12:18 Family History Other Adopted Surgical History History of knee replacement Cataract (lens) fragments in eye following cataract surgery, bilateral History of carpal tunnel release of both wrists History of hysterectomy Social History (Updated 04/05/24 @ 14:42 by Alba PANDA, PA) Smoking Status: Current every day smoker tobacco type: cigarettes alcohol intake: never substance use type: does not use ROS <AMARILYS Amos - Last Filed: 10/05/24 16:15> ROS ED ROS Narrative Constitutional: Negative for fever, chills. CVS: Negative for palpitations, chest pain. Respiratory: Positive for shortness of breath, cough. GI: Positive for nausea, vomiting. Negative for abdominal pain, diarrhea, constipation, melena, hematochezia. EXAM <AMARILYS Amos - Last Filed: 10/05/24 16:15> Physical Exam Narrative Exam Narrative: CONST: Patient sitting in no acute distress. EYES: Normal inspection. ENT: Normal inspection, dry mucous membranes. NECK: Normal inspection. RESP: Able to speak without significant distress but there is audible wheezing, with auscultation lung sounds diminished with expiratory wheezing throughout. CVS: Regular rate and rhythm, no murmur, no gallop. ABD: Soft and nontender, no guarding or rebound, nondistended. SKIN: Color normal, no rash, warm, dry, intact. EXTREMITIES: Normal appearance, no pedal edema. NEURO: Alert and answering questions appropriately. PSYCH: Normal affect. Const Vital Signs: 10/05/24 12:14 10/05/24 12:54 10/05/24 13:00 Temperature 97.4 F L Temperature Source Oral Pulse Rate 107 H 105 H Respiratory Rate 24 H 20 H Respiratory Effort Short of Breath Labored Respiratory Depth Normal Respiratory Pattern Tachypnea Tachypnea Blood Pressure 85/63 L Blood Pressure Mean 70 Pulse Ox 98 Oxygen Delivery Method Nasal Cannula Room Air Oxygen Flow Rate (L/min) 3 10/05/24 13:01 10/05/24 13:03 10/05/24 13:36 Temperature Temperature Source Pulse Rate Respiratory Rate Respiratory Effort Respiratory Depth Respiratory Pattern Blood Pressure 126/84 H Blood Pressure Mean 98 Pulse Ox 94 Oxygen Delivery Method Room Air Room Air Oxygen Flow Rate (L/min) 10/05/24 13:36 10/05/24 13:37 10/05/24 13:57 Temperature 98.1 F Temperature Source Temporal Pulse Rate 93 93 Respiratory Rate 19 H 20 H Respiratory Effort Short of Breath Labored Respiratory Depth Shallow Respiratory Pattern Blood Pressure 126/84 H Blood Pressure Mean 98 Pulse Ox 93 Oxygen Delivery Method Oxygen Flow Rate (L/min) 10/05/24 14:00 10/05/24 15:00 Temperature 98.4 F 98.5 F Temperature Source Oral Oral Pulse Rate 76 87 Respiratory Rate 24 H 22 H Respiratory Effort Respiratory Depth Respiratory Pattern Blood Pressure 128/76 H 109/76 Blood Pressure Mean 93 87 Pulse Ox 93 97 Oxygen Delivery Method Room Air Nasal Cannula Oxygen Flow Rate (L/min) 2 <Dr. Migel Zuluaga MD - Last Filed: 10/05/24 13:44> Physical Exam Const Vital Signs: 10/05/24 12:14 10/05/24 12:54 10/05/24 13:00 Temperature 97.4 F L Temperature Source Oral Pulse Rate 107 H 105 H Respiratory Rate 24 H 20 H Respiratory Effort Short of Breath Labored Respiratory Depth Normal Respiratory Pattern Tachypnea Tachypnea Blood Pressure 85/63 L Blood Pressure Mean 70 Pulse Ox 98 Oxygen Delivery Method Nasal Cannula Room Air Oxygen Flow Rate (L/min) 3 10/05/24 13:01 10/05/24 13:03 10/05/24 13:36 Temperature Temperature Source Pulse Rate Respiratory Rate Respiratory Effort Respiratory Depth Respiratory Pattern Blood Pressure 126/84 H Blood Pressure Mean 98 Pulse Ox 94 Oxygen Delivery Method Room Air Room Air Oxygen Flow Rate (L/min) 10/05/24 13:36 10/05/24 13:37 10/05/24 13:57 Temperature 98.1 F Temperature Source Temporal Pulse Rate 93 93 Respiratory Rate 19 H 20 H Respiratory Effort Short of Breath Labored Respiratory Depth Shallow Respiratory Pattern Blood Pressure 126/84 H Blood Pressure Mean 98 Pulse Ox 93 Oxygen Delivery Method Oxygen Flow Rate (L/min) 10/05/24 14:00 10/05/24 15:00 Temperature 98.4 F 98.5 F Temperature Source Oral Oral Pulse Rate 76 87 Respiratory Rate 24 H 22 H Respiratory Effort Respiratory Depth Respiratory Pattern Blood Pressure 128/76 H 109/76 Blood Pressure Mean 93 87 Pulse Ox 93 97 Oxygen Delivery Method Room Air Nasal Cannula Oxygen Flow Rate (L/min) 2 MDM <AMARILYS Amos - Last Filed: 10/05/24 16:15> [facility] Narrative Medical decision making narrative: History from: Patient, daughter Differential includes but not limited to viral URI, COPD exacerbation, ACS Consults: Hospitalist 79-year-old female with PMH of COPD, A-fib on Eliquis presents with 3 days of increased cough, dyspnea, and wheezing. She is awake alert in mild respiratory distress. Initial BP was 85/63, HR 107, RR 24, 98% on 3 L. She was wearing oxygen from home. She is able to speak in sentences but has significant diminished lung sounds and expiratory wheezing. She has had decreased p.o. intake and her membranes appear dry so I suspect dehydration as a cause of her hypotension. Sepsis workup was started and she was given IV fluids, DuoNebs and Solu-Medrol. CBC unremarkable. Sodium of 132 appears around baseline. BUN and creatinine are normal at 14/0.95 EKG shows chronic A-fib and troponin is normal at 10. CXR is negative. Viral swab is positive for influenza A. After IV fluids her blood pressure has improved to 128/76. After steroids and DuoNeb's x 2 her ambulatory pulse ox is 87%. She is still significantly wheezing and weak overall and I feel she would benefit from admission for treatment of COPD exacerbation secondary to influenza A. I discussed the case with the hospitalist for admission. I have personally performed a face to face assessment of the patient and have reviewed the LISSET Note. I performed a substantive portion of the visit including all aspects of the following. My pride findings include: History is 79-year-old female history of COPD has oxygen at home as needed. Chronic A-fib on Eliquis. Complaining 3-day history of shortness of breath with a cough of white sputum. No chest pain. No fever. Exam is [70-year-old female initial vital signs pressure was 85 or 63 currently is 126/84. She does not look septic or toxic. She is afebrile. She is in no distress. She is wheezing audibly. H EENT exam pupils round react light. Mildly dry mucous membranes. Neck nontender no JVD. No lymphadenopathy. Lungs inspiratory expiratory wheezing throughout. No rales or rhonchi. Equal symmetrical. Heart A-fib rate about 100 no murmur. Chest wall ribs nontender. Abdomen soft nontender. Both lower extremities have chronic pitting edema 1-2+. Equal symmetrical. Patient states this is her baseline edema. Neurologically she is awake and alert no focal motor deficits. Answer questions following commands. Family in the room.] Medical Decision Making 79-year-old with shortness of breath suspect secondary to COPD exacerbation rule out pneumonia versus failure versus cardiac etiology. Treated with IV Solu-Medrol and aerosols. [ ] Other additions or changes: [None] Lab Data Labs: Laboratory Results - last 24 hr 10/05/24 12:55 WBC 9.4 RBC 4.66 Hgb 12.8 Hct 40.5 MCV 86.9 MCH 27.5 MCHC 31.6 L RDW Std Deviation 47.8 H RDW Coeff of Uri 15.1 H Plt Count 178 MPV 10.6 Immature Gran % (Auto) 0.900 Neut % (Auto) 83.4 H Lymph % (Auto) 2.4 L Swain % (Auto) 12.7 H Eos % (Auto) 0.3 Baso % (Auto) 0.3 Absolute Neuts (auto) 7.8 H Absolute Lymphs (auto) 0.22 L Nucleated RBC % 0 PT 21.6 H INR 1.8 APTT 37.9 H Sodium 132 L Potassium 4.3 Chloride 98 Carbon Dioxide 28.0 Anion Gap 6 BUN 14 Creatinine 0.95 Est GFR (MDRD) Af Amer 73 Est GFR (MDRD) Non-Af 60 BUN/Creatinine Ratio 14.7 Glucose 110 H Lactic Acid 1.2 Calcium 8.9 Total Bilirubin 0.50 AST 15 ALT 14 Alkaline Phosphatase 79 Troponin I High Sens 10 B-Natriuretic Peptide 89.0 Total Protein 6.8 Albumin 3.1 L Globulin 3.7 Albumin/Globulin Ratio 0.8 L Radiography Diagnostic Testing: Clinical Impression(s) from Imaging Studies Chest X-Ray 10/05/24 13:15 IMPRESSION: Prominence of the central pulmonary arteries suggestive of possible hypertension. Lungs are clear. Electronically Signed: Vinnie Benitez MD at 14:08 EST , <Dr. Migel Zuluaga MD - Last Filed: 10/05/24 13:44> [facility] MDM Narrative Medical decision making narrative: History from: Patient, daughter 79-year-old female with PMH of COPD, A-fib on Eliquis presents with 3 days of increased cough, dyspnea, and wheezing. She is awake alert in mild respiratory distress. Initial BP was 85/63, HR 107, RR 24, 98% on 3 L. She was wearing oxygen from home. She is able to speak in sentences but has significant diminished lung sounds and expiratory wheezing. She has had decreased p.o. intake and her membranes appear dry so I suspect dehydration as a cause of her hypotension. Sepsis workup was started and she was given IV fluids, DuoNebs and Solu-Medrol. I have personally performed a face to face assessment of the patient and have reviewed the LISSET Note. I performed a substantive portion of the visit including all aspects of the following. My pride findings include: History is 79-year-old female history of COPD has oxygen at home as needed. Chronic A-fib on Eliquis. Complaining 3-day history of shortness of breath with a cough of white sputum. No chest pain. No fever. Exam is [70-year-old female initial vital signs pressure was 85 or 63 currently is 126/84. She does not look septic or toxic. She is afebrile. She is in no distress. She is wheezing audibly. H EENT exam pupils round react light. Mildly dry mucous membranes. Neck nontender no JVD. No lymphadenopathy. Lungs inspiratory expiratory wheezing throughout. No rales or rhonchi. Equal symmetrical. Heart A-fib rate about 100 no murmur. Chest wall ribs nontender. Abdomen soft nontender. Both lower extremities have chronic pitting edema 1-2+. Equal symmetrical. Patient states this is her baseline edema. Neurologically she is awake and alert no focal motor deficits. Answer questions following commands. Family in the room.] Medical Decision Making 79-year-old with shortness of breath suspect secondary to COPD exacerbation rule out pneumonia versus failure versus cardiac etiology. Treated with IV Solu-Medrol and aerosols. [ ] Other additions or changes: [None] History & Record Review Discussion w/independent historian: Patient and Family Additional record(s) reviewed:: Prior inpatient record, Prior outpatient record, Prior ED visit and Prior labs Lab Data Attestation: I reviewed the patient's lab results. Lab results narrative: CBC shows a white count of 9. H&H 12.8 and 40. Platelets 178. PT/INR of 21 and 1.8. PTT of 37. Electrolytes show sodium 132. Gap 6. Normal BUN of 14 creatinine 0.9. Glucose 110. Liver enzymes are unremarkable. Chest x-ray chronic changes consistent with COPD. No pneumonia. No significant effusion. EKG chronic A-fib. Labs: Laboratory Results - last 24 hr 10/05/24 12:55 WBC 9.4 RBC 4.66 Hgb 12.8 Hct 40.5 MCV 86.9 MCH 27.5 MCHC 31.6 L RDW Std Deviation 47.8 H RDW Coeff of Uri 15.1 H Plt Count 178 MPV 10.6 Immature Gran % (Auto) 0.900 Neut % (Auto) 83.4 H Lymph % (Auto) 2.4 L Swain % (Auto) 12.7 H Eos % (Auto) 0.3 Baso % (Auto) 0.3 Absolute Neuts (auto) 7.8 H Absolute Lymphs (auto) 0.22 L Nucleated RBC % 0 PT 21.6 H INR 1.8 APTT 37.9 H Sodium 132 L Potassium 4.3 Chloride 98 Carbon Dioxide 28.0 Anion Gap 6 BUN 14 Creatinine 0.95 Est GFR (MDRD) Af Amer 73 Est GFR (MDRD) Non-Af 60 BUN/Creatinine Ratio 14.7 Glucose 110 H Lactic Acid 1.2 Calcium 8.9 Total Bilirubin 0.50 AST 15 ALT 14 Alkaline Phosphatase 79 Troponin I High Sens 10 B-Natriuretic Peptide 89.0 Total Protein 6.8 Albumin 3.1 L Globulin 3.7 Albumin/Globulin Ratio 0.8 L Radiography Chest X-Ray - ED: 1 View, Read by ED Physician, Normal, Heart, Mediastinum, Bony Structures, No Acute Disease and Chronic Changes Diagnostic Testing: Clinical Impression(s) from Imaging Studies Chest X-Ray 10/05/24 13:15 IMPRESSION: Prominence of the central pulmonary arteries suggestive of possible hypertension. Lungs are clear. Electronically Signed: Vinnie Benitez MD at 14:08 EST , Chest x-ray, portable, single view shows chronic changes consistent with COPD. No pneumonia or effusions. Normal cardiac silhouette. Interpreted by myself. Rhythm Strip Rhythm Strip: A-fib Ectopy: None Discharge Plan Triage Chief Complaint: Shortness of Breath ED Midlevel Provider: Emili Bright ED Provider: Migel Zuluaga Dx/Rx/DC Orders Clinical Impression: Influenza A, COPD exacerbation, Hypoxia, Generalized weakness Prescriptions: No Action spironolacton-hydrochlorothiaz 25-25 mg tablet 1 tab PO DAILY Patient Comments: TAKE 1/2 TO 1 TABLET BY MOUTH ONCE DAILY PreserVision AREDS 4,296 mcg-226 mg-90 mg capsule 1 cap PO BID ramipril 10 mg capsule 10 mg PO DAILY montelukast 10 MG tablet 10 mg PO DAILY hydroxychloroquine 200 MG tablet 200 mg PO BIDCM ProAir RespiClick 90 MCG aerosol powdr breath activated 108 mcg IH Q4H PRN (Reason: Sob &/Or Wheezing) Cholecalciferol (Vitamin D3) [Vitamin D3] 5,000 UNIT capsule 5,000 unit PO DAILY Trelegy Ellipta 200-62.5-25 mcg blister with device 1 ea INHALATION DAILY Patient Comments: INHALE 1 PUFF DAILY FOLLOWED BY [facility] albuterol sulfate 2.5 mg /3 mL (0.083 %) solution for nebulization 2.5 mg inhalation 4X/DAY PRN Ozempic 0.25 mg or 0.5 mg (2 mg/3 mL) pen injector 0.5 mg subcut QWEEK Eliquis 5 mg tablet 5 mg PO BID Qty: 180 4RF metoprolol tartrate 100 mg tablet 100 mg PO BID Qty: 180 3RF diltiazem HCl 120 mg capsule,extended release 24hr See Rx Instructions .ROUTE .COMPLEX Qty: 90 3RF Dose Instruction: TAKE 1 CAPSULE BY MOUTH EVERY DAY FOR A FIB Rx Instructions: TAKE 1 CAPSULE BY MOUTH EVERY DAY FOR A FIB Primary Care Provider: Clarence Reyes Referrals: Clarence Reyes MD [Primary Care Provider] - Print Language: French
[2024-10-05] MEDS: Ipratropium/Albuterol Sulfate 3 ML AMPUL.NEB INHALATION ×4 (12:53→22:59)
--- NOTE | 2024-10-05 13:15 | RAD_ITS ---
STUDY: X-RAY CHEST REASON FOR EXAM: Female, 79 years old. Cough TECHNIQUE: Single AP portable view of the chest. COMPARISON: Comparison is made with prior study July 22, 2022. FINDINGS: EKG electrodes are seen. The lungs are clear and expanded. There is no demonstrated pleural abnormality. Normal size heart. Normal mediastinum and oksana. There is prominence of the pulmonary hilar arteries without peripheral pulmonary vascular congestion, suggesting pulmonary hypertension. There is atherosclerotic calcification of the aortic arch with tortuosity. There are diffuse degenerative changes of the visualized thoracic spine. Normal visualized ribs, clavicles, and shoulders. There is no demonstrated abnormality of the visualized soft tissue structures of the upper abdomen. RAD/Chest 1 View (Portable) IMPRESSION: Prominence of the central pulmonary arteries suggestive of possible hypertension. Lungs are clear. Electronically Signed: Vinnie Benitez MD at 14:08 EST ,
[2024-10-05 13:18] LABS: Absolute Lymphocyte Count 0.22 X10^3/uL (0.83-4.51); Absolute Neutrophil Count 7.8 X10^3/uL (2.0-7.7); Basophil# 0.03 X10^3/uL; Basophil% 0.3 % (0-1); Eosinophil# 0.03 X10^3/uL; Eosinophils% 0.3 % (0-5); Hematocrit 40.5 % (37-47); Hemoglobin 12.8 g/dL (12.0-15.0); Lymphocyte # 0.22 X10^3/ul (0.83-4.51); Lymphocyte % 2.4 % (19-41); Mean Corp Hgb Conc 31.6 g/dL (32-36); Mean Corpuscular Hgb 27.5 pg (27.0-32.0); Mean Corpuscular Volume 86.9 fL (81-99); Mean Platelet Vol. 10.6 fl (6.2-12.0); Monocyte# 1.19 X10^3/uL; Monocyte% 12.7 % (0-10); NRBC Flagged by Analyzer 0 % (0-5); Neutrophil % 83.4 % (47-70); POSITIVE DIFFERENTIAL YES; Platelet Count 178 K/mm3 (150-450); RBC Distribution Width CV 15.1 % (11.6-14.6); RBC Distribution Width SD 47.8 fl (35.1-43.9); Red Blood Count 4.66 M/mm3 (4.2-5.4); White Blood Count 9.4 K/mm3 (4.4-11.0)
[2024-10-05 13:20] LABS: International Normalized Ratio 1.8; Prothrombin Time (Protime)PT. 21.6 SECONDS (11.7-14.9)
[2024-10-05 13:21] LABS: Partial Thromboplast Time 37.9 Seconds (24.1-36.2)
[2024-10-05 13:30] LABS: ALB/GLOB Ratio 0.8 RATIO (0.9-2.4); AST(SGOT) 15 U/L (15-37); Alanine Aminotransfer ALT/SGPT 14 U/L (13-56); Albumin, Serum 3.1 g/dL (3.2-5.0); Alkaline Phosphatase 79 U/L (45-117); Anion Gap 6 (5-15); BUN 14 mg/dL (7-18); BUN/Creat Ratio 14.7 RATIO (10-20); Calcium,Total 8.9 mg/dL (8.5-10.1); Chloride 98 mmol/L (98-107); Creatinine, Serum 0.95 mg/dL (0.55-1.02); EST Glomerular Filtration Rate 60 mL/min (>60); Est Glom Filt Rate - Afr Amer 73 mL/min (>60); Globulin 3.7 g/dL (2.2-4.2); Glucose 110 mg/dL (74-106); Potassium 4.3 mmol/L (3.5-5.1); Protein, Total 6.8 g/dL (6.4-8.2); Sodium Level 132 mmol/L (136-145); Troponin-I HS 10 pg/mL (3.0-54.0)
[2024-10-05] MEDS: MethylPREDNISolone 125 MG/2 ML Vial IV (13:43)
[2024-10-05] MEDS: 0.9% Normal Saline (1000mL) 1,000 ML 999 ML IV (13:43)
[2024-10-05 13:49] LABS: Lactic Acid 1.2 mmol/L (0.4-1.9)
--- NOTE | 2024-10-05 16:38 | PCM.HP.STD ---
HPI - General General Date of Admission: 10/05/24 Date of Service: 10/05/24 Chief Complaint: Shortness of breath HPI Narrative GURWINDER BROWN, is a 79 F who presented to the emergency department at [facility] on 10/05/2024 with a chief complaint of shortness of breath. Patient reported about 3 days ago she started having some upper respiratory type symptoms associated with some nausea vomiting and then developed cough and shortness of breath. She also now complains of some wheezing. Cough is nonproductive. She has had decreased appetite and fatigue. She did report some intermittent chills but no documented fever. Denies chest pain. She smokes about 4 cigarettes a day and denies any need for nicotine patch at this time. She does have intermittent oxygen available at home but does not chronically wear. She also uses nebulizer treatments and has been using it 4 times a day without any improvement in her symptoms. She is fully anticoagulated with Eliquis 5 mg p.o. twice daily for atrial fibrillation. She does have a known history of COPD. Vital signs on presentation showed temperature of 97.4, heart rate 107, respiratory was 24, blood pressure initially was 85/63 and she required 3 L nasal cannula to maintain oxygen saturations greater than 92%. On exam she was extremely wheezy diffusely with both inspiratory and expiratory wheezes. Repeat blood pressure improved to 126/84. CBC was unremarkable except for left shift showing an 83.4% neutrophilia and a monocytosis at 12.7%. Coags were elevated as expected on Eliquis. She had mild hyponatremia which appears to be chronic, normal renal function, normal lactic acid at 1.2, normal liver functions and troponin of 10. BNP was obtained and found to be 89.0. Chest x-ray showed prominence of the central pulmonary arteries suggestive of possible hypertension with clear lungs. Urine and blood cultures obtained emergency department and a rapid COVID/flu/RSV was performed and she was found to be positive for influenza A. She was treated with acute exacerbation of COPD with the finding of influenza A and her clinical exam and request for admission was made given her continuous requirement for oxygen. [facility] Medical History COVID COVID-19 vaccine dose declined Rheumatoid arthritis Anticoagulated Essential hypertension Persistent atrial fibrillation Obstructive sleep apnea COPD (chronic obstructive pulmonary disease) Morbid obesity Allergic rhinitis Osteoarthritis Vitamin D deficiency Asthma Diabetes mellitus Osteoarthritis of right knee Home Medications ?Medication ?Instructions ?Recorded ?Last Taken ?Type Cholecalciferol (Vitamin D3) 5,000 unit PO DAILY supplement 10/28/17 04/20/22 History [Vitamin D3] albuterol sulfate 90 mcg/actuation 108 mcg IH Q4H PRN Sob &/Or 10/28/17 04/20/22 History breath activated powder inhaler Wheezing (ProAir RespiClick) hydroxychloroquine 200 mg tablet 200 mg PO BIDCM arthritis 10/28/17 10/05/24 History montelukast 10 mg tablet 10 mg PO DAILY asthma 10/28/17 10/05/24 History apixaban 5 mg tablet (Eliquis) 5 mg PO BID blood thinner #180 tabs 06/11/22 10/05/24 Rx fluticasone fur. 200 mcg-umeclid 1 ea inhalation DAILY 07/22/22 10/05/24 History 62.5 mcg-vilant 25 mcg inhalat.powder (Trelegy Ellipta) spironolactone 25 1 tab PO DAILY 06/22/23 10/05/24 History mg-hydrochlorothiazide 25 mg tablet vitamins A,C,R-[id number]-lzufxr 4,296 1 cap PO BID 06/22/23 10/05/24 History mcg-226 mg-90 mg capsule (PreserVision AREDS) ramipril 10 mg capsule 10 mg PO DAILY 04/05/24 10/05/24 History metoprolol tartrate 100 mg tablet 100 mg PO BID #180 TABLETS 04/17/24 10/05/24 Rx diltiazem HCl 120 mg See Rx Instructions .Route 06/26/24 10/05/24 Rx capsule,extended release 24 hr .COMPLEX #90 caps albuterol sulfate 2.5 mg/3 mL 2.5 mg inhalation 4X/DAY PRN 10/05/24 10/05/24 History (0.083 %) solution for nebulization dyspnea semaglutide 0.25 mg or 0.5 mg (2 0.5 mg subcut QWEEK 10/05/24 09/27/24 History mg/3 mL) subcutaneous pen injector (Ozempic) Allergy/AdvReac Type Severity Reaction Status Date / Time codeine Allergy Unknown Verified 10/05/24 12:18 erythromycin base Allergy Unknown Verified 10/05/24 12:18 Penicillins Allergy Unknown Verified 10/05/24 12:18 Family History Other Adopted Surgical History History of knee replacement Cataract (lens) fragments in eye following cataract surgery, bilateral History of carpal tunnel release of both wrists History of hysterectomy Social History Smoking Status: Current every day smoker tobacco type: cigarettes alcohol intake: never substance use type: does not use ROS Constitutional Constitutional: Reports chills, fatigue, malaise, weakness and other Details: Poor appetite Eyes Eyes: Denies blurry vision, change in eye color, change in vision, discharge from eye(s), double vision, erythema, eye pain, loss of vision or other ENT HEENT: Denies abnormal hearing, dysphagia, ear pain, epistaxis, headache(s), hearing loss, nasal congestion, nasal discharge, post nasal drip, sinus pressure, sore throat or other Cardiovascular Cardiovascular: Reports dyspnea on exertion; Denies chest pain, claudication, edema, lightheadedness, orthopnea, palpitations, paroxysmal nocturnal dyspnea, rapid heart rate, syncope or other Respiratory/Chest Respiratory/Chest: Reports cough, dyspnea, shortness of breath at rest, shortness of breath with exertion and wheezing; Denies excessive phlegm production, hemoptysis, productive cough or other Gastrointestinal Gastrointestinal: Reports nausea; Denies abdominal pain, coffee ground emesis, constipation, diarrhea, dyspepsia, hematemesis, hematochezia, loose stools, melena, vomiting or other Genitourinary Genitourinary: Denies burning urination, difficulty urinating, dysuria, hematuria, nocturia, urinary frequency, urinary hesitancy, urinary incontinence, urinary urgency or other Musculoskeletal Musculoskeletal: Reports back pain, joint pain and joint stiffness; Denies arthralgias, joint swelling, myalgias, neck pain or other Neurologic Neurologic: Denies abnormal gait, abnormal speech, confusion, disequilibrium, dizziness, focal weakness, headache(s), numbness, paresthesias, seizure-like activity, seizures, syncope, tingling, tremor(s) or other Psychiatric Psychiatric: Denies anxiety, depression, homicidal ideation, suicidal ideation or other Endocrine Endocrinology: Denies change in body appearance, cold intolerance, excessive sweating, heat intolerance, polydipsia, polyuria or other Hematologic/Lymphatic Hematologic/Lymphatic: Denies anemia, easy bleeding, easy bruising, lymphadenopathy or other Allergic/Immunologic Allergic/Immunologic: Denies rhinitis, hives, eczemia, asthma or other Vital Signs Vital Signs Vital Signs: 10/05/24 12:14 10/05/24 12:54 10/05/24 13:00 Temperature 97.4 F L Temperature Source Oral Pulse Rate 107 H 105 H Respiratory Rate 24 H 20 H Respiratory Effort Short of Breath Labored Respiratory Depth Normal Respiratory Pattern Tachypnea Tachypnea Blood Pressure 85/63 L Blood Pressure Mean 70 Pulse Ox 98 Oxygen Delivery Method Nasal Cannula Room Air Oxygen Flow Rate (L/min) 3 10/05/24 13:01 10/05/24 13:03 10/05/24 13:36 Temperature Temperature Source Pulse Rate Respiratory Rate Respiratory Effort Respiratory Depth Respiratory Pattern Blood Pressure 126/84 H Blood Pressure Mean 98 Pulse Ox 94 Oxygen Delivery Method Room Air Room Air Oxygen Flow Rate (L/min) 10/05/24 13:36 10/05/24 13:37 10/05/24 13:57 Temperature 98.1 F Temperature Source Temporal Pulse Rate 93 93 Respiratory Rate 19 H 20 H Respiratory Effort Short of Breath Labored Respiratory Depth Shallow Respiratory Pattern Blood Pressure 126/84 H Blood Pressure Mean 98 Pulse Ox 93 Oxygen Delivery Method Oxygen Flow Rate (L/min) 10/05/24 14:00 10/05/24 15:00 10/05/24 16:00 Temperature 98.4 F 98.5 F 98.2 F Temperature Source Oral Oral Oral Pulse Rate 76 87 87 Respiratory Rate 24 H 22 H 22 H Respiratory Effort Respiratory Depth Respiratory Pattern Blood Pressure 128/76 H 109/76 119/77 Blood Pressure Mean 93 87 91 Pulse Ox 93 97 98 Oxygen Delivery Method Room Air Nasal Cannula Nasal Cannula Oxygen Flow Rate (L/min) 2 2 Weight Weight: 114 kg Body Mass Index (BMI) 45.9 Physical Exam Const alert, oriented x3, no apparent distress and well nourished; Negative for average body habitus or healthy appearing Constitutional Narrative: Elderly, ill-appearing but not toxic white female, morbidly obese, sitting up in bed with daughter at bedside, appears comfortable at this time General Appearance: cooperative HEENT normocephalic, head/scalp atraumatic and moist oral mucous membranes HEENT Narrative: Mild hearing loss, Mallampati 4, no thrush Eyes EOMs intact bilaterally and conjunctivae normal Eyes Narrative: No scleral icterus Neck supple Neck Narrative: Neck is short and thick, trachea midline Resp no retractions and no use of accessory muscles Resp Narrative: Scattered diffuse end expiratory and inspiratory wheezes, mild tachypnea but no signs of extremis or labored breathing Auscultation: wheezes; Negative for rales or rhonchi Cardio S1 normal heart sound, S2 normal heart sound, no murmurs, no rub, no gallops and no clicks Cardio Narrative: Mild tachycardia in the low 100s with an irregularly irregular rhythm, distant heart tones due to body habitus GI normal to inspection, nondistended, normoactive bowel sounds, soft to palpation and non-tender GI Narrative: Large protuberant abdomen Extremity Extremity Narrative: Trace to 1+ bilateral lower extremity edema that appears chronic in nature with skin changes consistent with chronic venous stasis, no cyanosis or clubbing, radial pulses are 2+ bilaterally Neuro oriented x3, moves all extremities and no focal motor deficits Speech: speech normal Psych affect normal Psych Narrative: Very pleasant, eye contact is good and patient interacts appropriately Results Lab / Micro Data 10/05/24 12:55 10/05/24 12:55 Labs: Laboratory Results - last 24 hr 10/05/24 12:55: WBC 9.4, RBC 4.66, Hgb 12.8, Hct 40.5, MCV 86.9, MCH 27.5, MCHC 31.6 L, RDW Std Deviation 47.8 H, RDW Coeff of Uri 15.1 H, Plt Count 178, MPV 10.6, Immature Gran % (Auto) 0.900, Neut % (Auto) 83.4 H, Lymph % (Auto) 2.4 L, [place] % (Auto) 12.7 H, Eos % (Auto) 0.3, Baso % (Auto) 0.3, Absolute Neuts (auto) 7.8 H, Absolute Lymphs (auto) 0.22 L, Nucleated RBC % 0, PT 21.6 H, INR 1.8, APTT 37.9 H, Sodium 132 L, Potassium 4.3, Chloride 98, Carbon Dioxide 28.0, Anion Gap 6, BUN 14, Creatinine 0.95, Est GFR (MDRD) Af Amer 73, Est GFR (MDRD) Non-Af 60, BUN/Creatinine Ratio 14.7, Glucose 110 H, Lactic Acid 1.2, Calcium 8.9, Total Bilirubin 0.50, AST 15, ALT 14, Alkaline Phosphatase 79, Troponin I High Sens 10, B-Natriuretic Peptide 89.0, Total Protein 6.8, Albumin 3.1 L, Globulin 3.7, Albumin/Globulin Ratio 0.8 L Micro: Microbiology 10/05/24 12:55 Mucosa - Nose SARS-CoV-2, Influenza & RSV (PCR) - Final Influenzae A Rhythm Strip Rhythm Strip: A-fib Ectopy: None Imaging Radiology Impression Chest X-Ray 10/05/24 13:15 IMPRESSION: Prominence of the central pulmonary arteries suggestive of possible hypertension. Lungs are clear. Electronically Signed: Vinnie Benitez MD at 14:08 EST , Assessment & Plan Assessment/Plan (1) Generalized weakness: (2) Hypoxia: (3) COPD exacerbation: (4) Influenza A: (5) Hyponatremia: PLAN: Plan Hypoxia with acute exacerbation of COPD secondary to influenza A infection -Rapid COVID/flu/RSV was positive for influenza A -Today is day 3 of symptoms so we will start Tamiflu 75 mg twice daily with first dose being at the time of admission -Aggressive pulmonary toilet with scheduled and as needed DuoNebs -Solu-Medrol 40 every 8 -Mucinex 1200 mg p.o. twice daily next-as needed antitussives -I-S/Acapella as ordered -Will check sputum culture if patient able to produce to rule out superimposed bacterial pneumonia especially with her history of COPD -Currently requiring 3 L nasal cannula to maintain sats greater than or equal to 89% -Wean oxygen as able and check ambulatory pulse ox prior to discharge -Patient does intermittently wear oxygen at home but not chronically -Will give Lasix 40 mg one-time as I do suspect she has some baseline pulmonary hypertension her last echocardiogram was in 2021 and at that time she had a pulmonary systolic pressure of 42 mmHg. -Patient did states she had a flu vaccine this year Generalized weakness -Secondary to the above -Consult PT/OT -Consult case management/social work for assistance with discharge planning Hyponatremia -Mild -Highly suspect related to the above -Will monitor clinically with repeat lab in a.m. Persistent A-fib -Patient with mild RVR on presentation but acceptable rates greater than 110 -Continue home apixaban -Continue home diltiazem -Continue home metoprolol Essential hypertension -Continue home ramipril, metoprolol, diltiazem, Aldactone/HCTZ COPD -Hold home inhalers -Treatment as above and restart inhalers at discharge -Encourage pulmonary medicine follow-up -PFTs from 2021 show an FEV1 of 57% predicted Allergic rhinitis/asthma -Continue home Singulair COMFORT -Patient is compliant with CPAP at 10 cmH2O -Will order and continue nightly DM-2 -Hold home injection -SSI as ordered -Cardiac/carb controlled diet -Accu-Cheks as ordered Rheumatoid arthritis -Continue home Plaquenil Morbid obesity -BMI is 46 -Complicates treatment, prognosis, outcomes -Recommend weight loss DVT prophylaxis -Continue home Eliquis CODE STATUS -Full code as verified at the time of admission Charges/Coding Visit Charges Inpatient E&M: 41334 Init Hosp L2
--- NOTE | 2024-10-05 16:44 | ED.RN ---
called for dinner order, cindy to send
[2024-10-05] MEDS: Furosemide 40 MG/4 ML Vial IV (21:29)
[2024-10-05] MEDS: Metoprolol Tartrate 100 MG Tablet PO (21:29)
[2024-10-05] MEDS: Multivitamin (Healthy Eyes) Capsule 1 CAP PO (21:29)
[2024-10-05] MEDS: 0.9% Saline Lock 10 ML Syringe IV (21:29)
[2024-10-05] MEDS: APIXABAN 5 MG TABLET PO (21:30)
[2024-10-05] MEDS: guaiFENesin 1,200 MG Tablet 1200 MG PO (21:30)
[2024-10-05] MEDS: Hydroxychloroquine 200 MG Tablet PO (21:30)
[2024-10-05] MEDS: Glucerna Shake 120 ML LIQUID PO (21:47)
[2024-10-05] MEDS: Nystatin Powder 15gm Bottle 1 APPLIC TOPICAL (21:57)
[2024-10-05] MEDS: Oseltamivir Phosphate 75 MG Capsule PO (21:57)
[2024-10-06] VITALS (21 sets, daily range): BP systolic 98–125; BP diastolic 40–80; PULSE 74–104; RESP 16–24; TEMP 35.9–36.6; O2SAT 75–99; BMI 45.6
[2024-10-06] MEDS: Ipratropium/Albuterol Sulfate 3 ML AMPUL.NEB INHALATION ×6 (02:35→23:31)
[2024-10-06 06:04] LABS: Absolute Lymphocyte Count 0.37 X10^3/uL (0.83-4.51); Absolute Neutrophil Count 5.4 X10^3/uL (2.0-7.7); Hematocrit 41.4 % (37-47); Lymphocyte # 0.37 X10^3/ul (0.83-4.51); Mean Corp Hgb Conc 31.4 g/dL (32-36); Mean Corpuscular Hgb 27.3 pg (27.0-32.0); Mean Corpuscular Volume 86.8 fL (81-99); Mean Platelet Vol. 10.8 fl (6.2-12.0); Monocyte# 0.28 X10^3/uL; Monocyte% 4.6 % (0-10); NRBC Flagged by Analyzer 0 % (0-5); Neutrophil # 5.43 X10^3/uL (2.7-7.7); Neutrophil % 88.7 % (47-70); POSITIVE DIFFERENTIAL YES; Platelet Count 173 K/mm3 (150-450); RBC Distribution Width CV 14.5 % (11.6-14.6); RBC Distribution Width SD 46.6 fl (35.1-43.9); Red Blood Count 4.77 M/mm3 (4.2-5.4); White Blood Count 6.1 K/mm3 (4.4-11.0)
[2024-10-06 06:33] LABS: ALB/GLOB Ratio 0.8 RATIO (0.9-2.4); AST(SGOT) 25 U/L (15-37); Alanine Aminotransfer ALT/SGPT 18 U/L (13-56); Albumin, Serum 3.1 g/dL (3.2-5.0); Alkaline Phosphatase 75 U/L (45-117); Anion Gap 7 (5-15); BUN 20 mg/dL (7-18); BUN/Creat Ratio 20.4 RATIO (10-20); Calcium,Total 9.7 mg/dL (8.5-10.1); Chloride 98 mmol/L (98-107); Creatinine, Serum 0.98 mg/dL (0.55-1.02); EST Glomerular Filtration Rate 58 mL/min (>60); Est Glom Filt Rate - Afr Amer 71 mL/min (>60); Estimated Creatinine Clearance 53.29 ml/min; Globulin 3.8 g/dL (2.2-4.2); Glucose 145 mg/dL (74-106); Phosphorus 4.3 mg/dL (2.5-4.9); Potassium 4.6 mmol/L (3.5-5.1); Protein, Total 6.9 g/dL (6.4-8.2); Sodium Level 133 mmol/L (136-145)
[2024-10-06] MEDS: 0.9% Saline Lock 10 ML Syringe IV ×4 (06:44→22:41)
[2024-10-06] MEDS: Metoprolol Tartrate 100 MG Tablet PO (08:21)
[2024-10-06] MEDS: Oseltamivir Phosphate 30 MG Capsule PO ×2 (08:21→22:43)
[2024-10-06] MEDS: guaiFENesin 1,200 MG Tablet 1200 MG PO (08:21)
[2024-10-06] MEDS: Ramipril 10 MG Capsule PO (08:21)
[2024-10-06] MEDS: hydroCHLOROthiazide 25 MG Tablet PO (08:21)
[2024-10-06] MEDS: Multivitamin (Healthy Eyes) Capsule 1 CAP PO ×2 (08:22→22:43)
[2024-10-06] MEDS: Montelukast 10 MG Tablet PO (08:22)
[2024-10-06] MEDS: Nystatin Powder 15gm Bottle 1 APPLIC TOPICAL ×2 (08:22→22:44)
[2024-10-06] MEDS: dilTIAZem CD 120 MG Capsule PO (08:22)
[2024-10-06] MEDS: APIXABAN 5 MG TABLET PO ×2 (08:22→22:52)
[2024-10-06] MEDS: Spironolactone 25 MG Tablet PO (08:22)
[2024-10-06] MEDS: Hydroxychloroquine 200 MG Tablet PO ×2 (08:22→16:21)
[2024-10-06] MEDS: Cholecalciferol (Vit D3) 125 MCG CAPSULE (5,000 UNITS) PO (08:22)
--- NOTE | 2024-10-06 09:08 | PN.HOSP_ITS ---
Subjective Subjective Doing well, no issues overnight. She did receive a dose of Lasix and seems to be breathing better currently on room air Objective Data Objective Data Vital Signs: Vital Signs Temp Pulse Resp BP Pulse Ox O2 Del Method O2 Flow Rate 97.2 F L 101 H 20 H 116/64 92 Room Air 2.5 10/06/24 08:25 10/06/24 08:25 10/06/24 08:25 10/06/24 08:25 10/06/24 08:25 10/06/24 08:25 10/06/24 06:46 Oxygen Flow Rate (L/min) 2.5 Oxygen Delivery Method Room Air Weight: 241 lb 10.026 oz Body Mass Index (BMI) 45.6 Intake & Output: Intake and Output for Last 24 Hours 10/05/24 10/06/24 10/07/24 03:59 03:59 03:59 Intake Total 366.5 / 366.5 Output Total 700 / 700 800 / 800 Balance -333.5 / -333.5 -800 / -800 Lab / Micro Data 10/06/24 05:41 10/06/24 05:41 Labs: Laboratory Results - last 24 hr 10/05/24 12:55: WBC 9.4, RBC 4.66, Hgb 12.8, Hct 40.5, MCV 86.9, MCH 27.5, MCHC 31.6 L, RDW Std Deviation 47.8 H, RDW Coeff of Uri 15.1 H, Plt Count 178, MPV 10.6, Immature Gran % (Auto) 0.900, Neut % (Auto) 83.4 H, Lymph % (Auto) 2.4 L, [place] % (Auto) 12.7 H, Eos % (Auto) 0.3, Baso % (Auto) 0.3, Absolute Neuts (auto) 7.8 H, Absolute Lymphs (auto) 0.22 L, Nucleated RBC % 0, PT 21.6 H, INR 1.8, A PTT 37.9 H, Sodium 132 L, Potassium 4.3, Chloride 98, Carbon Dioxide 28.0, Anion Gap 6, BUN 14, Creatinine 0.95, Est GFR (MDRD) Af Amer 73, Est GFR (MDRD) Non-Af 60, BUN/Creatinine Ratio 14.7, Glucose 110 H, Lactic Acid 1.2, Calcium 8.9, Total Bilirubin 0.50, AST 15, ALT 14, Alkaline Phosphatase 79, Troponin I High Sens 10, B-Natriuretic Peptide 89.0, Total Protein 6.8, Albumin 3.1 L, Globulin 3.7, Albumin/Globulin Ratio 0.8 L 10/06/24 05:41: WBC 6.1, RBC 4.77, Hgb 13.0, Hct 41.4, MCV 86.8, MCH 27.3, MCHC 31.4 L, RDW Std Deviation 46.6 H, RDW Coeff of Uri 14.5, Plt Count 173, MPV 10.8, Immature Gran % (Auto) 0.700, Neut % (Auto) 88.7 H, Lymph % (Auto) 6.0 L, [place] % (Auto) 4.6, Eos % (Auto) 0.0, Baso % (Auto) 0.0, Absolute Neuts (auto) 5.4, Absolute Lymphs (auto) 0.37 L, Nucleated RBC % 0, Sodium 133 L, Potassium 4.6, Chloride 98, Carbon Dioxide 28.0, Anion Gap 7, BUN 20 H, Creatinine 0.98, Estim Creat Clear Calc 53.29, Est GFR (MDRD) Af Amer 71, Est GFR (MDRD) Non-Af 58 L, BUN/Creatinine Ratio 20.4 H, Glucose 145 H, Calcium 9.7, Phosphorus 4.3, Magnesium 2.0, Total Bilirubin 0.40, AST 25, ALT 18, Alkaline Phosphatase 75, Total Protein 6.9, Albumin 3.1 L, Globulin 3.8, Albumin/Globulin Ratio 0.8 L Micro: Microbiology 10/05/24 12:55 Mucosa - Nose SARS-CoV-2, Influenza & RSV (PCR) - Final Influenzae A Radiography Diagnostic Testing: Radiology Impression Chest X-Ray 10/05/24 13:15 IMPRESSION: Prominence of the central pulmonary arteries suggestive of possible hypertension. Lungs are clear. Electronically Signed: Vinnie Benitez MD at 14:08 EST , Rhythm Strip Rhythm Strip: A-fib Ectopy: None Physical Exam Narrative General: Alert, Oriented x3, Cooperative, No apparent distress HEENT: Atraumatic, PERRLA, EOMI, Normocephalic Oral: Moist Mucosa Neck: Supple, No JVD Lungs: Diminished, Normal air movement, No rhonchi, scattered wheeze, No rales Cardiovascular: Tachycardic, Regular Rhythm, Normal S1, Normal S2, No murmurs Abdomen: Soft, Non Tender, Non-Distended, No Hepato-splenomegaly Extremities: Trace edema, Capillary Refill Less than 3 Seconds Skin: No rashes, No breakdown Musculoskeletal: No Tenderness to Palpation of Joints or Extremities Neurological: No focal neurological deficits, Motor Exam 5/5 strength throughout, Sensory exam intact to light touch and pain Psych/Mental Status: Normal Affect, Appropriate Assessment & Plan Assessment/Plan (1) Generalized weakness: (2) Hypoxia: (3) COPD exacerbation: (4) Influenza A: (5) Hyponatremia: PLAN: Plan 1. Hypoxia in the setting of acute exacerbation of COPD secondary to influenza A with debility ? Continue with Tamiflu ? Continue with steroids ? Will repeat a dose of Lasix ? Plan for an ambulatory pulse ox ? Continue with inhalers 2. Persistent A-fib/essential HTN/HLD ? Blood pressure is stable/continue with her home medications ? Will monitor make adjustments as necessary ? Continue with Eliquis 3. DM2 ? Stable ? Continue sliding scale insulin ? Accu-Cheks ACHS ? Will monitor make adjustments as necessary 4. Rheumatoid arthritis ? Stable ? Continue with her home medications DVT: Eliquorlando Charges/Coding Visit Charges Inpatient E&M: 17128 Subs Hosp L2
[2024-10-06] MEDS: Furosemide 40 MG/4 ML Vial IV (09:38)
--- NOTE | 2024-10-06 11:28 | CASEMGMT ---
Addendum entered by Meagan Meehan 10/06/24 15:30: Green sheet on chart in case pt should need oxygen at dc. Original Note: CARLOS JACOBSON Assessment: Face to Face with pt for initial transition planning/care coordination assessment. CARLOS JACOBSON introduced self and role at [facility], pt voices understanding and consents to assessment. Pt is A&O x4 and answers all questions appropriately at this time. Pt sitting up in chair on RA in no distress. Care providers, pharmacy, and demographics verified/updated. Admitting Dx: acute hypoxia secondary to acute exac of COPD Strata Score: 2 PCP:Eric Specialists:Magda pulrenea; Francisco, rheum; Serra, ortho Preferred Pharmacy: [facility] [place] Insurance: [employer], [employer] Prescription Benefit: yes LNOK: Josesito Wilcox, son; Laura Izaguirre, dtr Living Arrangements: Pt lives in a single story home with 4 steps to enter with a rail. Pt grandson and live in her basement. Pt states she is I in ADLS/IADLs and denies concerns at home. Transportation: Pt drives self and denies concerns with transportation. Pt also transports for [facility]. DME:Cane, portable oxygen concentrator, CPAP, rollator, walker HHC/SNF: Denies hx of [facility], pt has been to [facility] Pt states no concerns with going home at time of dc. Pt states she had oxygen in the past and sent it back. Should pt need oxygen again, she would like it through [employer]. Pt tested this AM and did not qualify. Pt nurse present in room. Pt denies need for any therapy and states she feels much better than when she came in. Pt states no further concerns/needs. CM to follow. Advised pt to ask CM if any further questions/concerns/needs arise, voices understanding. Pt Goal: Home Plan: Home, follow for oxygen needs Portia GONZALEZ CM
[2024-10-06 11:51] LABS: Bedside Glucose 190 mg/dL (74-106)
[2024-10-06] MEDS: Glucerna Shake 120 ML LIQUID PO ×3 (14:00→22:54)
[2024-10-06 16:24] LABS: Bedside Glucose 195 mg/dL (74-106)
[2024-10-06 23:50] LABS: Bedside Glucose 177 mg/dL (74-106)
[2024-10-07] VITALS (11 sets, daily range): BP systolic 104–114; BP diastolic 68–69; PULSE 86–99; RESP 19–20; TEMP 36.4–36.5; O2SAT 85–99; BMI 45.6
[2024-10-07] MEDS: Ipratropium/Albuterol Sulfate 3 ML AMPUL.NEB INHALATION ×3 (03:12→11:32)
[2024-10-07] MEDS: 0.9% Saline Lock 10 ML Syringe IV (05:44)
[2024-10-07 06:33] LABS: Anion Gap 8 (5-15); BUN 41 mg/dL (7-18); BUN/Creat Ratio 33.1 RATIO (10-20); Calcium,Total 9.8 mg/dL (8.5-10.1); Chloride 94 mmol/L (98-107); Creatinine, Serum 1.24 mg/dL (0.55-1.02); EST Glomerular Filtration Rate 44 mL/min (>60); Est Glom Filt Rate - Afr Amer 54 mL/min (>60); Estimated Creatinine Clearance 42.12 ml/min; Glucose 204 mg/dL (74-106); Potassium 4.1 mmol/L (3.5-5.1); Sodium Level 129 mmol/L (136-145)
[2024-10-07] MEDS: Insulin Lispro 100 UNIT/ML INSULN.PEN SC ×2 (07:02→12:20)
[2024-10-07] MEDS: Cholecalciferol (Vit D3) 125 MCG CAPSULE (5,000 UNITS) PO (09:55)
[2024-10-07] MEDS: Multivitamin (Healthy Eyes) Capsule 1 CAP PO (09:55)
[2024-10-07] MEDS: Hydroxychloroquine 200 MG Tablet PO (09:55)
[2024-10-07] MEDS: Montelukast 10 MG Tablet PO (09:55)
[2024-10-07] MEDS: Oseltamivir Phosphate 30 MG Capsule PO (09:55)
[2024-10-07] MEDS: Nystatin Powder 15gm Bottle 1 APPLIC TOPICAL (09:56)
[2024-10-07] MEDS: APIXABAN 5 MG TABLET PO (09:57)
[2024-10-07] MEDS: Glucerna Shake 120 ML LIQUID PO (09:59)
--- NOTE | 2024-10-07 11:24 | DCINST_ITS ---
Discharge Instructions Diet Discharge Diet: No restrictions DC O2, CPAP, BIPAP needs RN Home O2 Qualification: Home O2 Qualification: Is the patient on home oxygen No 10/07/24 10:07 Home O2 Qualification: AT REST 1- Pulse Ox at rest 93 10/07/24 10:07 Home O2 Qualification: WITH AMBULATION 1- Pulse Ox with ambulation 85 10/07/24 10:07 1- Oxygen Flow Rate with 0 10/07/24 10:07 ambulation 2- Pulse Ox with ambulation 92 10/07/24 10:07 2- Oxygen Flow Rate with 2 10/07/24 10:07 ambulation Home O2 Discharge instructions: No Dressing / Incision Discharge Activity: Return to Normal Activity Dressing / Incision Call your doctor if you observe: Fever of 101 or Higher, Shortness of breath, Dizziness, Fainting spells, Swelling in the ankles, Chest pain and Increased palpitations (irregular heartbeat) Follow Up Care Test Results: Test results from this visit will be discussed in further detail at your follow- up appointment, if applicable. Discharge Plan Admission Admit Date/Time: 10/05/24 16:29 Attending Provider: Waqar Jerry Primary Care Provider: Clarence Reyes Consulting Providers: Lizabeth Winkler Discharge Orders/Prescriptions Prescriptions: New oseltamivir 30 mg Capsule 30 mg PO BID 3 Days Qty: 6 0RF prednisone 10 mg tablet 10 mg PO DAILY Qty: 32 0RF Rx Instructions: Take 4 tablets daily for 3 days then 3 tablets daily for 3 days then 2 tablets daily for 3 days then 1 tablet daily for 3 days then half tablet daily for 4 days Continued spironolacton-hydrochlorothiaz 25-25 mg tablet 1 tab PO DAILY Patient Comments: TAKE 1/2 TO 1 TABLET BY MOUTH ONCE DAILY PreserVision AREDS 4,296 mcg-226 mg-90 mg capsule 1 cap PO BID ramipril 10 mg capsule 10 mg PO DAILY montelukast 10 MG tablet 10 mg PO DAILY hydroxychloroquine 200 MG tablet 200 mg PO BIDCM ProAir RespiClick 90 MCG aerosol powdr breath activated 108 mcg IH Q4H PRN (Reason: Sob &/Or Wheezing) Cholecalciferol (Vitamin D3) [Vitamin D3] 5,000 UNIT capsule 5,000 unit PO DAILY Trelegy Ellipta 200-62.5-25 mcg blister with device 1 ea INHALATION DAILY Patient Comments: INHALE 1 PUFF DAILY FOLLOWED BY [facility] albuterol sulfate 2.5 mg /3 mL (0.083 %) solution for nebulization 2.5 mg inhalation 4X/DAY PRN Ozempic 0.25 mg or 0.5 mg (2 mg/3 mL) pen injector 0.5 mg subcut QWEEK Eliquis 5 mg tablet 5 mg PO BID Qty: 180 4RF metoprolol tartrate 100 mg tablet 100 mg PO BID Qty: 180 3RF diltiazem HCl 120 mg capsule,extended release 24hr See Rx Instructions .ROUTE .COMPLEX Qty: 90 3RF Dose Instruction: TAKE 1 CAPSULE BY MOUTH EVERY DAY FOR A FIB Rx Instructions: TAKE 1 CAPSULE BY MOUTH EVERY DAY FOR A FIB Referrals / Follow Up: Clarence Reyes MD [Primary Care Provider] - Within 1 Week Disposition Disposition (needs filled in before D/C Order can be placed): Home, Self Care
[2024-10-07 11:44] LABS: Bedside Glucose 211 mg/dL (74-106)
--- NOTE | 2024-10-07 14:19 | DS.PCM_ITS ---
Providers Date of Admission: 10/05/24 Primary Care Physician: Dr. Clarence Reyes MD Reason For Visit: ACUTE HYPOXIA SECONDARY TO ACUTE EXACERBATION OF Diagnosis Discharge Diagnosis (1) Generalized weakness: Status: Acute Code(s): R53.1 - Weakness (2) Hypoxia: Status: Acute Code(s): R09.02 - Hypoxemia (3) COPD exacerbation: Status: Chronic Code(s): J44.1 - Chronic obstructive pulmonary disease with (acute) exacerbation (4) Influenza A: Status: Acute Code(s): J10.1 - Influenza due to other identified influenza virus with other respiratory manifestations (5) Hyponatremia: Status: Acute Code(s): E87.1 - Hypo-osmolality and hyponatremia Medications at Discharge Home Medications Cholecalciferol (Vitamin D3) [Vitamin D3] 5,000 unit PO DAILY supplement 10/28/17 albuterol sulfate 90 mcg/actuation breath activated powder inhaler (ProAir RespiClick) 108 mcg IH Q4H PRN Sob &/Or Wheezing 10/28/17 hydroxychloroquine 200 mg tablet 200 mg PO BIDCM arthritis 10/28/17 montelukast 10 mg tablet 10 mg PO DAILY asthma 10/28/17 apixaban 5 mg tablet (Eliquis) 5 mg PO BID blood thinner #180 tabs 06/11/22 fluticasone fur. 200 mcg-umeclid 62.5 mcg-vilant 25 mcg inhalat.powder (Trelegy Ellipta) 1 ea inhalation DAILY 07/22/22 spironolactone 25 mg-hydrochlorothiazide 25 mg tablet 1 tab PO DAILY 06/22/23 vitamins A,C,F-kicm-aoqhpj 4,296 mcg-226 mg-90 mg capsule (PreserVision AREDS) 1 cap PO BID 06/22/23 ramipril 10 mg capsule 10 mg PO DAILY 04/05/24 metoprolol tartrate 100 mg tablet 100 mg PO BID #180 TABLETS 04/17/24 diltiazem HCl 120 mg capsule,extended release 24 hr See Rx Instructions .Route .COMPLEX #90 caps 06/26/24 albuterol sulfate 2.5 mg/3 mL (0.083 %) solution for nebulization 2.5 mg inhalation 4X/DAY PRN dyspnea 10/05/24 semaglutide 0.25 mg or 0.5 mg (2 mg/3 mL) subcutaneous pen injector (Ozempic) 0.5 mg subcut QWEEK 10/05/24 oseltamivir 30 mg capsule 30 mg PO BID 3 days #6 caps 10/07/24 prednisone 10 mg tablet 10 mg PO DAILY #32 tabs 10/07/24 Hospital Course Operations None Procedures None Summary of Care Provided Minutes Spent on Discharge: 36 Hospital Course: Per HPI: GURWINDER BROWN, is a 79 F who presented to the emergency department at [facility] on 10/05/2024 with a chief complaint of shortness of breath. Patient reported about 3 days ago she started having some upper respiratory type symptoms associated with some nausea vomiting and then developed cough and shortness of breath. She also now complains of some wheezing. Cough is nonproductive. She has had decreased appetite and fatigue. She did report some intermittent chills but no documented fever. Denies chest pain. She smokes about 4 cigarettes a day and denies any need for nicotine patch at this time. She does have intermittent oxygen available at home but does not chronically wear. She also uses nebulizer treatments and has been using it 4 times a day without any improvement in her symptoms. She is fully anticoagulated with Eliquis 5 mg p.o. twice daily for atrial fibrillation. She does have a known history of COPD. Vital signs on presentation showed temperature of 97.4, heart rate 107, respiratory was 24, blood pressure initially was 85/63 and she required 3 L nasal cannula to maintain oxygen saturations greater than 92%. On exam she was extremely wheezy diffusely with both inspiratory and expiratory wheezes. Repeat blood pressure improved to 126/84. CBC was unremarkable except for left shift showing an 83.4% neutrophilia and a monocytosis at 12.7%. Coags were elevated as expected on Eliquis. She had mild hyponatremia which appears to be chronic, normal renal function, normal lactic acid at 1.2, normal liver functions and troponin of 10. BNP was obtained and found to be 89.0. Chest x-ray showed prominence of the central pulmonary arteries suggestive of possible hypertension with clear lungs. Urine and blood cultures obtained emergency department and a rapid COVID/flu/RSV was performed and she was found to be positive for influenza A. She was treated with acute exacerbation of COPD with the finding of influenza A and her clinical exam and request for admission was made given her continuous requirement for oxygen. Hospital Course: 1. Hypoxia in the setting of acute exacerbation of COPD due to influenza A?[age]-year-old female presented to the hospital with increasing shortness of breath. She was found to have a COPD exacerbation and tested positive for influenza A. Given the fact that her symptoms started within the window she was started on Tamiflu and will complete a total of 5 days. She was given 2 doses of Lasix, she did have a slight increase in her creatinine so this was held today and I recommend outpatient follow-up with her PCP in 3 to 5 days for monitoring, discussed staying hydrated and that if she is not getting if enough liquids that she should hold her Aldactone and her hydrochlorothiazide as well as her DANIEL inhibitor. Ambulatory pulse ox today demonstrated 2 L with exertion and room air at rest. I have reviewed the oxygen testing, and this patient qualifies for the home equipment and portability. The patient is mobile in the home and the community. Will continue with home inhalers and place her on a prednisone taper as well. I discussed with her the possibility of staying in the hospital to see if she can get off of oxygen completely however she would prefer to go home. She expressed understanding of the risks and benefits of going home and would like to go today. 2. Persistent A-fib, essential hypertension, hyperlipidemia, type 2 diabetes, rheumatoid arthritis are all chronic medical conditions which complicate her care. Her home medications were continued where appropriate Physical Exam Narrative General: Alert, Oriented x3, Cooperative, No apparent distress HEENT: Atraumatic, PERRLA, EOMI, Normocephalic Oral: Moist Mucosa Neck: Supple, No JVD Lungs: Diminished, Normal air movement, No rhonchi, scattered wheeze, No rales Cardiovascular: Regular rate, Regular Rhythm, Normal S1, Normal S2, No murmurs Abdomen: Soft, Non Tender, Non-Distended, No Hepato-splenomegaly Extremities: Trace edema, Capillary Refill Less than 3 Seconds Skin: No rashes, No breakdown Musculoskeletal: No Tenderness to Palpation of Joints or Extremities Neurological: No focal neurological deficits, Motor Exam 5/5 strength throughout, Sensory exam intact to light touch and pain Psych/Mental Status: Normal Affect, Appropriate Weight / BMI Weight Weight: 241 lb 10.026 oz Body Mass Index (BMI) 45.6 ABG / Lab / Microbiology Data 10/06/24 05:41 10/07/24 05:46 Laboratory: Laboratory Results - last 24 hr 10/06/24 15:38: POC Glucose 195 H 10/06/24 22:57: POC Glucose 177 H 10/07/24 05:46: Sodium 129 L, Potassium 4.1, Chloride 94 L, Carbon Dioxide 27.0, Anion Gap 8, BUN 41 H, Creatinine 1.24 H, Estim Creat Clear Calc 42.12, Est GFR (MDRD) Af Amer 54 L, Est GFR (MDRD) Non-Af 44 L, BUN/Creatinine Ratio 33.1 H, G lucose 204 H, Calcium 9.8 10/07/24 11:11: POC Glucose 211 H Microbiology: Microbiology 10/05/24 14:02 Blood Culture (Wb) - Anticubital Right Blood Culture - Preliminary No growth in 48 hours. 10/05/24 12:55 Blood Culture (Wb) - Anticubital Right Blood Culture - Preliminary No growth in 48 hours. 10/05/24 14:16 Urine, Clean Catch Urine Culture - Final Presumptive E. coli Coag Negative Staph 10/05/24 12:55 Mucosa - Nose SARS-CoV-2, Influenza & RSV (PCR) - Final Influenzae A D/C Instructions Discharge Diet: No restrictions Call your doctor if you observe: Fever of 101 or Higher, Shortness of breath, Dizziness, Fainting spells, Swelling in the ankles, Chest pain and Increased palpitations (irregular heartbeat) DC O2, CPAP, BIPAP Needs RN Home O2 Qualification: Home O2 Qualification: Is the patient on home oxygen No 10/07/24 10:07 Home O2 Qualification: AT REST 1- Pulse Ox at rest 93 10/07/24 10:07 Home O2 Qualification: WITH AMBULATION 1- Pulse Ox with ambulation 85 10/07/24 10:07 1- Oxygen Flow Rate with 0 10/07/24 10:07 ambulation 2- Pulse Ox with ambulation 92 10/07/24 10:07 2- Oxygen Flow Rate with 2 10/07/24 10:07 ambulation PSN CPAP & BiPAP: BiPAP & CPAP Settings per PSN Mode CPAP 10/06/24 23:42 Bipap Delivery Device Nasal Mask 10/06/24 23:42 BiPAP Expiratory Pressure 7 10/06/24 23:42 Total Flow Rate 2 10/06/24 23:42 Home O2 Discharge instructions: No Meaningful Use Info Meaningful Use Meaningful Use Diagnoses (Choose all that apply): None applicable Ischemic Stroke Statin Dosing Therapy Reference: STATIN DOSE THERAPY REFERENCE: * Patients > 75 years receive moderate or high dose statin therapy. * Patients 75 years or YOUNGER should receive HIGH intensity statin dose unless contraindicated. You will be required to document reason for non-treatment if statin daily dose does not meet guidelines. HIGH DOSE STATIN THERAPY DAILY Atorvastatin > than or = to 40 mg Rosuvastatin > than or = to 20 mg Amlodipine + Atorvastatin > than or = to 2.5/40 mg Ezetimibe + Simvastatin 10/80 mg Simvastatin 80mg Discharge Plan Admission Admit Date/Time: 10/05/24 16:29 Attending Provider: Waqar Jerry Primary Care Provider: Clarence Reyes Consulting Providers: Lizabeth Winkler Discharge Orders/Prescriptions Prescriptions: New oseltamivir 30 mg Capsule 30 mg PO BID 3 Days Qty: 6 0RF prednisone 10 mg tablet 10 mg PO DAILY Qty: 32 0RF Rx Instructions: Take 4 tablets daily for 3 days then 3 tablets daily for 3 days then 2 tablets daily for 3 days then 1 tablet daily for 3 days then half tablet daily for 4 days Continued spironolacton-hydrochlorothiaz 25-25 mg tablet 1 tab PO DAILY Patient Comments: TAKE 1/2 TO 1 TABLET BY MOUTH ONCE DAILY PreserVision AREDS 4,296 mcg-226 mg-90 mg capsule 1 cap PO BID ramipril 10 mg capsule 10 mg PO DAILY montelukast 10 MG tablet 10 mg PO DAILY hydroxychloroquine 200 MG tablet 200 mg PO BIDCM ProAir RespiClick 90 MCG aerosol powdr breath activated 108 mcg IH Q4H PRN (Reason: Sob &/Or Wheezing) Cholecalciferol (Vitamin D3) [Vitamin D3] 5,000 UNIT capsule 5,000 unit PO DAILY Trelegy Ellipta 200-62.5-25 mcg blister with device 1 ea INHALATION DAILY Patient Comments: INHALE 1 PUFF DAILY FOLLOWED BY [facility] albuterol sulfate 2.5 mg /3 mL (0.083 %) solution for nebulization 2.5 mg inhalation 4X/DAY PRN Ozempic 0.25 mg or 0.5 mg (2 mg/3 mL) pen injector 0.5 mg subcut QWEEK Eliquis 5 mg tablet 5 mg PO BID Qty: 180 4RF metoprolol tartrate 100 mg tablet 100 mg PO BID Qty: 180 3RF diltiazem HCl 120 mg capsule,extended release 24hr See Rx Instructions .ROUTE .COMPLEX Qty: 90 3RF Dose Instruction: TAKE 1 CAPSULE BY MOUTH EVERY DAY FOR A FIB Rx Instructions: TAKE 1 CAPSULE BY MOUTH EVERY DAY FOR A FIB Referrals / Follow Up: Clarence Reyes MD [Primary Care Provider] - Within 1 Week Disposition Disposition (needs filled in before D/C Order can be placed): Home, Self Care Charges/Coding Visit Charges Inpatient E&M: 08649 Disch Hosp >30min
[2024-10-07 17:17] LABS: Bedside Glucose 159 mg/dL (74-106)
== END 2024-10-07 15:12 | disposition home or self-care (01) | DRG 191 ==
LOC: ED 16:19 → MS3 18:04
PROVIDERS: Physician Assistant; Admitting Provider Internal Medicine; Emergency Provider Emergency Medicine; PCP Family Medicine; Visit Provider Family Medicine
DX: J44.1 Chronic obstructive pulmonary disease with (acute) exacerbation (principal); Z68.42 Body mass index [BMI] 45.0-49.9, adult; E87.1 Hypo-osmolality and hyponatremia; I48.19 Other persistent atrial fibrillation; I27.20 Pulmonary hypertension, unspecified; E11.9 Type 2 diabetes mellitus without complications; E86.0 Dehydration; M06.9 Rheumatoid arthritis, unspecified; I10 Essential (primary) hypertension; E66.01 Morbid (severe) obesity due to excess calories; E78.5 Hyperlipidemia, unspecified; J30.9 Allergic rhinitis, unspecified; G47.33 Obstructive sleep apnea (adult) (pediatric); J10.1 Influenza due to other identified influenza virus with other respiratory manifestations; I95.9 Hypotension, unspecified; F17.210 Nicotine dependence, cigarettes, uncomplicated; R09.02 Hypoxemia; R53.81 Other malaise; Z79.01 Long term (current) use of anticoagulants; Z11.52 Encounter for screening for COVID-19; Z79.51 Long term (current) use of inhaled steroids; Z79.85 Long-term (current) use of injectable non-insulin antidiabetic drugs; Z79.899 Other long term (current) drug therapy
CPT/HCPCS: 36415; 71045; 80048; 80053; 82962; 83605; 83735; 83880; 84100; 84484; 85025; 85610; 85730; 87040; 87086; 87088; 87631; 93005; 94002; 94640; 94660; 94668; 97162; 97166; 97530; 97802; 99252; 99285; 99406; A4216; G0463; J1940; J2405

== ENCOUNTER → 2024-11-16 | Outpatient (CLI) | payer MEDICARE, OTHER, SELFPAY ==
[2024-11-16 17:35] LABS: Absolute Lymphocyte Count 1.02 X10^3/uL (0.83-4.51); Absolute Neutrophil Count 9.6 X10^3/uL (2.0-7.7); Basophil# 0.05 X10^3/uL; Basophil% 0.4 % (0-1); Eosinophil# 0.15 X10^3/uL; Eosinophils% 1.3 % (0-5); Hemoglobin 11.8 g/dL (12.0-15.0); Lymphocyte # 1.02 X10^3/ul (0.83-4.51); Lymphocyte % 8.6 % (19-41); Mean Corp Hgb Conc 30.3 g/dL (32-36); Mean Corpuscular Hgb 27.7 pg (27.0-32.0); Mean Corpuscular Volume 91.5 fL (81-99); Mean Platelet Vol. 11.2 fl (6.2-12.0); Monocyte# 0.96 X10^3/uL; Monocyte% 8.1 % (0-10); NRBC Flagged by Analyzer 0 % (0-5); Neutrophil # 9.58 X10^3/uL (2.7-7.7); Neutrophil % 80.3 % (47-70); Platelet Count 305 K/mm3 (150-450); RBC Distribution Width CV 16.1 % (11.6-14.6); RBC Distribution Width SD 53.8 fl (35.1-43.9); Red Blood Count 4.26 M/mm3 (4.2-5.4); White Blood Count 11.9 K/mm3 (4.4-11.0)
[2024-11-16 18:19] LABS: AST(SGOT) 17 U/L (<=31); Alanine Aminotransfer ALT/SGPT 11 U/L (<=34); Albumin, Serum 3.5 g/dL (3.4-4.8); Alkaline Phosphatase 83 U/L (35-104); Anion Gap 10 (5-15); BUN 9 mg/dL (4-19); BUN/Creat Ratio 12.6 RATIO (10-20); Calcium 9.3 mg/dL (7.6-11.0); Carbon Dioxide 25.1 mmol/L (22.0-29.0); Chloride 103 mmol/L (96-108); Creatinine, Serum 0.71 mg/dL (0.70-1.20); EST Glomerular Filtration Rate 87 (>60); Globulin 3.4 g/dL (2.2-4.2); Glucose 96 mg/dL (70-99); Potassium 4.1 mmol/L (3.3-5.1); Protein, Total 6.9 g/dL (5.9-8.4); Sodium Level 138 mmol/L (133-145); Total Bilirubin 0.47 mg/dL (0.00-1.30)
[2024-11-16 19:12] LABS: Hemoglobin A1c 5.8 % (<=5.6)
== END | disposition home or self-care (01) ==
LOC: MFPLAB 14:58
PROVIDERS: PCP Family Medicine; Referring Provider Family Medicine; Visit Provider Family Medicine
DX: E11.9 Type 2 diabetes mellitus without complications (principal); E66.9 Obesity, unspecified
CPT/HCPCS: 36415; 80053; 83036; 85025

== ENCOUNTER → 2024-12-19 | Outpatient (CLI) | payer MEDICARE, OTHER, SELFPAY ==
[2024-12-19 18:14] LABS: Absolute Lymphocyte Count 1.09 X10^3/uL (0.83-4.51); Absolute Neutrophil Count 7.4 X10^3/uL (2.0-7.7); Basophil# 0.03 X10^3/uL; Basophil% 0.3 % (0-1); Eosinophil# 0.36 X10^3/uL; Eosinophils% 3.6 % (0-5); Hematocrit 40.2 % (37-47); Hemoglobin 12.4 g/dL (12.0-15.0); Lymphocyte # 1.09 X10^3/ul (0.83-4.51); Mean Corp Hgb Conc 30.8 g/dL (32-36); Mean Corpuscular Hgb 27.5 pg (27.0-32.0); Mean Corpuscular Volume 89.1 fL (81-99); Mean Platelet Vol. 11.8 fl (6.2-12.0); Monocyte# 0.99 X10^3/uL; Monocyte% 9.9 % (0-10); NRBC Flagged by Analyzer 0 % (0-5); Neutrophil # 7.44 X10^3/uL (2.7-7.7); Neutrophil % 74.8 % (47-70); Platelet Count 232 K/mm3 (150-450); RBC Distribution Width CV 15.7 % (11.6-14.6); RBC Distribution Width SD 51.5 fl (35.1-43.9); Red Blood Count 4.51 M/mm3 (4.2-5.4)
[2024-12-19 21:23] LABS: ALB/GLOB Ratio 1.2 RATIO (0.9-2.4); AST(SGOT) 14 U/L (<=31); Alanine Aminotransfer ALT/SGPT 7 U/L (<=34); Albumin, Serum 3.7 g/dL (3.4-4.8); Alkaline Phosphatase 91 U/L (35-104); Anion Gap 11 (5-15); BUN 10 mg/dL (4-19); BUN/Creat Ratio 12.9 RATIO (10-20); Calcium,Total 9.4 mg/dL (7.6-11.0); Carbon Dioxide 25.6 mmol/L (21.0-32.0); Chloride 103 mmol/L (98-108); Creatinine, Serum 0.78 mg/dL (0.70-1.20); EST Glomerular Filtration Rate 77 (>60); Globulin 3.2 g/dL (2.2-4.2); Glucose 89 mg/dL (70-99); Potassium 4.6 mmol/L (3.3-5.1); Protein, Total 6.8 g/dL (5.9-8.4); Sodium Level 139 mmol/L (133-145); Total Bilirubin 0.46 mg/dL (0.00-1.30)
== END | disposition home or self-care (01) ==
LOC: MTLAB 14:25
PROVIDERS: PCP Family Medicine; Referring Provider Internal Medicine Rheumatology; Visit Provider Internal Medicine Rheumatology
DX: E11.69 Type 2 diabetes mellitus with other specified complication (principal); M06.4 Inflammatory polyarthropathy; M35.89 Other specified systemic involvement of connective tissue; M18.12 Unilateral primary osteoarthritis of first carpometacarpal joint, left hand; M17.0 Bilateral primary osteoarthritis of knee; Z79.899 Other long term (current) drug therapy
CPT/HCPCS: 36415; 80053; 85025

== ENCOUNTER 2025-01-06 04:39 | Emergency (ER) | payer MEDICARE, OTHER, SELFPAY ==
[2025-01-06] VITALS (10 sets, daily range): BP systolic 118–142; BP diastolic 72–105; PULSE 112–118; RESP 20–27; TEMP 36.4–36.9; O2SAT 95–98; BMI 45.8
--- NOTE | 2025-01-06 05:00 | EKG12_ITS ---
Test Reason : SOB Blood Pressure : */* mmHG Vent. Rate : 108 BPM Atrial Rate : * BPM P-R Int : * ms QRS Dur : 74 ms QT Int : 316 ms P-R-T Axes : * 4 67 degrees QTcB Int : 423 ms Atrial fibrillation with rapid ventricular response Low voltage QRS Abnormal ECG Confirmed by REIC VEGAS MD ([id number]), pictures editor CYRUS MCFARLAND ([id number]) on 01/08/2025 8:32:24 AM Referred By: KANG Confirmed By: ERIC VEGAS MD
[2025-01-06] MEDS: MethylPREDNISolone 125 MG/2 ML Vial IV (05:09)
[2025-01-06] MEDS: Ipratropium/Albuterol Sulfate 3 ML AMPUL.NEB INHALATION ×2 (05:10→07:38)
[2025-01-06 05:32] LABS: Anion Gap 11 (5-15); BUN 11 mg/dL (4-19); BUN/Creat Ratio 15.7 RATIO (10-20); Calcium,Total 9.2 mg/dL (7.6-11.0); Carbon Dioxide 26.5 mmol/L (21.0-32.0); Chloride 98 mmol/L (98-108); EST Glomerular Filtration Rate 88 (>60); Estimated Creatinine Clearance 65.39 ml/min (50-250); Glucose 135 mg/dL (70-99); Magnesium 1.9 mg/dL (1.5-2.2); Potassium 4.2 mmol/L (3.3-5.1); Pro- Brain NATRIURETIC PEPTIDE 1053 pg/mL (<=1800); Sodium Level 135 mmol/L (133-145)
[2025-01-06 05:35] LABS: Absolute Lymphocyte Count 0.42 X10^3/uL (0.83-4.51); Basophil# 0.03 X10^3/uL; Basophil% 0.3 % (0-1); Eosinophil# 0.06 X10^3/uL; Eosinophils% 0.5 % (0-5); Hematocrit 41.1 % (37-47); Hemoglobin 12.6 g/dL (12.0-15.0); Lymphocyte # 0.42 X10^3/ul (0.83-4.51); Lymphocyte % 3.5 % (19-41); Mean Corp Hgb Conc 30.7 g/dL (32-36); Mean Corpuscular Hgb 26.4 pg (27.0-32.0); Mean Platelet Vol. 11.2 fl (6.2-12.0); Monocyte# 1.43 X10^3/uL; Monocyte% 11.9 % (0-10); NRBC Flagged by Analyzer 0 % (0-5); Neutrophil % 83.4 % (47-70); POSITIVE DIFFERENTIAL YES; Platelet Count 195 K/mm3 (150-450); RBC Distribution Width CV 15.7 % (11.6-14.6); RBC Distribution Width SD 49.5 fl (35.1-43.9); Red Blood Count 4.78 M/mm3 (4.2-5.4)
--- NOTE | 2025-01-06 05:40 | RAD_ITS ---
PROCEDURE: CHEST 1 VIEW (PORTABLE) 01/06/2025 REASON FOR EXAM: COUGH TECHNIQUE: Frontal view of the chest. COMPARISON: None available FINDINGS: Patchy opacity at the left perihilar mid to upper lung and small areas of the right mid to lower lung may be inflammatory/infectious. Pulmonary vascularity appears within limits. No pleural effusion seen. The cardiac silhouette appears within limits. Atherosclerotic changes at the aortic arch. Shoulder osteoarthrosis. RAD/Chest 1 View (Portable) IMPRESSION: Patchy opacity at the left perihilar mid to upper lung and small areas of the r ight mid to lower lung may be inflammatory/infectious. Clinically correlate and follow-up to resolution. Reading Location: [id number]
--- NOTE | 2025-01-06 07:20 | EDS_ITS ---
HPI History of Present Illness Chief Complaint: Shortness of Breath Informant: patient and family Narrative Narrative: Patient is a 79-year-old female with past medical history of COPD and persistent atrial fibrillation and hypertension. She is currently on Eliquis. She states she was admitted to the hospital in September of this year secondary to influenza leading to hypoxia and COPD exacerbation. She states since that time she wears approximate 4 L nasal cannula 12/04. She states that over the last 2 to 3 days she has been having increased congestion and cough. She denies any fevers or known sick contact. She states that this evening/morning she was sleeping with her CPAP and oxygen concentrator as she normally does. However she woke feeling short of breath and checked her pulse ox and it was low in the 70s and therefore contacted her daughter to bring her in for evaluation [facility] Medical History COVID COVID-19 vaccine dose declined Rheumatoid arthritis Anticoagulated Essential hypertension Persistent atrial fibrillation Obstructive sleep apnea COPD (chronic obstructive pulmonary disease) Morbid obesity Allergic rhinitis Osteoarthritis Vitamin D deficiency Asthma Diabetes mellitus Osteoarthritis of right knee Home Medications ?Medication ?Instructions ?Recorded ?Last Taken ?Type Cholecalciferol (Vitamin D3) 5,000 unit PO DAILY suppl ement 10/28/17 04/20/22 History [Vitamin D3] albuterol sulfate 90 mcg/actuation 108 mcg IH Q4H PRN Sob &/Or 10/28/17 04/20/22 History breath activated powder inhaler Wheezing (ProAir RespiClick) montelukast 10 mg tablet 10 mg PO DAILY asthma 10/05/24 History apixaban 5 mg tablet (Eliquis) 5 mg PO BID blood thinn er #180 tabs 06/11/22 10/05/24 Rx fluticasone fur. 200 mcg-umeclid 1 ea inhalation DAILY 07/22/22 10/05/24 History 62.5 mcg-vilant 25 mcg inhalat.powder (Trelegy Ellipta) spironolactone 25 1 tab PO DAILY 06/22/2309/20 History mg-hydrochlorothiazide 25 mg tablet vitamins A,C,S-yaan-ycatyu 4,296 1 cap PO BID 06/22/23 10/05/24 History mcg-226 mg-90 mg capsule (PreserVision AREDS) metoprolol tartrate 100 mg tablet 100 mg PO BID #180 T ABLETS 04/17/24 10/05/24 Rx diltiazem HCl 120 mg See Rx Instructions .Route 1 10/05/24 Rx capsule,extended release 24 hr .COMPLEX #90 caps albuterol sulfate 2.5 mg/3 mL 2.5 mg inhalation 4X/DAY PRN 10/05/24 10/05/24 History (0.083 %) solution for nebulization dyspnea semaglutide 0.25 mg or 0.5 mg (2 0.5 mg subcut QWEEK 0 10/05/24 09/27/24 History mg/3 mL) subcutaneous pen injector ([employer] prednisone 10 mg tablet 10 mg PO DAILY #32 tabs 09/20 05/14 Unknown Rx ramipril 5 mg capsule 5 mg PO QDAY #90 caps Unknown Rx doxycycline hyclate 100 mg capsule 100 mg PO BID 10 da ys #20 caps 01/06/25 Unknown Rx ipratropium 0.5 mg-albuterol 3 mg 3 ml inhalation Q6H PRN shortness 01/06/25 Unknown Rx (2.5 mg base)/3 mL nebulization of breath or wheezing #180 mL soln prednisone 10 mg tablet 10 mg PO UD #33 tabs 5 Unknown Rx Allergy/AdvReac Type Severity Reaction Status Date / Time codeine Allergy Unknown Verified 01/06/25 04:54 erythromycin base Allergy Unknown Verified 01/06/25 04:54 Penicillins Allergy Unknown Verified 01/06/25 04:54
--- NOTE | 2025-01-06 07:20 | EX.ED.DYSGE1 ---
HPI History of Present Illness Chief Complaint: Shortness of Breath Informant: patient and family Narrative Narrative: Patient is a 79-year-old female with past medical history of COPD and persistent atrial fibrillation and hypertension. She is currently on Eliquis. She states she was admitted to the hospital in September of this year secondary to influenza leading to hypoxia and COPD exacerbation. She states since that time she wears approximate 4 L nasal cannula 12/04. She states that over the last 2 to 3 days she has been having increased congestion and cough. She denies any fevers or known sick contact. She states that this evening/morning she was sleeping with her CPAP and oxygen concentrator as she normally does. However she woke feeling short of breath and checked her pulse ox and it was low in the 70s and therefore contacted her daughter to bring her in for evaluation [facility] Medical History COVID COVID-19 vaccine dose declined Rheumatoid arthritis Anticoagulated Essential hypertension Persistent atrial fibrillation Obstructive sleep apnea COPD (chronic obstructive pulmonary disease) Morbid obesity Allergic rhinitis Osteoarthritis Vitamin D deficiency Asthma Diabetes mellitus Osteoarthritis of right knee Home Medications ?Medication ?Instructions ?Recorded ?Last Taken ?Type Cholecalciferol (Vitamin D3) 5,000 unit PO DAILY supplement 10/28/17 04/20/22 History [Vitamin D3] albuterol sulfate 90 mcg/actuation 108 mcg IH Q4H PRN Sob &/Or 10/28/17 04/20/22 History breath activated powder inhaler Wheezing (ProAir RespiClick) montelukast 10 mg tablet 10 mg PO DAILY asthma 10/28/17 10/05/24 History apixaban 5 mg tablet (Eliquis) 5 mg PO BID blood thinner #180 tabs 06/11/22 10/05/24 Rx fluticasone fur. 200 mcg-umeclid 1 ea inhalation DAILY 07/22/22 10/05/24 History 62.5 mcg-vilant 25 mcg inhalat.powder (Trelegy Ellipta) spironolactone 25 1 tab PO DAILY 06/22/23 10/05/24 History mg-hydrochlorothiazide 25 mg tablet vitamins A,C,C-xunt-qrbrod 4,296 1 cap PO BID 06/22/23 10/05/24 History mcg-226 mg-90 mg capsule (PreserVision AREDS) metoprolol tartrate 100 mg tablet 100 mg PO BID #180 TABLETS 04/17/24 10/05/24 Rx diltiazem HCl 120 mg See Rx Instructions .Route 06/26/24 10/05/24 Rx capsule,extended release 24 hr .COMPLEX #90 caps albuterol sulfate 2.5 mg/3 mL 2.5 mg inhalation 4X/DAY PRN 10/05/24 10/05/24 History (0.083 %) solution for nebulization dyspnea semaglutide 0.25 mg or 0.5 mg (2 0.5 mg subcut QWEEK 10/05/24 09/27/24 History mg/3 mL) subcutaneous pen injector (Ozempic) prednisone 10 mg tablet 10 mg PO DAILY #32 tabs 10/07/24 Unknown Rx ramipril 5 mg capsule 5 mg PO QDAY #90 caps 10/18/24 Unknown Rx doxycycline hyclate 100 mg capsule 100 mg PO BID 10 days #20 caps 01/06/25 Unknown Rx ipratropium 0.5 mg-albuterol 3 mg 3 ml inhalation Q6H PRN shortness 01/06/25 Unknown Rx (2.5 mg base)/3 mL nebulization of breath or wheezing #180 mL soln prednisone 10 mg tablet 10 mg PO UD #33 tabs 01/06/25 Unknown Rx Allergy/AdvReac Type Severity Reaction Status Date / Time codeine Allergy Unknown Verified 01/06/25 04:54 erythromycin base Allergy Unknown Verified 01/06/25 04:54 Penicillins Allergy Unknown Verified 01/06/25 04:54 Family History Other Adopted Surgical History History of knee replacement Cataract (lens) fragments in eye following cataract surgery, bilateral History of carpal tunnel release of both wrists History of hysterectomy Social History Smoking Status: Current every day smoker tobacco type: cigarettes alcohol intake: never substance use type: does not use ROS ROS ED Constitutional Constitutional ED: Denies chills or fever(s) Eyes Eyes: Denies blurry vision or change in vision ENT ENT ED: Reports rhinorrhea; Denies sore throat Cardiovascular Cardiovascular: Reports palpitations; Denies chest pain Respiratory/Chest Respiratory/Chest: Reports cough and dyspnea Gastrointestinal Gastrointestinal: Denies abdominal pain, diarrhea, nausea or vomiting Genitourinary Genitourinary ED: Denies dysuria Musculoskeletal Musculoskeletal: Denies myalgias Integumentary Denies rash Neurologic Neurologic: Denies headache(s) Hematologic/Lymphatic Hematologic/Lymphatic: Reports easy bleeding and easy bruising Allergic/Immunologic Allergic/Immunologic ED: Denies mouth swelling or tongue swelling EXAM Physical Exam Const Vital Signs: 01/06/25 04:40 01/06/25 04:46 01/06/25 04:53 Temperature 98.3 F 98.3 F Temperature Source Axillary Axillary Pulse Rate 112 H 115 H Respiratory Rate 27 H 27 H Respiratory Effort Short of Breath Respiratory Depth Shallow Respiratory Pattern Tachypnea Blood Pressure 118/105 H 118/105 H Blood Pressure Mean 109 109 Pulse Ox 95 95 Oxygen Delivery Method Nasal Cannula Nasal Cannula Oxygen Flow Rate (L/min) 5 5 01/06/25 05:13 01/06/25 05:13 01/06/25 05:46 Temperature 98.5 F Temperature Source Axillary Pulse Rate 112 H 115 H Respiratory Rate 24 H 21 H Respiratory Effort Respiratory Depth Respiratory Pattern Blood Pressure 128/75 H Blood Pressure Mean 92 Pulse Ox 98 95 Oxygen Delivery Method Nasal Cannula Nasal Cannula Oxygen Flow Rate (L/min) 4 5 01/06/25 06:00 01/06/25 07:00 01/06/25 07:39 Temperature 97.5 F L 98.1 F Temperature Source Axillary Temporal Pulse Rate 114 H 118 H Respiratory Rate 20 H 21 H Respiratory Effort Respiratory Depth Respiratory Pattern Blood Pressure 129/73 H 142/72 H Blood Pressure Mean 91 95 Pulse Ox 98 95 97 Oxygen Delivery Method Nasal Cannula Nasal Cannula Nasal Cannula Oxygen Flow Rate (L/min) 5 4 4 Positive well nourished, well developed and obese General Appearance ED: well developed; Negative for pallor Nutritional Appearance: obese HEENT HEENT Narrative: No tongue or lip swelling no oral lesions no airway edema or compromise There is cobblestoning noted in the posterior pharynx consistent with sinus drainage; however no secondary findings to suggest infection Mucous membranes are dry and tacky Eyes PERRL and EOMs intact bilaterally General Eye ED: Negative for pale conjunctiva or scleral icterus Neck supple and no JVD Resp Resp Narrative: Breath sounds are diminished throughout with diffuse inspiratory and expiratory wheezing and rhonchi in the bilateral bases Patient is in mild respiratory distress with tachypnea. However no nasal flaring or retractions or accessory muscle use. Cardio Rate: other Other Details: Irregularly irregular rhythm with tachycardic rate consistent with history of persistent atrial fibrillation GI normal to inspection, nondistended, normoactive bowel sounds, non-tender, non-distended and no masses Auscultation: normoactive bowel sounds Palpation: soft Extremity Extremity Narrative: Trace to +1 pitting edema to the bilateral lower extremities that is equal and symmetric and chronic per patient Negative Homans' sign bilaterally Neuro oriented x3, CN's II-XII intact bilaterally and no sensory deficits noted Sensorium / Orientation: alert Motor Exam: strength 5/5 throughout Psych mental status grossly normal Skin no rashes or lesions noted General Skin Exam: Negative for jaundice or pallor MDM MDM MDM Narrative Medical decision making narrative: Patient arrived to the ER in atrial fibrillation but has a past medical history of this and is anticoagulated on Eliquis. With her history of COPD and 2 to 3 days of congestion and cough there is concern for viral infection such as COVID versus influenza versus RSV versus congestive heart failure versus pneumonia. As she is on Eliquis and has been taking as directed I have low concern for pulmonary embolus. Therefore at this time I felt no need for CTA but a chest x-ray to rule out underlying lung pathology such as CHF or pneumonia. Basic blood work was obtained which revealed slight leukocytosis at 12 overall no clinically significant finding. Viral swab is negative for COVID influenza and RSV. Chest x-ray showed findings concerning for inflammation versus infection. She is afebrile with just slight leukocytosis and I feel that her constellation of symptoms is most likely viral in nature. However because of her underlying COPD status and slight leukocytosis I will start her on antibiotic. However she is at her baseline oxygen in the ER her work of breathing has significantly improved after Solu-Medrol and DuoNebs. She does not have laboratory findings concerning for sepsis. She was also able to ambulate in the ER on her baseline oxygen without hypoxia. There was concern that her oxygen dropped secondary to a malfunctioning home concentrator. Therefore prior to discharge we contacted the company who provides the machine and they went to her house and provided a new one to ensure that she would have oxygen for home. Therefore this time as she is not showing signs of sepsis according to the concentrator company she will have a new machine available today to provide oxygen and she is at her baseline oxygen status I do not feel there is need for admission. I will place her on antibiotics secondary to her COPD exacerbation but overall I feel she can be placed on a prednisone taper as well as antibiotics and treat this at home. This plan of care was discussed with patient and family and they are agreeable to it and therefore should be discharged at this time History & Record Review Discussion w/independent historian: Patient and Family Lab Data Attestation: I reviewed the patient's lab results. Labs: Laboratory Results - last 24 hr 01/06/25 04:50 WBC 12.0 H RBC 4.78 Hgb 12.6 Hct 41.1 MCV 86.0 MCH 26.4 L MCHC 30.7 L RDW Std Deviation 49.5 H RDW Coeff of Uri 15.7 H Plt Count 195 MPV 11.2 Immature Gran % (Auto) 0.400 Neut % (Auto) 83.4 H Lymph % (Auto) 3.5 L Bullitt % (Auto) 11.9 H Eos % (Auto) 0.5 Baso % (Auto) 0.3 Absolute Neuts (auto) 10.0 H Absolute Lymphs (auto) 0.42 L Nucleated RBC % 0 Sodium 135 Potassium 4.2 Chloride 98 Carbon Dioxide 26.5 Anion Gap 11 BUN 11 Creatinine 0.70 Estim Creat Clear Calc 65.39 Est GFR (MDRD) Non-Af 88 BUN/Creatinine Ratio 15.7 Glucose 135 H Calcium 9.2 Magnesium 1.9 NT pro BNP II 1053 Radiography Diagnostic Testing: Clinical Impression(s) from Imaging Studies Chest X-Ray 01/06/25 05:40 IMPRESSION: Patchy opacity at the left perihilar mid to upper lung and small areas of the right mid to lower lung may be inflammatory/infectious. Clinically correlate and follow-up to resolution. Reading Location: [facility] Chest x-ray as interpreted by the emergency medicine physician reveals hazy opacity in the left upper lung field concerning for infection versus inflammation Discharge Plan Triage Chief Complaint: Shortness of Breath ED Provider: Gentry Zimmerman Dx/Rx/DC Orders Clinical Impression: Acute exacerbation of chronic obstructive pulmonary disease, Persistent atrial fibrillation, Essential hypertension, termite exterminator current use of amiodarone Instructions: COPD: Wheezing and Chest Tightness Prescriptions: New doxycycline hyclate 100 mg capsule 100 mg PO BID 10 Days Qty: 20 0RF ipratropium-albuterol 0.5 mg-3 mg(2.5 mg base)/3 mL solution for nebulization 3 ml inhalation Q6H PRN (Reason: shortness of breath or wheezing) Qty: 180 0RF prednisone 10 mg tablet 10 mg PO UD Qty: 33 0RF Rx Instructions: Take 4 tablets daily for 3 days, then 3 daily for 3 days, then 2 daily for 3 days, then 1 a day for 3 days then 1 QOD for 3 doses. No Action spironolacton-hydrochlorothiaz 25-25 mg tablet 1 tab PO DAILY Patient Comments: TAKE 1/2 TO 1 TABLET BY MOUTH ONCE DAILY PreserVision AREDS 4,296 mcg-226 mg-90 mg capsule 1 cap PO BID montelukast 10 MG tablet 10 mg PO DAILY ProAir RespiClick 90 MCG aerosol powdr breath activated 108 mcg IH Q4H PRN (Reason: Sob &/Or Wheezing) Cholecalciferol (Vitamin D3) [Vitamin D3] 5,000 UNIT capsule 5,000 unit PO DAILY Trelegy Ellipta 200-62.5-25 mcg blister with device 1 ea INHALATION DAILY Patient Comments: INHALE 1 PUFF DAILY FOLLOWED BY [facility] albuterol sulfate 2.5 mg /3 mL (0.083 %) solution for nebulization 2.5 mg inhalation 4X/DAY PRN Ozempic 0.25 mg or 0.5 mg (2 mg/3 mL) pen injector 0.5 mg subcut QWEEK prednisone 10 mg tablet 10 mg PO DAILY Qty: 32 0RF Rx Instructions: Take 4 tablets daily for 3 days then 3 tablets daily for 3 days then 2 tablets daily for 3 days then 1 tablet daily for 3 days then half tablet daily for 4 days Eliquis 5 mg tablet 5 mg PO BID Qty: 180 4RF metoprolol tartrate 100 mg tablet 100 mg PO BID Qty: 180 3RF diltiazem HCl 120 mg capsule,extended release 24hr See Rx Instructions .ROUTE .COMPLEX Qty: 90 3RF Dose Instruction: TAKE 1 CAPSULE BY MOUTH EVERY DAY FOR A FIB Rx Instructions: TAKE 1 CAPSULE BY MOUTH EVERY DAY FOR A FIB ramipril 5 mg capsule 5 mg PO QDAY Qty: 90 3RF Primary Care Provider: Clarecne Ryees Referrals: Clarence Reyes MD [Primary Care Provider] - Activity Restrictions/Additional Instructions: Your workup today showed long inflammation versus developing infection. However you are not requiring a higher amount of oxygen than you normally do at home and you do not have findings consistent/concerning for sepsis. Take the prescribed medications as directed to help control your symptoms and return to the ER should you have any further concerns or worsening of symptoms despite treatment Print Language: Cuban Disposition Disposition: Home, Self Care
[2025-01-06] MEDS: Doxycycline 100 MG CAPSULE PO (08:02)
== END 2025-01-06 08:26 | disposition home or self-care (01) ==
PROVIDERS: Emergency Provider Emergency Medicine; PCP Family Medicine; Visit Provider Emergency Medicine
DX: R06.02 Shortness of breath (principal); J44.1 Chronic obstructive pulmonary disease with (acute) exacerbation; I48.19 Other persistent atrial fibrillation; E11.9 Type 2 diabetes mellitus without complications; Z79.01 Long term (current) use of anticoagulants; Z90.710 Acquired absence of both cervix and uterus; I10 Essential (primary) hypertension; G47.33 Obstructive sleep apnea (adult) (pediatric); Z99.89 Dependence on other enabling machines and devices; Z79.51 Long term (current) use of inhaled steroids; Z79.85 Long-term (current) use of injectable non-insulin antidiabetic drugs; Z79.899 Other long term (current) drug therapy; Z96.659 Presence of unspecified artificial knee joint; F17.210 Nicotine dependence, cigarettes, uncomplicated
CPT/HCPCS: 71045; 80048; 83735; 83880; 85025; 87631; 93005; 94640; 99283; A4216

== ENCOUNTER → 2025-02-15 | Outpatient (CLI) | payer MEDICARE, OTHER, SELFPAY ==
[2025-02-15 12:50] LABS: Erythrocyte Sedimentation Rate 16 mm/hr (0-30)
[2025-02-15 12:53] LABS: Absolute Lymphocyte Count 0.79 X10^3/uL (0.83-4.51); Absolute Neutrophil Count 8.8 X10^3/uL (2.0-7.7); Basophil# 0.02 X10^3/uL; Basophil% 0.2 % (0-1); Eosinophil# 0.17 X10^3/uL; Eosinophils% 1.6 % (0-5); Hematocrit 38.4 % (37-47); Hemoglobin 11.8 g/dL (12.0-15.0); Lymphocyte # 0.79 X10^3/ul (0.83-4.51); Lymphocyte % 7.4 % (19-41); Mean Corp Hgb Conc 30.7 g/dL (32-36); Mean Corpuscular Hgb 26.2 pg (27.0-32.0); Mean Corpuscular Volume 85.3 fL (81-99); Mean Platelet Vol. 10.9 fl (6.2-12.0); Monocyte# 0.79 X10^3/uL; Monocyte% 7.4 % (0-10); NRBC Flagged by Analyzer 0 % (0-5); Neutrophil % 82.6 % (47-70); Platelet Count 215 K/mm3 (150-450); RBC Distribution Width CV 16.4 % (11.6-14.6); RBC Distribution Width SD 50.9 fl (35.1-43.9); White Blood Count 10.7 K/mm3 (4.4-11.0)
[2025-02-15 13:39] LABS: ALB/GLOB Ratio 1.3 RATIO (0.9-2.4); AST(SGOT) 15 U/L (<=31); Alanine Aminotransfer ALT/SGPT 9 U/L (<=34); Albumin, Serum 3.7 g/dL (3.4-4.8); Alkaline Phosphatase 100 U/L (35-104); Anion Gap 11 (5-15); BUN 10 mg/dL (4-19); BUN/Creat Ratio 14.9 RATIO (10-20); Calcium,Total 9.4 mg/dL (7.6-11.0); Carbon Dioxide 24.9 mmol/L (21.0-32.0); Chloride 103 mmol/L (98-108); Creatinine, Serum 0.65 mg/dL (0.70-1.20); EST Glomerular Filtration Rate 89 (>60); Globulin 2.8 g/dL (2.2-4.2); Glucose 111 mg/dL (70-99); Potassium 4.4 mmol/L (3.3-5.1); Protein, Total 6.6 g/dL (5.9-8.4); Sodium Level 139 mmol/L (133-145); Total Bilirubin 0.63 mg/dL (0.00-1.30)
== END | disposition home or self-care (01) ==
PROVIDERS: PCP Family Medicine; Visit Provider Internal Medicine Rheumatology
DX: M06.4 Inflammatory polyarthropathy (principal); M35.89 Other specified systemic involvement of connective tissue; M18.12 Unilateral primary osteoarthritis of first carpometacarpal joint, left hand; M17.0 Bilateral primary osteoarthritis of knee; Z79.899 Other long term (current) drug therapy
CPT/HCPCS: 36415; 80053; 85025; 85652; 86140

== ENCOUNTER → 2025-03-01 | Outpatient (CLI) | payer MEDICARE, OTHER, SELFPAY ==
--- NOTE | 2025-03-01 17:01 | CT_ITS ---
PROCEDURE: LOW DOSE CT LUNG SCREENING 03/01/2025 REASON FOR EXAM: PERSONAL HX OF NICOTINE USE TECHNIQUE: Low Dose CT Lung screening without contrast. Coronal and Sagittal reconstruction series were provided. One or more dose reduction techniques were used (e.g., Automated exposure control, adjustment of the mA and/or kV according to patient size, use of iterative reconstruction technique). REFERENCE LINK: [employer] Lung-RADS RADIATION DOSE SUMMARY: CTDlvol: 4.02 mGy DLP: 123.35 mGycm COMPARISON: Prior study dated February 29, 2024. FINDINGS: PULMONARY NODULES: (Only nodules >3mm are reported) Nodules described below are on series 1 unless otherwise specified. Pulmonary Nodules: Stable 2 mm partially calcified nodule in the anterior right lung apex. 2 mm partially calcified nodule in the peripheral lateral aspect of the left upper lobe as seen on axial image number 74. Hardware:None Lymph Nodes:No suspicious lymph nodes are seen. Heart and Vasculature:Heart is nonenlarged Coronary Artery Calcifications: Present Lungs and Airways: Mild scarring in the lingular segment of the left upper lobe. Pleura:No pleural effusion. Upper Abdomen:Unremarkable Bones:Degenerative changes of the thoracic spine. CT/Low Dose CT Lung Screening IMPRESSION: Stable examination. Coronary artery calcification (CAC) is is present Lung-RADS Category: 2 BENIGN (BASED ON IMAGING FEATURES OR INDOLENT BEHAVIOR). RECOMMEND 12-MONTH SCREENING LDCT. Other Significant Findings: None. Reading Location: [id number]
== END | disposition home or self-care (01) ==
LOC: CT 17:00
PROVIDERS: PCP Family Medicine; Referring Provider Internal Medicine Pulmonary Disease; Visit Provider Internal Medicine Pulmonary Disease
DX: Z87.891 Personal history of nicotine dependence (principal)
CPT/HCPCS: 71271

== ENCOUNTER → 2025-04-04 | Outpatient (CLI) | payer MEDICARE, OTHER, SELFPAY ==
[2025-04-04 15:54] LABS: Hematocrit 37.5 % (37-47); Hemoglobin 11.2 g/dL (12.0-15.0); Mean Corp Hgb Conc 29.9 g/dL (32-36); Mean Corpuscular Volume 85.4 fL (81-99); Mean Platelet Vol. 11.2 fl (6.2-12.0); Platelet Count 208 K/mm3 (150-450); RBC Distribution Width CV 17.2 % (11.6-14.6); RBC Distribution Width SD 54.5 fl (35.1-43.9); Red Blood Count 4.39 M/mm3 (4.2-5.4); White Blood Count 9.7 K/mm3 (4.4-11.0)
[2025-04-04 16:45] LABS: Pro- Brain NATRIURETIC PEPTIDE 1284 pg/mL (<=1800)
[2025-04-04 16:46] LABS: Anion Gap 11 (5-15); BUN 12 mg/dL (4-19); BUN/Creat Ratio 16.3 RATIO (10-20); Calcium,Total 9.0 mg/dL (7.6-11.0); Carbon Dioxide 25.7 mmol/L (21.0-32.0); Chloride 102 mmol/L (98-108); Glucose 115 mg/dL (70-99); Potassium 4.7 mmol/L (3.3-5.1)
== END | disposition home or self-care (01) ==
LOC: LAB 14:25
PROVIDERS: PCP Family Medicine; Referring Provider Physician Assistant Medical; Visit Provider Physician Assistant Medical
DX: R06.09 Other forms of dyspnea (principal)
CPT/HCPCS: 36415; 80048; 83880; 85027

== ENCOUNTER → 2025-04-11 | Outpatient (CLI) | payer MEDICARE, OTHER, SELFPAY | END | disposition home or self-care (01) | LOC: PSN 08:00 | PROVIDERS: PCP Family Medicine; Referring Provider Physician Assistant Medical; Visit Provider Physician Assistant Medical | DX: I48.91 Unspecified atrial fibrillation (principal); R06.02 Shortness of breath | CPT/HCPCS: 93225; 93226 ==

== ENCOUNTER → 2025-04-17 | Outpatient (CLI) | payer MEDICARE, OTHER, SELFPAY ==
--- NOTE | 2025-04-17 13:45 | ECHOD_ITS ---
Reason For Study Reason For Study: OBSTRUCTIVE SLEEP APNEA Procedure This was a 2D Doppler, Color Flow transthoracic echocardiogram. The study was technically difficult. Exam performed in department. Unable to do RV Strain due to arrhythmia. Left Ventricle Normal LV size. Left ventricular systolic function is normal. The left ventricular ejection fraction is 55 %. No regional wall motion abnormalities noted. Right Ventricle Normal RV size. Normal systolic function. Atria Normal left atrium. Normal right atrium. Mitral Valve Normal mitral valve. Mild-Moderate (1-2+) eccentric mitral valve insufficiency. Tricuspid Valve Normal tricuspid valve. Mild to moderate (1-2+) tricuspid valve insufficiency. Pulmonary artery systolic pressure is 40 mmHg. Aortic Valve Trisinus/trileaflet aortic valve. Mild focal aortic valve calcification. Pulmonic Valve Normal pulmonic valve. Great Vessels Normal aortic root. The pulmonary artery is normal size. The inferior vena cava is dilated. Pericardium/Pleural No pericardial effusion. MMode/2D Measurements & Calculations LVIDd: 4.5 cm IVSd: 1.0 cm LVOT diam: 1.9 cm LVIDs: 3.2 cm LVPWd: 1.1 cm LVOT area: 2.9 cm2 RVDd: 3.9 cm FS: 30.0 % asc Aorta Diam: 3.7 cm LAV(MOD-bp): 49.7 ml LVAd ap4: 18.8 cm2 LAV(MOD-bp) Indexed: 24.1 ml/m2 LVLd ap4: 6.6 cm LAV(MOD-sp2): 49.0 ml EDV(MOD-sp4): 43.4 ml LAV(MOD-sp4): 44.5 ml EDV(sp4-el): 45.2 ml LVAs ap4: 12.4 cm2 LVLs ap4: 6.0 cm ESV(MOD-sp4): 22.0 ml ESV(sp4-el): 21.8 ml EF(MOD-sp4): 49.3 % EF(sp4-el): 51.8 % LVAd ap2: 20.2 cm2 SV(MOD-sp4): 21.4 ml SV(MOD-sp2): 30.3 ml LVLd ap2: 6.8 cm SI(MOD-sp4): 10.4 ml/m2 SI(MOD-sp2): 14.7 ml/m2 EDV(MOD-sp2): 49.2 ml EDV(sp2-el): 51.1 ml LVAs ap2: 11.4 cm2 LVLs ap2: 5.7 cm ESV(MOD-sp2): 18.9 ml ESV(sp2-el): 19.3 ml EF(MOD-sp2): 61.6 % SV(sp4-el): 23.[address] Junction: 2.8 cm LA A4 area: 17.4 cm2 LA dimension(2D): 4.3 cm RA A4 area: 17.5 cm2 TAPSE: 0.98 cm Time Measurements MV dec time: 0.14 sec Doppler Measurements & Calculations MV E max rhoda: 98.0 cm/sec Ao V2 max: 128.6 cm/sec LV V1 max: 102.3 cm/sec Ao max P.6 mmHg LV V1 max P.2 mmHg Ao V2 mean: 102.0 cm/sec LV V1 mean P.8 mmHg Ao mean P.4 mmHg LV V1 mean: 80.9 cm/sec Ao V2 VTI: 26.3 cm LV V1 VTI: 19.8 cm AV (velocity ratio): 0.75 NADIA(I,D): 2.2 cm2 NADIA(V,D): 2.3 cm2 SV(LVOT): 57.6 ml PA V2 max: 77.3 cm/sec TR max rhoda: 303.9 cm/sec TR max P.0 mmHg ECHO/Echo Complete Interpretation Summary Normal LV size. Left ventricular systolic function is normal. The left ventricular ejection fraction is 55 %. Mild-Moderate (1-2+) eccentric mitral valve insufficiency. Pulmonary artery systolic pressure is 40 mmHg. Ordering Physician: Robby Man V Referring Physician: Clarence Reyes MD Performed By: Suzie Barger RDCS
== END | disposition home or self-care (01) ==
LOC: CVS 13:44
PROVIDERS: PCP Family Medicine; Referring Provider Internal Medicine Pulmonary Disease; Visit Provider Internal Medicine Pulmonary Disease
DX: J44.9 Chronic obstructive pulmonary disease, unspecified (principal); G47.33 Obstructive sleep apnea (adult) (pediatric)
CPT/HCPCS: 93306

== ENCOUNTER → 2025-05-31 | Outpatient (CLI) | payer MEDICARE, OTHER, SELFPAY ==
[2025-05-31 16:18] LABS: Microalbumin,Random Urine < 12.0 mg/L (<20 mg/L)
[2025-06-01 21:07] LABS: Anion Gap 13 (5-15); BUN 12 mg/dL (4-19); BUN/Creat Ratio 14.0 RATIO (10-20); Calcium,Total 9.5 mg/dL (7.6-11.0); Carbon Dioxide 23.1 mmol/L (21.0-32.0); Chloride 101 mmol/L (98-108); Glucose 94 mg/dL (70-99); Potassium 4.8 mmol/L (3.3-5.1)
== END | disposition home or self-care (01) ==
LOC: MTLAB 12:38
PROVIDERS: PCP Family Medicine; Referring Provider Physician Assistant Medical; Visit Provider Physician Assistant Medical
DX: E11.69 Type 2 diabetes mellitus with other specified complication (principal)
CPT/HCPCS: 36415; 80048; 82043

== ENCOUNTER → 2025-07-24 | Outpatient (CLI) | payer MEDICARE, OTHER, SELFPAY ==
[2025-07-24 15:30] LABS: Hematocrit 43.1 % (37-47); Hemoglobin 13.6 g/dL (12.0-15.0); Immature Granulocytes Count 0.040 X10^3/uL (0.0-0.0); Mean Corp Hgb Conc 31.6 g/dL (32-36); Mean Corpuscular Volume 82.9 fL (81-99); Mean Platelet Vol. 11.0 fl (6.2-12.0); NRBC Flagged by Analyzer 0 % (0-5); Platelet Count 235 K/mm3 (150-450); RBC Distribution Width CV 17.9 % (11.6-14.6); RBC Distribution Width SD 53.3 fl (35.1-43.9); Red Blood Count 5.20 M/mm3 (4.2-5.4); White Blood Count 9.4 K/mm3 (4.4-11.0)
[2025-07-24 15:38] LABS: AST(SGOT) 19 U/L (<=31); Alanine Aminotransfer ALT/SGPT 15 U/L (<=34); Albumin, Serum 4.0 g/dL (3.4-4.8); Alkaline Phosphatase 112 U/L (35-104); Anion Gap 7 (5-15); BUN 12 mg/dL (4-19); BUN/Creat Ratio 16.4 RATIO (10-20); CRP 4.21 mg/L (0.0-3.0); Calcium,Total 9.6 mg/dL (7.6-11.0); Carbon Dioxide 28.9 mmol/L (21.0-32.0); Chloride 102 mmol/L (98-108); Cholesterol 192 mg/dL (<=200); Globulin 3.1 g/dL (2.2-4.2); Glucose 89 mg/dL (70-99); Low Density Lipoprotein Calc. 125 mg/dL; Potassium 4.8 mmol/L (3.3-5.1); Triglycerides 83 mg/dL; Very Low Density Lipoprotein 17 mg/dL (5-40); cholesterol:hdl ratio screen 3.68
== END | disposition home or self-care (01) ==
LOC: MFPLAB 12:11
PROVIDERS: PCP Family Medicine; Visit Provider Family Medicine
DX: M06.4 Inflammatory polyarthropathy (principal); M35.89 Other specified systemic involvement of connective tissue; Z79.899 Other long term (current) drug therapy; M18.12 Unilateral primary osteoarthritis of first carpometacarpal joint, left hand; M17.0 Bilateral primary osteoarthritis of knee
CPT/HCPCS: 36415; 80053; 80061; 83036; 84443; 85025; 85652; 86140